=== PATIENT | female | born 1950 | race Caucasian/White ===

== ENCOUNTER 2018-01-29 09:26 | Emergency (ER) | payer MEDICARE, MEDICAID, SELFPAY ==
[2018-01-29 09:30] VITALS: BP 158/87; PULSE 80; RESP 18; TEMP 36.8; O2SAT 98
--- NOTE | 2018-01-29 09:57 | ED.GENADUL_ITS ---
Discharge Plan Disposition Patient Disposition: HOME Condition: Stable Discharge Details Chief Complaint: Orthopedic Clinical Impression: Hip pain Primary Care Provider: Olivia Escobar ED Provider: Nancy Adams Home Meds and New Rx's Prescriptions: New cyclobenzaprine 5 mg tablet 5 mg PO TID PRN (Reason: pain) Qty: 9 RF: 0 Continue multivitamin [Daily Multiple] 1 EACH tablet 1 ea PO DAILY RF: 0 cholecalciferol (vitamin D3) [Vitamin D3] 2,000 UNIT capsule 2,000 unit PO DAILY RF: 0 calcium carb,[id number] D3 [Calcium Magnesium + D] 1 EACH tablet 1 ea PO DAILY RF: 0 clobetasol-emollient 45 GM cream 45 gm Topical BID Qty: 1 RF: 2 ferrous sulfate [Iron (ferrous sulfate)] 325 MG tablet 325 mg PO PRN RF: 0 aspirin, buffered 325 mg Tablet 325 mg PO DAILY RF: 0 naproxen sodium [Aleve] 220 mg Tablet 220 mg PO BID PRNRF: 0 ibuprofen 200 mg Tablet 400 mg PO DAILY RF: 0 Discharge Instructions Instructions: Cyclobenzaprine (By mouth), Sciatica (ED), Hip Pain (ED), Lower Back Exercises (ED) Additional Instructions: Please return immediately to the emergency department if you develop any new or worsening symptoms or if you become otherwise concerned. It is extremely important that you make an appointment to be seen by your primary care doctor and by physical therapy within the next 1-2 weeks and follow-up for this visit. Referrals: Olivia Escobar [Primary Care Provider] - Clement Vega, PT [PHYSICAL THERAPIST] - Discharge Data Discharge Date/Time-TO BE ENTERED AT DEPARTURE: 01/29/18 11:49 Medical Decision Making Yamel Hess is a 29-year-old woman with history of lichen sclerosis and no other major medical problems presenting to the emergency department with gradually worsening left buttock/hip pain, with acute worsening yesterday when she slipped but did not fall on ice. Benign physical exam without motor/ sensory deficit, vascular deficit, skin changes. Concern for likely sciatica. Doubt fracture, however will obtain x-rays for rule out pathologic bony process. Exam/history not consistent with myositis, abscess, DVT, cauda equina syndrome, other cord compression, or other acute emergent life or limb threatening process. Patient declines pain medication at this time. X-rays okay. Patient again declines pain medication. Lengthy discussion with patient regarding return to emergency department precautions and importance of outpatient follow-up with PCP and physical therapy. Patient is amenable to the plan. Patient walked out of the emergency department without issue. Medical Records Medical records reviewed: Yes I reviewed the patient's medical records. Imaging Data Radiologic Study: Attestation: I personally reviewed and interpreted this imaging study as follows: Radiologist's impression: LEFT HIP AND PELVIS: Two views. No bone or joint abnormality is identified. The soft tissues are unremarkable. IMPRESSION: No acute abnormality. HPI General Mode of arrival: ambulatory . Date/Time Provider Initiated Documentation: 01/29/18 09:40 . Limitations to Documentation: no limitations . Information obtained by: patient, RN notes reviewed and old records reviewed . HPI Narrative: Yamel Hess is a 67-year-old woman with history of lichen sclerosis presenting to the emergency department with hip pain. Patient reports that over the past few weeks she has noticed increasing pain in her left buttock and left hip. Patient reports that she was walking down a ramp yesterday afternoon carrying a heavy box and slipped on ice. She did not fall. Patient reports that since that slip she has had increased pain in the left hip and buttock, to the point where it is very difficult for her to sit down. She is more comfortable standing and walking. She denies any back pain or any other pain, although she reports the pain in buttock radiates somewhat into the back of her left thigh. No fevers, no cough, no shortness of breath, no numbness, no tingling, no weakness, no rash. Otherwise has been in her usual state of health. No recent travel. No swelling of the lower legs. No changes in urination or bowel movements. Has been eating and drinking normally. Patient reports that her pain is manageable, but she came to the emergency department out of concern for what the cause of her pain is. Related Data Home Medications Medication Instructions Recorded Confirmed calcium carb,[id number] D3 1 ea PO DAILY 11/13/14 01/29/18 [Calcium Magnesium + D] cholecalciferol (vitamin D3) 2,000 unit PO DAILY 11/13/14 01/29/18 [Vitamin D3] clobetasol-emollient 45 gm TOPICAL BID #1 tube 11/13/14 multivitamin [Daily Multiple] 1 ea PO DAILY 11/13/14 01/29/18 ferrous sulfate [Iron (ferrous 325 mg PO PRN 08/23/17 01/29/18 sulfate)] aspirin, buffered 325 mg PO DAILY 01/29/18 01/29/18 cyclobenzaprine 5 mg PO TID PRN #9 tab 01/29/18 ibuprofen 400 mg PO DAILY 01/29/18 01/29/18 naproxen sodium [Aleve] 220 mg PO BID PRN 01/29/18 01/29/18 Previous Rx's Medication Instructions Recorded cyclobenzaprine 5 mg PO TID PRN #9 tab 01/29/18 Allergies Allergy/AdvReac Type Severity Reaction Status Date / Time latex Allergy Unverified 01/29/18 09:34 venom-honey bee Allergy Unverified 01/29/18 09:34 iodine AdvReac Intermediate Vomiting Unverified 01/29/18 09:34 General Stated Complaint: Orthopedic RADHA: 4 Review of Systems Review of Systems Constitutional: denies fevers Eyes: denies eye pain ENT: denies facial pain, dental pain, sore throat Cardiovascular: denies chest pain, edema Respiratory: denies SOB, cough GI: denies abdominal pain, vomiting, diarrhea, constipation : denies flank pain, denies urinary hesitancy/retention, incontinence MSK: denies back pain, neck pain, reports left hip and buttock pain Skin: denies rash Neuro: denies headaches, weakness, n/t PFSH Lichen sclerosus et atrophicus Family History Mother Heart disease Father Personal history of malignant neoplasm section Rotator Cuff Repair Family History Mother Heart disease Father Personal history of malignant neoplasm Medical History Lichen sclerosus et atrophicus Social History Smoking/Tobacco Use Status: Never Surgical History section Rotator Cuff Repair Social History Smoking/Tobacco Use Status: Never Exam Narrative Exam Narrative: Constitutional: well and [id number]-[id number]-gkcbrphsk, pleasant, conversing normally. And throughout exam, normal gait HENT: head atraumatic, normocephalic normal inspection, mucous membranes moist Eyes: conjunctiva normal, sclera normal, pupils 3mm b/l Neck: no stridor, normal ROM, trachea midline Resp: normal work of breathing Cardio: normal rate, normal rhythm, DP pulses intact and symmetric Back: normal inspection, no rash, no lumbar vertebral or paraspinal tenderness to palpation. Left buttock tender to palpation over ischial spine, mild tenderness palpation over left lateral hip. No skin changes, no edema. Skin: warm, dry, normal color, no rash Neuro: alert, not altered, grossly non-focal, normal tone. Motor 5 out of 5 bilateral legs, no sensory deficit. Ext: no edema, no posterior calf tenderness, feet warm and well-perfused bilaterally Psych: normal mood, normal affect, normal behavior Course Vital Signs Temperature 36.8 C 01/29/18 09:30 Pulse 80 01/29/18 09:30 Respiratory Rate 18 01/29/18 09:30 Blood Pressure 158/87 H 01/29/18 09:30 Pulse Oximetry 98 01/29/18 09:30 Temperature 36.8 C 01/29/18 09:30 Temperature Source Temporal Artery Scan 01/29/18 09:30 Pulse 80 01/29/18 09:30 Respiratory Rate 18 01/29/18 09:30 Respiratory Effort Non-Labored 01/29/18 09:33 Blood Pressure 158/87 H 01/29/18 09:30 Pulse Oximetry 98 01/29/18 09:30 Oxygen Delivery Method Room Air 01/29/18 09:30 Oxygen Flow Rate 0 01/29/18 09:30 Pain Level 10 01/29/18 09:30
--- NOTE | 2018-01-29 10:11 | NUR.NOTE ---
MD Adams is at the bedside.
--- NOTE | 2018-01-29 10:13 | DI.RAD_ITS ---
SYMPTOM/DIAGNOSIS: LT HIP AND BUTTOCK PAIN, MINOR TRAUMA LEFT HIP AND PELVIS: Two views. No bone or joint abnormality is identified. The soft tissues are unremarkable. IMPRESSION: No acute abnormality.
[2018-01-29 11:49] VITALS: BP 154/78; PULSE 79; RESP 16; O2SAT 100
== END 2018-01-29 11:49 | disposition home or self-care (01) ==
LOC: ER 11:49
PROVIDERS: Emergency Provider Student in an Organized Health Care Education/Training Program; PCP Nurse Practitioner
DX: M25.552 Pain in left hip (principal); W00.0XXA Fall on same level due to ice and snow, initial encounter
CPT/HCPCS: 99283; 73502

== ENCOUNTER → 2018-02-06 08:55 | Outpatient (BNVA) | payer MEDICARE, MEDICAID, SELFPAY | PROVIDERS: PCP Nurse Practitioner; Referring Provider Nurse Practitioner; Visit Provider Orthopaedic Surgery | DX: M70.61 Trochanteric bursitis, right hip (principal); M70.62 Trochanteric bursitis, left hip; M25.552 Pain in left hip | CPT/HCPCS: 99211; 99214 ==

== ENCOUNTER 2018-03-05 11:11 | Outpatient (REF) | payer MEDICARE, SELFPAY ==
[2018-03-05 13:41] LABS: HCT 35.9 % (36.0-46.0); HGB 11.2 g/dL (12.0-15.5); Mean Corp. HGB Concentration 31.2 g/dL (32.0-36.0); Mean Corpuscular Hemoglobin 25.1 pg (27.0-33.0); Mean Corpuscular Volume 80.5 fL (80-95); Mean Platelet Volume 11.4 fL (8.0-11.0); Platelet Count 255 x1000/uL (130-400); RBC 4.46 m/cumm (4.00-5.20); RBC Distribution Width 16.8 % (11.7-14.6); White Blood Cell Count 5.31 k/cumm (4.4-10.8)
[2018-03-05 13:52] LABS: Iron 55 ug/dL (50-175); Total Iron Binding Capacity 420 ug/dL (250-450); Transferrin Sat 13 % (15-50)
[2018-03-05 14:09] LABS: Ferritin 9 ng/mL (8-388)
== END 2018-03-05 11:31 ==
LOC: NCHCN 11:11
PROVIDERS: PCP Nurse Practitioner; Visit Provider Nurse Practitioner
DX: D64.9 Anemia, unspecified (principal)
CPT/HCPCS: 85027; 82728; 83540; 83550

== ENCOUNTER → 2018-03-21 09:00 | Outpatient (BNVA) | payer MEDICARE, MEDICAID, SELFPAY | PROVIDERS: PCP Nurse Practitioner; Referring Provider Nurse Practitioner; Visit Provider Orthopaedic Surgery | DX: M70.62 Trochanteric bursitis, left hip (principal) | CPT/HCPCS: 99213 ==

== ENCOUNTER 2018-06-19 09:03 | Outpatient (REF) | payer MEDICARE, SELFPAY ==
[2018-06-19 13:46] LABS: Abs Immature Grans 0.01 k/cumm (0.0-0.09); Absolute Basophil Count 0.01 k/cumm (0.0-0.2); Absolute Eosinophil Count 0.31 k/cumm (0.0-0.7); Absolute Lymphocyte Count 1.21 k/cumm (1.2-3.4); Absolute Monocyte Count 0.62 k/cumm (0.11-0.7); Absolute Neutrophil Count 3.28 k/cumm (1.2-6.7); Basophils % 0.2; Eosinophils % 5.7; HCT 36.1 % (36.0-46.0); HGB 11.4 g/dL (12.0-15.5); Immature Grans % 0.2; Lymphocytes % 22.2; Mean Corp. HGB Concentration 31.6 g/dL (32.0-36.0); Mean Corpuscular Hemoglobin 25.9 pg (27.0-33.0); Mean Platelet Volume 11.3 fL (8.0-11.0); Monocytes % 11.4; Neutrophils % 60.3; Platelet Count 237 x1000/uL (130-400); RBC Distribution Width 17.1 % (11.7-14.6); White Blood Cell Count 5.44 k/cumm (4.4-10.8)
[2018-06-19 14:50] LABS: ALT 30 U/L (12-78); AST 22 U/L (15-37); Albumin 3.6 g/dL (3.4-5.0); Alkaline Phosphatase 99 U/L (46-116); Anion Gap 7.7 mmol/L (3-11); BUN 19 mg/dL (7-18); Bilirubin, Total 0.4 mg/dL (0.2-1.0); CO2 29.3 mmol/L (21.0-32.0); CREATININE 1.01 mg/dL (0.55-1.02); Calcium 8.7 mg/dL (8.5-10.1); Chloride 103 mmol/L (98-107); Estimated GFR 54.51 (mL/min/1.73m2); Glucose 101 mg/dL (70-100); Potassium 4.1 mmol/L (3.5-5.1); Sodium 140 mmol/L (136-145); TSH (W/Ref FT4) 1.93 uIU/mL (0.358-3.74); Total Protein 6.9 g/dL (6.4-8.2)
[2018-06-19 15:11] LABS: Iron 71 ug/dL (50-175); Total Iron Binding Capacity 395 ug/dL (250-450); Transferrin Sat 18 % (15-50)
[2018-06-19 15:44] LABS: Folate 18.9 ng/mL (8.6-20.0); Vitamin B12 453 pg/mL (193-986)
[2018-06-19 19:45] LABS: Vitamin D 25 Total 23.2 ng/ml (30-100)
[2018-06-20 11:59] LABS: IgA 320 mg/dL (85-499); Interpretation SEE COMMENTS; Tissue Transglutaminase IgA <1.2 U/mL (<4.0)
== END 2018-06-19 09:23 ==
LOC: NCHCN 09:03
PROVIDERS: PCP Nurse Practitioner; Visit Provider Nurse Practitioner
DX: D64.9 Anemia, unspecified (principal); E55.9 Vitamin D deficiency, unspecified; R53.83 Other fatigue
CPT/HCPCS: 80053; 82306; 82784; 83516; 82607; 82746; 83540; 83550; 84443; 85025

== ENCOUNTER 2019-03-06 12:36 | Outpatient (REF) | payer MEDICARE, SELFPAY ==
[2019-03-06 13:11] LABS: Absolute Basophil Count 0.02 k/cumm (0.0-0.2); Absolute Eosinophil Count 0.31 k/cumm (0.0-0.7); Absolute Lymphocyte Count 1.47 k/cumm (1.2-3.4); Basophils % 0.4; Eosinophils % 5.8; HCT 38.9 % (36.0-46.0); HGB 12.4 g/dL (12.0-15.5); Lymphocytes % 27.7; Mean Corp. HGB Concentration 31.9 g/dL (32.0-36.0); Mean Corpuscular Hemoglobin 27.2 pg (27.0-33.0); Mean Corpuscular Volume 85.3 fL (80-95); Mean Platelet Volume 11.4 fL (8.0-11.0); Monocytes % 13.2; Neutrophils % 52.9; Platelet Count 239 x1000/uL (130-400); RBC 4.56 m/cumm (4.00-5.20); RBC Distribution Width 15.5 % (11.7-14.6)
[2019-03-06 13:27] LABS: Iron 84 ug/dL (50-170); Total Iron Binding Capacity 392 ug/dL (250-450); Transferrin Sat 21 % (15-50)
[2019-03-06 14:03] LABS: ALT 23 U/L (14-59); AST 17 U/L (15-37); Albumin 3.7 g/dL (3.4-5.0); Alkaline Phosphatase 95 U/L (46-116); Anion Gap 9.4 mmol/L (3-11); BUN 18 mg/dL (7-18); Bilirubin, Total 0.4 mg/dL (0.2-1.0); CO2 28.6 mmol/L (21.0-32.0); CREATININE 0.94 mg/dL (0.55-1.02); Calcium 8.8 mg/dL (8.5-10.1); Calculated LDL 125 mg/dL; Chloride 104 mmol/L (98-107); Cholesterol 221 mg/dL (<200); Estimated GFR 59.04 (mL/min/1.73m2); Ferritin 11 ng/mL (8-252); Glucose 95 mg/dL (74-106); HDL Cholesterol 70 mg/dL (40-60); Potassium 3.9 mmol/L (3.5-5.1); Sodium 142 mmol/L (136-145); Total Protein 7.1 g/dL (6.4-8.2); Triglyceride 133 mg/dL (<150)
[2019-03-07 05:44] LABS: Vitamin D 25 Total 41.6 ng/ml (30-100)
== END 2019-03-06 12:56 ==
LOC: NCHCN 12:36
PROVIDERS: PCP Nurse Practitioner; Visit Provider Nurse Practitioner
DX: D50.9 Iron deficiency anemia, unspecified (principal); E55.9 Vitamin D deficiency, unspecified; M85.80 Other specified disorders of bone density and structure, unspecified site; M25.50 Pain in unspecified joint; E78.89 Other lipoprotein metabolism disorders
CPT/HCPCS: 80053; 80061; 82306; 82728; 83540; 83550; 85025

== ENCOUNTER 2019-05-09 00:49 | Outpatient (CLI) | payer MEDICARE, SELFPAY ==
--- NOTE | 2019-05-09 15:00 | DI.DEXA_ITS ---
EXAM: XR DEXA BONE DENSITY W/WO [facility] CLINICAL HISTORY: OSTEOPENIA, M85.88 TECHNIQUE: Hologic densitometer COMPARISON: 2006 FINDINGS: The MIGUEL image shows no evidence of compression fractures. The bone mineral density measurements of t he lumbar spine correspond to a total T-score of -0.8, in the normal range. This is not significantl y changed from 2007. The bone mineral density measurements of the left hip correspond to a total T-score of -1.0 and a fem oral neck T-score of -1.7, in the osteopenic range. This is a 9.7 percent decrease when compared wit h 2006. Bone mineral density measurements of the left forearm correspond to a T-score of the distal 3rd of -1.4, in the osteopenic range. The forearm was not analyzed in 2006. IMPRESSION: Osteopenia of the left forearm and left hip. Normal bone mineral density of the lumbar spine.
--- NOTE | 2019-05-09 15:20 | DI.MAMMO_ITS ---
EXAM: MAMMO SCREENING CLINICAL HISTORY: SCREENING, Z12.39 TECHNIQUE: Mammograms were interpreted according to the usual protocol including computer analysis w [employer] CAD system, tomosynthesis and C-view imaging. COMPARISON: 2009 and 2014 FINDINGS: The breasts are composed of scattered fibroglandular densities, Breast Density category B. No suspicious masses or suspicious microcalcifications are seen. No skin thickening or abnormal axillary lymph nodes are seen. There has been no significant change from prior exams. IMPRESSION: BI-RADS category 1, yearly screening mammography is recommended. Breast density category B, scattered fibroglandular densities.
== END 2019-05-09 01:09 ==
PROVIDERS: PCP Nurse Practitioner; Visit Provider Family Medicine
DX: M85.88 Other specified disorders of bone density and structure, other site (principal); Z12.31 Encounter for screening mammogram for malignant neoplasm of breast
CPT/HCPCS: 77063; 77067; 77080

== ENCOUNTER 2020-01-21 16:07 | Outpatient (REF) | payer MEDICARE, SELFPAY ==
[2020-01-25 07:14] LABS: Patient Race White; SARS-CoV-2 RNA Undetected (Undetected); SARS-CoV-2 Specimen Source Nasal
== END 2020-01-21 16:27 ==
LOC: NCHCN 16:07
PROVIDERS: PCP Nurse Practitioner; Visit Provider Nurse Practitioner Family
DX: Z20.828 Contact with and (suspected) exposure to other viral communicable diseases (principal)
CPT/HCPCS: U0003

== ENCOUNTER 2020-04-09 15:15 | Outpatient (REF) | payer MEDICARE, SELFPAY ==
[2020-04-09 17:51] LABS: HCT 33.5 % (36.0-46.0); HGB 10.6 g/dL (11.2-15.7); MCH 25.7 pg (27.0-33.0); MCHC 31.6 % (32.0-36.0); MCV 81.3 fL (80-95); MPV 10.8 fL (8.0-11.0); Platelet Count 291 10^3/uL (130-400); RBC 4.12 10^6/uL (3.93-5.22); RDW 14.7 % (11.7-14.6); RDW-SD 43.2 fL; WBC 5.51 10^3/uL (4.4-10.8)
[2020-04-09 18:05] LABS: ALT 29 U/L (14-59); AST 25 U/L (15-37); Albumin 3.8 g/dL (3.4-5.0); Alkaline Phosphatase 100 U/L (46-116); Anion Gap 8.7 mmol/L (3-11); BUN 19 mg/dL (7-18); Bilirubin, Total 0.3 mg/dL (0.2-1.0); CO2 28.3 mmol/L (21.0-32.0); Calcium 8.8 mg/dL (8.5-10.1); Calculated LDL 121 mg/dL (<100); Chloride 103 mmol/L (98-107); Cholesterol 220 mg/dL (<200); Estimated GFR 54.81 (mL/min/1.73m2); Glucose 98 mg/dL (74-106); HDL Cholesterol 69 mg/dL (40-60); Potassium 3.9 mmol/L (3.5-5.1); Sodium 140 mmol/L (136-145); Total Protein 7.2 g/dL (6.4-8.2); Triglyceride 150 mg/dL (<150)
== END 2020-04-09 15:16 | disposition home or self-care (01) ==
LOC: NCHCN 15:15
PROVIDERS: PCP Nurse Practitioner; Visit Provider Nurse Practitioner
DX: M85.88 Other specified disorders of bone density and structure, other site (principal); D50.9 Iron deficiency anemia, unspecified; Z13.89 Encounter for screening for other disorder
CPT/HCPCS: 80053; 80061; 85027

== ENCOUNTER 2020-04-14 13:15 | Outpatient (REF) | payer MEDICARE, SELFPAY ==
[2020-04-14 13:16] LABS: Iron 47 ug/dL (50-170); Total Iron Binding Capacity 439 ug/dL (250-450); Transferrin Sat 11 % (15-50)
[2020-04-14 13:40] LABS: Ferritin 7 ng/mL (8-252); Folate 18.5 ng/mL (8.6-20.0); Vitamin B12 595 pg/mL (193-986)
== END 2020-04-14 13:16 | disposition home or self-care (01) ==
LOC: NCHCN 13:15
PROVIDERS: PCP Nurse Practitioner; Visit Provider Nurse Practitioner
DX: D64.9 Anemia, unspecified (principal)
CPT/HCPCS: 82607; 82728; 82746; 83540; 83550

== ENCOUNTER 2020-04-23 02:48 | Outpatient (CLI) | payer MEDICARE, MEDICAID, SELFPAY ==
[2020-04-23 11:27] LABS: Source Nasal/Nares
[2020-04-23 18:17] LABS: COVID-19 PCR Negative (Negative)
== END 2020-04-23 02:49 | disposition home or self-care (01) ==
LOC: LBO 02:49
PROVIDERS: PCP Nurse Practitioner; Visit Provider Surgery
DX: D64.9 Anemia, unspecified (principal)
CPT/HCPCS: 99214; U0003

== ENCOUNTER 2020-04-27 12:55 | Day surgery (SDC) | payer MEDICARE, MEDICAID, SELFPAY ==
--- NOTE | 2020-04-27 06:52 | ENDO_ITS ---
Date of service: 04/27/20 Time of Service: 15:36 Endoscopy Report DATE OF PROCEDURE: 04/27/20 PRE-OP DIAGNOSIS: Anemia POST-OP DIAGNOSIS: same (gastritis, esophagitis, mild diverticulosis) PROCEDURE: 1. EGD with biopsies 2. Colonoscopy SURGEON: Malgorzata Reyna ANESTHESIA: other (General/ASA 2/Isaiah Ribeiro CRNA) ESTIMATED BLOOD LOSS: 3 PATHOLOGY: other (multiple gastric biopsies) COMPLICATIONS: None DISPOSITION: same day INDICATIONS: The patient is here for Colonoscopy pre-op. Her last screening was in 2008 and was remarkable for diverticula. She has no family history of colon cancer. She has not had any bowel habit changes. -Discussed colonoscopy bowel prep as well as the procedure. Discussed possible complications of the procedure to include bleeding, pain, perforation, missed small lesion/polyp, sore throat, aspiration and adverse reaction to the medications. Questions were answered to patient?s satisfaction. No guarantees were implied or given. PREP: Miralax/Dulcolax PROCEDURE START TIME: 14:32 PROCEDURE END TIME: 15:02 COLONOSCOPY RETRACTION TIME: 9 minutes FINDINGS: Upper- moderate inflammation of the sstomach. No ulcers and no active bleeding Signs of reflux esophagitis Colonoscopy- mild diverticulosis PROCEDURE DESCRIPTION: After informed consent was obtained the patient was take to the procedure room and placed in a supine position. Monitors were applied and a time out was done. The patients name, date of , procedure type, allergies to medications and metal in their body was reviewed. A bite block was placed and the patient was sedated. Once sedated and comfortable the gastroscope was advanced through the oropharynx which was grossly normal into the esophagus. The proximal and mid- esophagus were normal. In the distal esophagus there was mild inflammation noted. The scope was advanced into the stomach and through the pylorus into the 3rd portion of the duodenum. The duodenum was noted to be normal. No Biopsies were done. The scope was retracted back into the stomach. There was moderate inflammation noted in the entire stomach. Biopsies were done to rule out H. pylori. There were no ulcers. There was no active bleeding. The scope was retro-flexed. The cardia and fundus showed inflammation as well. There was a small hiatal hernia noted. The scope was retracted back into the esophagus and biopsies were done of the GE junction to rule out Monroy's. The Z line was regular. The GE junction was at 40 cm. Biopsies were also done of the distal esophagus at 38 cm. While the patient was still sedated they were placed in a left decubitous position. A rectal exam was done. External exam was normal. Internal exam revealed a normal sphincter tone and no palpable masses. The scope was then introduced and retro-flexed. No internal hemorrhoids, masses or polyps were identified on retroflexion. The scope was then advanced to the cecum without difficulty. The ileocecal valve and appendiceal orifice were identified. The prep was aequate. The scope was then slowly retracted over 9 minutes back into the rectum. There were no polyps. There was mild diverticulosis noted in the sigmoid colon. The scope was removed and the patient was woken up and taken back to Same day surgery in stable condition. The patient tolerated the procedure well and there were no immediate complications. Follow up: 10 years for her next colonoscopy if her health allows. I will start patient on omeprazole 40 mg daily. Follow up with her PCP. May reduce to 20 mg in 1 months. Recommend avoiding NSAIDS as much as possible.
--- NOTE | 2020-04-27 06:53 | W.PM.DSUDISC ---
Discharge Plan Disposition Patient Disposition: HOME Condition: Good Discharge Details Reason For Visit: SCREENING Attending Provider: Malgorzata Reyna Primary Care Provider: Olivia Escobar Home Meds and New Rx's Prescriptions: New omeprazole 40 mg capsule,delayed release(DR/EC) 40 mg PO DAILY Qty: 30 RF: 3 Continued multivitamin [Daily Multiple] 1 EACH tablet 1 ea PO DAILY RF: 0 cholecalciferol (vitamin D3) [Vitamin D3] 2,000 UNIT capsule 2,000 unit PO DAILY RF: 0 clobetasol-emollient 45 GM cream 45 gm Topical BID Qty: 1 RF: 2 ibuprofen 200 mg Tablet 400 mg PO DAILY RF: 0 Discontinued bisacodyl [Dulcolax (bisacodyl)] 5 mg tablet,delayed release (DR/EC) 5 mg PO ONCE Qty: 4 RF: 0 polyethylene glycol 3350 17 gram/dose powder 17 g PO ONCE Qty: 238 RF: 0 Discharge Instructions Instructions: Diet for Stomach Ulcers and Gastritis (ED), Gastritis (DC), Esophagitis (DC), Diverticulosis (DC) Additional Instructions: Findings: inflammation of the stomach (no active bleeding) diverticulosis Follow up: 10 years for the next colonoscopy follow up with your primary care physician Please call if you develop: fevers >101.5 Nausea or Vomiting Abdominal pain that is not transient DAY SURGERY UNIT POST ENDOSCOPY INSTRUCTIONS 1. Because there will be medication in your system for the next 24 hours, you may feel a little sleepy. Your coordination will be affected. Therefore: a. Do not drive or operate dangerous equipment for 24 hours. b. Do not drink alcohol beverages for 24 hours (not even beer). c. Plan to go home and rest for the day. 2. Generally there are no restrictions on your activity after a day or so has gone by, but you may feel a bit fatigued for a few days. 3 After you arrive home you may have a light meal and return to a normal diet as you can tolerate it without feeling sick to your stomach. 4. After surgery, you may feel pain or discomfort. This should be only transient, but if it persists please contact your doctor. 5. If there are any questions regarding the findings of your procedure, please feel free to contact your doctor. 6. If you are unable to contact your doctor with a problem, contact the hospital at [phone]. 7. Continue all your regular medications unless directed otherwise. I understand the above instructions and have no questions. Signature of Patient or Responsible Adult Escort Date/Time Name of Responsible Adult Escort Signature of Nurse Date/Time Activity:: Activity as Tolerated Diet:: low acid diet Discharge Orders Discharge Orders: Discharge Order (Routine); Ordered 04/27/20 Ordered By: Malgorzata Reyna
[2020-04-27 13:09] VITALS: BP 154/87; PULSE 74; RESP 18; TEMP 37; O2SAT 100
[2020-04-27] MEDS: Lactated Ringers 1,000 ML 80 ML IV (13:48)
--- NOTE | 2020-04-27 14:37 | STOM_PTH ---
PATIENT: Yamel Turner LOC: [facility] U#:[id number] AGE/SX: 69/F ROOM: RE04/27/[address]: Malgorzata Reyna MD : 1950 BED: DIS: 04/27/2020 SPEC #: [id number] RECD: 04/28/20 11:09 STATUS: ROLDNA SQUIRES #: [id number] CIRA: 04/27/20 14:[address]: Malgorzata Reyna DEPT: Surgical Specimen RECD BY: Giuliana Brenner ENTERED: 04/28/20 11:11 SP TYPE: STOMACH OTHR DR: Olivia Escobar Tissues: 1 - STOMACH BIOPSY 2 - STOMACH BIOPSY 3 - STOMACH BIOPSY 4 - ESOPHAGUS BIOPSY 5 - ESOPHAGUS BIOPSY Procedures: GROSS AND MICRO LEVEL 4 IMMUNOPEROXIDASE STAIN Comments: [id number]
[2020-04-27] MEDS: Hyoscyamine 0.125 MG SL/ORAL/CHEW SL (15:29)
[2020-04-27 15:39] VITALS: BP 167/104; PULSE 73; RESP 16; TEMP 36.5; O2SAT 99
== END 2020-04-27 16:26 | disposition home or self-care (01) ==
LOC: SUR 12:56
PROVIDERS: PCP Nurse Practitioner; Visit Provider Surgery
PROC: (CPT 43239; principal; 2020-04-27 14:30)
DX: Z12.11 Encounter for screening for malignant neoplasm of colon (principal); K21.00 Gastro-esophageal reflux disease with esophagitis, without bleeding; K29.60 Other gastritis without bleeding; B96.81 Helicobacter pylori [H. pylori] as the cause of diseases classified elsewhere; D50.9 Iron deficiency anemia, unspecified; E55.9 Vitamin D deficiency, unspecified; K57.30 Diverticulosis of large intestine without perforation or abscess without bleeding
CPT/HCPCS: 43239; G0121; 88305; 88361; J2001; J3490

== ENCOUNTER → 2020-05-29 09:45 | Outpatient (BNVA) | payer MEDICARE, SELFPAY | PROVIDERS: PCP Nurse Practitioner; Referring Provider Nurse Practitioner; Visit Provider Surgery | DX: K21.00 Gastro-esophageal reflux disease with esophagitis, without bleeding (principal); Z86.19 Personal history of other infectious and parasitic diseases | CPT/HCPCS: 99212; 99442 ==

== ENCOUNTER 2020-05-31 01:08 | Emergency (ER) | payer MEDICARE, MEDICAID, SELFPAY ==
[2020-05-31 01:18] VITALS: BP 199/105; PULSE 70; RESP 16; TEMP 36.5; O2SAT 99
[2020-05-31 01:27] VITALS: RESP 16
--- NOTE | 2020-05-31 01:30 | DI.CT_ITS ---
EXAM: CT HEAD WO CLINICAL HISTORY: vertigo. TECHNIQUE: Imaging Protocol: Axial computed tomography images with coronal and sagittal reformatted images were created and reviewed COMPARISON: No exams were available for comparison FINDINGS: The ventricular system is normal in appearance. No evidence of acute intracranial hemorrhage, mass effect, or midline shift. The orbital structures are unremarkable. The temporal bone structures appear intact. Calvarium: Normal. Visualized Paranasal sinuses/Mastoids: Mastoid air cells are clear. There is evidence of chronic tali ateral maxillary sinusitis and prior antrectomies. There is mild mucoperiosteal thickening of the et hmoid air cells. IMPRESSION: No evidence of acute intracranial process. RADIATION DOSE DELIVERED: 688.77mGy.cm Total DLP 688.77mGy.cm Total DLP DATA REPOSITORY: All CT scans at this facility are submitted to the National Radiology Data Registry (NRDR) Dose Index Registry (DIR) with the [employer] ([employer]). RADIATION OPTIMIZATION: All CT scans at this facility use at least one of these dose optimization te chniques: automated exposure control; mA and/or kV adjustment per patient size (includes targeted exa ms where dose is matched to clinical indication); or iterative reconstruction.
--- NOTE | 2020-05-31 01:30 | RT.EKG_ITS ---
APPROVED REPORT Exam: Resting ECG Patient Location: E HR:71 bpm ECG Measurements Heart Rate 71 AXIS NV 184 P 8 QRSd 98 QRS 31 QT 443 T 18 QTc 481 Conclusion Sinus rhythm...normal P axis, V-rate 60- 99
--- NOTE | 2020-05-31 01:34 | DI.CT_ITS ---
EXAM: CT ABDOMEN PELVIS WO INDICATION: abdominal pain and nausea. COMPARISON: No exams were available for comparison TECHNIQUE: FINDINGS: CT examination of the abdomen and pelvis was performed without IV contrast administration period imag es obtained through the lung bases are unremarkable. The liver is unremarkable in appearance. Gallbladder and bile ducts are CT normal. Pancreas appears normal. Spleen is unremarkable in appearance. Adrenals appear normal. The kidneys are unremarkable with no evidence of hydronephrosis, nephrolithiasis, or renal mass.. Ur inary bladder unremarkable. Abdominal aorta is of normal diameter and no major vascular abnormality is seen. No abdominal wall hernia. No abdominal or pelvic adenopathy. PAYMENT PROCESSOR structures appear intact. Appendix is normal. No evidence of diverticulitis or bowel obstruction. IMPRESSION: Negative CT examination of the abdomen and pelvis. RADIATION DOSE DELIVERED: 754.13mGy.cm Total DLP 754.13mGy.cm Total DLP RADIATION OPTIMIZATION: All CT scans at this facility use at least one of these dose optimization te chniques: automated exposure control; mA and/or kV adjustment per patient size (includes targeted exa ms where dose is matched to clinical indication); or iterative reconstruction.
--- NOTE | 2020-05-31 01:36 | ED.GENADUL_ITS ---
Discharge Plan Disposition Patient Disposition: HOME Condition: Stable Discharge Details Clinical Impression: Dizziness, Nausea & vomiting Primary Care Provider: Olivia Escobar ED Provider: Rosales Awan Home Meds and New Rx's Prescriptions: New ondansetron 4 mg tablet,disintegrating 4 mg PO Q8H PRN (Reason: nausea and vomiting) Qty: 30 RF: 0 meclizine 25 mg tablet 25 mg PO TID PRN (Reason: dizziness) Qty: 30 RF: 0 Continued clobetasol [Temovate] 0.05 % ointment 1 applic topical BID Qty: 60 RF: 2 multivitamin [Daily Multiple] 1 EACH tablet 1 ea PO DAILY RF: 0 cholecalciferol (vitamin D3) [Vitamin D3] 2,000 UNIT capsule 2,000 unit PO DAILY RF: 0 omeprazole 40 mg capsule,delayed release(DR/EC) 40 mg PO DAILY Qty: 30 RF: 3 ibuprofen 200 mg Tablet 400 mg PO DAILY RF: 0 Discharge Instructions Instructions: Acute Nausea and Vomiting (ED), Dizziness (ED) Additional Instructions: Your blood work showed no concerning findings and your cat scans did not show any concerning findings this could be a stomach bug or peripheral vertigo follow up with your primary care provider within 1 week if you feel more ill, have persistent vomit or weakness return to the emergency department Medical Decision Making 69 yo female with hx of gerd on omeprazole who comes in with chief complaint of 3 hours of feeling dizziness when she turns her head along with n/v and diarrhea. She states her abdomen will intermittently feel crampy as well but denies any sharp abdominal pain and no chest pain or dyspnea. Denies headaches, vision changes. She arrives ambulating on her own. She has horizontal nystagmus in both eyes when looking to the left and reassuring HINTS exam. NO motor or sensation deficits, normal speech. NIH of 0 so doubt central causes of vertigo and no neck pain or headache so doubt dissection of vessels in the neck. No chest pain or pressure and no dyspnea so doubt acs or pe and no hypoxia or evidence of dvt on exam. She has had some tenderness in the right flank as well and given this and the nausea and vomit will obtain ct to evaluate for kidney stone. She has no abdominal tenderness or distention so doubt surgical pathology such as appendicitis, sbo or mesenteric ischemia. labs and imaging show no acute findings. She feels better and only has nausea now and is tolerating PO. I suspect peripheral vertigo and possible gastroenteritis given the diarrhea. She is stable for discharge and is comfortable with this plan, understands to follow up with pcp and return precautions given Differential Diagnosis Differential Diagnosis: bppv, kidney stone, sbo, arrythmia, gastroenteritis Imaging Data Radiologic Study: Attestation: I personally reviewed and interpreted this imaging study as follows: Imaging: CT Scan Radiologist's impression: no acute findings on head ct Radiologic Study #2: Attestation: I personally reviewed and interpreted this imaging study as follows: Imaging: CT Scan Radiologist's impression: no acute findings on abdomen ultrasound Lab Data Lab results reviewed: Yes I reviewed the patient's lab results. ECG Data Attestation: I personally reviewed and interpreted this ECG (s) as follows: Prior ECG tracings: not available for review Interpretation: sinus rhythm, rate of 71, pr 184, qtc 481, no acute st t wave ischemic findings HPI General Mode of arrival: ambulatory . Date/Time Provider Initiated Documentation: 05/31/20 01:09 . Limitations to Documentation: no limitations . Information obtained by: patient . History of Present Illness 69 year old F presents to the emergency department with the chief complaint of nausea and dizzines, described as moderate, Patient reports no radiation. Patient started experiencing this hour(s) (3) and it has been constant. No relieving factors improve symptom(s), No exacerbating factors reported . Patient did receive the following treatments prior to arrival, none Related Data Home Medications Medication Instructions Recorded Confirmed cholecalciferol (vitamin D3) 2,000 unit PO DAILY 11/13/14 04/27/20 [Vitamin D3] multivitamin [Daily Multiple] 1 ea PO DAILY 11/13/14 04/27/20 ibuprofen 400 mg PO DAILY 01/29/18 04/27/20 omeprazole 40 mg PO DAILY #30 cap 04/27/20 clobetasol 0.05 % topical ointment 1 applic TOPICAL BID #60 g 05/25/20 05/25/20 meclizine 25 mg PO TID PRN #30 tab 05/31/20 ondansetron 4 mg PO Q8H PRN #30 tab 05/31/20 Previous Rx's Medication Instructions Recorded omeprazole 40 mg PO DAILY #30 cap 04/27/20 clobetasol 0.05 % topical ointment 1 applic TOPICAL BID #60 g 05/25/20 meclizine 25 mg PO TID PRN #30 tab 05/31/20 ondansetron 4 mg PO Q8H PRN #30 tab 05/31/20 Allergies Allergy/AdvReac Type Severity Reaction Status Date / Time wool Allergy Intermediate itchy Verified 04/27/20 13:15 latex Allergy Verified 04/27/20 13:15 venom-honey bee Allergy Verified 04/27/20 13:15 iodine AdvReac Intermediate Vomiting Verified 04/27/20 13:15 General Stated Complaint: Dizzy/Sync RADHA: 3 Review of Systems All systems reviewed & are unremarkable except as noted in HPI and below Constitutional Constitutional: Denies chills, Denies fever(s) and Denies weakness Cardiovascular Cardiovascular: Denies chest pain and Denies dyspnea Respiratory Respiratory: Denies cough and Denies dyspnea Gastrointestinal Gastrointestinal: Denies abdominal pain Musculoskeletal Musculoskeletal: Denies joint swelling Neurologic Neurologic: Denies weakness Psychiatric Psychiatric: Denies depression [facility] Medical History (Updated 05/31/20 @ 02:45 by Rosales Awan MD) Hernia of abdominal wall Herpes History of Helicobacter pylori infection Iron deficiency anemia Joint pain Lichen sclerosus et atrophicus Lichen sclerosus et atrophicus of the vulva Osteopenia Peptic reflux esophagitis Vitamin D deficiency Surgical History (Updated 05/29/20 @ 09:00 by Malgorzata Reyna MD) section H/O esophagogastroduodenoscopy (~04/27/20) Rotator Cuff Repair Family History Mother Heart disease Father Personal history of malignant neoplasm prostate Social History Smoking/Tobacco Use Status: Never Smoking risk assessment performed?: Yes Alcohol Intake: current Alcohol Intake frequency: a few times a month Alcohol type: wine Drug use: Never Substance use type: does not use Do you feel safe at home: Yes Do you feel safe in your relationship?: Yes Exam Const General: no acute distress Orientation: alert HENMT Head: normal to inspection Ears: external ears normal General nose exam: external nose normal Mouth: moist mucous membranes Eyes General: appearance normal, both eyes and all related structures Neck Neck: normal visual inspection Resp Effort & Inspection: normal respiratory effort and able to speak in complete sentences Cardio Rate: regular rate GI Palpation: soft, not rigid and nontender Skin General skin exam: no rashes or lesions noted Neuro General: patient alert and patient oriented x3 Extrem General: normal to inspection Psych Mental Status: mental status grossly normal Course Vital Signs Vital signs: Vital Signs Temperature 36.5 C 05/31/20 01:18 Pulse 70 05/31/20 01:18 Respiratory Rate 16 05/31/20 01:18 Blood Pressure 199/105 H 05/31/20 01:18 Pulse Oximetry 99 05/31/20 01:18 Temperature 36.5 C 05/31/20 01:18 Temperature Source Temporal Artery Scan 05/31/20 01:18 Pulse 70 05/31/20 01:18 Respiratory Rate 16 05/31/20 01:27 Respiratory Effort Non-Labored 05/31/20 01:27 Respiratory Depth Normal 05/31/20 01:27 Respiratory Pattern Normal 05/31/20 01:27 Blood Pressure 199/105 H 05/31/20 01:18 Blood Pressure Position Sitting 05/31/20 01:18 Pulse Oximetry 99 05/31/20 01:18 Oxygen Delivery Method Room Air 05/31/20 01:18 Oxygen Flow Rate 0 05/31/20 01:18 Pain Level 5 05/31/20 01:18
[2020-05-31 01:52] LABS: Abs Immature Grans 0.08 10^3/uL (0.0-0.06); Absolute Basophil Count 0.04 10^3/uL (0.0-0.2); Absolute Lymphocyte Count 1.28 10^3/uL (1.2-3.4); Absolute Monocyte Count 0.62 10^3/uL (0.1-0.8); Absolute Neutrophil Count 6.09 10^3/uL (1.2-6.7); Basophils % 0.5; Eosinophils % 2.4; HCT 33.1 % (36.0-46.0); HGB 10.1 g/dL (11.2-15.7); Lymphocytes % 15.4; MCH 24.5 pg (27.0-33.0); MCHC 30.5 % (32.0-36.0); MCV 80.1 fL (80-95); Monocytes % 7.5; Neutrophils % 73.2; Nucleated RBC 0 %; Platelet Count 256 10^3/uL (130-400); RBC 4.13 10^6/uL (3.93-5.22); RDW 16.2 % (11.7-14.6); RDW-SD 47.5 fL; WBC 8.31 10^3/uL (4.4-10.8)
[2020-05-31 02:05] LABS: ALT 28 U/L (14-59); AST 20 U/L (15-37); Albumin 3.6 g/dL (3.4-5.0); Alkaline Phosphatase 103 U/L (46-116); Anion Gap 5.2 mmol/L (3-11); BUN 22 mg/dL (7-18); Bilirubin, Direct 0.1 mg/dL (0.0-0.2); Bilirubin, Total 0.2 mg/dL (0.2-1.0); CO2 29.8 mmol/L (21.0-32.0); CREATININE 1.1 mg/dL (0.55-1.02); Calcium 8.9 mg/dL (8.5-10.1); Chloride 104 mmol/L (98-107); Glucose 124 mg/dL (74-106); Lipase 171 U/L (73-393); Magnesium 2.1 mg/dL (1.8-2.4); Potassium 3.8 mmol/L (3.5-5.1); Sodium 139 mmol/L (136-145); Total Protein 7.6 g/dL (6.4-8.2)
[2020-05-31 02:12] LABS: Troponin I < 0.05 ng/mL (<0.06)
--- NOTE | 2020-05-31 02:15 | DI.VRAD_ITS ---
PROCEDURE INFORMATION: Exam: CT Head Without Contrast Exam date and time: 05/31/2020 2:03 AM Age: 69 years old Clinical indication: Patient HX: Dizziness; PT stated never been dizzy like this before TECHNIQUE: Imaging protocol: Computed tomography of the head without contrast. COMPARISON: No relevant prior studies available. FINDINGS: Brain: Mild volume loss No hemorrhage. Mild white matter disease. No mass effect. Cerebral ventricles: No ventriculomegaly. Bones/joints: Unremarkable. No acute fracture. Paranasal sinuses: Visualized sinuses are unremarkable. No fluid levels. Mastoid air cells: Visualized mastoid air cells are well aerated. Soft tissues: Unremarkable. IMPRESSION: No acute intracranial hemorrhage noted Dictated and Authenticated by: Odell Estrella MD. Ordering:GAL Caba MD
--- NOTE | 2020-05-31 02:19 | DI.VRAD_ITS ---
PROCEDURE INFORMATION: Exam: CT Abdomen And Pelvis Without Contrast Exam date and time: 05/31/2020 2:06 AM Age: 69 years old Clinical indication: Generalized; Patient HX: Abdominal pain and nausea TECHNIQUE: Imaging protocol: Computed tomography of the abdomen and pelvis without contrast. COMPARISON: No relevant prior studies available. FINDINGS: Liver: Normal. No mass. Gallbladder and bile ducts: Normal. No calcified stones. No ductal dilation. Pancreas: Normal. No ductal dilation. Spleen: Normal. No splenomegaly. Adrenal glands: Normal. No mass. Kidneys and ureters: Normal. No hydronephrosis. Stomach and bowel: Colonic diverticula. Appendix: No evidence of appendicitis. Intraperitoneal space: Unremarkable. No free air. No significant fluid collection. Vasculature: Unremarkable. No abdominal aortic aneurysm. Lymph nodes: Unremarkable. No enlarged lymph nodes. Urinary bladder: Unremarkable as visualized. Reproductive: Unremarkable as visualized. Bones/joints: Unremarkable. No acute fracture. Soft tissues: Unremarkable. IMPRESSION: No acute findings. Dictated and Authenticated by: Rosales Hopkins MD. Ordering:GAL Caba MD
[2020-05-31 03:04] VITALS: BP 170/80; PULSE 70; RESP 16; TEMP 36.5
== END 2020-05-31 03:05 | disposition home or self-care (01) ==
PROVIDERS: Emergency Provider Emergency Medicine; PCP Nurse Practitioner
DX: R42 Dizziness and giddiness (principal); R11.2 Nausea with vomiting, unspecified
CPT/HCPCS: 80053; 83690; 93005; 99284; 70450; 74176; 82248; 83735; 84484; 85025; 93010; 99283

== ENCOUNTER 2020-06-25 08:00 | Outpatient (REF) | payer MEDICARE, SELFPAY ==
[2020-06-30 15:11] LABS: Helicobacter pylori Ag, Feces Negative (Negative)
== END 2020-06-25 08:01 | disposition home or self-care (01) ==
LOC: LBN 08:00
PROVIDERS: PCP Nurse Practitioner; Visit Provider Surgery
DX: A04.8 Other specified bacterial intestinal infections (principal)
CPT/HCPCS: 87338

== ENCOUNTER 2020-07-09 22:25 | Outpatient (REF) | payer MEDICARE, SELFPAY ==
[2020-07-09 15:50] LABS: HCT 33.5 % (36.0-46.0); HGB 10.6 g/dL (11.2-15.7); MCH 24.9 pg (27.0-33.0); MCHC 31.6 % (32.0-36.0); MCV 78.6 fL (80-95); MPV 10.8 fL (8.0-11.0); Platelet Count 261 10^3/uL (130-400); RBC 4.26 10^6/uL (3.93-5.22); RDW 17.9 % (11.7-14.6); RDW-SD 51.6 fL; WBC 4.21 10^3/uL (4.4-10.8)
[2020-07-09 15:59] LABS: Iron 27 ug/dL (50-170)
[2020-07-09 16:11] LABS: Ferritin 24 ng/mL (8-252)
== END 2020-07-09 22:26 | disposition home or self-care (01) ==
LOC: NCHCN 22:25
PROVIDERS: PCP Nurse Practitioner; Visit Provider Family Medicine
DX: D64.9 Anemia, unspecified (principal)
CPT/HCPCS: 85027; 82728; 83540

== ENCOUNTER 2020-10-19 18:47 | Outpatient (REF) | payer MEDICARE, SELFPAY ==
[2020-10-19 15:05] LABS: Abs Immature Grans 0.01 10^3/uL (0.0-0.06); Absolute Basophil Count 0.02 10^3/uL (0.0-0.2); Absolute Eosinophil Count 0.24 10^3/uL (0.0-0.7); Absolute Lymphocyte Count 1.41 10^3/uL (1.2-3.4); Absolute Monocyte Count 0.54 10^3/uL (0.1-0.8); Absolute Neutrophil Count 2.25 10^3/uL (1.2-6.7); Basophils % 0.4; Eosinophils % 5.4; HCT 35.9 % (36.0-46.0); HGB 11.2 g/dL (11.2-15.7); Immature Grans % 0.2; Lymphocytes % 31.5; MCH 25.4 pg (27.0-33.0); MCHC 31.2 % (32.0-36.0); MCV 81.4 fL (80-95); MPV 10.9 fL (8.0-11.0); Monocytes % 12.1; Neutrophils % 50.4; Nucleated RBC 0 %; Platelet Count 218 10^3/uL (130-400); RBC 4.41 10^6/uL (3.93-5.22); RDW 18.6 % (11.7-14.6); RDW-SD 54.9 fL; WBC 4.47 10^3/uL (4.4-10.8)
[2020-10-19 15:46] LABS: Ferritin 12 ng/mL (8-252); Vitamin B12 525 pg/mL (193-986)
[2020-10-19 17:24] LABS: Iron 44 ug/dL (50-170); Total Iron Binding Capacity 385 ug/dL (250-450); Transferrin Sat 11 % (15-50)
== END 2020-10-19 18:48 | disposition home or self-care (01) ==
LOC: NCHCN 18:47
PROVIDERS: PCP Nurse Practitioner; Visit Provider Nurse Practitioner
DX: D64.9 Anemia, unspecified (principal)
CPT/HCPCS: 82607; 82728; 83540; 83550; 85025

== ENCOUNTER 2021-06-02 01:38 | Outpatient (CLI) | payer MEDICARE, SELFPAY ==
--- NOTE | 2021-06-02 08:48 | DI.MAMMO_ITS ---
Exam(s) MAMMO SCREENING EXAM: MAMMO SCREENING CLINICAL HISTORY: SCREENING, Z12.39. TECHNIQUE: Bilateral full field digital CC and MLO mammographic images were obtained with 3D tomosyn thesis and utilizing computer aided detection (CAD). COMPARISON: Prior mammograms were reviewed, the most recent being . FINDINGS: There are no new spiculated masses nor malignant appearing microcalcification groups. There is no significant architectural distortion nor skin thickening-retraction. IMPRESSION: No radiographic evidence of malignancy. BI-RADS Category 1 - Negative Breast Density - Category B - Scattered areas of fibroglandular density Breast density Category C or D implies that the patient has dense breast tissue. Dense breast tissue can make it harder to find cancer on a mammogram. Dense breast tissue is also associated with an incr eased risk of breast cancer. This information about the result of the mammogram report was provided to the patient to raise their awareness. Use this report when you speak with the patient about their risks for breast cancer, which includes their family history. At that time, you may recommend additional screening tests (Ultrasoun d or MRI) as these tests may add significant information. A negative radiographic report should not delay biopsy if a dominant or clinically suspicious mass is present. Up to ten percent of cancers are not identified on mammography. A negative report may reinforce clinical impression. Adenosis and dense breasts may obscure an underlying neoplasm. False positive reports average 6 to 10%. Patient will receive a letter notifying them of these results.
== END 2021-06-02 01:58 ==
PROVIDERS: PCP Nurse Practitioner; Visit Provider Nurse Practitioner Family
DX: Z12.31 Encounter for screening mammogram for malignant neoplasm of breast (principal)
CPT/HCPCS: 77063; 77067

== ENCOUNTER 2021-07-16 11:45 | Outpatient (CLI) | payer MEDICARE, SELFPAY ==
--- NOTE | 2021-07-16 11:02 | DI.RAD_ITS ---
Exam(s) XR SHOULDER RT COMPLETE 2+V EXAM: XR SHOULDER RT COMPLETE 2+V CLINICAL HISTORY: pain. TECHNIQUE: 2D digital imaging was performed of the right shoulder. Three images were obtained. AP, Y-view and axillary views were obtained. COMPARISON: CR CHEST 2 VIEWS PA,LAT from 02/02/2013 FINDINGS: BONES: No acute fracture is present. No bony destructive lesion is seen. JOINTS: No dislocation present. Orthopedic anchors are again seen in the greater tuberosity. Degener ative changes are seen at the acromioclavicular joint and the glenohumeral joint. SOFT TISSUE: Normal. IMPRESSION: Stable postsurgical and degenerative changes of the shoulder. DATA REPOSITORY: RADIATION DOSE DELIVERED:
--- NOTE | 2021-07-16 11:02 | DI.RAD_ITS ---
Exam(s) XR KNEE RT 3V AP,LAT,MOSES EXAM: XR KNEE RT 3V AP,LAT,MOSES CLINICAL HISTORY: pain in knee. TECHNIQUE: 2D digital imaging was performed of the right knee. Three views obtained. AP, lateral an d PA tunnel views were obtained. COMPARISON: CR KNEES BILAT AP STANDING LATS from 08/23/2017 FINDINGS: BONES: No acute fracture is present. No bony destructive lesion is seen. JOINTS: The knee is normally aligned. No joint effusion is seen. Moderate degenerative changes are se en in the knee with joint space narrowing and periarticular spurring. SOFT TISSUE: Normal. IMPRESSION: Moderate degenerative changes of the right knee. DATA REPOSITORY: RADIATION DOSE DELIVERED:
== END 2021-07-16 11:46 | disposition home or self-care (01) ==
LOC: DIORS 11:46
PROVIDERS: PCP Nurse Practitioner; Referring Provider Nurse Practitioner; Visit Provider Physician Assistant Surgical
DX: Z98.890 Other specified postprocedural states (principal); M17.10 Unilateral primary osteoarthritis, unspecified knee; M17.11 Unilateral primary osteoarthritis, right knee; M18.9 Osteoarthritis of first carpometacarpal joint, unspecified; M76.32 Iliotibial band syndrome, left leg
CPT/HCPCS: 20610; 73562; 99215; 73030; J1040

== ENCOUNTER 2021-08-05 11:52 | Outpatient (REF) | payer MEDICARE, SELFPAY ==
[2021-08-05 14:27] LABS: HCT 40.7 % (36.0-46.0); HGB 13.1 g/dL (11.2-15.7); MCH 28.9 pg (27.0-33.0); MCHC 32.2 % (32.0-36.0); MCV 90 fL (80-95); MPV 10.8 fL (8.0-11.0); Platelet Count 215 10^3/uL (130-400); RBC 4.54 10^6/uL (3.93-5.22); RDW 14.3 % (11.7-14.6); RDW-SD 46.5 fL; WBC 4.47 10^3/uL (4.4-10.8)
[2021-08-05 14:51] LABS: AST 11 U/L (15-37); Albumin 3.9 g/dL (3.4-5.0); Alkaline Phosphatase 88 U/L (46-116); Anion Gap 9.1 mmol/L (3-11); BUN 20 mg/dL (7-18); Bilirubin, Total 0.4 mg/dL (0.2-1.0); CO2 27.9 mmol/L (21.0-32.0); CREATININE 0.9 mg/dL (0.55-1.02); Chloride 102 mmol/L (98-107); Glucose 90 mg/dL (74-106); Potassium 3.8 mmol/L (3.5-5.1); Sodium 139 mmol/L (136-145); Total Protein 7.8 g/dL (6.4-8.2)
[2021-08-05 15:08] LABS: ALT 24 U/L (14-59)
[2021-08-05 15:52] LABS: COMMENT (LAB VIEW ONLY) 107.76 mg/dL; Microalb ug/mg Crea 7.3 ug/mg Cr
[2021-08-06 09:56] LABS: Hepatitis C Ab w Rflx HCV PCR Negative (Negative)
== END 2021-08-05 11:53 | disposition home or self-care (01) ==
LOC: NCHCN 11:52
PROVIDERS: PCP Nurse Practitioner; Visit Provider Nurse Practitioner Family
DX: D64.9 Anemia, unspecified (principal); Z01.84 Encounter for antibody response examination; Z11.59 Encounter for screening for other viral diseases; R79.89 Other specified abnormal findings of blood chemistry
CPT/HCPCS: 80053; 85027; 86803; 82043; 82570

== ENCOUNTER 2021-09-03 00:11 | Outpatient (CLI) | payer MEDICARE, SELFPAY ==
--- NOTE | 2021-09-03 08:30 | DI.MRI_ITS ---
Exam(s) MR BRAIN WO EXAM: MR BRAIN WO CLINICAL HISTORY: NEW DAILY PERSISTENT GARNER, G44.52 TECHNIQUE: Multiplanar multisequence MRI of the brain was performed. COMPARISON: CT CT HEAD WO from 05/31/2020 FINDINGS: VENTRICLES AND EXTRA AXIAL SPACES: Normal in size and morphology for the patient's age. MIDLINE SHIFT: None. CEREBRAL PARENCHYMA: No focus of restricted diffusion to suggest acute infarct. No space-occupying le blessing identified. Patchy areas of high signal in the white matter consistent with microvascular change s. Mild atrophy. HEMORRHAGE: None. BRAINSTEM/CEREBELLUM: Normal. CALVARIUM: Normal. VISUALIZED PARANASAL SINUSES/MASTOIDS:Maxillary sinuses congenitally poorly pneumatized. Mild mucosa l thickening. Mucosal thickening ethmoids. [place]: Normal flow void. PITUITARY GLAND: Unremarkable. IMPRESSION: Mild atrophy and white matter changes of small vessel disease. No acute abnormality.. DATA REPOSITORY:
== END 2021-09-03 00:31 ==
LOC: DI 00:11
PROVIDERS: PCP Nurse Practitioner; Visit Provider Nurse Practitioner Family
DX: G44.52 New daily persistent headache (NDPH) (principal); G31.9 Degenerative disease of nervous system, unspecified
CPT/HCPCS: 70551

== ENCOUNTER 2021-11-10 09:45 | Outpatient (CLI) | payer MEDICARE, SELFPAY ==
--- NOTE | 2021-11-10 09:00 | DI.RAD_ITS ---
Exam(s) XR WRIST LT COMPLETE EXAM: XR WRIST LT COMPLETE CLINICAL HISTORY: LEFT THUMB PAIN. TECHNIQUE: 2D digital imaging was performed. COMPARISON: No exams were available for comparison FINDINGS: 3 views No evidence of acute fracture or dislocation. No significant ulnar variance. Advanced degenerative changes are noted in the 1st carpometacarpal joint. No osseous lesions. No erosions. Bone density age-appropriate. IMPRESSION: DATA REPOSITORY: RADIATION DOSE DELIVERED:
== END 2021-11-10 09:46 | disposition home or self-care (01) ==
LOC: DIORS 09:46
PROVIDERS: Visit Provider Physician Assistant
DX: M18.9 Osteoarthritis of first carpometacarpal joint, unspecified (principal); M17.11 Unilateral primary osteoarthritis, right knee
CPT/HCPCS: 20610; 73110; J1040

== ENCOUNTER 2021-12-19 09:29 | Emergency (ER) | payer MEDICARE, SELFPAY ==
[2021-12-19] VITALS (8 sets, daily range): BP systolic 117–171; BP diastolic 74–98; PULSE 56–76; RESP 10–26; TEMP 36.6; O2SAT 100
--- NOTE | 2021-12-19 10:00 | RT.EKG_ITS ---
APPROVED REPORT Exam: Resting ECG Reason for Exam: L arm pain Patient Location: E HR:64 bpm ECG Measurements Heart Rate 64 AXIS MO 172 P 58 QRSd 90 QRS 24 QT 420 T 56 QTc 433 Conclusion Sinus rhythm...normal P axis, V-rate 60- [address] changes
--- NOTE | 2021-12-19 10:00 | DI.RAD_ITS ---
Exam(s) XR CHEST 2V PA LATERAL EXAM: XR CHEST 2V PA LATERAL CLINICAL HISTORY: L arm pain. TECHNIQUE: 2D digital imaging was performed. COMPARISON: CR CHEST 2 VIEWS PA,LAT from 02/02/2013 FINDINGS: 2 views: Heart size is normal. The mediastinum is not widened. Lungs are clear. No infiltrates nor pleural effusions. IMPRESSION: No acute pulmonary findings. DATA REPOSITORY: RADIATION DOSE DELIVERED:
--- NOTE | 2021-12-19 10:07 | ED.GENADUL_ITS ---
Discharge Plan Disposition Patient Disposition: HOME Condition: Stable Discharge Details Clinical Impression: Arm pain, left Primary Care Provider: Unknown,Unknown ED Provider: Uday Browning Home Meds and New Rx's Prescriptions: Continued calcium carbonate [Calcium 600] 600 mg calcium (1,500 mg) tablet 600 mg PO DAILY ascorbic acid (vitamin C) 500 mg capsule PO clobetasol [Temovate] 0.05 % ointment 1 applic topical BID Qty: 60 2RF multivitamin [Daily Multiple] 1 EACH tablet 1 ea PO DAILY ferrous gluconate 324 mg (38 mg iron) tablet 324 mg PO DAILY ibuprofen 200 mg tablet 400 mg PO DAILY PRN Discharge Instructions Additional Instructions: Work-up in the ER does not reveal any obvious emergent process. I am setting you up for an ultrasound of your left upper extremity tomorrow to rule out any potential DVT although clinically low suspicion that the radiology team should be reaching out to tomorrow but if you do not hear from them in the morning I recommend contacting them to set this appointment up. After the ultrasound she will return to the ER. You have the results provided. Please watch for new or worsening symptoms and return to the ER for any concerns. Lastly, please contact your primary care provider to make them aware of your ER visit need for outpatient reevaluation. Medical Decision Making 71-year-old female presents with left arm pain status post the COVID-vaccine on Monday, pain began on Monday. Reports it is constant and worse with movement. Clinically she appears well, nontoxic. The discomfort is likely secondary to the injection; however, nontraumatic left arm pain in a 71-year-old female I believe should be worked up for a potential cardiac etiology. Given the duration a single troponin and EKG is appropriate. Patient is specifically concerned of a DVT. Clinically I see no concern for DVT but we will set her up for a an ultrasound tomorrow Work-up in the ER is unremarkable for any obvious emergent process. Paperwork for ultrasound completed Patient is comfortable with discharge, will follow up in the ER tomorrow after her ultrasound for the results Standard discharge and return precautions were provided. Patient understands, is agreeable to this plan, and has no additional questions or concerns upon discharge. This documentation was generated using [email or web address] system, please disregard any oddities of phrase or misspellings. Medical Records Medical records reviewed: Yes I reviewed the patient's medical records. Imaging Data Radiologic Study: Attestation: I personally reviewed and interpreted this imaging study as follows: Imaging: X-Ray Radiologist's impression: PROCEDURE INFORMATION: Exam: XR Chest Exam date and time: 12/19/2021 10:31 AM Age: 71 years old Clinical indication: Other: Left arm pain TECHNIQUE: Imaging protocol: Radiologic exam of the chest. Views: 2 views. COMPARISON: CR XR S HOULDER RT COMPLETE 2+V 07/16/2021 10:52 AM FINDINGS: Lungs: No focal consolidation. Pleural spaces: No pneumothorax or pleural effusion. Heart/Mediastinum: Normal cardiomediastinal silhouette. Bones/joints: Degenerative changes in visualized spine and shoulders. Orthopedic anchor again seen in proximal right humerus. IMPRESSION: No acute findings. Lab Data Lab results reviewed: Yes I reviewed the patient's lab results. Labs: Laboratory Tests Range/Units 12/19/21 12/19/21 12/19/21 10:20 10:20 10:20 WBC (4.4-10.8) 10^3/uL 4.13 L RBC (3.93-5.22) 10^6/uL 4.55 Hgb (11.2-15.7) g/dL 13.1 Hct (36.0-46.0) % 40.2 MCV (80-95) fL 88 MCH (27.0-33.0) pg 28.8 MCHC (32.0-36.0) % 32.6 RDW (11.7-14.6) % 13.9 Plt Count (130-400) 10^3/uL 217 MPV (8.0-11.0) fL 9.8 Immature Gran % 0.2 Neutrophils % 51.1 Lymphocytes % 31.5 Monocytes % 9.9 Eosinophils % 6.8 Basophils % 0.5 Nucleated RBC % (0.0-0.3) % 0.0 Absolute Neutrophils (1.2-6.7) 10^3/uL 2.11 Absolute Lymphocytes (1.2-3.4) 10^3/uL 1.30 Absolute Monocytes (0.1-0.8) 10^3/uL 0.41 Absolute Eosinophils (0.0-0.7) 10^3/uL 0.28 Absolute Basophils (0.0-0.2) 10^3/uL 0.02 PT (9.3-11.0) sec 9.0 L INR (0.9-1.1) 0.9 Sodium (136-145) mmol/L 141 Potassium (3.5-5.1) mmol/L 3.8 Chloride (98-107) mmol/L 105 Carbon Dioxide (21.0-32.0) mmol/L 30.5 Anion Gap (3-11) mmol/L 5.5 BUN (7-18) mg/dL 22 H Creatinine (0.55-1.02) mg/dL 0.9 Est GFR (CKD-EPI 2020) (mL/min/1.73m2) 67.92 Glucose (74-106) mg/dL 95 Calcium (8.5-10.1) mg/dL 8.7 Magnesium (1.8-2.4) mg/dL 2.2 Total Bilirubin (0.2-1.0) mg/dL 0.2 AST (15-37) U/L 24 ALT (14-59) U/L 39 Alkaline Phosphatase (46-116) U/L 97 Troponin I (<or=60) ng/L < 50 Total Protein (6.4-8.2) g/dL 7.2 Albumin (3.4-5.0) g/dL 3.4 ECG Data Attestation: I personally reviewed and interpreted this ECG (s) as follows: Interpretation: Sinus rhythm, ventricular rate of 64, no STEMI. HPI General Mode of arrival: ambulatory . Date/Time Provider Initiated Documentation: 12/19/21 09:37 . Limitations to Documentation: no limitations . Information obtained by: patient . HPI Narrative: This is a 71-year-old female who denies significant past medical history reports that she received her COVID-vaccine in her left arm on Monday and subsequently has developed left arm aching ever since. She states that her family member is going through chemotherapy and he developed a blood clot in his leg and she cannot get the start of the blood clot out of her mind. She denies history of DVT or PE. Denies chest pain or shortness of breath. Patient states that since her previous COVID injection over a year ago she has had a ringing in her ears and a bump forming to her skull, she states that this was worked up as an outpatient and she had an MRI which is unremarkable but given her atypical symptoms after the COVID-vaccine she is certainly concerned of a blood clot. Patient reports a mild dull left arm aching does not radiate anywhere. Denies any numbness, tingling, weakness. Related Data Home Medications Medication Instructions Recorded Confirmed multivitamin (Daily Multiple 1 ea PO DAILY 11/13/14 11/10/21 tablet) clobetasol 0.05 % topical ointment 1 applic topical BID #60 grams 05/25/20 11/10/21 (Temovate) ferrous gluconate 324 mg (38 mg 324 mg PO DAILY 06/15/21 11/10/21 iron) tablet ascorbic acid (vitamin C) 500 mg mg PO 07/16/21 11/10/21 capsule calcium carbonate 600 mg calcium 600 mg PO DAILY 07/16/21 11/10/21 (1,500 mg) tablet (Calcium) ibuprofen 200 mg tablet 400 mg PO DAILY PRN 07/16/21 11/10/21 Previous Rx's Medication Instructions Recorded clobetasol 0.05 % topical ointment 1 applic topical BID #60 grams 05/25/20 (Temovate) Allergies Allergy/AdvReac Type Severity Reaction Status Date / Time wool Allergy Intermediate itchy Verified 11/10/21 08:58 latex Allergy Verified 11/10/21 08:58 venom-honey bee Allergy Verified 11/10/21 08:58 iodine AdvReac Intermediate Vomiting Verified 11/10/21 08:58 General Stated Complaint: GenMedical RADHA: 3 Review of Systems Constitutional Constitutional: Denies fever(s), Denies headache(s) and Denies weakness Eyes Eyes: Denies change in vision ENT Ears, Nose, Mouth, and Throat: Denies headache(s) and Denies neck pain Cardiovascular Cardiovascular: Denies chest pain and Denies dyspnea Respiratory Respiratory: Denies cough and Denies dyspnea Gastrointestinal Gastrointestinal: Denies abdominal pain, Denies nausea and Denies vomiting Musculoskeletal Musculoskeletal: Denies neck pain, Denies numbness and Denies tingling Integumentary/Breasts Skin/Breast: Denies rash Neurologic Neurologic: Denies headache(s), Denies numbness, Denies tingling and Denies weakness Hematologic/Lymphatic Hematologic/Lymphatic: Denies easy bleeding and Denies easy bruising PFSH All Active Problems Arm pain, left (Acute) Iliotibial band syndrome affecting left lower leg (Acute) History of repair of right rotator cuff (Acute) Degenerative arthritis of carpometacarpal joint of thumb (Acute) left Osteoarthritis of right knee (Acute) injection 11/10/21; 07/16/2021 Gallbladder disease (Acute) Hypertension, essential, benign (Acute) Dizziness (Acute) Nausea & vomiting (Acute) Lichen sclerosus et atrophicus of the vulva (Acute) Anemia (Chronic) CAO (dyspnea on exertion) (Acute) Medical History Hernia of abdominal wall Herpes History of Helicobacter pylori infection Iron deficiency anemia Joint pain Lichen sclerosus et atrophicus Osteopenia Peptic reflux esophagitis Vitamin D deficiency Surgical History section H/O esophagogastroduodenoscopy (~04/27/20) Rotator Cuff Repair Family History Mother Heart disease Father Personal history of malignant neoplasm prostate Social History Smoking/Tobacco Use Status: Never Smoking risk assessment performed?: Yes Alcohol Intake: current Alcohol Intake frequency: a few times a month Alcohol type: wine Drug use: Never Substance use type: does not use Do you feel safe at home: Yes Do you feel safe in your relationship?: Yes Exam Const General: cooperative, healthy appearing, comfortable and no acute distress Orientation: alert, awake and oriented x3 HENMT Head: normal to inspection, normocephalic and atraumatic Ears: external ears normal, TM's normal bilaterally and EAC's normal Face and sinus: normal facial exam Mouth: moist mucous membranes Throat: posterior oropharynx normal Eyes General: appearance normal, both eyes and all related structures Conjunctivae: conjunctivae normal Neck Neck: normal visual inspection, full ROM, no meningeal signs, trachea midline, supple and nontender Resp Effort & Inspection: normal respiratory effort and able to speak in complete sentences Auscultation: clear to auscultation bilaterally Cardio Rate: regular rate Rhythm: regular rhythm Back/Spine/Pelvis Back: No back tenderness Skin General skin exam: no rashes or lesions noted Neuro General: patient alert, patient awake, moves all extremities and no focal motor deficits Cognition: normal cognition Speech: speech normal Gait: normal gait Motor: muscle tone normal throughout Sensory Exam: no sensory deficits noted Extrem General: normal to inspection, full ROM and capillary refill normal Shoulder/upper arm images: 1. Diffuse mild soft tissue tenderness Psych Appearance: grossly normal Mental Status: mental status grossly normal Course Vital Signs Vital signs: Vital Signs Temperature 36.6 C 12/19/21 09:35 Pulse 76 12/19/21 09:35 Respiratory Rate 18 12/19/21 09:35 Blood Pressure 140/87 12/19/21 09:35 Pulse Oximetry 100 12/19/21 09:35 Temperature 36.6 C 12/19/21 09:35 Temperature Source Oral 12/19/21 09:35 Pulse 76 12/19/21 09:35 Respiratory Rate 20 12/19/21 09:42 Respiratory Effort Non-Labored 12/19/21 09:42 Respiratory Depth Normal 12/19/21 09:42 Respiratory Pattern Normal 12/19/21 09:42 Blood Pressure 140/87 12/19/21 09:35 Blood Pressure Position Sitting 12/19/21 09:35 Pulse Oximetry 100 12/19/21 09:35 Oxygen Delivery Method Room Air 12/19/21 09:35 Oxygen Flow Rate 0 12/19/21 09:35 Pain Level 9 12/19/21 09:45 Comment 12/19/21 09:35
[2021-12-19 10:33] LABS: Abs Immature Grans 0.01 10^3/uL (0.0-0.06); Absolute Basophil Count 0.02 10^3/uL (0.0-0.2); Absolute Eosinophil Count 0.28 10^3/uL (0.0-0.7); Absolute Monocyte Count 0.41 10^3/uL (0.1-0.8); Absolute Neutrophil Count 2.11 10^3/uL (1.2-6.7); Basophils % 0.5; Eosinophils % 6.8; HCT 40.2 % (36.0-46.0); HGB 13.1 g/dL (11.2-15.7); Immature Grans % 0.2; Lymphocytes % 31.5; MCH 28.8 pg (27.0-33.0); MCHC 32.6 % (32.0-36.0); MCV 88 fL (80-95); MPV 9.8 fL (8.0-11.0); Monocytes % 9.9; Neutrophils % 51.1; Platelet Count 217 10^3/uL (130-400); RBC 4.55 10^6/uL (3.93-5.22); RDW 13.9 % (11.7-14.6); RDW-SD 44.8 fL; WBC 4.13 10^3/uL (4.4-10.8)
[2021-12-19 10:41] LABS: INR 0.9 (0.9-1.1)
--- NOTE | 2021-12-19 10:43 | DI.VRAD_ITS ---
PROCEDURE INFORMATION: Exam: XR Chest Exam date and time: 12/19/2021 10:31 AM Age: 71 years old Clinical indication: Other: Left arm pain TECHNIQUE: Imaging protocol: Radiologic exam of the chest. Views: 2 views. COMPARISON: CR XR SHOULDER RT COMPLETE 2+V 07/16/2021 10:52 AM FINDINGS: Lungs: No focal consolidation. Pleural spaces: No pneumothorax or pleural effusion. Heart/Mediastinum: Normal cardiomediastinal silhouette. Bones/joints: Degenerative changes in visualized spine and shoulders. Orthopedic anchor again seen in proximal right humerus. IMPRESSION: No acute findings. Dictated and Authenticated by: Justino Tony MD. Ordering:FREDDY Frye MD
[2021-12-19 10:49] LABS: ALT 39 U/L (14-59); AST 24 U/L (15-37); Albumin 3.4 g/dL (3.4-5.0); Alkaline Phosphatase 97 U/L (46-116); Anion Gap 5.5 mmol/L (3-11); BUN 22 mg/dL (7-18); Bilirubin, Total 0.2 mg/dL (0.2-1.0); CO2 30.5 mmol/L (21.0-32.0); CREATININE 0.9 mg/dL (0.55-1.02); Calcium 8.7 mg/dL (8.5-10.1); Chloride 105 mmol/L (98-107); Estimated GFR 67.92 (mL/min/1.73m2); Glucose 95 mg/dL (74-106); Magnesium 2.2 mg/dL (1.8-2.4); Potassium 3.8 mmol/L (3.5-5.1); Sodium 141 mmol/L (136-145); Total Protein 7.2 g/dL (6.4-8.2); Troponin I < 50 ng/L (<or=60)
== END 2021-12-19 11:22 | disposition home or self-care (01) ==
PROVIDERS: Emergency Provider Physician Assistant
DX: M79.602 Pain in left arm (principal)
CPT/HCPCS: 80053; 93005; 99283; 71046; 83735; 84484; 85025; 85610; 93010; 99284

== ENCOUNTER 2021-12-20 12:35 | Emergency (ER) | payer MEDICARE, SELFPAY ==
[2021-12-20 12:44] VITALS: BP 119/97; PULSE 80; RESP 18; TEMP 35.9; O2SAT 100
--- NOTE | 2021-12-20 15:17 | ED.GENADUL_ITS ---
Discharge Plan Disposition Patient Disposition: HOME Condition: Stable Discharge Details Clinical Impression: Left arm pain, Muscle spasm Primary Care Provider: Unknown,Unknown ED Provider: Ines Ernst Home Meds and New Rx's Prescriptions: New prednisone 20 mg tablet See Rx Instructions .ROUTE .COMPLEX Qty: 12 0RF Rx Instructions: Take 3 tabs daily for 2 days, then 2 tabs daily for 2 days, then 1 tab daily for 2 days diazepam 5 mg tablet 5 mg PO TID PRN (Reason: muscle spasm) Qty: 7 0RF Continued calcium carbonate [Calcium 600] 600 mg calcium (1,500 mg) tablet 600 mg PO DAILY ascorbic acid (vitamin C) 500 mg capsule PO clobetasol [Temovate] 0.05 % ointment 1 applic topical BID Qty: 60 2RF multivitamin [Daily Multiple] 1 EACH tablet 1 ea PO DAILY ferrous gluconate 324 mg (38 mg iron) tablet 324 mg PO DAILY ibuprofen 200 mg tablet 400 mg PO DAILY PRN Discharge Instructions Instructions: Muscle Spasm (ED), Thoracic Back Strain (ED) Additional Instructions: It is suspected that you have a muscle spasm or strain of your neck and upper back which is likely referred from your local muscle spasm and inflammation in your left arm after your COVID-vaccine. Alternate ice and heat to the affected area(s) several times daily for 20 minutes at a time. Alternate tylenol and motrin as needed and directed for pain. Take the oxycodone for pain not relieved with Tylenol or Motrin. Prescriptions for steroids and muscle relaxers have been sent electronically to your pharmacy to take as directed. Take caution and do not take Valium and oxycodone together as they can cause a decrease in your breathing which can lead to respiratory depression or . Follow-up with your primary care doctor in 1 week. Return to the emergency department with any worsening or new concerning symptoms. Discharge Data Discharge Physician: Ines Ernst Medical Decision Making 71-year-old female with history of Sjogren's syndrome presents for left arm, left-sided neck and left upper back pain after receiving a COVID-vaccine in her arm 1 week ago. Patient was seen here yesterday for the same complaint and had negative cardiac work-up and referred for outpatient left upper extremity ultrasound today which was negative. Patient appears uncomfortable and has a few episodes of pain during my evaluation. Her left upper extremity, neck and back are normal to inspection. She is neurovascularly intact. There is no evidence of cellulitis, trauma or rash. Her pain is reproducible with movement of her head with left head sidebending and movement of her left upper extremity. Suspect muscle spasm/strain or radicular pain status post COVID-vaccine. Will treat with steroids and muscle relaxers. She drove herself here. Will give a dose of IM Toradol, oral steroids and sent prescriptions for prednisone and Valium electronically to her pharmacy. We will give oxycodone bottle to go. Advised to follow up with the primary care doctor for re-evaluation. Usual and customary return precautions given prior to discharge. Medical Records Medical records reviewed: Yes I reviewed the patient's medical records. HPI General Mode of arrival: ambulatory . Date/Time Provider Initiated Documentation: 12/20/21 12:53 . Limitations to Documentation: no limitations . Information obtained by: patient . HPI Narrative: Patient is a 71-year-old female with a history of Sjogren's disease presents to the ED with complaint of left arm pain that developed 1 day after her COVID- vaccine. Patient states she got her flu vaccine in her right arm but denies any significant symptoms in her right arm. She states for the past 6 days she has had progressively worsening left arm pain that is now extending to her left neck and left upper back. She states the pain has become more constant and has intermittent episodes of sharp pain. She denies any tingling or numbness in her arm. Patient was seen here yesterday for the same complaint and considering her age and history, had a cardiac work-up which was unremarkable and was referred for outpatient left upper extremity ultrasound today which was negative. She denies any significant relief with Tylenol or ibuprofen. She denies any chest pain, fever, shortness of breath or coughing. Related Data Home Medications Medication Instructions Recorded Confirmed multivitamin (Daily Multiple 1 ea PO DAILY 11/13/14 12/20/21 tablet) clobetasol 0.05 % topical ointment 1 applic topical BID #60 grams 05/25/20 12/20/21 (Temovate) ferrous gluconate 324 mg (38 mg 324 mg PO DAILY 06/15/21 12/20/21 iron) tablet ascorbic acid (vitamin C) 500 mg mg PO 07/16/21 11/10/21 capsule calcium carbonate 600 mg calcium 600 mg PO DAILY 07/16/21 12/20/21 (1,500 mg) tablet (Calcium) ibuprofen 200 mg tablet 400 mg PO DAILY PRN 07/16/21 11/10/21 diazepam 5 mg tablet 5 mg PO TID PRN muscle spasm #7 12/20/21 tabs prednisone 20 mg tablet See Rx Instructions .Route 12/20/21 .COMPLEX #12 tabs Previous Rx's Medication Instructions Recorded clobetasol 0.05 % topical ointment 1 applic topical BID #60 grams 05/25/20 (Temovate) diazepam 5 mg tablet 5 mg PO TID PRN muscle spasm #7 12/20/21 tabs prednisone 20 mg tablet See Rx Instructions .Route 12/20/21 .COMPLEX #12 tabs Allergies Allergy/AdvReac Type Severity Reaction Status Date / Time wool Allergy Intermediate itchy Verified 12/20/21 12:48 latex Allergy Verified 12/20/21 12:48 venom-honey bee Allergy Verified 12/20/21 12:48 iodine AdvReac Intermediate Vomiting Verified 12/20/21 12:48 General Stated Complaint: Orthopedic RADHA: 3 Review of Systems All systems reviewed & are unremarkable except as noted in HPI and below Constitutional Constitutional: Reports as per HPI, Denies chills and Denies fever(s) Eyes Eyes: Denies blurry vision ENT Ears, Nose, Mouth, and Throat: Denies dizziness, Reports neck pain, Denies sore throat and Denies throat swelling Cardiovascular Cardiovascular: Denies chest pain and Denies dyspnea Respiratory Respiratory: Denies cough and Denies dyspnea Gastrointestinal Gastrointestinal: Denies abdominal pain, Denies diarrhea and Denies vomiting Genitourinary Genitourinary: Denies hematuria and Denies dysuria Musculoskeletal Musculoskeletal: Reports back pain, Reports neck pain and Denies numbness Comments: L arm pain Integumentary/Breasts Skin/Breast: Denies lesions and Denies rash Neurologic Neurologic: Denies dizziness, Denies localized weakness and Denies numbness Allergic/Immunologic Allergic/Immunologic: Denies throat swelling PFSH All Active Problems (Updated 12/20/21 @ 16:04 by Ines Ernst DO) Arm pain, left (Acute) Left arm pain (Acute) Muscle spasm (Acute) Iliotibial band syndrome affecting left lower leg (Acute) History of repair of right rotator cuff (Acute) Degenerative arthritis of carpometacarpal joint of thumb (Acute) left Osteoarthritis of right knee (Acute) injection 11/10/21; 07/16/2021 Gallbladder disease (Acute) Hypertension, essential, benign (Acute) Dizziness (Acute) Nausea & vomiting (Acute) Lichen sclerosus et atrophicus of the vulva (Acute) Anemia (Chronic) CAO (dyspnea on exertion) (Acute) Medical History Hernia of abdominal wall Herpes History of Helicobacter pylori infection Iron deficiency anemia Joint pain Lichen sclerosus et atrophicus Osteopenia Peptic reflux esophagitis Vitamin D deficiency Surgical History section H/O esophagogastroduodenoscopy (~04/27/20) Rotator Cuff Repair Family History Mother Heart disease Father Personal history of malignant neoplasm prostate Social History Smoking/Tobacco Use Status: Never Smoking risk assessment performed?: Yes Alcohol Intake: current Alcohol Intake frequency: a few times a month Alcohol type: wine Drug use: Never Substance use type: does not use Do you feel safe at home: Yes Do you feel safe in your relationship?: Yes Exam Const General: cooperative, healthy appearing and no acute distress Orientation: alert, awake and oriented x3 HENMT Head: normal to inspection Mouth: oral mucosae normal Eyes General: appearance normal, both eyes and all related structures Neck Neck: normal visual inspection Resp Effort & Inspection: normal respiratory effort and able to speak in complete sentences Cardio Rate: regular rate Back/Spine/Pelvis Cervical Spine: cervical muscular tenderness (L sided paraspinal), pain with cervical ROM and No cervical spinal tenderness Thoracic/Lumbar Spine: paraspinal tenderness (L upper thoracic) Skin General skin exam: no rashes or lesions noted Neuro General: patient alert, patient awake and patient oriented x3 Motor: muscle tone normal throughout Other: Muscle strength 5/5 bilateral upper extremities Extrem General: normal to inspection Other: Pain in left sided neck, left upper back and left upper arm with range of motion of left upper extremity. Bilateral radial pulses intact. Psych Appearance: grossly normal Affect: normal affect Course Vital Signs Vital signs: Vital Signs Temperature 96.7 F L 12/20/21 12:44 Pulse 80 12/20/21 12:44 Respiratory Rate 18 12/20/21 12:44 Blood Pressure 119/97 H 12/20/21 12:44 Pulse Oximetry 100 12/20/21 12:44 Temperature 96.7 F L 12/20/21 12:44 Temperature Source Tympanic 12/20/21 12:44 Pulse 80 12/20/21 12:44 Respiratory Rate 18 12/20/21 12:44 Respiratory Effort Non-Labored 12/20/21 12:48 Blood Pressure 119/97 H 12/20/21 12:44 Blood Pressure Position Sitting 12/20/21 12:44 Pulse Oximetry 100 12/20/21 12:44 Oxygen Delivery Method Room Air 12/20/21 12:44 Oxygen Flow Rate 0 12/20/21 12:44 Pain Level 10 12/20/21 12:48
[2021-12-20] MEDS: predniSONE 20 MG TAB 60 MG PO (15:51)
[2021-12-20] MEDS: Ketorolac 60 MG/2 ML VIAL IM (15:52)
== END 2021-12-20 16:35 | disposition home or self-care (01) ==
PROVIDERS: Emergency Provider Physician Assistant
DX: M79.622 Pain in left upper arm (principal); M62.838 Other muscle spasm; M54.2 Cervicalgia; M54.89 Other dorsalgia
CPT/HCPCS: 96372; 99284; 93971; 99283; J1885; J7512

== ENCOUNTER → 2021-12-20 12:58 | Outpatient (CLI) | payer MEDICARE, SELFPAY ==
--- NOTE | 2021-12-20 | DI.US_ITS ---
Exam(s) US UPPER EXTREMITY VENOUS LT EXAM: US UPPER EXTREMITY VENOUS LT CLINICAL HISTORY: LEFT ARM PAIN M79.602 ? DVT. TECHNIQUE: Ultrasound examination of the left upper extremity venous system(s) is performed using gr ayscale, color-flow, and spectral Doppler analysis. COMPARISON: No exams were available for comparison FINDINGS: The left internal jugular, axillary, subclavian, cephalic, basilic, brachial, radial and ulnar veins are patent without evidence of thrombosis. No focal fluid collection. IMPRESSION: No DVT. DATA REPOSITORY:
== END ==
PROVIDERS: Visit Provider Physician Assistant
DX: M79.602 Pain in left arm (principal)
CPT/HCPCS: 93971

== ENCOUNTER 2021-12-27 08:43 | Inpatient (IN) | payer MEDICARE, SELFPAY ==
[2021-12-27] VITALS (35 sets, daily range): BP systolic 161–224; BP diastolic 87–107; PULSE 63–84; RESP 11–26; TEMP 35.6–37.3; O2SAT 91–98
--- NOTE | 2021-12-27 09:18 | W.ED.GENAD ---
Discharge Plan Disposition Patient Disposition: Admit to [facility] Condition: Improving Discharge Details Chief Complaint: Recheck Clinical Impression: Arm pain, left, Transaminitis, Hypertension Admit Date/Time: 12/31/21 17:59 Admit Provider: Uday Flores Attending Provider: Uday Flores Primary Care Provider: Unknown,Unknown ED Provider: Nancy Adams Discharge Instructions Activity:: Activity as Tolerated Equipment/Supplies:: No Equipment Needed Diet:: Low Sodium Discharge Data Discharge Date/Time-TO BE ENTERED AT DEPARTURE: 12/27/21 14:34 Medical Decision Making Concern for cervical radiculopathy, postvaccination inflammation, myositis, possible Lyme, other. Low suspicion for DVT as normal ultrasound 12/20/2021 and erythema, edema, focal tenderness on exam. Exam/history at this time is not consistent with septic arthritis, pulmonary embolism, pulmonary infection, pneumothorax, cervical/thoracic epidural abscess/hematoma, other cord compression, acute CVA, acute bony pathology. Plan for screening labs, p.o. Valium. Labs reviewed, WBC 14 from 4 on 12/20, AST 224, ALT 385, alk phos normal, no transaminitis 12/20. Unclear significance of abnormal lab values at this time, leukocytosis may possibly reflect prednisone use, elevated LFTs possibly secondary to acetaminophen use. Patient reports that she has been taking 500mg to 1000mg of acetaminophen four or so times per day over the past week. Plan for CK, CT left upper extremity for rule out myositis. Will repeat UE DVT study, d-dimer 688. Plan to start n-acetyl cysteine for possible chronic tylenol OD after discussion with poison control. Patient reports that she has had vomiting after receiving CT contrast dye in the past, denies having rash or breathing difficulties. Unclear if this is related to a true allergy. Lactate is normal. CT should be obtained on urgent basis, however does not need to be obtained emergently without premedication for possible anaphylaxis. Plan for Solu-Medrol with CT 4 hours subsequent to administration, will give Benadryl 1 hour prior to obtaining CT. Pt with some reduction in pain after morphine, although patient reports that it did not do much and pain is returning. Patient's blood pressure is 209/92. Patient reports that she has had high blood pressure in the past and her physician offered her high blood pressure medication, but she states she has been able to control it with diet and does not currently take hypertension medicines. Patient reports that she does check her blood pressure at home and it has been rising over the past week with her pain, but she states it has not been this high. Patient is unable to remember how high it has been at home. She denies any change in her symptoms other than some reduction in her arm pain since receiving morphine. Plan for IV Toradol. I doubt cardiac hypertensive emergency, suspect hypertension is related to acute on chronic elevation secondary to pain, will obtain EKG and troponin for rule out. Pt admitted for further evaluation and treatment. Medical Records Medical records reviewed: Yes I reviewed the patient's medical records. Lab Data Lab results reviewed: Yes I reviewed the patient's lab results. ECG Data Attestation: I personally reviewed and interpreted this ECG (s) as follows: Interpretation: EKG shows sinus rhythm at 65, normal axis, no STEMI, nondiagnostic EKG HPI General Mode of arrival: ambulatory. Date/Time Provider Initiated Documentation: 12/27/21 08:45. Limitations to Documentation: no limitations. Information obtained by: patient, RN notes reviewed and old records reviewed. HPI Narrative: Yamel Hess is a 71-year-old woman with a history of hypertension, arthritis, sjogrens syndrome not on chronic immunosuppressives presenting to the emergency department with left arm pain. Patient reports that on 12/14/2021 she received a COVID booster shot in her left arm. She states that 4 to 5 days after the injection she developed gradual onset left arm pain that became severe, involved her left arm from shoulder to the wrist, and felt like sharp throbbing/electrical pain. Per patient record review, she presented to this emergency department 12/19/2021 for this complaint. She is quite concerned that she can have a blood clot at that time. She underwent x-rays and subsequent ultrasound, which were both negative for acute process. Patient represented to the emergency department 12/20/2021 for continued unchanged pain. At that visit she received IM Toradol, rx steroids, rx Valium, and intake, oxycodone. Patient reports that she took steroids and Valium as prescribed which did help somewhat with pain. Patient reports that she did not take any of the oxycodone as she is afraid of taking opiate medications. Patient reports that she has been taking Tylenol at home with no relief of symptoms. She states that her pain is unchanged from 12/19/2021. She states that it waxes and wanes and at times pain does go away. She denies any other pain, numbness, weakness, cough, shortness of breath, vomiting, diarrhea, rash, swelling. 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 Patient denies any focality of pain or an area of worst pain, and states that pain starts in her left posterior shoulder above her scapula and ends at her left wrist and no one area is more painful than another. Pain is unchanged by movement of the shoulder/elbow, palpation, position, exertion, waves of pain seem to occur spontaneously. Related Data Home Medications Medication Instructions Recorded Confirmed multivitamin (Daily Multiple 1 ea PO DAILY 11/13/14 12/27/21 tablet) clobetasol 0.05 % topical ointment 1 applic topical BID #60 grams 05/25/20 12/27/21 (Temovate) ferrous gluconate 324 mg (38 mg 324 mg PO DAILY 06/15/21 12/27/21 iron) tablet ascorbic acid (vitamin C) 500 mg mg PO 07/16/21 11/10/21 capsule calcium carbonate 600 mg calcium 600 mg PO DAILY 07/16/21 12/27/21 (1,500 mg) tablet (Calcium) diazepam 5 mg tablet 5 mg PO TID PRN muscle spasm #7 12/20/21 12/27/21 tabs amlodipine 5 mg tablet 5 mg PO DAILY #30 tabs 01/01/22 aspirin 81 mg tablet,delayed 81 mg PO DAILY #100 tabs 01/01/22 release atorvastatin 80 mg tablet 80 mg PO QPM #30 tabs 01/01/22 clopidogrel 75 mg tablet 75 mg PO DAILY #30 tabs 01/01/22 gabapentin 100 mg capsule 300 mg PO HS #30 caps 01/01/22 metoprolol succinate 100 mg 100 mg PO DAILY #30 tabs 01/01/22 tablet,extended release 24 hr (Toprol XL) tramadol 50 mg tablet 50 mg PO QID PRN PRN #28 tabs 01/01/22 venlafaxine 75 mg capsule,extended 75 mg PO DAILY #30 caps 01/01/22 release 24 hr Previous Rx's Medication Instructions Recorded clobetasol 0.05 % topical ointment 1 applic topical BID #60 grams 05/25/20 (Temovate) diazepam 5 mg tablet 5 mg PO TID PRN muscle spasm #7 12/20/21 tabs amlodipine 5 mg tablet 5 mg PO DAILY #30 tabs 01/01/22 aspirin 81 mg tablet,delayed 81 mg PO DAILY #100 tabs 01/01/22 release atorvastatin 80 mg tablet 80 mg PO QPM #30 tabs 01/01/22 clopidogrel 75 mg tablet 75 mg PO DAILY #30 tabs 01/01/22 gabapentin 100 mg capsule 300 mg PO HS #30 caps 01/01/22 metoprolol succinate 100 mg 100 mg PO DAILY #30 tabs 01/01/22 tablet,extended release 24 hr (Toprol XL) tramadol 50 mg tablet 50 mg PO QID PRN PRN #28 tabs 01/01/22 venlafaxine 75 mg capsule,extended 75 mg PO DAILY #30 caps 01/01/22 release 24 hr Allergies Allergy/AdvReac Type Severity Reaction Status Date / Time wool Allergy Intermediate itchy Verified 12/27/21 08:53 latex Allergy Verified 12/27/21 08:53 venom-honey bee Allergy Verified 12/27/21 08:53 iodine AdvReac Intermediate Vomiting Verified 12/27/21 08:53 General Stated Complaint: Recheck RADHA: 4 Review of Systems Narrative: Constitutional: denies fevers Eyes: denies eye pain ENT: denies ear pain, dental pain, sore throat Cardiovascular: denies chest pain, edema Respiratory: denies SOB, cough GI: denies abdominal pain, vomiting, diarrhea : denies flank pain MSK: Reports left arm pain from left shoulder to left wrist, denies back pain, neck pain, other arthralgias/myalgias Skin: denies rash Neuro: denies headaches, numbness, focal weakness PFSH All Active Problems (Updated 01/16/22 @ 09:59 by Nancy Adams MD) Arm pain, left (Acute) Transaminitis (Acute) Hypertension (Chronic) Transaminitis (Acute) Acute ischemic right ICA stroke (Acute) Arm pain, left (Acute) Left arm pain (Acute) Muscle spasm (Acute) Iliotibial band syndrome affecting left lower leg (Acute) History of repair of right rotator cuff (Acute) Degenerative arthritis of carpometacarpal joint of thumb (Acute) left Osteoarthritis of right knee (Acute) injection 11/10/21; 07/16/2021 Gallbladder disease (Acute) Hypertension, essential, benign (Acute) Dizziness (Acute) Nausea & vomiting (Acute) Lichen sclerosus et atrophicus of the vulva (Acute) CAO (dyspnea on exertion) (Acute) Medical History Hernia of abdominal wall Herpes History of Helicobacter pylori infection Iron deficiency anemia Joint pain Lichen sclerosus et atrophicus Osteopenia Peptic reflux esophagitis Vitamin D deficiency Surgical History section H/O esophagogastroduodenoscopy (~04/27/20) Rotator Cuff Repair Family History Mother Heart disease Father Personal history of malignant neoplasm prostate Social History Smoking/Tobacco Use Status: Never Smoking risk assessment performed?: Yes Alcohol Intake: current Alcohol Intake frequency: a few times a month Alcohol type: wine Drug use: Never Substance use type: does not use Do you feel safe at home: Yes Do you feel safe in your relationship?: Yes Exam Narrative Exam Narrative: Constitutional: well and abp-canni-owbmntald, pleasant, conversing normally, lying on the bed on her left arm in the lateral decubitus position HENT: head atraumatic/normocephalic/normal inspection, mucous membranes moist Eyes: conjunctiva normal, sclera normal, pupils 3mm b/l Neck: no stridor, full painless ROM, trachea midline, no cervical spine or cervical paraspinal tenderness to palpation Chest: normal inspection Resp: normal work of breathing, speaking in full sentences Cardio: normal rate, normal rhythm Back: normal inspection, no rash Skin: warm, dry, normal color, no rash Neuro: alert, not altered, motor 5-5 bilateral upper extremities, normal tone Ext: no edema of either upper extremity, full symmetric painless range of motion bilateral shoulders, full painless range of motion left elbow, left trapezius tender to palpation that reproduces pain, diffuse tenderness palpation of the left upper arm and forearm that reproduces pain, left shoulder nontender to palpation, left elbow nontender to palpation, radial pulses intact and symmetric, sensation intact and symmetric. Psych: normal mood, normal affect, normal behavior Course Vital Signs Vital signs: Vital Signs Temperature 36.8 C 12/27/21 08:48 Pulse 84 12/27/21 08:48 Respiratory Rate 18 12/27/21 08:48 Blood Pressure 164/94 H 12/27/21 08:48 Pulse Oximetry 96 12/27/21 08:48 Temperature 36.8 C 12/27/21 08:48 Temperature Source Temporal Artery Scan 12/27/21 08:48 Pulse 84 12/27/21 08:48 Respiratory Rate 18 12/27/21 08:48 Respiratory Effort Non-Labored 12/27/21 08:57 Blood Pressure 164/94 H 12/27/21 08:48 Blood Pressure Position Sitting 12/27/21 08:48 Pulse Oximetry 96 12/27/21 08:48 Oxygen Delivery Method Room Air 12/27/21 08:48 Oxygen Flow Rate 0 12/27/21 08:48 Pain Level 10 12/27/21 08:48
[2021-12-27] MEDS: diazePAM 5 MG TAB PO (09:23)
[2021-12-27 09:40] LABS: Abs Immature Grans 0.15 10^3/uL (0.0-0.06); Absolute Basophil Count 0.01 10^3/uL (0.0-0.2); Absolute Eosinophil Count 0.08 10^3/uL (0.0-0.7); Absolute Monocyte Count 1.31 10^3/uL (0.1-0.8); Absolute Neutrophil Count 10.14 10^3/uL (1.2-6.7); Basophils % 0.1; Eosinophils % 0.6; HCT 41.3 % (36.0-46.0); HGB 13.4 g/dL (11.2-15.7); Immature Grans % 1.1; MCH 29.1 pg (27.0-33.0); MCHC 32.4 % (32.0-36.0); MCV 90 fL (80-95); MPV 9.9 fL (8.0-11.0); Monocytes % 9.3; Neutrophils % 71.9; Platelet Count 246 10^3/uL (130-400); RDW 14.4 % (11.7-14.6); RDW-SD 47.1 fL
[2021-12-27 09:42] LABS: ESR 8 mm/hr (0-30)
[2021-12-27 10:03] LABS: ALT 385 U/L (14-59); AST 224 U/L (15-37); Albumin 3.5 g/dL (3.4-5.0); Alkaline Phosphatase 110 U/L (46-116); Anion Gap 3.4 mmol/L (3-11); BUN 38 mg/dL (7-18); Bilirubin, Total 0.3 mg/dL (0.2-1.0); C-Reactive Protein 0.17 mg/dL (0.0-0.3); CO2 34.6 mmol/L (21.0-32.0); Calcium 9.3 mg/dL (8.5-10.1); Chloride 101 mmol/L (98-107); Estimated GFR 59.86 (mL/min/1.73m2); Glucose 98 mg/dL (74-106); Potassium 3.4 mmol/L (3.5-5.1); Sodium 139 mmol/L (136-145); Total Protein 7.2 g/dL (6.4-8.2)
--- NOTE | 2021-12-27 10:15 | DI.CT_ITS ---
Exam(s) CT UPPER EXTREMITY LT W EXAM: CT UPPER EXTREMITY LT W CLINICAL HISTORY: arm pain, recent covid vaccination TECHNIQUE: Imaging Protocol: Axial computed tomography images with coronal and sagittal reformatted images were created and reviewed. CONTRAST MATERIAL: Intravenous: Omnipaque 350 Contrast volume:100 cc COMPARISON: No exams were available for comparison FINDINGS: Exam was performed from above the level of the clavicle through the fingers. Bones: The osseous structures and articular surfaces are intact. There is no evidence of fracture or dislocation. Bony alignment is satisfactory. The mid-foot is well maintained. No cellulitic or osteom yelitic changes are identified. There is no evidence of joint space narrowing or cystic degeneration seen. No lytic or sclerotic lesions are identified. Soft Tissues: Normal. No evidence of abscess. No subcutaneous edema. No evidence of axillary robbie opathy. Visualized portions of the left lung are clear. Exam is performed during the arterial phase and the arteries are patent. Veins are not yet opacified. IMPRESSION: Normal CT scan of the left upper extremity RADIATION DOSE DELIVERED: Total DLP DATA REPOSITORY: All CT scans at this facility are submitted to the National Radiology Data Registry (NRDR) Dose Index Registry (DIR) with the [employer] (ACR). RADIATION OPTIMIZATION: All CT scans at this facility use at least one of these dose optimization te chniques: automated exposure control; mA and/or kV adjustment per patient size (includes targeted exa ms where dose is matched to clinical indication); or iterative reconstruction.
[2021-12-27 10:56] LABS: D-Dimer 688 ng/mlFEU (<500)
--- NOTE | 2021-12-27 11:15 | DI.US_ITS ---
Exam(s) US UPPER EXTREMITY VENOUS LT EXAM: US UPPER EXTREMITY VENOUS LT CLINICAL HISTORY: arm pain, elevated d-dimer. TECHNIQUE: Ultrasound examination of the left upper extremity venous system(s) is performed using gr ayscale, color-flow, and spectral Doppler analysis. COMPARISON: No exams were available for comparison FINDINGS: The left internal jugular, axillary, subclavian, cephalic, basilic, brachial, radial, and ulnar veins are patent without evidence of thrombosis. There is no localized fluid collection or abscess. Ther e is no skin or muscle edema visible. IMPRESSION: Negative left upper extremity ultrasound.. DATA REPOSITORY:
[2021-12-27 11:18] LABS: Lactate 1.2 mmol/L (0.6-1.4)
[2021-12-27] MEDS: Normal Saline 1,000 ML 1000 ML IV (11:30)
[2021-12-27 11:32] LABS: Creatine Kinase 29 U/L (26-192)
[2021-12-27] MEDS: MORPHine 4 MG/ML SYR IVP (11:32)
[2021-12-27] MEDS: methylPREDNISolone SUCC 125 MG VIAL IVP (11:34)
[2021-12-27 11:40] LABS: Acetaminophen 20 ug/mL (10-30)
--- NOTE | 2021-12-27 12:00 | RT.EKG_ITS ---
APPROVED REPORT Exam: Resting ECG Reason for Exam: HIGH BP Patient Location: E HR:65 bpm ECG Measurements Heart Rate 65 AXIS CA 168 P 59 QRSd 88 QRS 26 QT 409 T 56 QTc 426 Conclusion Sinus rhythm...normal P axis, V-rate 60- 99 Probable left atrial enlargement...P >50mS, <-0.10mV V1 sinus rhythm at 65, normal axis, no STEMI, nondiagnostic EKG
[2021-12-27] MEDS: Ketorolac 15 MG/ML VIAL IVP (12:05)
[2021-12-27] MEDS: Labetalol 100 MG/20 ML VIAL 10 MG IVP (13:20)
[2021-12-27 13:24] LABS: Troponin I < 50 ng/L (<or=60)
[2021-12-27 13:43] LABS: Source Nasal/Nares
[2021-12-27 14:21] LABS: COVID-19 PCR Negative (Negative)
[2021-12-27] MEDS: diphenhydrAMINE 50 MG/ML VIAL IVP (14:24)
[2021-12-27] MEDS: methylPREDNISolone SUCC 40 MG VIAL IVP (14:25)
[2021-12-27] MEDS: Normal Saline Flush 10 ML SYR IVP ×2 (15:01→18:05)
[2021-12-27] MEDS: Metoprolol 5 MG/5 ML VIAL IVP ×2 (15:01→18:04)
--- NOTE | 2021-12-27 15:45 | HPE_ITS ---
Date of service: 12/27/21 Time of Service: 15:45 Assessment and Plan Assessment and plan (1) Arm pain, left: Status: Acute Assessment and plan: Pain left upper arm s/p covid vax 2 weeks ago - elevated liver enzymes with acetaminophen level 20 - NAC protocol x 20h. CT; US, both negative; Pain meds, PT, anesthesia consult for nerve block, heat, lidocaine patch (2) Acetaminophen toxicity: Status: Acute Assessment and plan: Taking tylenol excessively for left arm pain, tylenol level 20; increased liver enzymes - with that level and increased LFTs - 20h NAC protocol initiated. Will trend tylenol level and LFTs. (3) Abnormal WBC count: Status: Acute Assessment and plan: Increased WBC 14.10 - taking steroids - afebrile. monitor (4) Hypertension, essential, benign: Status: Acute Assessment and plan: BP > 200/100 - metoprolol IV and oral - continue to monitor and treat Metoprolol 5 mg IV every 6h prn BP > 160S Goal not to decrease MAP more than 25% She has been told by her PCP she has HTN and medication was recommended, she refused to start antihypertensives. Avoiding diuretics and miguelina-i/arb as she has just received IV contrast. (5) Anemia: Status: Chronic Assessment and plan: H/H - continue daily iron supplement (6) DVT prophylaxis: Status: Acute Assessment and plan: Enoxaparin (7) Discharge planning issues: Status: Acute Assessment and plan: Home when stable; w betablocker with close FU PCP re BP History of Present Illness History of Present Illness Chief Complaint: Left upper arm pain Narrative: Patient is a 71-year-old female with a history of Sjogren's disease presents to the ED with complaint of left arm pain that developed 1 day after her COVID- vaccine.? Patient states she got her flu vaccine in her right arm and denies any significant symptoms in her right arm.? She stated for the past 6 days she has had progressively worsening left arm pain that is now extending to her left neck and left upper back.? She stated the pain has become more constant and she has intermittent episodes of sharp pain.? She denied any tingling or numbness in her arm.? Patient was seen at [facility] ED 12/26/2021 for the same complaint and considering her age and history, had a cardiac work-up which was unremarkable and was referred for outpatient left upper extremity ultrasound today which was negative.? She denied any significant relief with Tylenol or ibuprofen.? She denied any chest pain, fever, shortness of breath or coughing. She states she has been taking 1 gm of tylenol several times a day for the pain, without any relief ,she has also taken Ibuprofen with no relief. She did not get better in the ED after given pain medications, steroids and muscle relaxers. She is put on observation status on the medical floor. Reviewed with Dr Worthy Review of Systems All systems reviewed & are unremarkable except as noted in HPI and below PFSH All Active Problems (Updated 12/27/21 @ 19:34 by Guillermina Woodard NP) Acetaminophen toxicity (Acute) Abnormal WBC count (Acute) Discharge planning issues (Acute) DVT prophylaxis (Acute) Arm pain, left (Acute) Left arm pain (Acute) Muscle spasm (Acute) Iliotibial band syndrome affecting left lower leg (Acute) History of repair of right rotator cuff (Acute) Degenerative arthritis of carpometacarpal joint of thumb (Acute) left Osteoarthritis of right knee (Acute) injection 11/10/21; 07/16/2021 Gallbladder disease (Acute) Hypertension, essential, benign (Acute) Dizziness (Acute) Nausea & vomiting (Acute) Lichen sclerosus et atrophicus of the vulva (Acute) Anemia (Chronic) CAO (dyspnea on exertion) (Acute) Medical History Hernia of abdominal wall Herpes History of Helicobacter pylori infection Iron deficiency anemia Joint pain Lichen sclerosus et atrophicus Osteopenia Peptic reflux esophagitis Vitamin D deficiency Surgical History section H/O esophagogastroduodenoscopy (~04/27/20) Rotator Cuff Repair Family History Mother Heart disease Father Personal history of malignant neoplasm prostate Social History Smoking/Tobacco Use Status: Never Smoking risk assessment performed?: Yes Alcohol Intake: current Alcohol Intake frequency: a few times a month Alcohol type: wine Drug use: Never Substance use type: does not use Do you feel safe at home: Yes Do you feel safe in your relationship?: Yes Meds Allergies and Home Medications Allergies Allergy/AdvReac Type Severity Reaction Status Date / Time wool Allergy Intermediate itchy Verified 12/27/21 08:53 latex Allergy Verified 12/27/21 08:53 venom-honey bee Allergy Verified 12/27/21 08:53 iodine AdvReac Intermediate Vomiting Verified 12/27/21 08:53 Home Medications Medication Instructions Recorded Confirmed Type multivitamin (Daily Multiple 1 ea PO DAILY 11/13/14 12/27/21 History tablet) clobetasol 0.05 % topical ointment 1 applic topical BID #60 grams 05/25/20 12/27/21 Rx (Temovate) ferrous gluconate 324 mg (38 mg 324 mg PO DAILY 06/15/21 12/27/21 History iron) tablet ascorbic acid (vitamin C) 500 mg mg PO 07/16/21 11/10/21 History capsule calcium carbonate 600 mg calcium 600 mg PO DAILY 07/16/21 12/27/21 History (1,500 mg) tablet (Calcium) ibuprofen 200 mg tablet 400 mg PO DAILY PRN 07/16/21 12/27/21 History diazepam 5 mg tablet 5 mg PO TID PRN muscle spasm #7 12/20/21 12/27/21 Rx tabs Exam Narrative Exam Narrative: Constitutional: well and cre-ukmgq-rnbpnatyq, pleasant, c/o pain to left upper arm, sl slurred post benadryl/pain med for CT HENT: head atraumatic/normocephalic/normal inspection, mucous membranes moist Eyes: conjunctiva normal, sclera normal, pupils 3mm b/l Neck: no stridor, full painless ROM, trachea midline, no cervical spine or cervical paraspinal tenderness to palpation Chest: normal inspection Resp: normal work of breathing, speaking in full sentences Cardio: normal rate, normal rhythm Back: normal inspection, no rash Skin: warm, dry, normal color, no rash Neuro: alert, not altered, motor 5-5 bilateral upper extremities, normal tone Ext: no edema of either upper extremity, full symmetric painless range of motion bilateral shoulders, full painless range of motion left elbow, left trapezius tender to palpation that reproduces pain, diffuse tenderness palpation of the left upper arm and forearm that reproduces pain, left shoulder nontender to palpation, left elbow nontender to palpation, radial pulses intact and symmetric, sensation intact and symmetric. [employer]ILD[employer] TE[employer] <2 sec bilat Psych: normal mood, normal affect, normal behavior Her left upper extremity, neck and back are normal to inspection.? She is neurovascularly intact.? There is no evidence of cellulitis, trauma or rash.? Her pain is reproducible with movement of her head with left head sidebending and movement of her left upper extremity.? Results Labs Result diagrams: 12/27/21 09:30 12/27/21 09:30 Labs: Laboratory Results - last 24 hr 12/27/21 12/27/21 12/27/21 09:30 09:30 09:30 WBC 14.10 H RBC 4.60 Hgb 13.4 Hct 41.3 MCV 90 MCH 29.1 MCHC 32.4 RDW 14.4 Plt Count 246 MPV 9.9 Immature Gran % 1.1 Neutrophils % 71.9 Lymphocytes % 17.0 Monocytes % 9.3 Eosinophils % 0.6 Basophils % 0.1 Nucleated RBC % 0.0 Absolute Neutrophils 10.14 H Absolute Lymphocytes 2.40 Absolute Monocytes 1.31 H Absolute Eosinophils 0.08 Absolute Basophils 0.01 ESR 8 D-Dimer VBG Lactate Sodium 139 Potassium 3.4 L Chloride 101 Carbon Dioxide 34.6 H Anion Gap 3.4 BUN 38 H Creatinine 1.0 Est GFR (CKD-EPI 2020) 59.86 Glucose 98 Calcium 9.3 Total Bilirubin 0.3 AST 224 H ALT 385 H Alkaline Phosphatase 110 Creatine Kinase Troponin I C-Reactive Protein 0.17 Total Protein 7.2 Albumin 3.5 Acetaminophen COVID-19 Source SARS-CoV-2 (PCR) 12/27/21 12/27/21 12/27/21 10:06 10:52 11:12 WBC RBC Hgb Hct MCV MCH MCHC RDW Plt Count MPV Immature Gran % Neutrophils % Lymphocytes % Monocytes % Eosinophils % Basophils % Nucleated RBC % Absolute Neutrophils Absolute Lymphocytes Absolute Monocytes Absolute Eosinophils Absolute Basophils ESR D-Dimer 688 H VBG Lactate Sodium Potassium Chloride Carbon Dioxide Anion Gap BUN Creatinine Est GFR (CKD-EPI 2020) Glucose Calcium Total Bilirubin AST ALT Alkaline Phosphatase Creatine Kinase 29 Troponin I C-Reactive Protein Total Protein Albumin Acetaminophen 20 COVID-19 Source SARS-CoV-2 (PCR) 12/27/21 12/27/21 12/27/21 11:12 11:12 13:30 WBC RBC Hgb Hct MCV MCH MCHC RDW Plt Count MPV Immature Gran % Neutrophils % Lymphocytes % Monocytes % Eosinophils % Basophils % Nucleated RBC % Absolute Neutrophils Absolute Lymphocytes Absolute Monocytes Absolute Eosinophils Absolute Basophils ESR D-Dimer VBG Lactate 1.2 Sodium Potassium Chloride Carbon Dioxide Anion Gap BUN Creatinine Est GFR (CKD-EPI 2020) Glucose Calcium Total Bilirubin AST ALT Alkaline Phosphatase Creatine Kinase Troponin I < 50 C-Reactive Protein Total Protein Albumin Acetaminophen COVID-19 Source Nasal/Nares SARS-CoV-2 (PCR) Negative Last Vital Signs Temp 37.3 C 12/27/21 15:21 Pulse 70 12/27/21 15:21 Resp 12 12/27/21 15:21 BP 205/100 H 12/27/21 15:21 Pulse Ox 96 12/27/21 15:21
[2021-12-27] MEDS: Omnipaque 350 MG/ML 100 ML BTL IJ (16:18)
[2021-12-27] MEDS: Gabapentin 100 MG CAP PO ×2 (17:27→20:30)
[2021-12-27] MEDS: Metoprolol 12.5 MG TAB PO (20:30)
[2021-12-27 21:12] LABS: Troponin I < 50 ng/L (<or=60)
[2021-12-28] VITALS (10 sets, daily range): BP systolic 164–200; BP diastolic 80–106; PULSE 57–82; RESP 16–19; TEMP 36.5–36.9; O2SAT 94–97
--- NOTE | 2021-12-28 | DI.US_ITS ---
Exam(s) US ABDOMEN LIMITED EXAM: US ABDOMEN LIMITED CLINICAL HISTORY: Increased liver enzymes TECHNIQUE: Ultrasound abdomen performed using standard protocol. COMPARISON: US US UPPER EXTREMITY VENOUS LT from 12/27/2021 FINDINGS: There is no ascites evident. LIVER: There are no hepatic lesions evident nor dilatation of intrahepatic ducts. GALLBLADDER/BILIARY: There are no gallstones. No gallbladder wall edema nor pericholecystic fluid. The common hepatic duct isnot dilated, measuring 2mm at the level of soraya hepatis. PANCREAS: There is no evidence of pancreatic mass nor dilatation of the pancreatic duct. RIGHT KIDNEY:No evidence of solid mass, calculus, nor hydronephrosis. No cortical cysts evident. ABDOMINAL AORTA AND IVC: Visualized portions exhibit normal caliber. IMPRESSION: 1. No evidence of cholelithiasis nor dilatation of the biliary tree. 2. No other significant ultrasound findings in the right upper quadrant. 3. There is no ascites. DATA REPOSITORY:
[2021-12-28 01:02] LABS: ALT 295 U/L (14-59); AST 101 U/L (15-37); Acetaminophen < 2 ug/mL (10-30); Albumin 2.9 g/dL (3.4-5.0); Alkaline Phosphatase 100 U/L (46-116); Bilirubin, Direct 0.1 mg/dL (0.0-0.2); Bilirubin, Total 0.2 mg/dL (0.2-1.0); Total Protein 6.4 g/dL (6.4-8.2)
[2021-12-28] MEDS: Normal Saline Flush 10 ML SYR IVP ×3 (06:51→11:23)
[2021-12-28] MEDS: HYDROmorphone 2 MG/ML SYR IVP (06:51)
[2021-12-28 07:22] LABS: Abs Immature Grans 0.11 10^3/uL (0.0-0.06); Absolute Basophil Count 0.01 10^3/uL (0.0-0.2); Absolute Lymphocyte Count 1.31 10^3/uL (1.2-3.4); Absolute Monocyte Count 0.86 10^3/uL (0.1-0.8); Absolute Neutrophil Count 9.45 10^3/uL (1.2-6.7); Basophils % 0.1; HCT 37.9 % (36.0-46.0); HGB 12.3 g/dL (11.2-15.7); Immature Grans % 0.9; Lymphocytes % 11.2; MCH 28.8 pg (27.0-33.0); MCHC 32.5 % (32.0-36.0); MCV 89 fL (80-95); MPV 10.4 fL (8.0-11.0); Monocytes % 7.3; Neutrophils % 80.5; Platelet Count 228 10^3/uL (130-400); RBC 4.27 10^6/uL (3.93-5.22); RDW 14.6 % (11.7-14.6); RDW-SD 47.2 fL; WBC 11.74 10^3/uL (4.4-10.8)
[2021-12-28 07:50] LABS: ALT 265 U/L (14-59); AST 76 U/L (15-37); Albumin 2.9 g/dL (3.4-5.0); Alkaline Phosphatase 96 U/L (46-116); Anion Gap 8.4 mmol/L (3-11); BUN 25 mg/dL (7-18); Bilirubin, Direct 0.1 mg/dL (0.0-0.2); Bilirubin, Total 0.3 mg/dL (0.2-1.0); CO2 28.6 mmol/L (21.0-32.0); Chloride 102 mmol/L (98-107); Estimated GFR 59.86 (mL/min/1.73m2); Glucose 111 mg/dL (74-106); Magnesium 2.5 mg/dL (1.8-2.4); Potassium 3.8 mmol/L (3.5-5.1); Sodium 139 mmol/L (136-145); Total Protein 6.4 g/dL (6.4-8.2)
[2021-12-28 08:11] LABS: Acetaminophen < 2 ug/mL (10-30)
[2021-12-28 09:46] LABS: Lyme Ab w Rflx to Lyme Confirm Negative (Negative)
[2021-12-28] MEDS: Metoprolol 12.5 MG TAB PO (10:18)
[2021-12-28] MEDS: Ferrous Gluconate 324 MG TAB PO (10:18)
[2021-12-28] MEDS: Gabapentin 100 MG CAP PO ×2 (10:18→14:33)
[2021-12-28] MEDS: Lidocaine 5% Patch 1 PATCH TD ×2 (10:20→12:29)
[2021-12-28] MEDS: Metoprolol 5 MG/5 ML VIAL IVP (11:23)
[2021-12-28] MEDS: Enoxaparin 40 MG/0.4 ML SYR SC (14:33)
[2021-12-28] MEDS: Milk of Magnesia 30 ML CUP PO (14:33)
--- NOTE | 2021-12-28 14:40 | IN_ITS ---
Date of service: 12/28/21 Time of Service: 14:40 PT Notes Visit Reasons: LUE pain post COVID vaccine,tylenon hepatotox,htn Physical Therapy Inpatient Initial Evaluation Date: 12/28/2021 Referring Doctor: Lyn Worthy MD PT Orders: PT CONSULT: Limited ability Precautions: Fall. Standard. Activity as tolerated. Patient Profile/Admitting Diagnosis: Yamel is a 71-year-old female who presented to the ED on 12/27/2021 due to persistent left arm pain after COVID vaccination. Patient also with diagnoses of acetaminophen toxicity, abnormal white blood cell count, hypertension, and anemia. PMHX: All Active Problems?(Updated 12/27/21 @ 19:34 by Guillermina Woodard NP) Acetaminophen toxicity (Acute) Abnormal WBC count (Acute) Discharge planning issues (Acute) DVT prophylaxis (Acute) Arm pain, left (Acute) Left arm pain (Acute) Muscle spasm (Acute) Iliotibial band syndrome affecting left lower leg (Acute) History of repair of right rotator cuff (Acute) Degenerative arthritis of carpometacarpal joint of thumb (Acute) leftOsteoarthritis of right knee (Acute) injection 11/10/21; 07/16/2021Gallbladder disease (Acute) Hypertension, essential, benign (Acute) Dizziness (Acute) Nausea & vomiting (Acute) Lichen sclerosus et atrophicus of the vulva (Acute) Anemia (Chronic) CAO (dyspnea on exertion) (Acute) Medical History? Hernia of abdominal wall Herpes History of Helicobacter pylori infection Iron deficiency anemia Joint pain Lichen sclerosus et atrophicus Osteopenia Peptic reflux esophagitis Vitamin D deficiency Surgical History? section H/O esophagogastroduodenoscopy (~04/27/20) Rotator Cuff Repair Social History/Home Situation: Lives with son in a private home. Independent with all aspects of ADLs prior to admission. 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 Equipment Owned/DME: None Subjective: Patient states that she got vaccinated two weeks ago and has had symptoms of pain since day 1. Reports intermittent pain in the R arm and forearm. Likens pain to that of labor pain that starts off small and then peaks and then disappears before it comes on again. Feels a lot better compared to this morning as she became loopy from the pain pill she got. She states that there is nothing wrong with her extremity except that it is hurting. She did not complain of pain with range of motion and strength testing. Objective: General Observation: Seated on chair by the window. Appears to be using left extremity without any difficulty when the pain is off. No swelling, no redness nor any discoloration seen in L upper extremity except for a small circumscribed hematoma on the L posterolateral arm. IV on the R UE. Fentanyl patches on L arm and L forearm. Mental Status: Alert and oriented as to person, place, time, and purpose. Able to pay attention, focus, and respond appropriately. Easily distracted but is able to return to topic on hand when redirected. Pain: When pain comes on she describes it as moderate pain 5-6/10 in the left upper extremity Vital Signs: WNL as closely monitored by nursing staff ROM: Right Upper Extremity: Shoulder Flexion WFL. Shoulder abduction WFL. Elbow flexion WFL. Wrist flexion WFL. Functional opening and closing of hand WFL. Left Upper Extremity: Shoulder Flexion WFL. Shoulder abduction WFL. Elbow flexion WFL. Wrist flexion WFL. Functional opening and closing of hand WFL. Right Lower Extremity: Hip flexion WFL. Hip abduction WFL. Knee flexion WFL. Ankle dorsiflexion WFL. Ankle plantarflexion WFL. Left Lower Extremity: Hip flexion WFL. Hip abduction WFL. Knee flexion WFL. Ankle dorsiflexion WFL. Ankle plantarflexion WFL. Strength: Right Upper Extremity: Shoulder flexors 5/5. Shoulder abductors 5/5. Elbow flexors 5/5. Elbow extensors 5/5. Registered Representative strong. Left Upper Extremity: Shoulder flexors 5/5. Shoulder abductors 5/5. Elbow flexors 5/5. Elbow extensors 5/5. Registered Representative weaker compared to the R. Pincer grasp weaker than on the L for all fingers. Right Lower Extremity: Hip flexors 5/5. Hip abductors 5/5. Knee flexors 5/5. Knee extensors 5/5. Ankle dorsiflexors 5/5. Ankle plantarflexors 5/5. Left Lower Extremity: Hip flexors 5/5. Hip abductors 55/5. Knee flexors 55/5. Knee extensors 55/5. Ankle dorsiflexors 5/5. Ankle plantarflexors 5/5. Bed Mobility/Transfers: Sit to stand independent Stand to sit independent Bed to bedside supervision Bed to reclining chair supervision Reclining chair to bed supervision Gait: Supervision inside room without AD. Balance: Static Sitting: Normal Dynamic Sitting: Normal Static Standing: Good Dynamic Standing: Good Special Tests: Mobility Limitations Standardized Measure [facility] AM-PAC 6 clicks Basic Mobility Inpatient Short Form: Raw Score: 24 CMS Score: 0% deficit Informed Consent/Education: Patient was instructed in purpose of PT consult and plan of care. Agreeable to proceed with established PT POC to achieve personal goals. Assessment: No increased warmth, no swelling, no strength changes in the L arm and forearm. L shoulder, elbow, and wrist AROM WFL. L shoulder, elbow, and wrist muscle strength 5/5. 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 Pincer grasp on all fingers weaker on L than R. 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 Patient is assessed as a 80428 low complexity based on the following: History: 71-year-old female with past medical history as indicated above Examination: Demonstrable impairment in strength, balance, and mobility level with underlying impairments and functional limitations as exhibited above as well as deficit score of 0% utilizing the [facility] Mobility Inpatient Short Form Presentation: Stable Decision Makin low complexity Goals: N/A. PT evalaution only. Plan of Care/Treatment Plan: N/A. PT evalaution only. Will beenfit from OT evaluation for hand and finger strengthening and dexterity skilling. DISCHARGE RECOMMENDATIONS: [] Home with no services [] [] Home with services [specify] [X] Home with outpatient OT. 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 [] SNF for continued rehabilitation [] [] [facility] [] [] SNF versus LTC based on ability to participate and progress [] TREATMENT CODE/TIME: 03813 x 26 minutes beginning at 14:40 PM. Thank you for the opportunity to participate in the care of this patient. Sandra Conklin PT, DPT, CLT [facility] [place], [place]
--- NOTE | 2021-12-28 14:42 | W.PM.PROGNOT ---
Date of Service Date of service: 12/28/21 Time of Service: 14:42 Assessment and Plan Assessment and plan (1) Arm pain, left: Status: Acute Assessment and plan: Pain left upper arm s/p covid vax 2 weeks ago - elevated liver enzymes with acetaminophen level 20 - NAC protocol x 20h. CT; US, both negative; Pain meds, PT, anesthesia consult for nerve block, heat, lidocaine patch I have increased her gabapentin to 200 mg TID; she requests compression stocking over left arm as she states that squeezing the arm makes it feel better. She has normal ROM and strength for the physical therapist. Unclear was this is a neuropathy or radiculopathy induced by the vaccination or more pscyhogenic. Nevertheless we will try to alleviated her discomfort. (2) Acetaminophen toxicity: Status: Acute Assessment and plan: Taking tylenol excessively for left arm pain, tylenol level 20; increased liver enzymes - with that level and increased LFTs - 20h NAC protocol initiated. Will trend tylenol level and LFTs. LFT are improving but still elevated transaminases: AST 224>101>76; ALT 385>295>265; alk phos normal, bilirubin normal, protime normal; I will continue NAC protocol for another 20 hours and repeat her LFT tomorrow before stopping therapy (3) Abnormal WBC count: Status: Acute Assessment and plan: wbc declining 14,100 > 11,740; will monitor now she is off steroids; remains afebrile (4) Hypertension, essential, benign: Status: Acute Assessment and plan: BP > 200/100 - metoprolol IV and oral - continue to monitor and treat Metoprolol 5 mg IV every 6h prn BP > 160S Goal not to decrease MAP more than 25% She has been told by her PCP she has HTN and medication was recommended, she refused to start antihypertensives. Avoiding diuretics and miguelina-i/arb as she has just received IV contrast. will titrate her lopressor (5) Anemia: Status: Chronic Assessment and plan: H/H - continue daily iron supplement (6) DVT prophylaxis: Status: Acute Assessment and plan: Enoxaparin (7) Discharge planning issues: Status: Acute Assessment and plan: Home when stable; w betablocker with close FU PCP re BP Subjective Subjective Interval history since last seen: Patient complains of burning sensation inside her left arm from shoulder to wrist. Exam Narrative Exam Narrative: Left arm and hand w/ normal ROM and strength, normal sensation to light touch; normal pulses at wrist Objective Last Vital Signs Temp 36.9 C 12/28/21 11:16 Pulse 71 12/28/21 11:53 Resp 19 12/28/21 11:16 BP 165/90 H 12/28/21 11:53 Pulse Ox 95 12/28/21 11:16 Laboratory Results - last 24 hr 12/27/21 12/27/21 12/27/21 09:30 20:24 22:42 WBC RBC Hgb Hct MCV MCH MCHC RDW Plt Count MPV Immature Gran % Neutrophils % Lymphocytes % Monocytes % Eosinophils % Basophils % Nucleated RBC % Absolute Neutrophils Absolute Lymphocytes Absolute Monocytes Absolute Eosinophils Absolute Basophils Sodium Potassium Chloride Carbon Dioxide Anion Gap BUN Creatinine Est GFR (CKD-EPI 2020) Glucose Calcium Magnesium Total Bilirubin Cancelled Conjugated Bilirubin Cancelled AST Cancelled ALT Cancelled Alkaline Phosphatase Cancelled Troponin I < 50 Total Protein Cancelled Albumin Cancelled Acetaminophen Cancelled Lyme Disease Antibody Negative 12/28/21 12/28/21 12/28/21 00:40 06:25 06:25 WBC 11.74 H RBC 4.27 Hgb 12.3 Hct 37.9 MCV 89 MCH 28.8 MCHC 32.5 RDW 14.6 Plt Count 228 MPV 10.4 Immature Gran % 0.9 Neutrophils % 80.5 Lymphocytes % 11.2 Monocytes % 7.3 Eosinophils % 0.0 Basophils % 0.1 Nucleated RBC % 0.0 Absolute Neutrophils 9.45 H Absolute Lymphocytes 1.31 Absolute Monocytes 0.86 H Absolute Eosinophils 0.00 Absolute Basophils 0.01 Sodium 139 Potassium 3.8 Chloride 102 Carbon Dioxide 28.6 Anion Gap 8.4 BUN 25 H Creatinine 1.0 Est GFR (CKD-EPI 2020) 59.86 Glucose 111 H Calcium 9.0 Magnesium 2.5 H Total Bilirubin 0.2 0.3 Conjugated Bilirubin 0.1 0.1 AST 101 H 76 H ALT 295 H 265 H Alkaline Phosphatase 100 96 Troponin I Total Protein 6.4 6.4 Albumin 2.9 L 2.9 L Acetaminophen < 2 < 2 Lyme Disease Antibody
--- NOTE | 2021-12-28 16:17 | PDOC.CMIN ---
- If Service Date Differs Date of service: 12/28/21 Time of Service: 16:17 Care Management Initial Assess REASON FOR HOSPITALIZATION:: Left Arm Pain PAST MEDICAL HISTORY/PAST SURGICAL HISTORY:: Medical History . Hernia of abdominal wall. Herpes. History of Helicobacter pylori infection. Iron deficiency anemia. Joint pain. Lichen sclerosus et atrophicus. Osteopenia. Peptic reflux esophagitis. Vitamin D deficiency. Surgical History . section. H/O esophagogastroduodenoscopy (~04/27/20). Rotator Cuff Repair PREVIOUS FUNCTIONAL STATUS/SOCIAL/FAMILY SUPPORTS:: Resides in [place], son Adelfo resides with her. She is independent at baseline. CURRENT FUNCTIONAL STATUS:: Yamel is lying in bed, reports her provider is Giov[facility] Liang at [facility]; ADVANCE DIRECTIVES:: None on file. Has patient been provided with info about the portal/API?: Yes Did the patient sign up for the portal?: Yes CODE STATUS:: Full Code INSURANCE COVERAGE / FINANCIAL ISSUES:: Medicare. Financial Asst 85 expires 01/26/22 PRIMARY CARE PHYSICIAN:: Giovany Liang POTENTIAL DISCHARGE NEEDS:: Follow up appointments. PATIENT/FAMILY EDUCATION NEEDS:: Review discharge instructions, discuss Ask Me Three. ANTICIPATED BARRIERS TO DISCHARGE:: None identified. TRANSPORTATION:: Via private vehicle with her son, Adelfo. PLAN:: Anticipate Yamel will return home when ready per MD, with her son Adelfo. CM continues to follow.
[2021-12-28] MEDS: Gabapentin 100 MG CAP 200 MG PO (20:35)
[2021-12-28] MEDS: Metoprolol 25 MG TAB PO (20:35)
[2021-12-28] MEDS: Lidocaine Patch Removal 2 EACH TP (20:38)
[2021-12-28 20:53] LABS: Hepatitis A Antibody IgM Negative (Negative); Hepatitis B Core Antibody Negative (Negative); Hepatitis B surface Ag Negative (Negative); Hepatitis C Ab w Rflx HCV PCR Negative (Negative)
[2021-12-28] MEDS: Lidocaine 5% Patch 2 PATCH TP (21:17)
[2021-12-29] VITALS (10 sets, daily range): BP systolic 134–176; BP diastolic 68–79; PULSE 69–93; RESP 16–20; TEMP 36.3–36.9; O2SAT 95–98
--- NOTE | 2021-12-29 | DI.MRI_ITS ---
Exam(s) MR UPPER EXTREMITY LT WO EXAM: MR UPPER EXTREMITY LT WO/W CLINICAL HISTORY: left arm pain. TECHNIQUE: Multiplanar multisequence MRI was performed. COMPARISON: CT upper extremity 27 December 2021 FINDINGS: Exam mildly limited by motion. BONES: There is no fracture or contusion pattern. Degenerative cyst at greater tuberosity. JOINTS:The acromioclavicular joint is normal. The glenohumeral joint is normal. TENDONS: Supraspinatus: Unremarkable. Infraspinatus: Unremarkable. Subscapularis: Unremarkable. Teres Minor: Unremarkable. Biceps and Leola: Unremarkable. MUSCLES: Unremarkable. No muscle atrophy. No abnormal muscle signal. GLENOID LABRUM: Unremarkable on this noncontrast examination. SOFT TISSUES: Unremarkable. No fluid collection. No axillary adenopathy visible. OTHER: Minimal amount of fluid in the subcoracoid bursa.. Small amount of fluid beneath the acromion . IMPRESSION: Unremarkable MRI of the shoulder. DATA REPOSITORY:
[2021-12-29 06:56] LABS: INR 0.9 (0.9-1.1); Prothrombin Time 9.5 sec (9.3-11.0)
[2021-12-29 07:05] LABS: ALT 371 U/L (14-59); AST 208 U/L (15-37); Albumin 2.6 g/dL (3.4-5.0); Alkaline Phosphatase 114 U/L (46-116); Bilirubin, Direct 0.1 mg/dL (0.0-0.2); Bilirubin, Total 0.4 mg/dL (0.2-1.0); Total Protein 5.9 g/dL (6.4-8.2)
[2021-12-29] MEDS: Gabapentin 100 MG CAP 200 MG PO ×3 (07:38→22:06)
[2021-12-29] MEDS: Metoprolol 25 MG TAB PO ×2 (07:38→20:45)
[2021-12-29] MEDS: Ferrous Gluconate 324 MG TAB PO (07:38)
[2021-12-29] MEDS: Normal Saline Flush 10 ML SYR IVP ×4 (07:39→20:57)
[2021-12-29] MEDS: HYDROmorphone 2 MG/ML SYR IVP (09:15)
[2021-12-29] MEDS: Lidocaine Patch Removal 2 EACH TP (09:16)
--- NOTE | 2021-12-29 09:22 | CMPROGNOTE_ITS ---
- If Service Date Differs Date of service: 12/29/21 Time of Service: 09:22 Care Management Progress Note S/O: Yamel continues to be closely monitored on telemetry. She had a MRI and anesthesia consult to discuss the possibility of a nerve block. CM will continue to follow. A: 71 year old female admitted to [facility] on 12/27/21 for Left Arm Pain P: Anticipate Yamel will return home when ready per MD, with her son Adelfo. CM continues to follow.
--- NOTE | 2021-12-29 12:17 | ANES_ITS ---
Date of service: 12/29/21 Time of Service: 12:17 Anesthesia Note Report Anesthesia Note: I received an anesthesia consult request to evaluate Yamel for possible nerve block or other methods of pain management. When I entered her room, she was on the phone, appearing drowsy, but in no obvious distress discussing a phone bill. She finished the call and then we spoke about the complaint as stated below from the hospitalist note. (1) Arm pain, left: ?Status:?Acute ? ? ? Assessment and plan: Pain left upper arm s/p covid vax 2 weeks ago - elevated liver enzymes with acetaminophen level 20 - NAC protocol x 20h.? CT; US, both negative; Pain meds, PT, anesthesia consult for nerve block, heat, lidocaine patch I have increased her gabapentin to 200 mg TID; she requests compression stocking over left arm as she states that squeezing the arm makes it feel better. She has normal ROM and strength for the physical therapist. Unclear was this is a neuropathy or radiculopathy induced by the vaccination or more pscyhogenic. Nevertheless we will try to alleviated her discomfort. She has 1/5 muscle strength in hand, unable to extend fingers to fully open hand position exposing palm. no current complaint of paresthesia in arm/hand/fingers. Her pain is currently tolerable. She states when this unbearable pain begins in her arm near where she received a vaccine shot and spreads down her arm into her hand. Dilaudid and lidocaine patch seem to help but makes her sleepy. These episodes come on every few hours and last between 3 and 15 minutes. They do not seem to be provoked by anything specific. I discussed a nerve block for her and said this would likely make her more comfortable, but only for 16-30 hours. The other potential risk would be in there is nerve involvement/irritation, the medications may further irritate the nerve. After discussion, I do not believe there is any intervention that anesthesia can offer where the benefit would outweigh the risk. She would also like to report this adverse reaction to the [facility] or the [place] [facility], I deferred this for the hospitalist team to look into.
[2021-12-29] MEDS: Enoxaparin 40 MG/0.4 ML SYR SC (13:48)
--- NOTE | 2021-12-29 14:18 | PHA.REVIEW2 ---
Pharmacy Admission Review - Admission Clinical Review (Last Reviewed 12/27/21 @ 09:41 by Nancy Adams MD) Acetaminophen toxicity (Acute) Abnormal WBC count (Acute) Discharge planning issues (Acute) DVT prophylaxis (Acute) Arm pain, left (Acute) Hypertension, essential, benign (Acute) wool Allergy (Intermediate, Verified 12/27/21 08:53) itchy latex Allergy (Verified 12/27/21 08:53) venom-honey bee Allergy (Verified 12/27/21 08:53) iodine Adverse Reaction (Intermediate, Verified 12/27/21 08:53) Vomiting Resuscitation Status Full Code Height 5 ft 2 in Weight 69.5 kg - Renal Dosing Renal Dosing: BUN 25 mg/dL (7-18) H 12/28/21 06:25 Creatinine 1.0 mg/dL (0.55-1.02) 12/28/21 06:25 Medications needing adjustments: Reviewed (eCrCl 46 ml/min - current orders ok) - Anticoagulation Anticoagulation: Hgb 12.3 g/dL (11.2-15.7) 12/28/21 06:25 Hct 37.9 % (36.0-46.0) 12/28/21 06:25 Plt Count 228 10^3/uL (130-400) 12/28/21 06:25 INR 0.9 (0.9-1.1) 12/29/21 06:00 Creatinine 1.0 mg/dL (0.55-1.02) 12/28/21 06:25 DVT Prophylaxis: Reviewed Medications: Enoxaparin - Opiate Usage Evaluate Pain Scale/Pains Meds: N/A - Relevant Labs ESR 8 mm/hr (0-30) 12/27/21 09:30 Sodium 139 mmol/L (136-145) 12/28/21 06:25 Potassium 3.8 mmol/L (3.5-5.1) 12/28/21 06:25 Chloride 102 mmol/L (98-107) 12/28/21 06:25 Magnesium 2.5 mg/dL (1.8-2.4) H 12/28/21 06:25 C-Reactive Protein 0.17 mg/dL (0.0-0.3) 12/27/21 09:30 Electrolytes, C-Reactive P, ESR: Reviewed - DM Control DM Control: Glucose 111 mg/dL (74-106) H 12/28/21 06:25 DM Control: Reviewed - Cardiac Review Cardiac Review: Troponin I < 50 ng/L (<or=60) 12/27/21 20:24 BP, HR, EF%: Reviewed - IV to PO Switch IV Medications: Reviewed - Home Meds Home Med List reviewed: Reviewed Relevent Home Meds Not ordered & why?: all ordered - Current meds Current Medication Order Review: Intervened (Discussed with MD about whether or not to continue NAC infusion -- due to patients elevated LFTs today it will be continued until they begin to downtrend and stabilize) Comments: Continue acetylcysteine infusion if there is evidence of liver injury (e.g., ALT > 80 U/L and rising) or persistent elevation of acetaminophen (>10 mg/L).([id number]). Treatment failures have been reported if acetylcysteine was stopped prematurely. Continue at the same rate, equal to the rate of the third IV dose in the protocol (100 mg/kg infused over 16 hours ? repeatedly). Acetylcysteine can generally be stopped once the following criteria are met: (1) Acetaminophen level is <10 mg/L. (2) Transaminases are either down-trending or stable. For patients with hepatic failure, acetylcysteine should be continued until the liver is making a robust recovery (e.g., transaminases are definitively falling and the INR is <2). Note that small fluctuations in ALT (e.g., +/- 20 U/L or +/- 10%) are common and don't necessarily indicate the need for ongoing acetylcysteine, especially if the ALT level is low.([id number]). (3) INR <2.0
--- NOTE | 2021-12-29 16:30 | W.PM.PROGNOT ---
Date of Service Date of service: 12/29/21 Time of Service: 16:30 Assessment and Plan Assessment and plan (1) Arm pain, left: Status: Acute Assessment and plan: MRI of her shoulder has been ordered and done to rule out any vaccination related injury, i.e. bursitis, rotator cuff tear, etc. Gabapentin has been titrated from 100 mg tid to 200 mg tid but with ill effects fo excessive drowsiness. I will discuss w/ pharmacy and neurology and ortho alternative treatments and more importantly the cause of her pain. Her son asked about doing EMG/NCT however we do not have those tests available as an inpatient. I will decrease her daytime dose of gabapentin and but continue the higher dose at night time. (2) Transaminitis: Status: Acute Assessment and plan: cont. NAC protocol per pharmacist recommendation. daily monitoring of LFT's. (3) Acetaminophen toxicity: Status: Resolved Subjective Subjective Interval history since last seen: Patient was seen in the room w/ her son present. Patient still with intermittent sharp pains in her left arm. They seem to come in waves. Patient became rather boisterous and verbal combative. I asked her son to step outside to discuss her workup and treatment so far as well as my plans to pursue further workup and treatment of her left arm pain. Her son expressed concerns that his mother may have had a stroke which he based on her slurred speech, lethargy. I explained to him that her mental alertness seems to wax and wan w/ the medications she has received including use of narcotics and recent addition of gabapentin. She has not shown any limitations in her speech, swallowing or her use of her arms and legs other than she has been guarding of her left arm d/t pain and wearing a wrap on her arm. I did not detect any focal motor weakness nor gross sensory loss when I examined her yesterday. I told him that we would be getting neurology consult and orthopedic consultations to try to get to the root cause of her pain. Exam Narrative Exam Narrative: Patient limited my examination of her LUE as she became combative. She was noted to be able to move her arm and hand at will w/ normal ROM and when I left her room to have a discussion w/ her son, she ambulated on her own to the bathroom and followed us to her doorway. Objective Last Vital Signs Temp 36.9 C 01/01/22 14:37 Pulse 86 11/05/22 17:28 Resp 18 01/01/22 14:37 BP 167/84 H 01/01/22 14:37 Pulse Ox 97 01/01/22 14:37 Laboratory Results - last 24 hr 01/01/22 18:00 Total Bilirubin Cancelled Conjugated Bilirubin Cancelled AST Cancelled ALT Cancelled Alkaline Phosphatase Cancelled Total Protein Cancelled Albumin Cancelled
[2021-12-29] MEDS: Lidocaine 5% Patch 2 PATCH TP (20:45)
[2021-12-30] VITALS (59 sets, daily range): BP systolic 158–207; BP diastolic 74–108; PULSE 73–121; RESP 11–17; TEMP 36.4–37.3; O2SAT 92–98
--- NOTE | 2021-12-30 | DI.MRI_ITS ---
Exam(s) MR BRAIN WO EXAM: MR BRAIN WO CLINICAL HISTORY: confusion; r/o CVA TECHNIQUE: Multiplanar multisequence MRI of the brain was performed. COMPARISON: MR MR BRAIN WO from 09/03/2021 FINDINGS: The ventricular system is normal in appearance. There are areas of abnormal signal in periventricular white matter which were present on prior examin ation of September 03, 2021 in which have appearance and distribution consistent with microvascular ischemi c changes. There are new areas of abnormal signal in the basal ganglia on the right which correspond to areas of diffusion restriction and matching ADC map signal loss. These findings are highly sugge stive of acute or subacute right basal ganglia infarctions. The orbital and temporal bone structures appear intact as does the pituitary. Susceptibility weighted imaging shows no evidence of intracranial hemorrhage. There is normal flow void in the [place] vasculature. 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 No evidence of acut e hemorrhage or mass effect. DATA REPOSITORY:
--- NOTE | 2021-12-30 | DI.MRI_ITS ---
Exam(s) MR CERVICAL SPINE WO EXAM: MR CERVICAL SPINE WO CLINICAL HISTORY: left arm radicular pain TECHNIQUE: Multiplanar multisequence MRI was performed. COMPARISON: No exams were available for comparison FINDINGS: MR examination cervical spine was performed according to the usual protocol. Posterior fossa structur es appear intact. No bony signal abnormality seen. There is a mild mid cervical kyphosis. There is mild prominence of disc osteophyte complex at C5-6 and C6-7 without evidence of disc herniat ion. No disc herniation identified in the cervical region. There appears to be bilateral neural foraminal narrowing at C5-6 and C6-7. Mild neural foraminal gabriela rowing may also be present bilaterally at C 3 4 and on the left at C4-5. Spinal cord is of normal diameter and shows normal signal throughout. IMPRESSION: No disc herniation in the cervical region. Multilevel neural foraminal narrowing noted as described above.. DATA REPOSITORY:
[2021-12-30 06:52] LABS: HCT 37.1 % (36.0-46.0); MCH 28.6 pg (27.0-33.0); MCHC 32.3 % (32.0-36.0); MCV 89 fL (80-95); Platelet Count 208 10^3/uL (130-400); RBC 4.19 10^6/uL (3.93-5.22); RDW-SD 48.9 fL; WBC 7.29 10^3/uL (4.4-10.8)
--- NOTE | 2021-12-30 07:22 | PDOC.CMPRO ---
- If Service Date Differs Date of service: 12/30/21 Time of Service: 07:22 Care Management Progress Note S/O: Yamel was sitting in her chair when CM met with her. 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 Pt continues to be closely monitored on telemetry. She had a MRI yesterday and her Gabapentin was increased. Ortho is consulted. Per patient her PCP is Giovany Liang NP. CM will continue to follow. A: 71 year old female admitted to [facility] on 12/27/21 for Left Arm Pain P: Anticipate Yamel will return home when ready per MD, with her son Adelfo. CM continues to follow.
--- NOTE | 2021-12-30 08:37 | OCONE_ITS ---
Date of service: 12/29/21 Time of Service: 12:30 History of Present Illness History of Present Illness Chief Complaint: Left Upper Extremity Pain/Numbness Narrative: Yamel is a 71-year-old who had a COVID-vaccine performed just over 2 weeks ago. Since that time she has had increasing left arm pain as well as a burning sensation. She describes that this pain seems to start around the shoulder and then travels down the radial aspect, slightly volar, towards the wrist and hand. She describes as a burning sensation and an intense pain. She feels that it comes in waves. She will have periods of time where its not that bad and then periods where the pain is intense, excruciating, and really limits any activity she feels that the waves were much more frequent last week. She still feels that she is able to use the left arm in between these waves. She does have some pain with the use. She does not report any one location that seems to hurt more than others although the anterior arm seems to be the most recent and most symp tomatic. She denies any fevers or chills. She has been seen in the emergency department multiple times. She is had upper extremity ultrasounds. She is had CT scan. She has had trials of different medications. For the most part, no significant improvements with any of these treatments. Consults Consult date: 12/29/21 Requesting physician: Uday Flores Consult Reason Left upper extremity pain Assessment and Plan Assessment and plan (1) Partial tear of left rotator cuff: Status: Acute (2) Subacromial bursitis of left shoulder joint: Status: Acute Assessment and plan: Yamel is a 1-year-old who had the acute onset of left arm pain following COVID vaccination. Her examination is relatively benign. These waves of pain and burning are difficult to explain. The most likely complication from an inadvertent injection into the deep space of the shoulder would be an acute subacromial bursitis which has been document in the literature for any vaccination or immunization (SIRVA). However, she does not have the findings of this on her clinical exam nor on the MRI. This usually would represent exquisite pain over the lateral and anterolateral aspect of the shoulder with restricted range of motion and notable pain with any attempted range of motion. She does have some changes within the rotator cuff and the greater tuberosity which are likely chronic in nature, especially with a history of rotator cuff repair on the right side. I think this is causing her pain with shoulder motions. However, this does not explain the pain going down the arm past the elbow and into the hand. My suspicion is that she is having an inflammatory response and that this will just take some time. A subacromial injection could be considered but with only minimal pain of this area on examination and with testing, I would hate to cause further trauma by injecting I relatively stable chronic condition. At this point, there is no sign of severe musculoskeletal issue. Review of Systems All systems reviewed & are unremarkable except as noted in HPI and below PFSH All Active Problems (Updated 12/30/21 @ 12:53 by Israel Arguello MD) Subacromial bursitis of left shoulder joint (Acute) Partial tear of left rotator cuff (Acute) Acetaminophen toxicity (Acute) Abnormal WBC count (Acute) Discharge planning issues (Acute) DVT prophylaxis (Acute) Arm pain, left (Acute) Left arm pain (Acute) Muscle spasm (Acute) Iliotibial band syndrome affecting left lower leg (Acute) History of repair of right rotator cuff (Acute) Degenerative arthritis of carpometacarpal joint of thumb (Acute) left Osteoarthritis of right knee (Acute) injection 11/10/21; 07/16/2021 Gallbladder disease (Acute) Hypertension, essential, benign (Acute) Dizziness (Acute) Nausea & vomiting (Acute) Lichen sclerosus et atrophicus of the vulva (Acute) Anemia (Chronic) CAO (dyspnea on exertion) (Acute) Medical History Hernia of abdominal wall Herpes History of Helicobacter pylori infection Iron deficiency anemia Joint pain Lichen sclerosus et atrophicus Osteopenia Peptic reflux esophagitis Vitamin D deficiency Surgical History section H/O esophagogastroduodenoscopy (~04/27/20) Rotator Cuff Repair Family History Mother Heart disease Father Personal history of malignant neoplasm prostate Social History Smoking/Tobacco Use Status: Never Smoking risk assessment performed?: Yes Alcohol Intake: current Alcohol Intake frequency: a few times a month Alcohol type: wine Drug use: Never Substance use type: does not use Do you feel safe at home: Yes Do you feel safe in your relationship?: Yes Exam Narrative Exam Narrative: Yamel is sitting up in hospital bed. She is starting to eat her lunch. She is alert oriented x3. She has no acute distress. She asked me to please bring her tray back up worker soon as possible. She is able to use her left arm and moving the tray and herself within the bed. Evaluation of the left upper extremity does not show any significant swelling or bruising around the left shoulder. There is no erythema. On palpation she does not have any significant pain to palpation of the subacromial bursa. No area of fluctuance. No obvious ecchymosis or swelling about the left shoulder. Passively she tolerates abduction to 90 degrees as well as forward flexion to 90 degrees. The exam is slightly limited in the bed. Actively she can demonstrate the same amount of motion with some mild discomfort anterior laterally. Gagnon and Neer test reports some mild discomfort. She does have some pain on the biceps tendon. I am unable to recreate any of the burning or numbness or tingling within the left upper extremity. She endorses full sensation of the median, radial, ulnar nerve. She has full motor from C5-T1 with some pain on testing of the left shoulder. Results Last Vital Signs Temp 36.8 C 12/30/21 07:40 Pulse 78 12/30/21 07:40 Resp 16 12/30/21 07:40 BP 164/74 H 12/30/21 07:40 Pulse Ox 96 12/30/21 07:40 Labs Result diagrams: 12/30/21 06:40 12/28/21 06:25 Labs: Laboratory Results - last 24 hr 12/30/21 06:40 WBC 7.29 RBC 4.19 Hgb 12.0 Hct 37.1 MCV 89 MCH 28.6 MCHC 32.3 RDW 15.0 H Plt Count 208 MPV 10.0 Imaging Imaging Studies: CT scan of the left upper extremity was reviewed. This does not demonstrate any areas of fluctuance. There is no significant edema in the soft tissues. There is no sign of fracture or dislocation. No suspicious bony lesions. MRI of the left shoulder was also reviewed. This does not show any large fluid or surrounding edema within the subacromial bursa. There is some slight bursitis. There also appears to be some partial tearing of the supraspinatus with a large cyst seen under the greater tuberosity posteriorly. Tendinosis is seen also in the supraspinatus tendon there is fluid around the biceps tendon and some likely superior labral tearing. Mild arthritic changes are also seen within the glenohumeral joint.
[2021-12-30] MEDS: Ferrous Gluconate 324 MG TAB PO (08:57)
[2021-12-30] MEDS: Lidocaine Patch Removal 2 EACH TP (08:57)
[2021-12-30] MEDS: Normal Saline Flush 10 ML SYR IVP ×4 (08:57→19:57)
[2021-12-30] MEDS: Gabapentin 100 MG CAP PO (08:57)
[2021-12-30] MEDS: Metoprolol 25 MG TAB PO ×2 (08:57→19:56)
[2021-12-30 11:34] LABS: ALT 401 U/L (14-59); AST 158 U/L (15-37); Albumin 2.8 g/dL (3.4-5.0); Alkaline Phosphatase 137 U/L (46-116); Bilirubin, Direct 0.2 mg/dL (0.0-0.2); Bilirubin, Total 0.3 mg/dL (0.2-1.0); Total Protein 5.8 g/dL (6.4-8.2)
--- NOTE | 2021-12-30 11:51 | NCONE_ITS ---
Date of service: 12/30/21 Time of Service: 11:51 Assessment and Plan Assessment and plan (1) Arm pain, left: Status: Acute Assessment and plan: Ms. Hess presents with diffuse left arm and shoulder pain following COVID vaccination with limited exam but no gross findings at this time. She is concerned that she has a brachial plexitis. Discussed that her symptoms are slightly atypical (pain encompassing entire arm, lack of sensory loss, timing with vaccination as potential causative factor, etc) and that it certainly would not explain all of her symptoms - slurred speech (functional components) and abnormal gait (though PT evaluation and my brief evaluation of gait today showed no concerns). As regards to radiology, unclear how much of the brachial plexus was seen on imaging already done. Could consider MR chest w/ to image the brachial plexus as further work-up. NCS/EMG not available here inpatient - and I am unsure she could tolerate the testing at this time - but will be planned to be done as an outpatient. Pain control is the hernandez. Given inflammatory process at onset of symptoms, could consider redosing of prednisone at higher and more prolonged dosing (80mg with taper over 2 weeks) - she is unsure at this time if it was helpful for pain or not. Gabapentin seems to have helped, but as is its nature can be sedating when first started. Agree with moving to 300mg HS and then increasing HS dose followed by re-initation of am dose as needed. I did discuss with her that neuropathic pain medications really take ~6 weeks to reach maximal efficacy. Given am sedation with gabapentin, discussed starting venlafaxine 75mg in the am for further neuropathic pain. I think this will also be helpful for secondary mood ADRs she may be experiencing. She was anxious on my exam and a muscle relaxant with diazepam or lorazepam may also be helpful. Treatment is limited by her ongoing LFT elevation. Finally, she and family quite convinced that she has had a stroke. Her n eurological exam and clinical symptoms are not consistent with a stroke. However, I think unless we get a brain MRI w/o their concerns will not be relieved. She will f/up in neurology clinic for NCS/EMG. Please call with any questions or concerns. History of Present Illness History of Present Illness Chief Complaint: pain Narrative: Handedness: right. HPI: Ms. Hess is a 71 year-old woman with Sjogren's, untreated chronic HTN (by her choice), OA, and anemia. Ms. Hess was initially quite hostile and unwilling to be evaluated by me but eventually agreed. Her son Adelfo was briefly available by phone and able to provide some history as well. Ms. Hess notes progressive LUE pain following COVID vaccination on 12/14/21. This has resulted in ER visits on 12/19/21 and 12/20/21 and then admission on 12/27/21 for elevated LFTs thought to be due to APAP/NSAID overuse/toxicity, treated with NAC. Currently, she describes a hideous, screeching pain encompassing her shoulder and arm all the way to her hands. She denied burning to me today, but did describe an electrical sensation. Denied a pathway or radiation of the pain . Does note concentrated pain today in the lateral proximal forearm > axilla, but that the area of most intense pain does change. In general she has 3-4/10 pain severeity with periods of increased pain several times per day. There are no triggers for her pain, though movement does make her pain worse. 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 She has been trialled on numerous medications below. She was given Rx for oxycodone at one ER visit, but notes she did not want to take it. Of all treatments, feels Dilaudid is the most helpful. Reluctantly admits gabapentin has reduced her peak pain. She finds a compression stocking helpful on her arm. She also notes that my PP testing on exam improved her pain. Otherwise, son is worried she had a stroke. He notes that she has developed slurred speech and altered gait since onset of her symptoms. He notes her lips are pursed more. She is less articulate and is physically incapable of doing her previous normal activities. Work-up: -Labs: W 14.10 -> 11.74 (attributed to prednisone), Na 139, BUN 38, Cr 1.0, AST 224, ALT 385, CK 29, AlkP ok, trop x2 neg -LUE U/S (12/20/21): no DVT -MRI L shoulder (12/29/21): unremarkable per report. -CT L arm (12/27/21): unremarkable per report. -MRI brain (09/03/21): moderate chronic vascular changes. I reviewed these images personally and this is my personal interpretation. Treatments: Excedrin, ibuprofen, APAP, heat, ice, prednisone 60mg [id number], diazepam, compression (helps), lidocaine patch Current Regimen: gabapentin [phone] (was 200mg TID but seemed to make her drowsy; that does did seem to control pain however) lidocaine patch x2 Review of Systems All systems reviewed & are unremarkable except as noted in HPI and below PFSH All Active Problems (Updated 12/30/21 @ 12:53 by Israel Arguello MD) Subacromial bursitis of left shoulder joint (Acute) Partial tear of left rotator cuff (Acute) Acetaminophen toxicity (Acute) Abnormal WBC count (Acute) Discharge planning issues (Acute) DVT prophylaxis (Acute) Arm pain, left (Acute) Left arm pain (Acute) Muscle spasm (Acute) Iliotibial band syndrome affecting left lower leg (Acute) History of repair of right rotator cuff (Acute) Degenerative arthritis of carpometacarpal joint of thumb (Acute) left Osteoarthritis of right knee (Acute) injection 11/10/21; 07/16/2021 Gallbladder disease (Acute) Hypertension, essential, benign (Acute) Dizziness (Acute) Nausea & vomiting (Acute) Lichen sclerosus et atrophicus of the vulva (Acute) Anemia (Chronic) CAO (dyspnea on exertion) (Acute) Medical History Hernia of abdominal wall Herpes History of Helicobacter pylori infection Iron deficiency anemia Joint pain Lichen sclerosus et atrophicus Osteopenia Peptic reflux esophagitis Vitamin D deficiency Surgical History section H/O esophagogastroduodenoscopy (~04/27/20) Rotator Cuff Repair Family History Mother Heart disease Father Personal history of malignant neoplasm prostate Social History Smoking/Tobacco Use Status: Never Smoking risk assessment performed?: Yes Alcohol Intake: current Alcohol Intake frequency: a few times a month Alcohol type: wine Drug use: Never Substance use type: does not use Do you feel safe at home: Yes Do you feel safe in your relationship?: Yes Visit Medication and Allergies Active Medications Generic Name Dose Route Start Last Admin Trade Name Freq PRN Reason Stop Dose Admin Al Hydrox/Mg Hydrox/Simethicone 30 ml 12/27/21 13:17 Mylanta Suspension 30 Ml Cup PO Q2H PRN PRN Dimethicone/Zinc Oxide 0 gm 12/27/21 13:12 Farhan Protect Cream 142 Gm Tube TP PRN PRN Docusate Sodium 100 mg 12/27/21 13:17 Docusate Sodium 100 Mg Cap PO TID PRN PRN Enoxaparin Sodium 40 mg 12/27/21 14:00 12/29/21 13:48 Enoxaparin 40 Mg/0.4 Ml Syr SC 40 mg Q24H MALCOLM Administration Ferrous Gluconate 324 mg 12/28/21 08:30 12/30/21 08:57 Ferrous Gluconate 324 Mg Tab PO 324 mg DAILY MALCOLM Administration Gabapentin 200 mg 12/29/21 22:00 12/29/21 22:06 Gabapentin 100 Mg Cap PO 200 mg HS MALCOLM Administration Gabapentin 100 mg 12/30/21 08:30 12/30/21 08:57 Gabapentin 100 Mg Cap PO 100 mg QAM MALCOLM Administration Gabapentin 100 mg 12/30/21 14:00 Gabapentin 100 Mg Cap PO DAILY@1400 MALCOLM Acetylcysteine 6,720 mg/ 1,033.6 mls @ 62.5 mls/hr 12/27/21 17:45 12/30/21 08:58 Dextrose/Water IV 62.5 mls/hr INFUSION MALCOLM Administration Sodium Chloride 500 mls @ 0 mls/hr 12/27/21 13:17 Saline 500ml Bag IV PRN PRN As Directed IV Miscellaneous Supplies 1 each 12/27/21 13:30 Iv Access IV DIRECTED MALCOLM Lidocaine 2 patch 12/28/21 21:00 12/29/21 20:45 Lidocaine 5% Patch TP 2 patch Q24H MALCOLM Administration Magnesium Hydroxide 30 ml 12/27/21 13:17 12/28/21 14:33 Milk Of Magnesia 30 Ml Cup PO 30 ml DAILY PRN PRN Administration Metoprolol Tartrate 5 mg 12/27/21 13:45 12/28/21 11:23 Metoprolol 5 Mg/5 Ml Vial IVP 5 mg Q6H PRN PRN Administration Metoprolol Tartrate 25 mg 12/28/21 20:00 12/30/21 08:57 Metoprolol 25 Mg Tab PO 25 mg BID MALCOLM Administration Miscellaneous 2 each 12/29/21 09:00 12/30/21 08:57 Lidocaine Patch Removal TP 2 each Q24H MALCOLM Administration Sodium Chloride 0 ml 12/27/21 13:17 12/30/21 08:57 Normal Saline Flush 10 Ml Syr IVP 10 ml PRN PRN Administration Allergies wool Allergy (Intermediate, Verified 12/27/21 08:53) itchy latex Allergy (Verified 12/27/21 08:53) venom-honey bee Allergy (Verified 12/27/21 08:53) iodine Adverse Reaction (Intermediate, Verified 12/27/21 08:53) Vomiting Exam Narrative Exam Narrative: Physical Exam: Constitutional: Patient of apparent stated age, well nourished, well developed, distress at times Neck: Supple, no meningismus CV: RRR, S1, S2, no murmur Resp: CTAB Abd: Soft, nontender, nondistended Neuro: MS/Language/Speech: Alert, oriented, clear language (fluency and comprehension), mild dysarthria - fluctuating CN: PERRL, EOMI, visual gill full, trigeminal sensation intact, no facial asymmetry, hearing intact to whisper, palate elevates symmetrically, tongue protrudes midline, SCM and trap strength intact Motor: Normal bulk and tone. FMM intact on R with no R pronator drift. 5/5 strength in R upper and bilateral lower extremities. Testing limited in LUE due to pain. She notes significant increase in pain with proximal movements but this pain was lessened when I performed the movement passively. Full strength distally. Proximally weakened secondary to pain. Sensation: Intact to PP, vibration, and joint position in all extremities; she noted altered sensation to LT throughout the left arm Reflexes: 2+ DTRs, downgoing toes Coordination: no ataxia Gait: Stable, normal base and arm-swing -she walked to bathroom on her own Results Last Vital Signs Temp 98.1 F 12/30/21 11:44 Pulse 78 12/30/21 11:44 Resp 16 12/30/21 11:44 BP 169/85 H 12/30/21 11:44 Pulse Ox 95 12/30/21 11:44 Labs Result diagrams: 12/30/21 06:40 12/28/21 06:25 Labs: Laboratory Results - last 24 hr 12/30/21 12/30/21 06:40 06:40 WBC 7.29 RBC 4.19 Hgb 12.0 Hct 37.1 MCV 89 MCH 28.6 MCHC 32.3 RDW 15.0 H Plt Count 208 MPV 10.0 Total Bilirubin 0.3 Conjugated Bilirubin 0.2 AST 158 H ALT 401 H Alkaline Phosphatase 137 H Total Protein 5.8 L Albumin 2.8 L
--- NOTE | 2021-12-30 13:51 | W.PM.PROGNOT ---
Date of Service Date of service: 12/30/21 Time of Service: 13:51 Assessment and Plan Assessment and plan (1) Acute ischemic right ICA stroke: Status: Acute Assessment and plan: Likely hypertensive related as the patient has had years of essential hypertension for which she has not been taking treatment. However we will get a CTA of her head and neck tonight to rule out carotid vascular disease. We will get an echocardiogram in the morning with bubble study to rule out embolic source. Patient had been on telemetry monitoring from admission until this morning with no atrial arrhythmias. Rhythm has been sinus rhythm. Telemetry monitoring will be resumed throughout the rest of her hospital stay and 30-day cardiac event recorder will be obtained upon discharge. Patient has been started on dual antiplatelet therapy with loading dose of Plavix 300 mg along with aspirin 324 mg. We will continue Plavix at 75 mg daily and aspirin 81 mg daily. Atorvastatin 80 mg nightly has been ordered. We will resume physical therapy, Occupational Therapy and consult with speech therapy in the morning. Her work-up and care was extensively discussed with both the patient and her son. Professional time spent interviewing and examining patient, discussion of goals of care with hospital team (care management, nursing and consulting professionals) was 60 minutes. (2) Arm pain, left: Status: Acute Assessment and plan: Patient has been started on Effexor and tramadol for her pain. I think some of her waxing and waning mental status today is also been due to the initiation of the tramadol in addition to the Benadryl Valium she was given. I reduce the tramadol dose down to 50 mg 4 times daily as needed pain. I had her on Toradol for her left arm pain but in light of needing to start her on dual antiplatelet therapy I have discontinued the Toradol. (3) Transaminitis: Status: Acute Assessment and plan: Transaminitis was initially assumed due to overuse of ibuprofen and acetaminophen. Patient is currently on N-acetylcysteine protocol. Our pharmacist Martha, had a conversation with the pharmacist at poison control. Often times in chronic Tylenol toxicity patients will get a transient improvement in her transaminases with the use of NAC and then once the NAC is discontinued the transaminases will climb dramatically. It is difficult to determine how much of her rebound in her transaminases are secondary to new medications that were started for her pain control i.e. Toradol, tramadol, Dilaudid and how much is due to the acetaminophen. Poison control recommends continuation of the N-acetylcysteine until transaminases normalized. Imaging of her liver showed no acute abnormalities. (4) Acetaminophen toxicity: Status: Acute Assessment and plan: As above Subjective Subjective Interval history since last seen: Patient here for N-acetylcysteine treatment for chronic Tylenol overdose for treatment of her left arm radicular pain following a COVID-19 vaccination. Patient's son reports that his mother speech continues to be slurred and her behavior has been off. Patient complains of intermittent severe excruciating left arm pain from her shoulder to her wrist. Patient had an MRI scan of her shoulder yesterday that showed no evidence of bursitis and no evidence of musculoskeletal injury to the shoulder. Neurology and orthopedic surgery both have been consulted along with anesthesia.Anesthesia did not feel the nerve block would benefit her and that the risk of further nerve injury outweighed any benefit. Furthermore the patient reported to the nurse associate creative director that her episodes of pain will happen every few hours and last between 3 to 15 minutes. Patient's review of the literature of postvaccination brachial plexitis was reviewed by the neurologist with her. Dr. Beaver feels that her symptoms are atypical for brachial plexitis. Patient's other symptoms of slurred speech and reported abnormal gait were concerning for possible stroke. As such MRI of the brain was ordered and indeed demonstrated acute/subacute right basal ganglia ischemic stroke as well as chronic microvascular changes consistent with hypertensive disease. She also had MRI of the C-spine that showed no significant central canal stenosis but bilateral neuroforaminal narrowing at C5-6 and on the left at C-6-7. Patient has been started on a statin, Lipitor 80 mg every afternoon and has been given a loading dose of Plavix 300 mg and aspirin 324 mg. Further stroke work-up will consist of a CTA of her head and neck tonight and patient will be moved to the intensive care unit for closer monitoring. I will reconsult PT and will consult speech therapy to evaluate her speech and swallowing tomorrow. I will order transthoracic echocardiogram with bubble study and upon discharge arrange 30-day cardiac event recorder. Telemetry will be resumed and we will get glycohemoglobin A1c and lipid panel in the morning. Exam Narrative Exam Narrative: Patient's mental status is waxed and waned throughout the day. At times should be lethargic but then other times she will be awake conversant and actually become argumentative. During one of the spells in which she was argumentative she was up out of bed ambulating on her own with no assistance. Her periods of being lethargic seem to be associated with medications including use of Benadryl and Valium. Valium was given prior to her MRI to allow her to lie still for the entire MRI. She was prophylaxed with Benadryl prior to her CT angiogram because of her prior history of iodine reaction. HEENT she had no noticeable facial droop or extraocular motions intact. Oropharynx reveals normal elevation of her palate and normal movement of her tongue. Visual gill appear to be grossly intact to confrontation. Pupils are equally round and reactive to direct and consensual light. Examination of right arm reveals normal strength motion and sensation over the right arm and hand. Left arm and hand she seems to have intact sensation to light touch and gross motor strength appears to be intact with handgrip strength although is difficult to assess full motor exam because of her pain and herself guarding to prevent exacerbation of arm pain. Nevertheless she was able to push me and pull me with her left arm. I had to raise both arms overhead and there was no noticeable pronator drift. Examination of her legs reveals normal strength with hip flexion extension as well as dorsi flexion and plantar flexion at the ankles. DTRs are brisk throughout including brachial radialis biceps triceps patellar and ankle jerk. There is too much withdrawal when I perform Babinski exam to ascertain whether or not she had a Babinski reflex. Carotid pulses are full no bruits no JVD Lungs are clear to auscultation Heart regular rate and rhythm no murmur rub Objective Last Vital Signs Temp 36.7 C 12/30/21 11:44 Pulse 78 12/30/21 11:44 Resp 16 12/30/21 11:44 BP 169/85 H 12/30/21 11:44 Pulse Ox 95 12/30/21 11:44 Laboratory Results - last 24 hr 12/30/21 12/30/21 06:40 06:40 WBC 7.29 RBC 4.19 Hgb 12.0 Hct 37.1 MCV 89 MCH 28.6 MCHC 32.3 RDW 15.0 H Plt Count 208 MPV 10.0 Total Bilirubin 0.3 Conjugated Bilirubin 0.2 AST 158 H ALT 401 H Alkaline Phosphatase 137 H Total Protein 5.8 L Albumin 2.8 L
[2021-12-30] MEDS: traMADol 50 MG TAB 100 MG PO (14:16)
[2021-12-30] MEDS: Ketorolac 30 MG/ML VIAL IVP (14:16)
[2021-12-30] MEDS: Enoxaparin 40 MG/0.4 ML SYR SC (14:17)
[2021-12-30] MEDS: Venlafaxine 75 MG CAPCR PO (14:50)
[2021-12-30] MEDS: diazePAM 2 MG TAB PO (15:35)
[2021-12-30 16:15] LABS: Anaplasma phagocytophilum Negative (Negative); B. miyamotoi PCR Negative (Negative); Babesia divergens/MO-1 Negative (Negative); Babesia duncani Negative (Negative); Babesia microti Negative (Negative); Ehrlichia chaffeensis Negative (Negative); Ehrlichia ewingii/canis Negative (Negative); Ehrlichia muris eauclairensis Negative (Negative)
[2021-12-30] MEDS: Clopidogrel 300 MG TAB PO (18:01)
[2021-12-30] MEDS: Pantoprazole 40 MG TABCR PO (18:01)
[2021-12-30] MEDS: Aspirin 81 MG CHEW 324 MG CH (18:01)
[2021-12-30] MEDS: diphenhydrAMINE 50 MG/ML VIAL 25 MG IVP (18:46)
[2021-12-30] MEDS: Omnipaque 350 MG/ML 100 ML BTL IJ (19:02)
--- NOTE | 2021-12-30 19:10 | DI.CT_ITS ---
Exam(s) CT BRAIN NECK CTA EXAM: CT BRAIN NECK CTA CLINICAL HISTORY: CVA. TECHNIQUE: Imaging Protocol: Axial CT angiography was performed with multi-slice acquisition and mu lti-planar and/or 3D reconstructions. CONTRAST MATERIAL: Intravenous: Omnipaque 350 Contrast volume:80 mL COMPARISON: None FINDINGS: CTA Neck W: Aortic arch anatomy: The aortic arch anatomy is conventional and there is no significant stenosis at the origin of the great vessels off of the aortic arch. No intimal flap evident. Anterior circulation: Both common carotid arteries ascend with normal luminal diameters. At the level the carotid bulbs and proximal internal carotid arteries there is minimal plaque without hemodynamically significant stenosis evident. Above this level the internal carotid arteries in the upper neck are patent. Also demonstrated to be patent in the skull base-carotid canals. Posterior circulation: Vertebral arteries originated conventional fashion off of the subclavian arteries and there is no obv ious stenosis at the origin of the vertebral arteries. Proximal left vertebral artery is somewhat to rtuous but nonstenotic. Both vertebral arteries exhibit normal approximately equal luminal diameters within the foramen trans versarium. Both vertebral arteries contribute to the formation of the basilar artery at the skull base. CTA Brain W: Anterior circulation: Both internal carotid arteries are patent in the skull base-carotid canals as well as within the cave rnous sinuses. The supraclinoid aspects of the ICAs are patent. Both A1 segments are patent as are the anterior cer ebral arteries and there is no evidence of aneurysm at the level of the anterior communicating artery . Both middle cerebral arteries are patent with no evidence of significant stenosis nor intraluminal th rombus. There also no aneurysms of these vessels. Posterior circulation: The basilar artery ascends in the midline. Distally it gives off patent bilateral superior cerebella r arteries. Above this level the basilar artery terminates as patent bilateral posterior cerebral arteries. Ther e is also a posterior communicating artery on the right side of the [id number]. There is no evidence of aneurysm at the tip of the basilar artery nor elsewhere in the [id number] is. CT BRAIN: There is no evidence of intracranial hemorrhage, mass effect, or shift of midline structures. There are no extra-axial fluid collections. Ventricles are not enlarged or shifted. There are no ring enh ancing lesions in the brain and no abnormal meningeal enhancement. There is bilateral periventricular hypodensity consistent with chronic small vessel disease. This is most evident around the atria of both lateral ventricles. IMPRESSION: 1. Patent carotid arteries in the neck. No hemodynamically significant stenosis. 2. Patent vertebral arteries. No dissection. No intraluminal thrombosis. 3. Patent intracranial arteries. Also no aneurysms evident. RADIATION DOSE DELIVERED: 2,073.68mGy.cm Total DLP DATA REPOSITORY: All CT scans at this facility are submitted to the National Radiology Data Registry (NRDR) Dose Index Registry (DIR) with the [employer] (ACR). RADIATION OPTIMIZATION: All CT scans at this facility use at least one of these dose optimization te chniques: automated exposure control; mA and/or kV adjustment per patient size (includes targeted exa ms where dose is matched to clinical indication); or iterative reconstruction.
--- NOTE | 2021-12-30 19:49 | DI.VRAD_ITS ---
Addendum created by Ed Bain MD on 12/30/2021 7:48:29 PM EDT: Addendum: THIS REPORT CONTAINS FINDINGS THAT MAY BE CRITICAL TO PATIENT CARE. The findings were verbally communicated via telephone conference with Dr. Beal at 7:48 PM EDT on 12/30/2021. The findings were acknowledged and understood. Initial report created on 12/30/2021 7:35:18 PM EDT: PROCEDURE INFORMATION: Exam: CTA Head With Contrast, Arteriography Exam date and time: 12/30/2021 6:58 PM Age: 71 years old Clinical indication: Stroke-like symptoms; Other: ? CVA TECHNIQUE: Imaging protocol: Computed tomographic angiography of the head with contrast. Exam focused on the arteries. 3D rendering (Not supervised by radiologist): MIP and/or 3D reconstructed images were created by the technologist. Radiation optimization: All CT scans at this facility use at least one of these dose optimization techniques: automated exposure control; mA and/or kV adjustment per patient size (includes targeted exams where dose is matched to clinical indication); or iterative reconstruction. Contrast material: OMNIPAQUE 350; Contrast volume: 80 ml; Contrast route: INTRAVENOUS (IV); COMPARISON: MR BRAIN WO 12/30/2021 4:06 PM FINDINGS: ANTERIOR CIRCULATION: Right internal carotid artery: The right ICA petrous segment is unremarkable. Mild calcific plaque in the cavernous segment without associated stenosis. The right ICA supraclinoid segment is unremarkable. Right middle cerebral artery: Unremarkable. No occlusion or significant stenosis. No aneurysm. Right anterior cerebral artery: Unremarkable. No occlusion or significant stenosis. No aneurysm. The anterior communicating artery is unremarkable. Left internal carotid artery: The left ICA petrous segment is unremarkable. Left ICA cavernous segment is unremarkable. The left ICA supraclinoid segment is unremarkable. Left middle cerebral artery: Unremarkable. No occlusion or significant stenosis. No aneurysm. Left anterior cerebral artery: Unremarkable. No occlusion or significant stenosis. No aneurysm. POSTERIOR CIRCULATION: Right vertebral artery: Unremarkable. No occlusion or significant stenosis. No aneurysm. Left vertebral artery: Unremarkable. No occlusion or significant stenosis. No aneurysm. Basilar artery: Unremarkable. No occlusion or significant stenosis. No aneurysm. Right posterior cerebral artery: Moderate-sized right posterior communicating artery present. No occlusion or significant stenosis. No aneurysm. Left posterior cerebral artery: Unremarkable. No occlusion or significant stenosis. No aneurysm. Other arteries: Mild-moderate calcific atherosclerosis. Cavernous Sinus: The dural venous sinuses and major cortical veins enhance appropriately without evidence of thrombosis. Brain: Moderate bilateral white matter hypodensities which are nonspecific but most commonly associated with chronic microvascular ischemia in this age group. The IACs are grossly normal. No extra-axial fluid collections. No evidence of acute intracranial hemorrhage. No CT evidence of large territory acute or subacute intracranial ischemia/infarct. Small areas of hypodensity in the right lateral thalamus, caudate head, and anterior putamen consistent with the foci of acute or subacute ischemia seen on recent MRI are again noted. No evidence of associated mass effect or hemorrhage. No intracranial mass lesions. No midline shift or herniation. No enhancing brain lesions or vascular malformations are identified. Cerebral ventricles: Minimal compensatory ventriculomegaly secondary to central atrophy. Pituitary gland and sella: The sella is grossly normal. Orbital cavities: No acute intraorbital findings. Mastoid air cells: Visualized mastoid air cells are clear. Paranasal sinuses: Chronic volume loss in the maxillary sinuses with wall thickening and sclerosis, consistent with chronic changes of prior sinus inflammatory disease. No fluid levels. The other paranasal sinuses are clear. Bones/joints: The calvarium and visualized facial bones are intact. Soft tissues: The scalp and visualized soft tissues demonstrate no acute abnormality. Other findings: Mild-moderate generalized atrophy. Messina-white differentiation is well maintained. IMPRESSION: 1. No evidence of large vessel occlusion. No evidence of arterial dissection or aneurysm/pseudoaneurysm. 2. Small hypodense foci in the right basal ganglia consistent with the small foci of acute/subacute ischemia seen on recent MRI at 4:10 p.m. are unchanged, with no evidence of mass effect or hemorrhage. 3. Atrophy and microvascular changes consistent with advanced age. 4. Chronic changes of prior maxillary sinusitis. 5. These findings initiated a critical results reporting process per stroke protocol. An addendum will be issued at the time of clinician notification. PROCEDURE INFORMATION: Exam: CTA Neck With Contrast Exam date and time: 12/30/2021 6:58 PM Age: 71 years old Clinical indication: Stroke-like symptoms; Other: ? CVA TECHNIQUE: Imaging protocol: Computed tomographic angiography of the neck with contrast. 3D rendering (Not supervised by radiologist): MIP and/or 3D reconstructed images were created by the technologist. Radiation optimization: All CT scans at this facility use at least one of these dose optimization techniques: automated exposure control; mA and/or kV adjustment per patient size (includes targeted exams where dose is matched to clinical indication); or iterative reconstruction. Contrast material: OMNIPAQUE 350; Contrast route: INTRAVENOUS (IV); COMPARISON: MR BRAIN WO 12/30/2021 4:06 PM FINDINGS: Right common carotid artery: Mild proximal tortuosity. No stenosis. No dissection or occlusion. Right internal carotid artery: Mild calcific atherosclerosis in the right carotid bulb. Moderate tortuosity of the right ICA cervical segment. No stenosis. No dissection or occlusion. Right external carotid artery: Normal. No stenosis. No dissection or occlusion. Left common carotid artery: Moderate proximal tortuosity. No stenosis. No dissection or occlusion. Left internal carotid artery: Minimal mixed calcific plaque in the left carotid bulb. Mild left ICA tortuosity. No stenosis. No dissection or occlusion. Left external carotid artery: Normal. No stenosis. No dissection or occlusion. Right vertebral artery: Normal. No stenosis. No dissection or occlusion. Left vertebral artery: Moderate proximal tortuosity. No stenosis. No dissection or occlusion. Brachiocephalic artery: The brachiocephalic artery is unremarkable. Right subclavian artery: The right subclavian artery is unremarkable. Left subclavian artery: The left subclavian artery is unremarkable. Aorta: Mild aortic ectasia/tortuosity. No aortic dissection or shun aneurysm. Thyroid: The thyroid gland is unremarkable. Soft tissues: No significant soft tissue swelling or hematoma. Bones/joints: No acute osseous abnormalities are identified. Moderate disc degenerative changes C4-C5 through C6-C7. Moderate-severe bilateral foraminal stenosis C5-C6 and moderate bilateral foraminal stenosis C6-C7. Lungs: The visualized pulmonary apices are clear. IMPRESSION: No evidence of arterial stenosis, dissection, or aneurysm/pseudoaneurysm. REFERENCES: NASCET CRITERIA. The degree of stenosis in the cervical segment of the internal carotid artery is based on NASCET criteria. Normal is no stenosis. Mild is less than 50% stenosis. Moderate is 50-69% stenosis. Severe is 70% to 99% stenosis. Total occlusion is no detectable patent lumen. Dictated and Authenticated by: Ed Bain MD. Ordering:JIAN rFye MD
[2021-12-30] MEDS: Atorvastatin 40 MG TAB 80 MG PO (19:56)
[2021-12-30] MEDS: Gabapentin 100 MG CAP 300 MG PO (21:17)
[2021-12-30] MEDS: Lidocaine 5% Patch 2 PATCH TP (21:18)
[2021-12-31] VITALS (36 sets, daily range): BP systolic 144–214; BP diastolic 73–173; PULSE 66–89; RESP 10–23; TEMP 36.6–37.3; O2SAT 88–97
[2021-12-31] MEDS: Normal Saline Flush 10 ML SYR IVP (04:06)
[2021-12-31] MEDS: Labetalol 100 MG/20 ML VIAL 20 MG IVP (04:07)
[2021-12-31] MEDS: LORazepam 0.5 MG TAB PO ×4 (05:28→20:35)
[2021-12-31] MEDS: traMADol 50 MG TAB PO ×4 (05:29→20:35)
[2021-12-31 07:30] LABS: INR 0.9 (0.9-1.1); Prothrombin Time 9.3 sec (9.3-11.0)
[2021-12-31 07:38] LABS: ALT 426 U/L (14-59); AST 155 U/L (15-37); Albumin 2.7 g/dL (3.4-5.0); Alkaline Phosphatase 157 U/L (46-116); BUN 26 mg/dL (7-18); Bilirubin, Direct 0.1 mg/dL (0.0-0.2); Bilirubin, Total 0.4 mg/dL (0.2-1.0); CREATININE 0.8 mg/dL (0.55-1.02); Calcium 8.4 mg/dL (8.5-10.1); Calculated LDL 97 mg/dL (<100); Chloride 96 mmol/L (98-107); Cholesterol 189 mg/dL (<200); Estimated GFR 78.24 (mL/min/1.73m2); Glucose 108 mg/dL (74-106); HDL Cholesterol 73 mg/dL (40-60); Potassium 3.7 mmol/L (3.5-5.1); Sodium 136 mmol/L (136-145); Total Protein 6.1 g/dL (6.4-8.2); Triglyceride 98 mg/dL (<150)
[2021-12-31 07:47] LABS: Hemoglobin A1C 5.8 % (<5.7)
--- NOTE | 2021-12-31 08:00 | DI.US_ITS ---
APPROVED REPORT EXAM: Comprehensive 2D, Doppler, and color-flow Echocardiogram Patient Location: In-Patient Room/Bed: [facility] Res[facility] Property Tax Appraiser: Michelle Gan RDCS (AE) Indications: CVS Echo Enhancing Agent Indication: Rule out Shunt Agent(s) / Amount(s) Used: Agitated Saline 30.0 cc Comments: Contrast study was performed with 3 IV injections of 10ccs of agitated normal saline, at [facility], with cough and post valsalva maneuver. Negative contrast study for shunt flow. Other Information Study Quality: Adequate Conclusion Normal left ventricular wall thickness and chamber size. Estimated ejection fraction is 59%. Wall m otion is normal Right ventricle is not well visualized Both atria are normal in size No intracardiac shunting is identified with injection of agitated saline There are no structural valvular abnormalities Mild mitral regurgitation Estimated right ventricular systolic pressure is 32 mmHg Borderline dilated ascending aorta measuring 3.35 cm Wall motion Left Ventricle The left ventricle is normal size. The left ventricular systolic function is normal. The left ventric ular ejection fraction is within the normal range. There is normal left ventricular wall thickness. T here is normal LV segmental wall motion. There is no ventricular septal defect visualized. LVEF is 59 %. Right Ventricle Right ventricle is not well visualized. Right ventricular systolic function could not be assessed. Th e RVSP is 32.0_ mmHg. Atria The left atrium size is normal. The right atrium size is normal. The interatrial septum is intact wit h no evidence for an atrial septal defect. Aortic Valve The aortic valve is normal in structure. Aortic valve is trileaflet. There is no aortic valvular sten osis. No aortic regurgitation is present. Mitral Valve The mitral valve is normal in structure. No evidence of mitral valve stenosis. Mild mitral regurgitat ion. Tricuspid Valve The tricuspid valve is normal in structure. There is no tricuspid valve stenosis. Trace tricuspid reg urgitation. Pulmonic Valve The pulmonary valve is normal in structure. There is no pulmonic valvular stenosis. Trace pulmonic re gurgitation. Great Vessels The aortic root is normal in size. The ascending aorta is borderline Aortic arch is not well visualiz ed. IVC is normal in size and collapses >50% with inspiration. Pericardium There is no pericardial effusion. 2D Dimensions IVSD d PLAX 0.92 cm F: 0.6-1.0 LV Vol A2C d MOD 90.3 mL LVPW d PLAX 0.93 cm F: 0.6 - 1.0 LV Vol A4C d MOD 75.5 mL LVID d PLAX 4.02 cm F: 3.8 - 5.2 LA vol/ BSA A2C s A-L 26.7 mL/m2 LVDs 2.60 cm F: 2.2 - 3.5 LA vol/ BSA A4C s A-L 24.1 mL/m2 Ao Root d 2.79 cm F: 2.7 - 3.3 LA Vol/ BSA Biplane s A-L 26.2 mL/m2 Ao Asc Diam d 3.35 cm F: 2.3 - 3.1 LA Area A4C s MOD 15.48 cm2 LV EF Teichholz 64.0 % LA Area A2C s MOD 15.75 cm2 LVEF (Manzanares's) 58.62 % F: 54 - 74 LV EF A4C MOD 57.5 % LV Volume 65.82 mL F: 46 - 106 LV EF A2C MOD 60.9 % LV Volume Index 38.94 mL/m2 F: 29 - 61 LV EF Biplane MOD 58.6 % LV Vol Biplane MOD 82.7 mL SV 48.50 mL FS 34.35 % SV Index 28.67 mL/m2 M-Mode TAPSE 2.24 cm (M/F) >1.7 LV Diastology MV E' medial 0.096 (>0.07 m/s) E/A Ratio 0.8 LV E/e MED 8.20 (<14) MV E Vmax 0.79 (0.4-1.3 m/s) MV E' lateral 0.093 (>0.1 m/s) MV A Vmax 1.00 (0.4-1.3 m/s) LV E/e LAT 8.50 (<14) MV E/A Ratio 0.79 MV E/E' medial 8.25 MV E/E' lateral 8.51 Aortic Valve LVOT Area 2.82 cm2 AoV Area Vmax 2.58 cm2 LVOT Vmax 0.98 m/s AoV Area/ BSA (Vmax) 1.52 cm2/m2 LVOT Mean Claude. 0.63 m/s IJEOMA Mean Claude. 2.55 cm2 LVOT Peak Grad 3.8 mmHg IJEOMA Mean Claude. Index 1.51 cm2/m2 LVOT Mean Grad 1.9 mmHg LVOT VTI 0.202 m LVOT Diam s 1.85 cm AoV Vmax 1.07 m/s Velocity Ratio 0.91 AoV Mean Claude. 0.70 m/s AoV Peak Grad 4.6 mmHg LVOT SV 57.01 mL AoV Mean Grad 2.2 mmHg AoV VTI 0.211 m AoV Area VTI 2.70 cm2 AoV Area/ BSA (VTI) 1.59 cm/m2 Mitral Valve MV DT 207 (160-240 msec) MV PHT 60 msec MV Area PHT 3.66 cm2 MV VTI 0.260 m MV Area VTI 2.19 (4.0-6.0 cm2) Pulmonary Valve PV Vmax 0.92 (0.5-1.5 m/s) RVOT Peak Gr. 2.36 mmHg PV Peak Grad 3.4 mmHg RVOT Mean Gr. 1.20 mmHg PV Mean Grad 1.8 mmHg RVOT VTI 0.160 m PV VTI 0.193 m RVOT Vmax 0.77 m/s Tricuspid Valve TR Peak Grad 29.0 mmHg TR Vmax 2.69 m/s RA Pressure 3.00 mmHg RVSP (TR) 32.0 mmHg
--- NOTE | 2021-12-31 09:12 | IN_ITS ---
Date of service: 12/31/21 Time of Service: 09:12 PT Notes Visit Reasons: LUE pain post COVID vaccine,tylenon hepatotox,htn Physical Therapy Inpatient Initial Evaluation Date: 12/31/2021 Referring Doctor:? Lyn Worthy MD PT Orders: PT CONSULT: Limited ability Precautions: Fall. Standard. Activity as tolerated. Patient Profile/Admitting Diagnosis:? Yamel is a 71-year-old female who presented to the ED on 12/27/2021 due to persistent left arm pain after COVID vaccination.? Patient also with diagnoses of acetaminophen toxicity, abnormal white blood cell count, hypertension, and anemia. Patient was seen on 12/28/2021 for PT evaluation and was deemed in non- need of services at that time being independent with all mobility ADLs with no devive; OT services were recommended due to weaker hot box spotter on the L hand and weak pincer grasp on the fingers compared to the R. Per neurology notes on 12/30/2021 patient has been found to have acute/subacute R basal ganglia ischemic stroke and chronic vascular changes seen through brain MRI; patient also with bilateral neural foraminal narrowing at C5-6 and on the left at C6-7. PMHX: All Active Problems?(Updated 12/27/21 @ 19:34 by Guillermina Woodard NP) Acetaminophen toxicity (Acute) Abnormal WBC count (Acute) Discharge planning issues (Acute) DVT prophylaxis (Acute) Arm pain, left (Acute) Left arm pain (Acute) Muscle spasm (Acute) Iliotibial band syndrome affecting left lower leg (Acute) History of repair of right rotator cuff (Acute) Degenerative arthritis of carpometacarpal joint of thumb (Acute) leftOsteoarthritis of right knee (Acute) injection 11/10/21; 07/16/2021Gallbladder disease (Acute) Hypertension, essential, benign (Acute) Dizziness (Acute) Nausea & vomiting (Acute) Lichen sclerosus et atrophicus of the vulva (Acute) Anemia (Chronic) ACO (dyspnea on exertion) (Acute) Medical History? Hernia of abdominal wall Herpes History of Helicobacter pylori infection Iron deficiency anemia Joint pain Lichen sclerosus et atrophicus Osteopenia Peptic reflux esophagitis Vitamin D deficiency Surgical History? section H/O esophagogastroduodenoscopy (~04/27/20) Rotator Cuff Repair Social History/Home Situation: Lives with son in a private home.? Independent with all aspects of ADLs prior to admission.? 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 Equipment Owned/DME: None Subjective: Patient continues to report electric-shock like pain through the left arm that comes on intermittently. She thinks that moving or using it tends to increase the rate of pain recurrence. She continues to verbalize that there is nothing wrong with how she walks but does feel that something is not working right with her. She understands that she has had a stroke and is on treatment for it. Objective: General Observation: Supine in bed.? L upper extremity now looks swollen compared to initial PT eval done on 12/28/2021. Telemetry monitoring in place. Mental Status: Alert and oriented as to person, place, time, and purpose. Able to pay attention, focus, and respond appropriately.? Easily distracted but is able to return to topic on hand when redirected. Pain: Pain peaked up to 8-9/10 in the L arm towards the end of the eval after walking a short distance inside her room Vital Signs: WNL as closely monitored by nursing staff ROM: Right Upper Extremity: ? Shoulder Flexion WFL. Shoulder abduction WFL. Elbow flexion WFL. Wrist flexion WFL. Functional opening and closing of hand WFL. Left Upper Extremity:? Shoulder Flexion WFL. Shoulder abduction WFL. Elbow flexion WFL. Wrist flexion WFL. Functional opening and closing of hand WFL. Right Lower Extremity: Hip flexion WFL. Hip abduction WFL. Knee flexion WFL. A nkle dorsiflexion WFL. Ankle plantarflexion WFL. Left Lower Extremity: Hip flexion WFL. Hip abduction WFL. Knee flexion WFL. Ankle dorsiflexion WFL. Ankle plantarflexion WFL. Strength: Right Upper Extremity: Shoulder flexors 5/5.? Shoulder abductors 5/5. Elbow flexors 5/5. Elbow extensors 5/5. Acid Conditioning Worker strong. Left Upper Extremity: Shoulder flexors 4-/5.? Shoulder abductors 4-/5. Elbow flexors 5/5. Elbow extensors 5/5. Acid Conditioning Worker weaker compared to the R. Pincer grasp weaker than on the L for all fingers.? Right Lower Extremity: Hip flexors 5/5. Hip abductors 5/5. Knee flexors 5/5. Knee extensors 5/5. Ankle dorsiflexors 5/5. Ankle plantarflexors 5/5. Left Lower Extremity: Hip flexors 5/5. Hip abductors 5/5. Knee flexors 55/5. Knee extensors 55/5. Ankle dorsiflexors 5/5. Ankle plantarflexors 5/5. Bed Mobility/Transfers: Sit to stand independent Stand to sit independent Bed to bedside supervision Bed to reclining chair supervision Reclining chair to bed supervision Gait: Supervision inside room without AD. Gait pattern unremarkable. L UE in sling. Balance: Static Sitting: Normal Dynamic Sitting: Normal Static Standing: Good Dynamic Standing: Good Special Tests: Mobility Limitations Standardized Measure [facility] 6 clicks Basic Mobility Inpatient Short Form: Raw Score: 23? CMS Score: 11% deficit? ? NEURO: Neck pain: None Balance problem: None Trouble using hand: Decreased L hand grasp and decreased pincer grasp of fingers Numbness or tingling in the L UE: None Strength of L UE: Impaired as above in the hand and fingers L C5-C6 myotome: 4-/5 L C6/C7 myotome: 4+/5 L Pincer grasp: Impaired L finger opposition: Impaired Informed Consent/Education:? Patient was instructed in purpose of PT consult and plan of care. Agreeable to proceed with established PT POC to achieve personal goals. Assessment: Patient presents with clinical signs and symptoms consistent with current/admitting diagnoses that have resulted to mobility limitations, gait instability, generalized weakness, and overall ADL decline as demonstrated by the following impairment level findings: 1. Decreased strength to L UE major muscle groups 2. Impaired activity tolerance 3. Pain in L UE Impairments are contributing to the following functional limitations: 1. Increased completion time for mobility ADL performance 2. Difficulty with managing steps alone safely Patient is assessed as a 18551 moderate complexity based on the following: History: 71-year-old female with past medical history as indicated above Examination: Demonstrable impairment in strength, balance, and mobility level with underlying impairments and functional limitations as exhibited above as well as deficit score of 11% utilizing the [facility] Mobility Inpatient Short Form Presentation: Evolving Decision Makin moderate complexity Goals: Goals X1 week 1. Decrease pain to 1-2/10 using modalities and manual therapy: TENS, gentle retrograde massage 2. Bed-Chair independent with no AD 3. Chair-Bed independent with no AD 4. Independent gait on level surface with use of no AD for at least 1000 feet without report of pain nor dyspnea 5. Independent stair negotiation while holding onto no rails for at least 12 steps without report of pain nor dyspnea 6. Independent with home exercise program Plan of Care/Treatment Plan: 1x/day, 7 days/week x 1 week. Plan of care has been reviewed with the CORNETIST providing the service under Physical Therapy direction. Initiate Physical Therapy intervention for pain management as needed, strengthening, bed mobility, transfers, gait, stairs, balance training, and use of assistive device. DISCHARGE RECOMMENDATIONS: [] Home with no services [] [] Home with services [specify] [X] Home with outpatient PT. patient will benefit from outpatient PT and occupational therapy services once discharged from hospital for continued rehabilitation to facilitate return to premorbid independent level. [] SNF for continued rehabilitation [] [] [facility] [] [] SNF versus LTC based on ability to participate and progress [] TREATMENT CODE/TIME: 94476 x 18 minutes beginning at 9:12 AM. Thank you for the opportunity to participate in the care of this patient. Sandra Conklin PT, DPT, CLT [facility] [place], [place]
[2021-12-31] MEDS: Clopidogrel 75 MG TAB PO (09:36)
[2021-12-31] MEDS: Ferrous Gluconate 324 MG TAB PO (09:36)
[2021-12-31] MEDS: Pantoprazole 40 MG TABCR PO (09:36)
[2021-12-31] MEDS: Venlafaxine 75 MG CAPCR PO (09:36)
[2021-12-31] MEDS: Aspirin E.C. 81 MG TABEC PO (09:37)
[2021-12-31] MEDS: Metoprolol 25 MG TAB PO ×4 (09:37→20:34)
--- NOTE | 2021-12-31 09:45 | CMPROGNOTE_ITS ---
- If Service Date Differs Date of service: 12/31/21 Time of Service: 09:45 Care Management Progress Note S/O: Yamel was transferred to the ICU. She is being closely monitored and treated s/p Acute ischemic right ICA stroke. Neurology and ST consults were done today. PT/OT may recommend that Yamel discharge to a SNF, depending on how she does. Yamel is still on NAC per protocol since her initial Tylenol Toxicity. A: 71 year old female admitted to [facility] on 12/27/21 for Left Arm Pain P: Anticipate, Yamel will return home with [facility] PT/OT (if indicated) vs. discharge to SNF for acute rehab when medically ready per MD. Transportation will be dependent on her disposition and her mobility level at time of discharge. Yamel lives with her son Adelfo and he will provide her transportation if discharging home. CM continues to follow.
[2021-12-31] MEDS: Lidocaine Patch Removal 2 EACH TP (09:49)
--- NOTE | 2021-12-31 10:54 | PGE_ITS ---
Date of Service Date of service: 12/31/21 Time of Service: 10:54 Assessment and Plan Assessment and plan (1) Acute ischemic right ICA stroke: Status: Acute Assessment and plan: cont. DAPT, statin, telemetry, OT, ST, PT; arrange 30 day cardiac event recorder upon dc home. Will work on BP control. lopressor increased to 25 mg qid. Will gradually increase meds to goal of SBP <140 but still in the acute phase of her CVA, i.e. first 72 hours although we really do not know when her symptoms began. BP has been 160 to 170's BUT COMED DOWN TO 140'S after her metoprolol. She was as high as 213/98 last night and she needed iv labetalol to bring her back down to 160's. If BP remain higher tomorrow then I will consider adding norvasc. Critical care time spent interviewing and examining the patient, reviewing studies, discussing case with patient's nurse and consulting physicians was 30 minutes (2) Arm pain, left: Status: Acute Assessment and plan: cont. tramadol; effexor has been added, and I discussed w/ pharmacy regarding adding low dose TCA such as elavil however there is a class D interaction between elavil and tramadol. However SSNRI will take a couple to a few weeks to work. Anesthesia felt she was not a candidate for a nerve block and she has already been tried on prednisone taper. (3) Transaminitis: Status: Acute Assessment and plan: I have asked pharmacy to see about getting her on an oral NAC protocol. For now she remains on iv NAC d/t her initial Tylenol toxicity. Transaminases have pleateued w/ AST 155 and ALT 426. continue to monitor. (4) Acetaminophen toxicity: Status: Acute Assessment and plan: As above (5) Discharge planning issues: Status: Acute Assessment and plan: Depending on how she performs for P.T. and O.T. will determine whether or not she needs inpatient skilled rehab from her CVA or whether she can return home. Subjective Subjective Interval history since last seen: Patient has no new complaints. Still w/ left arm pain that comes and goes. Tramadol seems to help for awhile. No new neuro deficits overnight. Exam Narrative Exam Narrative: Yamel is sitting up in her chair. Speech is slightly dysarthric, no noticeable facial droop. EOMI, PERRLA, no VF deficit. 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 strength and good flexion and extension of left forearm and normal ROM and strength at the shoulder Lower extremities w/ normal ROM and strength, no dyscoordination w/ heel to marie, normal sensation to light touch Objective Last Vital Signs Temp 37.0 C 12/31/21 04:00 Pulse 74 12/31/21 10:02 Resp 12 12/31/21 10:02 BP 144/116 H 12/31/21 10:02 Pulse Ox 97 12/31/21 10:02 Laboratory Results - last 24 hr 12/27/21 12/30/21 12/31/21 09:30 06:40 05:32 PT 9.3 INR 0.9 Sodium Potassium Chloride Carbon Dioxide Anion Gap BUN Creatinine Est GFR (CKD-EPI 2020) Glucose Hemoglobin A1c Calcium Total Bilirubin 0.3 Conjugated Bilirubin 0.2 AST 158 H ALT 401 H Alkaline Phosphatase 137 H Total Protein 5.8 L Albumin 2.8 L Triglycerides Total Cholesterol LDL Cholesterol, Calc HDL Cholesterol A.phagocytophil DNA PCR Negative B. divergens/MO-1 PCR Negative Babesia duncani (PCR) Negative Babesia microti DNA PCR Negative Borrelia (PCR) Negative E.chaffeensis DNA (PCR) Negative E.ewingii/canis DNA PCR Negative E. muris-like DNA (PCR) Negative 12/31/21 12/31/21 12/31/21 05:32 05:32 05:32 PT INR Sodium Potassium Chloride Carbon Dioxide Anion Gap BUN Creatinine Est GFR (CKD-EPI 2020) Glucose Hemoglobin A1c 5.8 H Calcium Total Bilirubin Cancelled Conjugated Bilirubin Cancelled AST Cancelled ALT Cancelled Alkaline Phosphatase Cancelled Total Protein Cancelled Albumin Cancelled Triglycerides Cancelled Total Cholesterol Cancelled LDL Cholesterol, Calc Cancelled HDL Cholesterol Cancelled A.phagocytophil DNA PCR B. divergens/MO-1 PCR Babesia duncani (PCR) Babesia microti DNA PCR Borrelia (PCR) E.chaffeensis DNA (PCR) E.ewingii/canis DNA PCR E. muris-like DNA (PCR) 12/31/21 05:32 PT INR Sodium 136 Potassium 3.7 Chloride 96 L Carbon Dioxide 30.0 Anion Gap 10.0 BUN 26 H Creatinine 0.8 Est GFR (CKD-EPI 2020) 78.24 Glucose 108 H Hemoglobin A1c Calcium 8.4 L Total Bilirubin 0.4 Conjugated Bilirubin 0.1 AST 155 H ALT 426 H Alkaline Phosphatase 157 H Total Protein 6.1 L Albumin 2.7 L Triglycerides 98 Total Cholesterol 189 LDL Cholesterol, Calc 97 HDL Cholesterol 73 A.phagocytophil DNA PCR B. divergens/MO-1 PCR Babesia duncani (PCR) Babesia microti DNA PCR Borrelia (PCR) E.chaffeensis DNA (PCR) E.ewingii/canis DNA PCR E. muris-like DNA (PCR)
--- NOTE | 2021-12-31 11:45 | W.SPSTE ---
Date of service: 12/31/21 Time of Service: 11:45 Subjective Clinical (Bedside) Swallow & Speech Evaluation Speech Language Pathology Patient referred for Clinical Swallow and Motor Speech from Dr Flores given R sided CVA with new onset slurred speech. Precautions: Full Code, Fall Risk, Aspiration SUBJECTIVE: Patient received appearing somnolent, but responsive (eyes remain closed). At times throughout this examination she appears to be dozing off, but responds with repetition. At times saying I already did that, when no prior response was made to a verbal instruction. She is agreeable to evaluation, able to communicate wants/needs effectively; at times able to demonstrate comprehension of recommendations for safe p.o. intake but suspect carryover will be low given her level of fatigue. Patient reports that her speech is a big problem since being in the hospital. I have always been very articulate person. Ask my kids, this doesn't sound like me! She reports that if she slows down and really focuses on her speech she can enunciate better, but if she is just talking without thinking, her speech is very slurred. Regarding swallowing, she does not feel she has struggled with possible s/sx aspiration, denies pharyngeal stasis. However, she does report leakage out of the left side of her mouth when eating/drinking. At end of session, after only a few PO trials with lunch tray, patient reports becoming nauseous and refuses additional intake. ? HPI: Ms. Hess presents with diffuse left arm and shoulder pain following COVID vaccination. Since admit, she reports new onset slurred speech and abnormal gait, though per her son, some of changes noted since 12/14/21.. MRI showed Right basal ganglia ischemic stroke; further workup being done to determine cause. She has also had waxing and waning mental status in setting of pain medication trials for her shoulder pain, including confusion and . Predisposing dysphagia risk factors: Peptic reflux esophagitis Precipitating dysphagia risk factors / triggering event: CVA IMPRESSIONS & PLAN: Patient demonstrates likely dysarthria characterized by short breath groups and weak articulatory contacts, fast speed. While nasal elevation appeared normal to phonation on CN exam, she does also sound mildly hypernasal and appears to have nasal emissions during non-nasal utterances which is likely to contribute to slurred speech in addition to possible impacts of pain medication. INTERMODAL OWNER OPERATOR TRUCK DRIVER to continue to monitor for improvement. Patient also demonstrates at least mild oral dysphagia c/b mild L sided weakness (c/w R CVA) & xerostomia resulting in some reduced oral clearance and anterior bolus loss during meals. She does also show overall oral/facial weakness and difficulty coordinating oral-motor tasks, again, likely exacerbated by level of fatigue in setting of pain management. Chewing is very labored and she appears out of breath during exam. While oral trials were limited due to nausea, she did not demonstrate any s/sx aspiration. Diet texture modification is necessary as well as additional aspiration precautions to reduce risk of choking/aspiration. Further INTERMODAL OWNER OPERATOR TRUCK DRIVER services: warranted; patient to be followed while on unit DISCHARGE: Pending PT/OT recommendations; if patient qualifies for SNF she should receive INTERMODAL OWNER OPERATOR TRUCK DRIVER services for speech and swallow. If disposition is to the home, please place outpatient referral. ? Instrumentation: ? VFSE/MBSS - likely as outpatient unless patient remains on unit through the weekend and into next week ? Diet Texture Modification(s): IDDSI Level(s) SOLIDS 6-Soft & Bite-Sized Solids LIQUIDS 0-Thin Liquids - one sip at a time Medication Intake: Whole with 0-Thin Liquids or 4-Extremely Thick Liquids, as tolerated RISK MANAGEMENT: HOB upright as tolerated; upright for all PO intake. Encourage physical mobility as tolerated. Oral hygiene BID plus before/after PO intake, using friction with toothbrush on all oral structures as tolerated ? Level of Assistance/Supervision: 1:1 distant supervision for all PO intake, assist as needed per OT recommendations PO intake only when awake/alert? Strategies/Adaptations/Assistive Equipment: Reduce auditory and/or visual distractions when eating Provide verbal and/or visual cues to use recommended strategies Small sips and bites when eating Slow rate of intake Multiple swallows Alternate intake of liquids and solids Ensure no pocketing on L side of mouth Ensure mouth is clear and perform thorough oral care at end of meal Posture/Positioning Needs: Avoid meals/snacks 2-3 hours prior to reclining/sleeping Sleep with head of bed elevated to reduce likelihood of nocturnal reflux PFSH All Active Problems?(Updated 12/30/21 @ 12:53 by Israel Arguello MD) Subacromial bursitis of left shoulder joint (Acute) Partial tear of left rotator cuff (Acute) Acetaminophen toxicity (Acute) Abnormal WBC count (Acute) Discharge planning issues (Acute) DVT prophylaxis (Acute) Arm pain, left (Acute) Left arm pain (Acute) Muscle spasm (Acute) Iliotibial band syndrome affecting left lower leg (Acute) History of repair of right rotator cuff (Acute) Degenerative arthritis of carpometacarpal joint of thumb (Acute) leftOsteoarthritis of right knee (Acute) injection 11/10/21; 07/16/2021Gallbladder disease (Acute) Hypertension, essential, benign (Acute) Dizziness (Acute) Nausea & vomiting (Acute) Lichen sclerosus et atrophicus of the vulva (Acute) Anemia (Chronic) CAO (dyspnea on exertion) (Acute) Medical History? Hernia of abdominal wall Herpes History of Helicobacter pylori infection Iron deficiency anemia Joint pain Lichen sclerosus et atrophicus Osteopenia Peptic reflux esophagitis Vitamin D deficiency Surgical History? section H/O esophagogastroduodenoscopy (~04/27/20) Rotator Cuff Repair ? OBJECTIVE: Sp02: not monitored, patient appears to tolerate room air Language: Grossly WFL verbal expression/fluency, naming, repetition, auditory comprehension Mental Status: Oriented to place, situation, self Recall of current events appears intact Speech: Conversational: Noting short rushes of fast speech, weak articulatory contacts but remains 100% intelligible throughout. Resonance: Patient sounds mildly hypernasal, demonstrates mild nasal emissions during non-nasal speech tasks Diadochokinetics: Weak articulatory contacts. Rate/Rhythm & coordination are . normal Oral Motor Exam: ? Dentition - with partial dentures ? Oral Mucosa : Dry, Poor oral care ? CN V - Trigeminal ? Sensation ? mild reduced in left V3 ? Jaw Movement ?Impaired Vertical ROM? Impaired strength? CN VII ? Labial/Facial ? Impaired strength ? Impaired coordination ? CN IX ? Palate ? Nasal emissions ? Elevates symmetrically to phonation ? CN X ? Laryngeal ?Mild strained vocal quality ? Volitional cough ? Sharp & strong ? CN XII ? Lingual ? Impaired strength ? Volitional Swallow ? Suspect reduced laryngeal elevation ? Suspect delayed onset of swallow but may be impacted by xerostomia ? PO TRIALS? Providing assistance to complete oral care prior to PO trials this date. Patient reporting no other oral care occurred this date Food items tested: ?? X IDDSI 0: X IDDSI 3: mixed with IDDSI 5 (chunky tomato soup) X IDDSI 7 (SOFT REGULAR): plain tuna sandwich Oral phase: x Leakage from mouth Difficulty with bolus manipulation x Difficulty with a-p transport x Difficulty chewing (fatigue Pocketing x Residue Pharyngeal phase: x WFL Delayed swallow initiation Reduced hyolaryngeal elevation/excursion Cough after swallow Voice change after swallow? Throat clearing? Endorsed stasis? Provided education to: Patient, Nursing Topics Addressed: anatomy/physiology of swallowing mechanism, overt s/sx to monitor for re: potential aspiration of food / liquids, recommendations for improved oral care, relationship between respiratory function changes and deglutition, Rationale for recommendations as outlined below Outcome: Needs review/reinforcement Goals: Patient will tolerate safest/least restrictive diet of soft/bite size and thin liquids without s/sx aspiration. Patient/caregiver will be independent with aspiration precautions, diet modifications, and safe swallowing strategies. INTERMODAL OWNER OPERATOR TRUCK DRIVER CPT Code: 81699 Clinical Swallowing Evaluation; time spent: 45 minutes. Coding
[2021-12-31] MEDS: Ondansetron 4 MG/2 ML VIAL IVP (14:40)
[2021-12-31] MEDS: Enoxaparin 40 MG/0.4 ML SYR SC (14:51)
--- NOTE | 2021-12-31 16:44 | CHAPLAIN ---
Yamel was restlessly laying in bed when I visited. She said she's been trying to sleep. Family visited earlier in the day. She asked me to look for her glasses, which she said haven't been found since she moved from Med/Surg 208 to ICU 222. With her permission and while she watch watching I went through her bags and pocketbook but didn't find her glasses. Yamel asked me to check in Room 208. I asked the community dietitian who said that Room 208 had already been searched for the glasses and they weren't found. Yamel was more restless and less talkative than yesterday. Yesterday she told me about her arm being painful, off and on, since she got her COVID booster shot. She said she believes in the vaccines and boosters and knows people who have of COVID before the vaccine was available. 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
[2021-12-31 18:57] LABS: ALT 377 U/L (14-59); AST 96 U/L (15-37); Albumin 2.9 g/dL (3.4-5.0); Alkaline Phosphatase 154 U/L (46-116); Bilirubin, Direct 0.2 mg/dL (0.0-0.2); Bilirubin, Total 0.7 mg/dL (0.2-1.0); Total Protein 6.4 g/dL (6.4-8.2)
[2021-12-31] MEDS: Lidocaine 5% Patch 2 PATCH TP (20:34)
[2021-12-31] MEDS: Atorvastatin 40 MG TAB 80 MG PO (20:34)
[2021-12-31] MEDS: amLODIPine 2.5 MG TAB PO (20:34)
[2021-12-31] MEDS: Gabapentin 100 MG CAP 300 MG PO (20:35)
[2022-01-01] VITALS (7 sets, daily range): BP systolic 146–167; BP diastolic 75–85; PULSE 57–86; RESP 18–169; TEMP 36.1–36.9; O2SAT 95–97
[2022-01-01 07:12] LABS: INR 0.9 (0.9-1.1); Prothrombin Time 9.1 sec (9.3-11.0)
[2022-01-01 07:28] LABS: BUN 17 mg/dL (7-18); CREATININE 0.8 mg/dL (0.55-1.02); Calcium 8.9 mg/dL (8.5-10.1); Chloride 92 mmol/L (98-107); Estimated GFR 78.24 (mL/min/1.73m2); Glucose 100 mg/dL (74-106); Sodium 130 mmol/L (136-145)
[2022-01-01 07:34] LABS: ALT 317 U/L (14-59); AST 77 U/L (15-37); Albumin 2.9 g/dL (3.4-5.0); Alkaline Phosphatase 146 U/L (46-116); Bilirubin, Direct 0.2 mg/dL (0.0-0.2); Bilirubin, Total 0.7 mg/dL (0.2-1.0); Total Protein 6.3 g/dL (6.4-8.2)
[2022-01-01] MEDS: Pantoprazole 40 MG TABCR PO (08:00)
[2022-01-01] MEDS: amLODIPine 5 MG TAB 2.5 MG PO (08:00)
[2022-01-01] MEDS: Metoprolol 25 MG TAB PO ×3 (08:01→16:06)
[2022-01-01] MEDS: Clopidogrel 75 MG TAB PO (08:01)
[2022-01-01] MEDS: Ferrous Gluconate 324 MG TAB PO (08:01)
[2022-01-01] MEDS: Aspirin E.C. 81 MG TABEC PO (08:01)
[2022-01-01] MEDS: Lidocaine Patch Removal 2 EACH TP (08:03)
--- NOTE | 2022-01-01 09:57 | PT.INTREAT ---
PT Notes Visit Reasons: LUE pain post COVID vaccine,tylenon hepatotox,htn Inpatient Physical Therapy Treatment Note [facility] Date: 01/01/22 SUBJECTIVE: Pt reports that she is feeling better and that her speech is also improving. OBJECTIVE: Supine-sit: I Sit-supine: I Sit-stand: SBA Stand-sit: SBA GAIT Assistive Device: FWW Weight bearing: Full Assist: SBA Distance: 300ft THEREX: STS x 10 no hands, HR x 20, heel slides x 20 , SLR x 15, hip abd x 20, shoulder flexion x 20, circles x [address], horz abd x 10. ASSESSMENT: Pt is very motivated to exercise. Pt has some difficulty staying on task and some of her movements are somewhat unsafe at times. PLAN: Cont as per PT POC. TREATMENT CODE/TIME: 9:25-9:55 (30) PORTER WILLIS
[2022-01-01] MEDS: traMADol 50 MG TAB PO (11:59)
[2022-01-01] MEDS: Enoxaparin 40 MG/0.4 ML SYR SC (14:22)
[2022-01-01] MEDS: LORazepam 0.5 MG TAB PO (16:07)
--- NOTE | 2022-01-01 17:41 | W.PM.DS.N ---
Date of service: 01/01/22 Time of Service: 17:42 DS: Diagnosis Discharge Diagnosis (1) Acute ischemic right ICA stroke: Status: Acute Asessment and Plan: Patient sustained an acute/subacute right sided basal ganglia infarctions of right lateral thalamus, caudate head and putamen. The primary deficit in this right handed person was she had clumsiness and dyscorrdination in her left hand. She was also noted to have some dysarthric speech. This was documented on MRI of brain performed on 12/30 and also seen on CTA of brain on 12/30. CTA of brain and cervical vessels did not show any dissections or acute occlusions nor any hemodynamically significant stenoses. Echocardiogram was performed 12/31 and showed no acute abnormalities. Bubble study was negative for interatrial septal defect. Neurology consult was obtained w/ Dr. Carlie Beaver, see her notes for details. Patient was begun on dual antiplatelet therapy (DAPT) w/ Plavix and aspirin and she was begun on high dose atorvastatin. Physical therapy was consulted initially on 12/28 due to complaints of left arm pain that patient relates to COVID vaccination which led her to take large doses of Tylenol to control the pain. P.T. consult on 12/28 demonstrated decreased strength in pincer grasp of fingers of left hand that initially was attributed to her guarding of her left hand and arm due to her pain. However, in light of her MRI findings her finger pincer grasps weakness was probably from her stroke. She contiued to work w/ P.T. and demonstrated improved strength and mobility of her left forearm and upper arm although she still has some residual fine motor deficits in her left hand. At the time of discharge, she was walking around her room and dressing herself and was even observed by nursing to be able to perform yoga exercises. As the patient seems to be independent in her ADL's and mobility as of the day of her discharge, she was deemed ready for discharge home and in fact the patient insisted that she was going home that night and dressed herself. Her risks for CVA include hypertension for which she was not treating prior to admission. During the first couple days, her bp was allowed to remain on the higher side i.e. 160 to 200 but then she was begun on lopressor and later norvasc was added to her regimen. Follow up JUAQUIN and 30 day cardiac event recorder should be pursued and she should have follow up w/ Dr. Beaver or the neurologist of the patient's choosing. (2) Arm pain, left: Status: Acute Asessment and Plan: Initially her left arm pain was attributed to her COVID-19 vaccination however workup of her left shoulder and arm as well as workup of her cervical discs which included MRI of c-spine, upper extremity CT scan and US of her upper extremity all were negative. However her MRI of her brain and CTA of her brain demonstrated infarcts of the right basal ganglia, lateral thalamus, anterior putamen and caudate head. Thus her severe right arm pains were probably sensory symptoms of her basal ganglia infarcts. Her pain was treated w/ gabapentin and addition of venlafaxine for neuropathic pain control and for immediate relief she was put on Tramadol. (3) Transaminitis: Status: Acute Asessment and Plan: transaminitis was presumed due to acetaminophen toxicity and after consultation w/ poison control she was put on n-acetyl cysteine iv infusion protocol 20 hr but this was extended through the evening of 12/31. Serial liver profile was followed, AST peaked at 224 and declined to 77 at discharge. ALT peaked at 371 but remained elevated at 317 at discharge. Alkaline phosphatase was still elevated at 141 at discharge. Her bilirubin never sancho and her prothrombin time remained normal. Patient was advised to avoid any further use of Tylenonl (acetaminophen) or ibuprofen. Repeat liver profile has been ordered for next week. Hepatitis profile was negative and imaging of her liver showed no structural abnormalities. (4) Acetaminophen toxicity: Status: Resolved Asessment and Plan: as above Discharge Plan Disposition Patient Disposition: HOME Condition: Improving Discharge Details Reason For Visit: LUE pain post COVID vaccine,tylenon hepatotox,htn Admit Date/Time: 12/31/21 17:59 Admit Provider: Uday Flores Attending Provider: Uday Flores Primary Care Provider: Unknown,Unknown Home Meds and New Rx's Prescriptions: New venlafaxine 75 mg Capsule,Extended Release 24hr 75 mg PO DAILY Qty: 30 0RF clopidogrel 75 mg Tablet 75 mg PO DAILY Qty: 30 0RF aspirin 81 mg Tablet,Delayed Release (Dr/Ec) 81 mg PO DAILY Qty: 100 0RF tramadol 50 mg Tablet 50 mg PO QID PRN PRNQty: 28 0RF gabapentin 100 mg Capsule 300 mg PO HS Qty: 30 0RF metoprolol succinate [Toprol XL] 100 mg tablet extended release 24 hr 100 mg PO DAILY Qty: 30 0RF amlodipine 5 mg tablet 5 mg PO DAILY Qty: 30 0RF atorvastatin 80 mg tablet 80 mg PO QPM Qty: 30 0RF Continued calcium carbonate [Calcium 600] 600 mg calcium (1,500 mg) tablet 600 mg PO DAILY ascorbic acid (vitamin C) 500 mg capsule PO clobetasol [Temovate] 0.05 % ointment 1 applic topical BID Qty: 60 2RF multivitamin [Daily Multiple] 1 EACH tablet 1 ea PO DAILY ferrous gluconate 324 mg (38 mg iron) tablet 324 mg PO DAILY diazepam 5 mg tablet 5 mg PO TID PRN (Reason: muscle spasm) Qty: 7 0RF Discontinued ibuprofen 200 mg tablet 400 mg PO DAILY PRN Discharge Instructions Instructions: Heart Healthy Diet (DC), Ischemic Stroke (DC), DASH Eating Plan (DC), Hypertension (DC) Additional Instructions: Get blood pressure monitor and check your blood pressure twice a day. Keep a log. goal is for BP under 130/90. At first your BP may run higher due recent stroke but over next week the goal is to get the BP under 150. You have been prescribed two medications to control your blood pressure, metoprol XL (Toprol XL) and amlodipine (Norvasc). To prevent future strokes, you should try to maintain your blood pressure as well as possible. You should take a cholesterol lowering medication which helps to stabilize vascular plaques and prevent future blockages. YOu have been put on atorvastatin (Lipitor) 80 mg daily. Your PCP and nerologist will decide when this dose can be reduced. Initially you should remain on the higher dose of statin for the first month. goal cholesterol level is LDL under 70 and total cholesterol under 180. YOu have been prescribed two antiplatelet medications used to reduce the likelihood that your blood will form clots in the vessels. These medications are aspirin and Plavix (clopidogrel). You should take both for the first month and then you should remain on aspirin for lifetime. After 30 days you may stop the Plavix but stay on the aspirin. For your pain you have been prescribed the following: Tramadol for the acute pain, venlafaxine and gabapentin for neuropathy pain. Venlafaxine is an SNRI which acts on serotonin and norepinephrine receptors that can help w/ chronic pain syndromes d/t neuropathy and also helps w/ mood and depression. The gabapentin (Neurontin) is structurally similar to gamma amino butyric acid and binds to receptors similar to JOMAR influencing pain signals from neurons. Whiel the Tramadol will act more quickly to control pain, over time it will lose its effects and intermediate school teacher use can be habit forming. The neurontin and venlafaxine take time (couple weeks to a few weeks to reach their full effects) but can help mcc for pain control. You should follow up w/ Dr. Beaver, neurologist, or a neurologist of your choosing for follow up in the next month. See your local PCP in the next week for follow up. Avoid use of Tylenol (acetaminophen) or ibuprofen (Motrin, Advil and others). You had liver toxicity from your use of Tylenol and ibuprofen. Get follow up liver profile next week to montor your liver function tests. We checked a hepatitis panel which was negative. We checked an abdominal ultrasound and there was no structural abnormalities of your liver. Stand Alone Forms: Nursing Discharge Form Referrals: Giovany Luis NP [NURSE PRACTITIONER] - (Call Monday to make an appointment in the next 2 weeks) Activity:: Activity as Tolerated Equipment/Supplies:: No Equipment Needed Diet:: Low Sodium Discharge Orders Discharge Orders: Discharge Order (Routine); Ordered 01/01/22 Ordered By: Uday Flores Other Ambulatory Orders: Cardiac Event Recorder (Routine) Timeframe: 5 Days Facility: [facility] - Location: Cardiology Outpatient Ordered By: Uday Flores Liver Panel (Routine) Timeframe: 5 Days Facility: [facility] - Location: Laboratory Ordered By: Uday Flores Discharge Data Discharge Date/Time-TO BE ENTERED AT DEPARTURE: 01/01/22 18:51 DS: Summary Time Spent with Patient providing and/or coordinating discharge services: Greater than 30 minutes Specific discharge activities: Interview/exam of patient; review of discharge instructions, completion of prescriptions/discharge instructions; discussion w/ nursing and CM; documentation of hospital visit Status at Discharge Functional status at discharge: independent ambulation Overall status at discharge: patient is progressing back to baseline Mental Status: mental status grossly normal Speech and Movement: speech and movement normal Mood: irritable mood Affect: normal affect and irritable affect Exam Narrative Exam Narrative: Yamel is sitting up in her bed, watching TV, her dinner was brought into her. She was able to feed herself w/out difficulty, She got up out of bed and dressed herself and was walking about the room w/out difficulty or w/out assistance Muscle strength and ROM on the RUE, RLE, LLE was normal. 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 She does have some decreased fine motor control in the fingers of her left hand; sensation is intact to light touch Psych Mental Status: mental status grossly normal Speech and Movement: speech and movement normal Mood: irritable mood Affect: normal affect and irritable affect DS: Data Vitals/I&O Vitals and I&O: Vital Signs Temperature 36.9 C 01/01/22 14:37 Temperature Source Tympanic 01/01/22 14:37 Pulse 70 01/01/22 14:37 Pulse Rhythm Regular 01/01/22 16:30 Pulse 89 12/31/21 15:01 Respiratory Rate 18 01/01/22 14:37 Respiratory Effort Non-Labored 01/01/22 16:30 Respiratory Depth Normal 01/01/22 16:30 Respiratory Pattern Normal 01/01/22 16:30 Blood Pressure 167/84 H 01/01/22 14:37 Blood Pressure Mean 178 12/31/21 15:00 Blood Pressure Position Supine 12/31/21 15:05 Pulse Oximetry 97 01/01/22 14:37 Oxygen Delivery Method Room Air 01/01/22 14:37 Oxygen Flow Rate 0 01/01/22 14:37 Pain Level 7 01/01/22 14:37 Comment 12/31/21 19:31 Intake & Output 12/31/21 01/01/22 01/01/22 23:59 11:59 23:59 Intake Total 1753.6 / 2348.658 Output Total 2225 / 3575 Balance -471.4 / -1226.342 Intake: IV 1033.6 / 1628.658 Oral 720 / 720 Output: Urine 1025 / 2375 Emesis 1200 / 1200 Other: Urine Color Yellow Yellow Urine Appearance Clear Clear Clear Urine Odor Normal Comment Patient voiding independently Emesis Description Undigested Food Voiding Methods Bedside Commode Toilet Data Completed and Pending Labs on day of discharge: Labs from last 24 hours 01/01/22 01/01/22 01/01/22 18:00 06:23 06:23 PT INR Sodium 130 L Potassium 4.0 Chloride 92 L Carbon Dioxide 32.0 Anion Gap 6.0 BUN 17 Creatinine 0.8 Est GFR (CKD-EPI 2020) 78.24 Glucose 100 Calcium 8.9 Total Bilirubin Pending 0.7 Conjugated Bilirubin Pending 0.2 AST Pending 77 H ALT Pending 317 H Alkaline Phosphatase Pending 146 H Total Protein Pending 6.3 L Albumin Pending 2.9 L 01/01/22 12/31/21 06:23 18:34 PT 9.1 L INR 0.9 Sodium Potassium Chloride Carbon Dioxide Anion Gap BUN Creatinine Est GFR (CKD-EPI 2020) Glucose Calcium Total Bilirubin 0.7 Conjugated Bilirubin 0.2 AST 96 H ALT 377 H Alkaline Phosphatase 154 H Total Protein 6.4 Albumin 2.9 L PFSH All Active Problems (Updated 01/02/22 @ 00:05 by AMY BEGUM) Transaminitis (Acute) Acute ischemic right ICA stroke (Acute) Arm pain, left (Acute) Left arm pain (Acute) Muscle spasm (Acute) Iliotibial band syndrome affecting left lower leg (Acute) History of repair of right rotator cuff (Acute) Degenerative arthritis of carpometacarpal joint of thumb (Acute) left Osteoarthritis of right knee (Acute) injection 11/10/21; 07/16/2021 Gallbladder disease (Acute) Hypertension, essential, benign (Acute) Dizziness (Acute) Nausea & vomiting (Acute) Lichen sclerosus et atrophicus of the vulva (Acute) CAO (dyspnea on exertion) (Acute) Medical History Hernia of abdominal wall Herpes History of Helicobacter pylori infection Iron deficiency anemia Joint pain Lichen sclerosus et atrophicus Osteopenia Peptic reflux esophagitis Vitamin D deficiency Surgical History section H/O esophagogastroduodenoscopy (~04/27/20) Rotator Cuff Repair Family History Mother Heart disease Father Personal history of malignant neoplasm prostate Social History Smoking/Tobacco Use Status: Never Smoking risk assessment performed?: Yes Alcohol Intake: current Alcohol Intake frequency: a few times a month Alcohol type: wine Drug use: Never Substance use type: does not use Do you feel safe at home: Yes Do you feel safe in your relationship?: Yes
--- NOTE | 2022-01-03 18:30 | INDS_ITS ---
Date of service: 01/03/22 PT Notes Visit Reasons: LUE pain post COVID vaccine,tylenon hepatotox,htn Physical Therapy Inpatient Discharge Summary Date: 01/03/2022 Dates of Service: 12/31/2021 through 01/01/2022 This is a clinical summary of care provided for the duration of dates listed above. No charge was made in the completion of this documentation. Referring Doctor:? Lyn Worthy MD PT Orders: PT CONSULT: Limited ability Precautions: Fall. Standard. Activity as tolerated.? Patient Profile/Admitting Diagnosis:? Yamel is a 71-year-old female who presented to the ED on 12/27/2021 due to persistent left arm pain after COVID vaccination.? Patient also with diagnoses of acetaminophen toxicity, abnormal white blood cell count, hypertension, and anemia.? Patient was seen on 12/28/2021 for PT evaluation and was deemed in non- need of services at that time being independent with all mobility ADLs with no devive;? 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 Per neurology notes on 12/30/2021 patient has been found to have acute/subacute R basal ganglia ischemic stroke and chronic vascular changes seen through brain MRI;? patient also with bilateral neural foraminal narrowing at C5-6 and on the left at C6-7. PMHX: All Active Problems?(Updated 12/27/21 @ 19:34 by Guillermina Woodard NP) Acetaminophen toxicity (Acute) Abnormal WBC count (Acute) Discharge planning issues (Acute) DVT prophylaxis (Acute) Arm pain, left (Acute) Left arm pain (Acute) Muscle spasm (Acute) Iliotibial band syndrome affecting left lower leg (Acute) History of repair of right rotator cuff (Acute) Degenerative arthritis of carpometacarpal joint of thumb (Acute) leftOsteoarthritis of right knee (Acute) injection 11/10/21; 07/16/2021Gallbladder disease (Acute) Hypertension, essential, benign (Acute) Dizziness (Acute) Nausea & vomiting (Acute) Lichen sclerosus et atrophicus of the vulva (Acute) Anemia (Chronic) CAO (dyspnea on exertion) (Acute) Medical History? Hernia of abdominal wall Herpes History of Helicobacter pylori infection Iron deficiency anemia Joint pain Lichen sclerosus et atrophicus Osteopenia Peptic reflux esophagitis Vitamin D deficiency Surgical History? section H/O esophagogastroduodenoscopy (~04/27/20) Rotator Cuff Repair Social History/Home Situation: Lives with son in a private home.? Independent with all aspects of ADLs prior to admission.? 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 Equipment Owned/DME: None Subjective: NT. See most recent MUNITIONS WORKER notes. Objective: General Observation: NT. See most recent MUNITIONS WORKER notes. Mental Status: NT. See most recent MUNITIONS WORKER notes. Pain: NT. See most recent MUNITIONS WORKER notes. Vital Signs: NT. See most recent MUNITIONS WORKER notes. ROM: Right Upper Extremity: ? Shoulder Flexion WFL. Shoulder abduction WFL. Elbow flexion WFL. Wrist flexion WFL. Functional opening and closing of hand WFL. Left Upper Extremity:? Shoulder Flexion WFL. Shoulder abduction WFL. Elbow flexion WFL. Wrist flexion WFL. Functional opening and closing of hand WFL. Right Lower Extremity: Hip flexion WFL. Hip abduction WFL. Knee flexion WFL. Ankle dorsiflexion WFL. Ankle plantarflexion WFL. Left Lower Extremity: Hip flexion WFL. Hip abduction WFL. Knee flexion WFL. Ankle dorsiflexion WFL. Ankle plantarflexion WFL. Strength: Right Upper Extremity: Shoulder flexors 5/5.? Shoulder abductors 5/5. Elbow flexors 5/5. Elbow extensors 5/5. Certified Pedorthotist strong. Left Upper Extremity: Shoulder flexors 4-/5.? Shoulder abductors 4-/5. Elbow flexors 5/5. Elbow extensors 5/5. Certified Pedorthotist weaker compared to the R. Pincer grasp weaker than on the L for all fingers.? Right Lower Extremity: Hip flexors 5/5. Hip abductors 5/5. Knee flexors 5/5. Knee extensors 5/5. Ankle dorsiflexors 5/5. Ankle plantarflexors 5/5. Left Lower Extremity: Hip flexors 5/5. Hip abductors 5/5. Knee flexors 55/5. Knee extensors 55/5. Ankle dorsiflexors 5/5. Ankle plantarflexors 5/5. Bed Mobility/Transfers: Sit to stand independent Stand to sit independent Bed to bedside independent Bed to reclining chair independent Reclining chair to bed independent Gait: Supervision inside room without AD.? Gait pattern unremarkable.? L UE in sling. Balance: Static Sitting: Normal Dynamic Sitting: Normal Static Standing: Good Dynamic Standing: Good NEURO: Neck pain: None Balance problem: None Trouble using hand: Decreased L hand grasp and decreased pincer grasp of fingers Numbness or tingling in the L UE: None Strength of L UE: Impaired as above in the hand and fingers L C5-C6 myotome: 4-/5 L C6/C7 myotome: 4+/5 L Pincer grasp: Impaired L finger opposition: Impaired Informed Consent/Education:? Patient was instructed in purpose of PT consult and plan of care. Agreeable to proceed with established PT POC to achieve personal goals. Assessment: Patient presents with clinical signs and symptoms consistent with current/admitting diagnoses that have resulted to mobility limitations, gait instability, generalized weakness, and overall ADL decline as demonstrated by the following impairment level findings: 1.? Decreased L hand dexterity 2.? Pain in L UE Impairments are contributing to the following functional limitations: 1.? Decrreased ability to use L UE for ADL tasks Goals: Goals X1 week 1. Decrease pain to 1-2/10 using modalities and manual therapy: TENS, gentle retrograde massage NOT MET 2. Bed-Chair independent with no AD NOT MET 3. Chair-Bed independent with no AD NOT MET 4. Independent gait on level surface with use of no AD for at least 1000 feet without report of pain nor dyspnea NOT MET 5. Independent stair negotiation while holding onto no rails for at least 12 steps without report of pain nor dyspnea NOT MET 6. Independent with home exercise program NOT MET DISCHARGE RECOMMENDATIONS: [] ? Home with no services [] [] ? Home with services [specify] [X] ? Home with outpatient PT. patient will benefit from outpatient PT and occupational therapy services once discharged from hospital for continued rehabilitation to facilitate return to premorbid independent level. [] ? SNF for continued rehabilitation [] [] ? Production Finisher [facility] [] [] ? SNF versus LTC based on ability to participate and progress [] TREATMENT CODE/TIME: MI Thank you for the opportunity to participate in the care of this patient. Sandra Conklin PT, DPT, CLT [facility] [place], [place]
== END 2022-01-01 18:51 | disposition home or self-care (01) | DRG 917 ==
LOC: ER 14:19 → MS 15:02 → ICU 12-31 09:43 → MS 12-31 17:25
PROVIDERS: Internal Medicine; Nurse Practitioner Family; Admitting Provider Internal Medicine; Emergency Provider Student in an Organized Health Care Education/Training Program; Visit Provider Internal Medicine
DX: T39.1X1A Poisoning by 4-Aminophenol derivatives, accidental (unintentional), initial encounter (principal); I63.89 Other cerebral infarction; M79.602 Pain in left arm; I10 Essential (primary) hypertension; D64.9 Anemia, unspecified; D72.829 Elevated white blood cell count, unspecified; M35.00 Sjogren syndrome, unspecified; M62.838 Other muscle spasm; L90.0 Lichen sclerosus et atrophicus; M76.32 Iliotibial band syndrome, left leg; M17.11 Unilateral primary osteoarthritis, right knee; E55.9 Vitamin D deficiency, unspecified; D50.9 Iron deficiency anemia, unspecified; K21.9 Gastro-esophageal reflux disease without esophagitis; R47.81 Slurred speech; R74.01 Elevation of levels of liver transaminase levels; R26.9 Unspecified abnormalities of gait and mobility; M75.52 Bursitis of left shoulder
CPT/HCPCS: 36415; 70496; 70498; 80048; 80053; 80061; 80076; 82550; 85027; 85652; 86704; 86709; 86803; 87340; 87635; 87798; 92610; 93005; 93306; 96361; 96365; 96375; 97110; 97162; 97530; 99223; 99285; J1650; 70551; 72141; 73201; 73218; 76705; 80329; 83036; 83605; 83735; 84484; 85025; 85379; 85610; 86140; 86618; 93010; 93971; 99219; 99225; 99226; 99239; 99291; G0378; J0132; J1170; J1200; J1885; J2270; J2405; J2930; J3490; J7060

== ENCOUNTER 2022-01-14 14:58 | Outpatient (REF) | payer MEDICARE, SELFPAY ==
[2022-01-14 15:40] LABS: ALT 44 U/L (14-59); AST 26 U/L (15-37); Albumin 3.6 g/dL (3.4-5.0); Alkaline Phosphatase 113 U/L (46-116); Anion Gap 7.4 mmol/L (3-11); BUN 17 mg/dL (7-18); Bilirubin, Total 0.4 mg/dL (0.2-1.0); CO2 28.6 mmol/L (21.0-32.0); Calcium 8.7 mg/dL (8.5-10.1); Chloride 102 mmol/L (98-107); Estimated GFR 59.86 (mL/min/1.73m2); Glucose 101 mg/dL (74-106); Potassium 3.9 mmol/L (3.5-5.1); Sodium 138 mmol/L (136-145); Total Protein 7.3 g/dL (6.4-8.2)
== END 2022-01-14 14:59 | disposition home or self-care (01) ==
LOC: NCHCN 14:58
PROVIDERS: Visit Provider Nurse Practitioner Family
DX: I10 Essential (primary) hypertension (principal)
CPT/HCPCS: 80053

== ENCOUNTER → 2022-02-09 02:10 | Outpatient (CLI) | payer MEDICARE, SELFPAY ==
--- NOTE | 2022-02-09 | DI.RAD_ITS ---
Exam(s) RF MODIFIED SPEECH BA SWALLOW TECHNIQUE: Modified barium swallow was performed in conjunction with speech pathology. CONTRAST MATERIAL: Oral barium contrast was administered. COMPARISON: No exams were available for comparison FINDINGS: Note that this is not a dedicated esophagram, distal esophagus not evaluated. There is no evidence of aspiration or penetration of thin liquids, barium coated cracker, and pudding . Speech pathology report to follow. A barium tablet passed into the stomach without problem. IMPRESSION: No evidence of aspiration or penetration. RADIATION DOSE DELIVERED: hussein Antony=8.45 mGy
--- NOTE | 2022-02-09 14:30 | ST.MBS_ITS ---
Date of Service Date of service: 02/09/22 Time of Service: 14:30 Modified Barium Swallow Study Findings: Video fluoroscopic Swallowing Evaluation (VFSE) / Modified Barium Swallow Study (MBSS) Speech Language Pathology Report Patient [facility]MB[facility] given continued report difficulty swallowing after CVA. HPI & Patient report of function: Pt is a 71 year old female who presented to the ER on 12/19 and 12/27 for severe arm pain, where the clinical impression was Arm pain, left, Transaminitis, Hype rtension. 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 This caused clumsiness and dyscoordination in her left hand as well as dysarthric speech. Speech Therapy was consulted while she was inpatient and at that time was found with nasal emissions, short breath groups for speech, and mildly slurred speech. Clinical swallow evaluation demonstrated at least mild oral dyspahgia with mild L sided weakness, xerostomia, and resulting in reduced oral clearance and anterior bolus loss. At that time there was a suspicion that pain medications were exacerbating her speech/swallow presentation. She was put on a soft/bite size diet. Yamel states that she is (I) with ADLs/IADLs at this time. Regarding swallow function, she feels things have improved significantly since acute onset, but she still struggles with liquids at times. She also feels that her reflux has gotten much worse since her stroke. She comments that she has a documented dx of reflux (peptic reflux esophagitis as shown in medical history) but that she was unaware of this and has no recollection of ever experiencing heartburn symptoms. All Active Problems?(Updated 12/30/21 @ 12:53 by Israel Arguello MD) Subacromial bursitis of left shoulder joint (Acute) Partial tear of left rotator cuff (Acute) Acetaminophen toxicity (Acute) Abnormal WBC count (Acute) Discharge planning issues (Acute) DVT prophylaxis (Acute) Arm pain, left (Acute) Left arm pain (Acute) Muscle spasm (Acute) Iliotibial band syndrome affecting left lower leg (Acute) History of repair of right rotator cuff (Acute) Degenerative arthritis of carpometacarpal joint of thumb (Acute) leftOsteoarthritis of right knee (Acute) injection 11/10/21; 07/16/2021Gallbladder disease (Acute) Hypertension, essential, benign (Acute) Dizziness (Acute) Nausea & vomiting (Acute) Lichen sclerosus et atrophicus of the vulva (Acute) Anemia (Chronic) CAO (dyspnea on exertion) (Acute) Medical History? Hernia of abdominal wall Herpes History of Helicobacter pylori infection Iron deficiency anemia Joint pain Lichen sclerosus et atrophicus Osteopenia Peptic reflux esophagitis Vitamin D deficiency Surgical History? section H/O esophagogastroduodenoscopy (~04/27/20) Rotator Cuff Repair IMPRESSIONS: Swallow safety is preserved; swallow efficiency is mildly impaired. Overall oral-pharyngeal swallow function appears safe/WFL. Patient presents with mild chronic pharyngo-esophageal>oral dysphagia. Noted only occasional flash/scant penetration of thin liquids (premature spillage due to difficulty managing very large volumes and when mixed with solid tablet. More notably, patient with hypertone/prominence of the CP, appearance consistent with CP bar and resulting in mild retrograde flow of thin liquids through the UES during the swallow, leaving mild pyriform residue. Radiologist also performing brief esophageal survey in the lateral view only, patient may benefit from GI consult to consider possible esophageal phase and treatments given history and current presentation of moderate restriction at UES. See further swallow characteristics in the objective section below. Patient appears to be at low risk for potential aspiration PNA and/or pulmonary compromise and low risk for malnutrition, low risk for dehydration. Diet modification is indicated; non-oral nutrition is not indicated. Swallow prognosis is good-fair pending GI consult. Counseling/education was provided on oral-pharyngeal vs esophageal dysphagia, reflux counseling provided (e.g., strategies to reduce risk nighttime reflux and reflux aspiration) and rationale provided for increased frequency/diligence of oral care. Specialist referrals:? GI RECOMMENDATIONS: Diet Texture Recommendation:? IDDSI LEVEL SOLIDS 6-Soft & Bite-Sized Solids (to prevent stasis at level of upper esophageal sphincter) LIQUIDS 0-Thin Liquids Please see further details at?[email or web address].org MEDICATIONS Whole with 4-Puree and followed by sip of thin liquids if desired. Diet texture modification is per patient's preference; please adjust diet textures at patient's discretion & collaboration with care team. Do not alter medications (e.g., cut)? without advice from your MD or pharmacist. Risk Management Strategies:? Behavioral reflux precautions, including upright position during + 90 mins after meals. Small bites, approx [id number] Small sips, approx 10 mL Alternate solids/liquids as able Multiple swallows per bolus to encourage clearance of pharyngeal stasis/residue Control risk factors for aspiration pneumonia via (a) thorough oral hygiene & (b) maintaining physical mobility as tolerated PLAN: No Further [employer] services required at this time. Recommend GI consult - refer back to [employer] if additional need arises. ----- OBJECTIVE Videofluoroscopic Swallow Evaluation (VFSE/MBSS) was conducted in the lateral projection by Speech-Language Pathologist, in collaboration with Radiologist, to evaluate oropharyngeal swallow function. Anatomic view under fluoroscopy: Prominence of posterior wall of UES - CP. PO Barium Contrast Trials Oral barium water-soluble contrast was administered as follows: IDDSI Level 0 Varibar thin liquid (40% w/v) IDDSI Level 4 Varibar pudding/pureed/extremely thick (40% w/v) IDDSI Level 7 Regular Solid: 1/2 dania cracker coated in 3 mL Varibar pudding 13 mm barium tablet taken with Thin Liquids. MBSImP Component Scores: COMPONENT Scale SCORE 1 Lip closure (0-4) 0 Resulted in no labial escape 2 Hold Position (0-3) 0 Maintained a cohesive bolus between tongue to palatal seal 3 Bolus Preparation (0-4) 0 Resulted in timely and efficient chewing and mashi ng 4 Bolus Transport (0-4) 1 Demonstrated delayed initiation of tongue motion 5 Oral Residue (0-4) 2 Was a collection on oral structures 6 Swallow Initiation (0-4) 2 Occurred as bolus head at posterior laryngeal surface of epiglottis 7 Soft Palate Elevation (0-4) 0 Resulted in no bolus between soft palate and t he pharyngeal wall 8 Laryngeal Elevation (0-3) 1 Was decreased with partial superior movement of thyroid cartilage/partial approximation of arytenoids to epiglottic petiole 9 Anterior Hyoid Motion (0-2) 0 Demonstrated complete anterior movement 10 Epiglottic Movement (0-2) 1 Resulted in partial inversion 11 Laryngeal Closure (0-2) 0 Was complete with no air or contrast in laryngeal vestibule 12 Pharyngeal Stripping Wave (0-2) 0 Was present and complete 13 Pharyngeal Contraction (0-3) NA no A/P view administered 14 PES Opening (0-3) 1 Demonstrated partial distension/partial duration, with partial obstruction of flow 15 Tongue Base Retraction (0-4) 1 Allowed a trace column of contrast or air between tongue base and pharyngeal wall 16 Pharyngeal Residue (0-4) 1 Showed a trace within or on pharyngeal structure s 17 Esophageal Clearance (0-4) NA no A/P view administered Dysphagia Outcome and Severity Scale: COMPONENT Scale SCORE 1 LEVEL (1-7) 6 Full PO: Normal Diet - Within functional limits/modified independence Penetration-Aspiration Scale: COMPONENT Scale SCORE 1 Thin liquidA (1-8) 2 Contrast entered the airway, remained above the vocal folds, and was ejected from the airway. 2 [place] thick (1-8) NA 3 Honey thick (1-8) NA 4 Pudding thick (1-8) 8 Contrast did not enter the airway 5 Cookie (1-8) 8 Contrast did not enter the airway Trialed Compensatory Strategies & Outcome: Maneuvers Successful (+) Unsuccessful (-) Postures Successful (+) Unsuccessful (-) 3 second Preparatory Set? ? +/- Chin Tuck Posture? ? Cough? ? Posterior Head tilt? Reflexive? Cued? Throat Clear? ? Head Tilt to? Reflexive? Left? Cued? Right? ? Saliva swallow? ? + to clear oral residue Head Turn/Rotate to? ? Supraglottic Swallow? Left? ? Super-supraglottic Swallow? Right? ? Bolus Modifications Successful (+) Unsuccessful (-) Delivery/Alternating Consistencies ? Follow with Liquid Wash ? Follow with Solid Bolus? Delivery/Via Straw? ? Reduced Volume? ? + (thin liquids) Reduced Rate of Intake? ? + (thin liquids) Increased Viscosity? ? Other:?avoidance of mixed textures (e.g., thin & solids) ? + Thank you for allowing us to take part in this patient's care. Please feel free to contact the [facility] Speech Language Pathology Department with any questions/concerns. Coding CPT Codes MOTION FLUOROSCOPY/SWALLOW - [id number] ([id number])
[2022-02-09] MEDS: Barium Sulfate 700 MG TAB PO (15:08)
[2022-02-09] MEDS: Barium Sulfate 40% W/V 240 ML BTL 60 ML PO (15:08)
[2022-02-09] MEDS: Barium Sulfate Oral Paste 40% W/V 230 ML TUBE 60 ML PO (15:09)
[2022-02-09] MEDS: Barium Sulfate 81% w/w for Oral Suspension 148 GM BTL 120 GM PO (15:11)
== END ==
PROVIDERS: Visit Provider Nurse Practitioner Family
DX: R13.11 Dysphagia, oral phase (principal)
CPT/HCPCS: 92611; 74221

== ENCOUNTER 2022-02-14 14:46 | Outpatient (REF) | payer MEDICARE, SELFPAY ==
[2022-02-14 16:03] LABS: Iron 91 ug/dL (50-170); Total Iron Binding Capacity 281 ug/dL (250-450); Transferrin Sat 32 % (15-50)
[2022-02-14 16:22] LABS: Vitamin D 25 Total 37.8 ng/mL (30-100)
[2022-02-14 16:25] LABS: Vitamin B12 609 pg/mL (193-986)
== END 2022-02-14 14:47 | disposition home or self-care (01) ==
LOC: NCHCN 14:46
PROVIDERS: Visit Provider Nurse Practitioner Family
DX: R53.83 Other fatigue (principal)
CPT/HCPCS: 82306; 82607; 83540; 83550

== ENCOUNTER 2022-07-28 13:54 | Outpatient (REF) | payer MEDICARE, SELFPAY ==
[2022-07-28 15:54] LABS: Hemoglobin A1C 5.2 % (<5.7)
[2022-07-28 15:56] LABS: FREE T4 1.05 ng/dL (0.76-1.46); TSH 1.66 uIU/mL (0.36-3.74)
== END 2022-07-28 13:55 | disposition home or self-care (01) ==
LOC: NCHCN 13:54
PROVIDERS: Visit Provider Nurse Practitioner Family
DX: R63.5 Abnormal weight gain (principal); R53.83 Other fatigue; R79.89 Other specified abnormal findings of blood chemistry
CPT/HCPCS: 83036; 84439; 84443

== ENCOUNTER 2022-10-02 09:48 | Emergency (ER) | payer MEDICARE, SELFPAY ==
[2022-10-02 10:03] VITALS: BP 149/68; PULSE 71; RESP 18; TEMP 36.6; O2SAT 98
--- NOTE | 2022-10-02 11:00 | DI.CT_ITS ---
Exam(s) CT LUMBAR SPINE WO EXAM: CT LUMBAR SPINE WO CLINICAL HISTORY: low back pain, midline tenderness to palaption. TECHNIQUE: Imaging Protocol: Axial computed tomography images with coronal and sagittal reformatted images were created and reviewed COMPARISON: CT CT ABDOMEN PELVIS WO from 05/31/2020 FINDINGS: Bones: The last intervertebral disc space is designated the L5/S1 level for the numbering purpose of this examination. The vertebral body heights are well maintained. Alignment is satisfactory. No fracture is seen. Small endplate osteophytes and mild loss of disc height and bulging of the L2-3 through L5-S1 discs. Mild facet degenerative changes. Mild central canal stenosis at L4-5. [id number] neural fora harleen narrowing also present levels. The visualized SI joints and sacrum are will maintained. Soft Tissues: The paraspinal soft tissues are unremarkable. Sigmoid diverticulosis noted. IMPRESSION: Degenerative disc changes and facet degenerative changes. No evidence of acute fracture. No large d isc herniation. RADIATION DOSE DELIVERED: 481.31mGy.cm Total DLP DATA REPOSITORY: All CT scans at this facility are submitted to the National Radiology Data Registry (NRDR) Dose Index Registry (DIR) with the [employer] (ACR). RADIATION OPTIMIZATION: All CT scans at this facility use at least one of these dose optimization te chniques: automated exposure control; mA and/or kV adjustment per patient size (includes targeted exa ms where dose is matched to clinical indication); or iterative reconstruction.
--- NOTE | 2022-10-02 11:07 | ED.GENADUL_ITS ---
Discharge Plan Disposition Patient Disposition: Home Condition: Good Discharge Details Clinical Impression: Back pain Primary Care Provider: Kathleen Taylor ED Provider: Debra Shahid Home Meds and New Rx's Prescriptions: New lidocaine 5 % adhesive patch,medicated 1 patch topical DAILY Qty: 30 0RF Rx Instructions: leave on most painful area for up to 12 hrs prednisone 20 mg tablet 20 mg PO DAILY Qty: 4 0RF Continued calcium carbonate [Calcium 600] 600 mg calcium (1,500 mg) tablet 600 mg PO DAILY ascorbic acid (vitamin C) 500 mg capsule PO clobetasol [Temovate] 0.05 % ointment 1 applic topical BID Qty: 60 2RF multivitamin [Daily Multiple] 1 EACH tablet 1 ea PO DAILY ferrous gluconate 324 mg (38 mg iron) tablet 324 mg PO DAILY diazepam 5 mg tablet 5 mg PO TID PRN (Reason: muscle spasm) Qty: 7 0RF Patient Comments: not taking venlafaxine 75 mg Capsule,Extended Release 24hr 75 mg PO DAILY Qty: 30 0RF clopidogrel 75 mg Tablet 75 mg PO DAILY Qty: 30 0RF aspirin 81 mg Tablet,Delayed Release (Dr/Ec) 81 mg PO DAILY Qty: 100 0RF tramadol 50 mg Tablet 50 mg PO QID PRN PRNQty: 28 0RF Patient Comments: not taking gabapentin 100 mg Capsule 300 mg PO HS Qty: 30 0RF metoprolol succinate [Toprol XL] 100 mg tablet extended release 24 hr 100 mg PO DAILY Qty: 30 0RF amlodipine 5 mg tablet 5 mg PO DAILY Qty: 30 0RF atorvastatin 80 mg tablet 80 mg PO QPM Qty: 30 0RF Discharge Instructions Instructions: Back Pain (ED) Additional Instructions: Take Tylenol and ibuprofen over the counter for pain; follow the directions on the bottle. Take the prednisone I have prescribed once a day starting tomorrow. Use the lidocaine patches if they are helpful. Follow up with orthopedics- they will call to schedule an appointment. Return to the emergency department for new or worsening symptoms including worsening or uncontrolled pain, inability to walk, numbness, focal weakness, bowel/bladder incontinence, or if you have any other concerns. Referrals: Kathleen Taylor [Primary Care Provider] - Medical Decision Making 71yo F with hx of prior CVA, HTN, lichen sclerosis, Sjorgens, IT band syndrome on the left, presenting with low back pain since [place] after she twisted while lifting a box. Low lumbar pain radiating into her right hip and leg. No numbness/tingling/weakness, no bowel/bladder symptoms, no fever, no saddle anesthesia, normal reflexes. Not concerned for cauda equina. No risk factors for spinal epidural abscess or hematoma. Vital signs reassuring, palpable paraspinal spasm in lumbar region on the right on exam as well as midline tenderness to L-spine. +SLR on the right. Normal LE neurologic exam. Given IM toradol, tylenol, flexeril, lidocaine patch, prednisone. CT L-spine reviewed, L1-S1 disc bulges,agree with radiology read below. On reassessment she reports pain is somewhat improved and is tolerable. Prescribed lidcoaine patch and short course of prednisone, plan for outpatient followup with orthopedics. Discharged home; discharge instructions including return precautions were reviewed with patient who verbalized understanding. All questions were answered and they are in full agreement with the plan. Imaging Data Radiologic Study: Imaging: CT Scan Radiologist's impression: FINDINGS: Bones/joints: No acute fracture. Normal alignment. Disc degenerative changes mild loss of disc height at L2-L3 and L3-L4. T12-L1: No posterior contour abnormality. No spinal canal or neural foraminal stenosis. L1-L2: Mild posterior disc bulge, ligamentum flavum hypertrophy and mild bilateral facet arthropathy. Disc encroaches bilateral neural and causes mild bilateral neural foraminal stenosis. L2-L3: Mild posterior disc bulge, ligamentum flavum hypertrophy and mild bilateral facet arthropathy. There is small disc protrusion in the right a central canal. There is minimal encroachment of the disc to bilateral neural foramina. L3-L4: Mild posterior disc bulge, mild facet arthropathy. There is mild spinal canal. Spurring in the right neural foramen with mild right neural stenosis. Mild encroachment of disc to the left. L4-L5: There is mild spinal canal stenosis due to circumferential disc bulge asymmetric to right, ligamentum flavum hypertrophy and bilateral facet arthropathy. Disc encroaches bilateral neural foramina and causes mild right and no left neural foraminal stenosis. L5-S1: Mild circumferential disc bulge. Mild to moderate bilateral facet arthropathy. Spur in the bilateral neural foramina with mild to moderate bilateral neural foraminal stenosis. Stomach and bowel: There is diverticulosis of the sigmoid without focal acute inflammation. Soft tissues: Unremarkable. Other findings: Small hiatal hernia. IMPRESSION: 1. ? No acute fracture or subluxation. 2. ? Mild multilevel degenerative changes as described above. HPI General Mode of arrival: ambulatory . Date/Time Provider Initiated Documentation: 10/02/22 10:18 . Limitations to Documentation: no limitations . Information obtained by: patient . HPI Narrative: 71yo F with hx of prior CVA, HTN, lichen sclerosis, Sjorgens, IT band syndrome on the left, presenting with low back pain since Monday. Symptoms started after twisting while lifting a box. No falls. Moderate to severe low back pain radiating down her right leg into her right calf, states similar to prior IT band syndrome and NOT similar to prior sciatica. No numbness, tingling, or weakness. No bowel or bladder issues. No fevers. No history of spinal instrumentation, no hx of IVDU at any point currently or in the past. Has tried OTC meds at home without significant improvement. She is otherwise in her usual state of health. Related Data Home Medications Medication Instructions Recorded Confirmed multivitamin (Daily Multiple 1 ea PO DAILY 11/13/14 10/02/22 tablet) clobetasol 0.05 % topical ointment 1 applic topical BID #60 grams 05/25/20 10/02/22 (Temovate) ferrous gluconate 324 mg (38 mg 324 mg PO DAILY 06/15/21 10/02/22 iron) tablet ascorbic acid (vitamin C) 500 mg mg PO 07/16/21 11/10/21 capsule calcium carbonate 600 mg calcium 600 mg PO DAILY 07/16/21 10/02/22 (1,500 mg) tablet (Calcium) diazepam 5 mg tablet 5 mg PO TID PRN muscle spasm #7 12/20/21 12/27/21 tabs amlodipine 5 mg tablet 5 mg PO DAILY #30 tabs 01/01/22 10/02/22 aspirin 81 mg tablet,delayed 81 mg PO DAILY #100 tabs 01/01/22 10/02/22 release atorvastatin 80 mg tablet 80 mg PO QPM #30 tabs 01/01/22 10/02/22 clopidogrel 75 mg tablet 75 mg PO DAILY #30 tabs 01/01/22 10/02/22 gabapentin 100 mg capsule 300 mg PO HS #30 caps 01/01/22 10/02/22 metoprolol succinate 100 mg 100 mg PO DAILY #30 tabs 01/01/22 10/02/22 tablet,extended release 24 hr (Toprol XL) tramadol 50 mg tablet 50 mg PO QID PRN PRN #28 tabs 01/01/22 venlafaxine 75 mg capsule,extended 75 mg PO DAILY #30 caps 01/01/22 10/02/22 release 24 hr lidocaine 5 % topical patch 1 patch topical DAILY #30 ea 10/02/22 prednisone 20 mg tablet 20 mg PO DAILY #4 tabs 10/02/22 Previous Rx's Medication Instructions Recorded clobetasol 0.05 % topical ointment 1 applic topical BID #60 grams 05/25/20 (Temovate) diazepam 5 mg tablet 5 mg PO TID PRN muscle spasm #7 12/20/21 tabs amlodipine 5 mg tablet 5 mg PO DAILY #30 tabs 01/01/22 aspirin 81 mg tablet,delayed 81 mg PO DAILY #100 tabs 01/01/22 release atorvastatin 80 mg tablet 80 mg PO QPM #30 tabs 01/01/22 clopidogrel 75 mg tablet 75 mg PO DAILY #30 tabs 01/01/22 gabapentin 100 mg capsule 300 mg PO HS #30 caps 01/01/22 metoprolol succinate 100 mg 100 mg PO DAILY #30 tabs 01/01/22 tablet,extended release 24 hr (Toprol XL) tramadol 50 mg tablet 50 mg PO QID PRN PRN #28 tabs 01/01/22 venlafaxine 75 mg capsule,extended 75 mg PO DAILY #30 caps 01/01/22 release 24 hr lidocaine 5 % topical patch 1 patch topical DAILY #30 ea 10/02/22 prednisone 20 mg tablet 20 mg PO DAILY #4 tabs 10/02/22 Allergies Allergy/AdvReac Type Severity Reaction Status Date / Time wool Allergy Intermediate itchy Verified 10/02/22 10:17 latex Allergy Verified 10/02/22 10:17 venom-honey bee Allergy Verified 10/02/22 10:17 iodine AdvReac Intermediate Vomiting Verified 10/02/22 10:17 General Stated Complaint: Nk/Back Pain RADHA: 4 Review of Systems Narrative: see HPI PFSH All Active Problems (Updated 10/02/22 @ 13:49 by Debra Shahid MD) Arm pain, left (Acute) Transaminitis (Acute) Hypertension (Chronic) Back pain (Acute) Transaminitis (Acute) Acute ischemic right ICA stroke (Acute) Iliotibial band syndrome affecting left lower leg (Acute) History of repair of right rotator cuff (Acute) Degenerative arthritis of carpometacarpal joint of thumb (Acute) left Osteoarthritis of right knee (Acute) injection 11/10/21; 07/16/2021 Gallbladder disease (Acute) Hypertension, essential, benign (Acute) Dizziness (Acute) Nausea & vomiting (Acute) Lichen sclerosus et atrophicus of the vulva (Acute) CAO (dyspnea on exertion) (Acute) Medical History Hernia of abdominal wall Herpes History of Helicobacter pylori infection Iron deficiency anemia Joint pain Lichen sclerosus et atrophicus Osteopenia Peptic reflux esophagitis Vitamin D deficiency Surgical History section H/O esophagogastroduodenoscopy (~04/27/20) Rotator Cuff Repair Family History Mother Heart disease Father Personal history of malignant neoplasm prostate Social History Smoking/Tobacco Use Status: Never Smoking risk assessment performed?: Yes Alcohol Intake: current Alcohol Intake frequency: a few times a month Alcohol type: wine Drug use: Never Substance use type: does not use Do you feel safe at home: Yes Do you feel safe in your relationship?: Yes Exam Narrative Exam Narrative: General: Alert, well appearing, well nourished, in no acute distress. Head: Normocephalic, atraumatic Neck: Trachea midline, Neck supple. Back: Midline lumbar tenderness. Palpable paraspinal muscle spasm in right lumbar region. Cardiac: RRR, no murmurs appreciated Resp: No respiratory distress. CTAB. Abd: Soft, non-distended, nontender : No suprapubic tenderness. Extremities: No deformities. No peripheral edema. Neuro: GCS 15. Fluent speech, no dysarthria. Motor- 5/5 strength symmetric bilateral upper and lower extremities Sensation- Intact to light touch and symmetric multiple dermatomes including upper and lower extremities. No saddle anesthesia Reflexes- 2/4 patellar, no clonus +SLR on right Course Vital Signs Vital signs: Vital Signs Temperature 36.6 C 10/02/22 10:03 Pulse 71 10/02/22 10:03 Respiratory Rate 18 10/02/22 10:03 Blood Pressure 149/68 H 10/02/22 10:03 Pulse Oximetry 98 10/02/22 10:03 Temperature 36.6 C 10/02/22 10:03 Pulse 71 10/02/22 10:03 Respiratory Rate 18 10/02/22 10:03 Respiratory Effort Normal, Non-Labored 10/02/22 10:16 Blood Pressure 149/68 H 10/02/22 10:03 Pulse Oximetry 98 10/02/22 10:03 Oxygen Delivery Method Room Air 10/02/22 10:03 Oxygen Flow Rate 0 10/02/22 10:03
[2022-10-02] MEDS: Ketorolac 15 MG/ML VIAL IM (11:18)
[2022-10-02] MEDS: Acetaminophen 500 MG TAB 1000 MG PO (11:18)
[2022-10-02] MEDS: Cyclobenzaprine 10 MG TAB PO (11:18)
[2022-10-02] MEDS: Lidocaine 5% Patch 2 PATCH TP (11:19)
--- NOTE | 2022-10-02 13:13 | DI.VRAD_ITS ---
PROCEDURE INFORMATION: Exam: CT Lumbar Spine Without Contrast Exam date and time: 10/02/2022 12:48 PM Age: 71 years old Clinical indication: Other: Low back pain, midline tenderness to palaption TECHNIQUE: Imaging protocol: Computed tomography of the lumbar spine without contrast. Radiation optimization: All CT scans at this facility use at least one of these dose optimization techniques: automated exposure control; mA and/or kV adjustment per patient size (includes targeted exams where dose is matched to clinical indication); or iterative reconstruction. COMPARISON: CT ABDOMEN PELVIS WO 05/31/2020 2:09 AM FINDINGS: Bones/joints: No acute fracture. Normal alignment. Disc degenerative changes mild loss of disc height at L2-L3 and L3-L4. T12-L1: No posterior contour abnormality. No spinal canal or neural foraminal stenosis. L1-L2: Mild posterior disc bulge, ligamentum flavum hypertrophy and mild bilateral facet arthropathy. Disc encroaches bilateral neural and causes mild bilateral neural foraminal stenosis. L2-L3: Mild posterior disc bulge, ligamentum flavum hypertrophy and mild bilateral facet arthropathy. There is small disc protrusion in the right a central canal. There is minimal encroachment of the disc to bilateral neural foramina. L3-L4: Mild posterior disc bulge, mild facet arthropathy. There is mild spinal canal. Spurring in the right neural foramen with mild right neural stenosis. Mild encroachment of disc to the left. L4-L5: There is mild spinal canal stenosis due to circumferential disc bulge asymmetric to right, ligamentum flavum hypertrophy and bilateral facet arthropathy. Disc encroaches bilateral neural foramina and causes mild right and no left neural foraminal stenosis. L5-S1: Mild circumferential disc bulge. Mild to moderate bilateral facet arthropathy. Spur in the bilateral neural foramina with mild to moderate bilateral neural foraminal stenosis. Stomach and bowel: There is diverticulosis of the sigmoid without focal acute inflammation. Soft tissues: Unremarkable. Other findings: Small hiatal hernia. IMPRESSION: 1. No acute fracture or subluxation. 2. Mild multilevel degenerative changes as described above. Dictated and Authenticated by: Rashel Davis MD. Ordering:KARINA Richardson MD
[2022-10-02 13:56] VITALS: BP 128/80; PULSE 82; RESP 20; TEMP 37; O2SAT 98
[2022-10-02] MEDS: predniSONE 20 MG TAB 40 MG PO (13:56)
== END 2022-10-02 13:57 | disposition home or self-care (01) ==
PROVIDERS: Emergency Provider Student in an Organized Health Care Education/Training Program; PCP Nurse Practitioner Family
DX: M54.50 Low back pain, unspecified (principal)
CPT/HCPCS: 96372; 99284; 72131; J1885; J7512

== ENCOUNTER 2022-10-04 03:19 | Outpatient (CLI) | payer MEDICARE, SELFPAY ==
--- NOTE | 2022-10-04 | DI.DEXA_ITS ---
Exam(s) XR DEXA BONE DENSITY W/WO MIGUEL EXAM: XR DEXA BONE DENSITY W/WO MIGUEL CLINICAL HISTORY: OTHER SPECIFIED DISORDERS OF BONE DENSITY AND STRUCTURE, M85.88 TECHNIQUE: COMPARISON: CR XR DEXA BONE DENSITY W/WO MIGUEL from 05/09/2019 FINDINGS: Lateral Spine Image: Unremarkable. No compression deformities identified. Left hip: Total T-Score: -1.1. This compares to -1.0 on the prior examination. Total Z-Score: 0.6 T- and Z-scores: Findings are consistent with osteopenia. Lumbar Spine: Total T-Score: -0.7. This compares to -0.8 on the prior examination. Total Z-Score: 1.5 T- and Z-scores: Within normal limits. IMPRESSION: No evidence of osteoporosis.
== END 2022-10-04 03:39 ==
LOC: DI 03:23
PROVIDERS: PCP Nurse Practitioner Family; Visit Provider Nurse Practitioner Family
DX: Z13.820 Encounter for screening for osteoporosis; M85.88 Other specified disorders of bone density and structure, other site
CPT/HCPCS: 77080

== ENCOUNTER 2023-02-02 13:08 | Outpatient (REF) | payer MEDICARE, SELFPAY ==
[2023-02-03 09:21] LABS: Calculated LDL 74 mg/dL (<100); Cholesterol 164 mg/dL (<200); HDL Cholesterol 80 mg/dL (40-60); Triglyceride 52 mg/dL (<150)
== END 2023-02-02 13:09 | disposition home or self-care (01) ==
LOC: NCHCN 13:08
PROVIDERS: PCP Nurse Practitioner Family; Visit Provider Nurse Practitioner Family
DX: I63.9 Cerebral infarction, unspecified (principal)
CPT/HCPCS: 80061

== ENCOUNTER 2023-06-13 14:18 | Outpatient (CLI) | payer MEDICARE, SELFPAY ==
--- NOTE | 2023-06-13 09:00 | DI.RAD_ITS ---
Exam(s) XR SHOULDER LT COMPLETE 2+V EXAM: XR SHOULDER LT COMPLETE 2+V CLINICAL HISTORY: LEFT SHOULDER PAIN. TECHNIQUE: 2D digital imaging was performed. Three views. COMPARISON: MR MR UPPER EXTREMITY LT WO from 12/29/2021 FINDINGS: BONES: No acute fracture is present. No bony destructive lesion is seen. JOINTS: No dislocation present. No significant degenerative changes at the AC joint or glenohumeral joint. SOFT TISSUE: Normal. IMPRESSION: Unremarkable radiographs of the left shoulder. DATA REPOSITORY: RADIATION DOSE DELIVERED:
== END 2023-06-13 14:19 | disposition home or self-care (01) ==
LOC: DIORS 14:18
PROVIDERS: PCP Nurse Practitioner Family; Referring Provider Nurse Practitioner Family; Visit Provider Student in an Organized Health Care Education/Training Program
DX: M75.102 Unspecified rotator cuff tear or rupture of left shoulder, not specified as traumatic
CPT/HCPCS: 99213; 73030

== ENCOUNTER 2023-06-14 16:11 | Outpatient (REF) | payer MEDICARE, SELFPAY ==
[2023-06-14 16:51] LABS: ALT 25 U/L (14-59); AST 29 U/L (15-37); Albumin 3.5 g/dL (3.4-5.0); Alkaline Phosphatase 88 U/L (46-116); Anion Gap 8.6 mmol/L (3-11); BUN 18 mg/dL (7-18); Bilirubin, Total 0.4 mg/dL (0.2-1.0); CO2 27.4 mmol/L (21.0-32.0); CREATININE 0.9 mg/dL (0.55-1.02); Calcium 8.7 mg/dL (8.5-10.1); Chloride 106 mmol/L (98-107); Glucose 88 mg/dL (74-106); Potassium 4.2 mmol/L (3.5-5.1); Sodium 142 mmol/L (136-145); Total Protein 6.7 g/dL (6.4-8.2)
== END 2023-06-14 16:12 | disposition home or self-care (01) ==
LOC: NCHCN 16:11
PROVIDERS: PCP Nurse Practitioner Family; Visit Provider Nurse Practitioner Family
DX: I10 Essential (primary) hypertension (principal)
CPT/HCPCS: 80053

== ENCOUNTER → 2023-06-28 04:43 | Outpatient (CLI) | payer MEDICARE, SELFPAY ==
--- NOTE | 2023-06-28 09:15 | DI.MRI_ITS ---
Exam(s) MR UPPER JOINT LT WO EXAM: MR UPPER JOINT LT WO CLINICAL HISTORY: L SHOULDER PAIN.lt rotator cuff tear,m75.102 TECHNIQUE: Multiplanar multisequence MRI of the shoulder was performed. COMPARISON: MR MR UPPER EXTREMITY LT WO from 12/29/2021 CR XR SHOULDER LT COMPLETE 2+V from 06/13/2023 FINDINGS: MARROW:There is no evidence of fracture, Hill-Sachs deformity, nor ominous osseous lesions. There are degenerative subarticular cyst again noted in the greater tuberosity lateral aspect of humeral head. GLENOHUMERAL JOINT: There is a small amount of increased joint fluid most evident in the inferior rec ess. No loose intra-articular bodies evident. There are no degenerative subarticular cysts in the o sseous glenoid. There is mild articular cartilage thinning. No large osteophytes. No evidence of c apsular tear. The inferior glenohumeral ligament is intact. ROTATOR CUFF MECHANISM: AC JOINT/ACROMIUM: There are mild-moderate degenerative changes in the acromioclavicular joint. No p rominent downgoing osteophytes.. There is no evidence of os acromiale. Supraspinatus: There is tendinitis/tendinosis signal evident in the supraspinatus tendon. There is a rticular side partial thickness tearing at the insertional aspect just above the greater tuberosity. There is a sliver of fluid in the subacromial bursa. No significant atrophy of the muscle belly. Infraspinatus: Also tendinitis-tendinosis evident in the infraspinatus without evidence of full-thick ness tear. Teres Minor: Intact. No evidence of tear nor muscle atrophy. Subscapularis/anterior cuff: Some tendinitis signal. No full-thickness tear. BICEPS TENDON: Not displaced from the intertubercular groove. No evidence of tear. LABRUM: Superior labrum appears intact. Posterior labrum appear is blunted but unchanged from 2021. Mild irregularity of the anterior labrum is unchanged from 202. Inferior labrum intact. Inf erior glenohumeral ligament appears intact. IMPRESSION: 1. There is tendinitis-tendinosis involving the supraspinatus and infraspinatus tendons. There appea rs to be a partial thickness articular side tear in the distal supraspinatus tendon just above the gr eater tuberosity. There also appears to be an element of tendinitis of the anterior cuff-subscapular is. 2. Moderate degenerative changes in the AC joint. 3. Some regularity of the labrum is again noted but appears unchanged from 2022 images. There is no evidence of paralabral cyst. No obvious biceps tendon tear nor displacement of the tendon from the i ntertubercular groove. 4. Minimal degenerative changes in the glenohumeral joint. Minimal increased fluid. No loose intra -articular bodies. DATA REPOSITORY:
== END ==
PROVIDERS: PCP Nurse Practitioner Family; Visit Provider Student in an Organized Health Care Education/Training Program
DX: M75.102 Unspecified rotator cuff tear or rupture of left shoulder, not specified as traumatic (principal)
CPT/HCPCS: 73221

== ENCOUNTER → 2023-07-05 09:07 | Outpatient (BNVA) | payer MEDICARE, SELFPAY | PROVIDERS: PCP Nurse Practitioner Family; Referring Provider Nurse Practitioner Family; Visit Provider Student in an Organized Health Care Education/Training Program | DX: M75.102 Unspecified rotator cuff tear or rupture of left shoulder, not specified as traumatic (principal); M75.22 Bicipital tendinitis, left shoulder; M19.012 Primary osteoarthritis, left shoulder | CPT/HCPCS: 99214 ==

== ENCOUNTER → 2023-07-10 08:13 | Outpatient (BNVA) | payer MEDICARE, SELFPAY | PROVIDERS: PCP Nurse Practitioner Family; Referring Provider Nurse Practitioner Family; Visit Provider Student in an Organized Health Care Education/Training Program | DX: M17.11 Unilateral primary osteoarthritis, right knee (principal) | CPT/HCPCS: 20610; J1010 ==

== ENCOUNTER → 2024-02-07 10:36 | Outpatient (BNVA) | payer MEDICARE, SELFPAY | PROVIDERS: Visit Provider Student in an Organized Health Care Education/Training Program | DX: M19.012 Primary osteoarthritis, left shoulder (principal); M75.22 Bicipital tendinitis, left shoulder; M75.102 Unspecified rotator cuff tear or rupture of left shoulder, not specified as traumatic; M17.11 Unilateral primary osteoarthritis, right knee | CPT/HCPCS: 20610; 99215; J1010 ==

== ENCOUNTER 2024-02-15 01:31 | Outpatient (CLI) | payer MEDICARE, SELFPAY ==
--- NOTE | 2024-02-15 08:49 | DI.CT_ITS ---
Exam(s) CT UPPER EXTREMITY LT WO EXAM: CT UPPER EXTREMITY LT WO CLINICAL HISTORY: SURGICAL PLANNING,arthritis lt glenohumeral joint,lt rotator cuff tear,. TECHNIQUE: Imaging Protocol: Axial computed tomography images with coronal and sagittal reformatted images were created and reviewed. COMPARISON: CR XR SHOULDER LT COMPLETE 2+V from 06/13/2023 MR MR UPPER JOINT LT WO from 06/28/2023 FINDINGS: Bones: The osseous structures and articular surfaces are intact. Bony alignment is satisfactory. N o cellulitic or osteomyelitic changes are identified. There are age-appropriate degenerative changes seen in the visualized portions of the thoracic spine. Minimal degenerative changes are seen at the acromioclavicular joint. Subchondral cysts are seen in the greater tuberosity. The glenohumeral peña int appears fairly well maintained. No lytic or sclerotic lesions are identified. Soft Tissues: The visualized lungs are unremarkable. IMPRESSION: Degenerative changes of the shoulder as described above. RADIATION DOSE DELIVERED: 188.43mGy.cm Total DLP 188.43mGy.cm Total DLP DATA REPOSITORY: All CT scans at this facility are submitted to the National Radiology Data Registry (NRDR) Dose Index Registry (DIR) with the [employer] ([employer]). RADIATION OPTIMIZATION: All CT scans at this facility use at least one of these dose optimization te chniques: automated exposure control; mA and/or kV adjustment per patient size (includes targeted exa ms where dose is matched to clinical indication); or iterative reconstruction.
== END 2024-02-15 01:51 ==
PROVIDERS: PCP Nurse Practitioner Family; Visit Provider Student in an Organized Health Care Education/Training Program
DX: M75.22 Bicipital tendinitis, left shoulder
CPT/HCPCS: 73200

== ENCOUNTER → 2024-03-13 11:03 | Outpatient (BNVA) | payer MEDICARE, SELFPAY | PROVIDERS: PCP Nurse Practitioner Family; Referring Provider Nurse Practitioner Family; Visit Provider Student in an Organized Health Care Education/Training Program | DX: M19.012 Primary osteoarthritis, left shoulder (principal); M75.102 Unspecified rotator cuff tear or rupture of left shoulder, not specified as traumatic; M75.22 Bicipital tendinitis, left shoulder | CPT/HCPCS: 99214 ==

== ENCOUNTER 2024-03-22 06:07 | Day surgery (SDC) | payer MEDICARE, SELFPAY ==
[2024-03-22] VITALS (29 sets, daily range): BP systolic 160–203; BP diastolic 71–104; PULSE 60–82; RESP 12–21; TEMP 36–37; O2SAT 88–100; BMI 27.6
--- OUTSIDE RECORDS SUMMARY | 2024-03-22 06:08 | XMS_ITS | Encounter Summary ---
Author Organization [facility] Address [facility] [place] [address] Care Team Providers Care Credit Balance Specialist Name Role Phone Giovany Liang JOSE Primary Care Provider Reason for Visit * Reason Comments Facial Droop left Extremity Weakness left Encounter Details Date Type Department Care Team (Late st Contact Info) Description 01/01/2022 8:34 PM EDT - 01/02/2022 1:56 AM [place]T [place] [address] Jaci Sorto MD [facility] [place] [address] Ed Luis MD [facility] [place] [address] Weakness due to old stroke Discharge Disposition: Home Social History Tobacco Use Types Packs/Day Years Used Date Smoking Tobacco: Never Assessed Sex and Gender Information Value Date Recorded Sex Assigned at Not on file Gender Identity Not on file Sexual Orientation Not on file documented as of this encounter Last Filed Vital Signs Vital Sign Reading Time Taken Comments Blood Pressure 106/78 01/02/2022 1:30 AM EDT Pulse 67 01/02/2022 1:15 AM EDT Temperature 36.1 ??C (97 ??F) 01/01/2022 8:16 PM EDT Respiratory Rate 16 01/02/2022 1:15 AM EDT Oxygen Saturation 97% 01/02/2022 1:30 AM EDT Inhaled Oxygen Concentration - - Weight 65.8 kg (145 lb) 01/01/2022 8:16 PM EDT Height 157.5 cm (5' 2) 01/01/2022 8:16 PM EDT Body Mass Index 26.52 01/01/2022 8:16 PM EDT documented in this encounter Discharge Instructions * Discharge Instructions* Justin Knowles MD - 01/02/2022 1:11 AM EDT You were seen in the emergency department today for weakness.A CT scan of your head showed no acuteintracranial hemorrhage or ischemia, but did show signs of your previous stroke, for which you wereworked up at an outside hospital. You were seen and evaluated by neurology during this hospital stay. At this time, it is most likely that your symptoms are likely due to sequelae of your previous stroke and there was low concern for acute changes requiring intervention at this time. You were also found to have a slightly low sodium level and elevated liver function testing during this emergency department stay. Your liver enzymes are downtrending when compared to elevations from Tylenol ingestion prior to previous hospitalization. Please continue to eat and drink appropriately for low sodiumlevel. Please follow-up with your primary care physician and neurology as recommended from your previous hospital stay as well as continue with home health care, physical therapy, Occupational Therapy, and speech therapy as has been organized. Please return to the emergency department if you experience worsening of your current symptoms or develop any new symptoms of concern. documented in this encounter ED Notes * Jaci Sorto MD - 01/02/2022 1:56 AM EDT ED Attending Brief Note HPI: Yamel Hess is a 71 y.o. female who presents to the Emergency Department after recent discharge from [facility] 2 hours prior to arrival where she was ultimately diagnosed with a basal ganglia ischemicstroke. She had initially presented there because she was having a left-sided pain after receiving her flu vaccine. She had been taking Tylenol and presented there was an accidental Tylenol overdose where she received N-acetylcysteine. While there she did not appear to be acting appropriately according to her son and eventually underwent an MRI where she was found to have a left-sided basal ganglia stroke. She was discharged today and her son took her directly to our hospital as he felt that she was not yet ready for discharge and that her neurologic exam was worsening. He is concerned that she is having word finding difficulty. The patient's son is also concerned that they did not have allof their questions answered and was worried because her symptoms seem to be waxing and waning. The day before she was discharged she seemed to be doing somewhat worse. There do not appear to be any new significant symptoms but perhaps a slight worsening of her current neurologic symptoms. They do also note that she fell this morning and struck her head prior to leaving the hospital. Review of Systems Pertinent positives and negatives are included in the HPI, otherwise at least ten systems were reviewed and negative. Past Medical and Surgical Histories, Social History, Medications, Allergies were reviewed in the chart. Vitals: ED Triage Vitals BP: 130/89 [01/01/222015] Heart Rate: 64 [01/01/222015] Resp: 17 [01/01/222035] Temp: 36.1 ??C (97 ??F) [01/01/222015] Temp src: Temporal [01/01/222015] SpO2: 96 % [01/01/222035] O2 Device: RA [01/01/222199] O2 Flow Rate (L/min): n/a Physical Exam General: Alert, oriented, answers questions Heent: NCAT, mmm Neck: no meningismus CV: RRR, no m/r/g, Pulm: CTAB, no w/r/r Abd: Soft, non tender, non distended Skin: warm and dry Neuro: GCS 15, occasionally sleared words, subtle left facial droop. LUE 4/5 strength, remainder strength in tact. Sensation in tact. Psych: normal affect, normal eye contact MSK: BLUM x 4, atraumatic Back: no CVA TTP, no contusions Please see resident physician exam for further details ED Course: I have reviewed labs and imaging, images and available reports, and they are significant for: ED Course as of 01/07/22 1200 Sat Jan 01, 20222101 Discussed with neurology, will evaluate patient Assessment and Plan: 71 y.o. female with recent dx of basal ganglia stroke who is presenting to the emergency departmentwith her son for waxing and waning and slightly worsening of her neurologic status. Given her recent fall and head strike we did obtain a CT head and C-spine which did not show any new or acute traumatic injuries but did show an evolving right basal ganglia stroke. Neurology was asked to evaluate the patient and on their evaluation they do not think that there is an acute process going on but rather an evolution of the basal ganglia stroke that we already knew about. The neurologic team is assisting and requesting records from the outside hospital to confirm the full evaluation. The patient may need a PT OT evaluation for safety at home. She has been signed out to Dr. Luis pending the remainder of the neurology recommendations. Did this case involve critical care? No The visit findings, diagnosis, and care plan were discussed with the patient. The diagnosis and care plans discussions were outlined in the discharge instructions. The patient expressed understanding of the details of the visit, the return precautions and that she should return to the ER at any time for worsening symptoms, new symptoms, or other concerns. she agrees with thefollow- up plan. Jaci Sorto MD 01/07/22 1207 * Joao Feng RN - 01/02/2022 1:44 AM EDT Neurologist at bedside * Joao Feng RN - 01/02/2022 1:30 AM EDT Pt updated on poc, skin pink, warm, dry * Joao Feng RN - 01/01/2022 10:19 PM EDT * Justin Knowles MD - 01/01/2022 8:49 PM EDT Yamel Hess is an 71 y.o. female who presents to the ED with: Chief Complaint Patient presents with ??? Facial Droop left ??? Extremity Weakness left HPI Yamel Hess is a 71 y.o. female with a PMH significant for Sjogren's and recent ischemic basal ganglia stroke diagnosed at [facility] who presents to the Emergency Department after discharge from [facility] brought in by son for multiple chief complaints including altered mental status, slurred speech, and left sided weakness. She had been discharged from [facility] just two hours prior to presentation and her son brought her here due to concerns for continued symptoms. After further discussion, her presenting symptoms are actually improved compared to earlier in the course of her stroke. She endorses severe right upper extremity pain with associated weakness, which has been present since her presentationto [facility] on 12/27. Her son reports extensive workup at outside hospital including neuroimaging with MRI, which found R basal ganglia stroke, but has continued concerns regarding prognosis and symptom management. Medications, allergies, past medical history, surgical history, family history, and social history were reviewed Patient was evaluated and discussed with Dr. Sorto. Review of Systems Pertinent positives and negatives are included in the HPI, otherwise at least ten systems were reviewed and negative. Vitals ED Triage Vitals BP: 130/89 [01/01/222015] Heart Rate: 64 [01/01/222015] Resp: 17 [01/01/222035] Temp: 36.1 ??C (97 ??F) [01/01/222015] Temp src: Temporal [01/01/222015] SpO2: 96 % [01/01/222035] O2 Device: n/a O2 Flow Rate (L/min): n/a Physical Exam General: AOx3, no acute distress HENT: head normocephalic, atraumatic Mouth: moist oral mucosa Neck: trachea midline, no lymphadenopathy CV: regular rate and rhythm, no peripheral edema Pulm: CTA bilaterally, symmetric chest rise, nonlabored breathing Abd: soft, nondistended, nontender to palpation MSK: moves all extremities equally, no gross deformities Skin: warm, dry Neuro: 4/5 LUE strength with 5/5 in other extremities, (+) L sided pronator drift, L sided facial droop Psych: appropriate mood and affect Labs Latest Reference Range & Units 01/01/22 21:32 WBC 4.0 - 9.5 x10(3)/mcL 10.5 (H) RBC 4.00 - 5.21 x10(6)/mcL 4.43 Hemoglobin 11.7 - 15.5 g/dL 12.9 Hematocrit 35.7 - 45.8 % 38.2 Platelets 145 - 357 x10(3)/mcL 234 Sodium 135 - 145 mmol/L 128 (L) Potassium 3.5 - 5.0 mmol/L 4.0 Chloride 98 - 107 mmol/L 89 (L) CO2 22 - 31 mmol/L 30 Anion Gap 5 - 15 mmol/L 9 BUN 8 - 18 mg/dL 18 Creatinine 0.70 - 1.20 mg/dL 0.94 Estimated GFR >=60 mL/min/1.73 m?? 64 Calcium 8.5 - 10.5 mg/dL 9.3 Total Protein 6.1 - 8.0 g/dL 7.1 Albumin 3.2 - 5.2 g/dL 4.1 Total Bilirubin 0.2 - 1.3 mg/dL 0.6 Alk Phos 35 - 105 unit/L 175 (H) AST 0 - 30 unit/L 85 (H) ALT 0 - 30 unit/L 280 (H) (H): Data is abnormally high (L): Data is abnormally low Medications and Fluids Medications - No data to display Imaging CT Head & Cervical Spine wo Contrast (Generic) Final Result 1. No acute intracranial hemorrhage or calvarial fracture. 2. Evolving right basal ganglia and left medial medulla infarcts. No evidence of hemorrhagic conversion or associated mass effect. 3. Mid to lower cervical spondylosis, no acute fracture or traumatic malalignment. Thank you for letting us participate in the care of this patient. If you are a health care provider and have any questions regarding this report, please contact the number below. For patients who have questions please contact the health career coach that requested your imaging first. Electronically signed by: Reina Louise MD, [facility] ([phone]), at 01/01/2022 11:53 PM Assessment and Plan MDM: 71 y.o. female who presents for left facial droop, left sided weakness, and left arm pain. Given the reported improvement of her symptoms compared to her symptoms on presentation to OSH, there was low suspicion for acute ischemic stroke. Her son did report that she fell and hit her head on thetoilet earlier in the day prior to discharge from [facility], a CT head and c spine were obtained, which showed no acute hemorrhage or cervical fracture. This scan also showed evolving right basal ganglia and left medial medulla infarcts with no evidence of hemorrhagic conversion or associated mass-effect. Due to persistent stroke symptoms and son's concern for her condition and caring for her at home, neurology consult was obtained while in the emergency department. Neurology recommended no acute neurologic intervention and agreed with follow-up to have been established with neurology team at [facility]. They recommended continuing all medications as prescribed by [facility] and maintaining a blood pressurelog. Incidental laboratory findings included elevated LFTs, which are actually downtrending from previous values obtained at [facility]. It appears that she had sustained acetaminophen toxicity prior to presenting to the outside hospital. She did not have right upper quadrant abdominal pain and there isno concern for acute hepatic pathology at this emergency department visit. She was also found to behyponatremic with a sodium of 128. We encouraged p.o. intake and close follow-up with her primary care physician to repeat her lab work. Return precautions were verbally discussed with the patient and written in discharge instructions. The patient and/or family expressed understanding of and agreement with the plan and that they can return to the emergency department at any time. Impression: 1. Weakness due to old stroke Dispo discharged home Justin Knowles MD Resident 01/11/22 1452 Associated attestation - Jaci Sorto MD - 01/11/2022 3:01 PM EST ED ATTENDING ATTESTATION NOTE The patient was seen in conjunction with the resident physician. I have independently performed thekey portions of the history and physical exam. I have reviewed the nursing notes, vital signs, and all diagnostic studies personally including labs, imaging studies and EKGs. I have discussed the details of the case with the resident and agree with the assessment and plan as described in the resident note unless noted otherwise in my separate provider note. * Joao Feng RN - 01/01/2022 8:42 PM EDT Pt is AOx 4 GCS 15, skin pink, warm, dry, pt presents with slurred speech and reported left sided weakness, with extensive conversation with pt and pts family it is decided that pt LWNT is 1300 today. Pt airway clear, respirations non labored, pt has mild weakness on left upper extremity, and mild weakness on left lower extremity, no drift noted on left side, equal facial symmetry, pt managing secretions, pt reports double vision, and decreased sensation of left side of face. pt states she hit her head on the toilet this am at 0730 from being dizzy, no LOC, pt is on blood thinners from recentstroke diagnosis with slowness of responsiveness and slurred speech form previous DX. No potential stroke S/S are as stated above. NIH of 2 with sensory and slurred speech. Per pts son at bedside whoprovides extensive HPI, pt had a recent tylenol overdose and has been treated for that. * Guillermina Jurado RN - 01/01/2022 8:26 PM EDT hospital nursing assistant aware. Patient pulled to TR1 for IV placement, while room is cleaned documented in this encounter Miscellaneous Notes * Consult Note - Sarbjit Lock MD - 01/02/2022 1:56 AM EDT Neurology Inpatient Consult Note - 01/02/2022 Admit date: 01/01/2022 Attending: No att. providers found ID: Yamel Hess is a 71 y.o. female with PMHx of HTN, Reported Sjogren's, and recent history of severe left arm pain and recent admission to [facility] where she was found to have RIGHT subcortical ischemic stroke involving the caudate, putamen and perithalamic region. HPI: Yamel Hess is a 71-year-old female with past medical history of hypertension that is untreated aswell as reported Sjogren's disease, and a recent episode of severe left arm pain that started in mid November. Per Yamel's report, she got her COVID-vaccine on 12/14/2021 and then the following day developed severe left upper extremity pain. She gets this pain and electrical quality and describes it as leaning against a cattle fence. She reports that its was extremely severe at onset 30 out of 10 and that it came in waves. She reported that did not involve the entire arm and did not radiate but was just present and had about a wavelike quality of coming and going. There were no obvious triggers to her pain, but she did find that compression or even poking with a needle seem to help the pain actually. In the setting of this, she was seen at [facility] for at least 2 ED visits and she reports that during 1 of these visit she was given anti-inflammatories including prednisone but this did not help. At the second visit she was eventually referred for an outpatient upper extremity duplex study which ruled out a venous occlusion, and ultimately her pain was persistent and was not improving. Given that she was taking large amounts of Tylenol, up to is much as 4 g/day or more, and at the end of November, 12/27/2021 she presented to the ED and was reportedly admitted with elevated liver function tests concerning for aspirin overuse or toxicity. She was treated with N-acetylcysteine for sever al days and once her LFTs stabilized she was discharged. Per son's report, she went home and was doing well over the weekend he left to go on a trip. She does not live with anyone, and sometime over this past weekend (1 week prior to today) she began to develop stroke-like symptoms that included left facial droop ataxia and left hand clumsiness. The son reports that her neighbor noticed this on Monday of this past week (about 6 days ago). The patient was now brought back to the hospital at [facility] and because of her persistent arm pain and as well as these new symptoms, she underwent an extensive work-up that included visitation with anesthesia, orthopedics, neurology, and an accompanying imaging work-up that included CT scan of the neck, as well as MRI of the shoulder, MRI of the brain, and per report a echocardiogram. The MRI of the brain revealed diffusion restriction and the right basal ganglia, specifically the caudate head, putamen, and perithalamic on the right. Given these findings the patient was started on aspirin and Plavix, she was recommended to begin blood pressure medication was discharged with amlodipine as well as metoprolol, and was given gabapentin and venlafaxinefor the neuropathic pain she was experiencing. They were discharged from [facility] today, 01/01/2022. The patient's son accompanies her today and reports that they came here immediately after being discharged from [facility] because he felt like he was not getting appropriate answers from the team there, including what to expect related to his mother stroke, the prognosis related to the, and what the caus ative etiology of the stroke was. In addition, he was worried because she seemed to been waxing andwaning, seem to been doing worse the day before she was discharged. He reported he was also concerned about her arm pain, but the patient herself noted that her arm pain currently is at a 5 out of 10when it was before to 30 out of 10, that she is noted a significant improvement since it began almost a month ago. There have been no new symptoms as far as any significant worsening of the arm pain or weakness. She has not had stable worsening of her neurologic symptoms of weakness in the left armface and leg, but in discussion with the son it sounds like she has had transient worsening is followed by transient improvements, so she is feeling more into a waxing and waning category. He has no other additional concerns at this time and nor does the patient. She denies any new symptoms that wehave not already discussed. She denies any nausea vomiting. Denies any change in mental status. Theson does note she still thought dysarthric and notes that she has been dysarthric since she was first admitted to the hospital. Review of Systems: Negative except as documented in the HPI. Hospital Medications: No current facility-administered medications for this encounter. No current outpatient medications on file. Home Medications: No current facility-administered medications on file prior to encounter. No current outpatient medications on file prior to encounter. Past Medical History: No past medical history on file. No past surgical history on file. Allergies: Allergies Allergen Reactions ??? Latex, Natural Rubber Hives ??? Bee Venom Protein (Honey Bee) Anaphylaxis ??? Iodine Nausea And Vomiting Family history: No family history on file. Social history: Physical Exam: Vitals: Last value Range last 24 hrs Temperature Temp: 36.1 ??C (97 ??F) Temp: [36.1 ??C (97 ??F)] Heart Rate Heart Rate: 67 Heart Rate: [61-70] Blood Pressure BP: 106/78 BP: (106-144)/(58-89) Respiratory Rate Resp: 16 Resp: [14-18] SpO2 SpO2: 97 % SpO2: [92 %-97 %] I/O: No intake/output data recorded. General: Appears stated age, WDWN, NAD HEENT: NC/AT, MMM Pulm: Normal respiratory effort Abdomen: Soft, NT/ND. No rebound or guarding. Extremities: No major deformity BUE/BLE. Prior Rotator Cuff repair scar R Shoulder. LEFT shoulder with full range of motion. Empty Can Test Negative. No pain with external or internal rotation against resistance. No pain to palpation over AC joint or Biceps tendon. Neuro: MS: Alert, oriented to situation, follows commands appropriately and crosses midline Language: Dysarthria without aphasia. Comprehension Intact. No Paraphasic Errors. Repetition intact CN: CN II, III, IV, - PERRLA, EOMI without nystagmus, no ptosis CN V - Facial sensation intact/symmetric CN VII - Very subtle Left Lower Facial Droop, corrects with action CN VIII - Hearing intact to voice/finger rub CN IX, X - Symmetric palate elevation CN XI - SCM, trap strength symmetric CN XII - Tongue midline Motor: No focal atrophy, normal tone throughout Fine motor movements preserved, no bradykinesia Strength: RHB 5/5 LLE 5/5 LUE 4/5 except L Hand 4-/5 LUE pronator drift Right Arm Orbits Left Arm Reduced Tapping L Hand and Foot Sensory: Intact to light touch throughout, some patchy loss of pinpick RIGHT anterior marie in a non-dermatomal distribution. Reflexes: 2+/4 Throughout Rider's Negative No Ankle Clonus b/l Coordination: FNF intact, no dysmetria or tremor noted ANGELA, finger tapping smooth and symmetric Gait: Deferred Labs: OSH labs reviewed in comparison to today's labs Hyponatremia is slightly worsened from 130 to 128, appears to have been high 130s in Mid November LFTs overall stable to down trending compared to most recent LFTs at [facility] Diagnostic Tests and Imaging: Results for orders placed or performed during the hospital encounter of 11/05/22 CT Head & Cervical Spine wo Contrast (Generic) (Exam End: 01/01/2022 10:34 PM) Impression 1. No acute intracranial hemorrhage or calvarial fracture. 2. Evolving right basal ganglia and left medial medulla infarcts. No evidence of hemorrhagic conversion or associated mass effect. 3. Mid to lower cervical spondylosis, no acute fracture or traumatic malalignment. Thank you for letting us participate in the care of this patient. If you are a health care provider and have any questions regarding this report, please contact the number below. For patients who have questions please contact the health career coach that requested your imaging first. Electronically signed by: Renia Louise MD, [facility] ([phone]), at 01/01/2022 11:53 PM Assessment: Yamel Hess is a 71 y.o. female with PMHx of Sjogren's as well as poorly controlled hypertensionwho [facility] being discharged from [facility] earlier today where she was admitted for what ultimately turned out to be a right basal ganglia ischemic stroke as well as a left arm pain. On neurologic exam for me, the patient appears to have a very subtleleft facial droop, left pronator drift, and findings overall consistent with a mild degree of left hemibody paresis. Her sensory exam is not diagnostic of a specific distribution that would be referable to a central or peripheral sensory loss from a neurologic origin. She does appear to have dysarthria. On review of the outside hospital records, the patient was evaluated by PT and OT is set up for home health PT and OT. Speech therapy also saw her and was convinced that she was not aspirating, although they did recommend outpatient speech therapy given her dysarthria. Further review of outside hospital records demonstrates that the patient underwent extensive work-up for her ischemic strokeincluding CTA of the head and neck, reported TTE although was unable to review the report myself, plan for outpatient rhythm monitoring, laboratory work-up, MRI of the brain. In addition the team at [facility] started medications for potential neuropathic pain of the left upper extremity, and they started blood pressure management. Overall in reviewing her history, specifically with reported blood pressures in the 200s when she presented to [facility] several times, and a history of diagnosed with poorlycontrolled hypertension, the most likely etiology for the patient's strokes given the distribution as well as her history of small vessel disease. This is in keeping with poorly controlled hypertension, as well as the confluent T2 changes that she has more extensively and symmetrically bilaterally.Given the distribution of the ischemic insult, although there is 1. Thalamic lesion that appears demetrio just outside the thalamus is conceivable that this could explain her symptoms. Specifically she had a severe dysesthetic left arm pain that started just about a week prior to her weakness and other strokelike symptoms. It would be odd for 2 separate processes to occur simultaneously in this order, although is not impossible. 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 I discussed this with the son as well as the concept that I cannot be 100% sure what caused it. I also related that I thought the work-up she had all received is appropriate and that the really wanted the any additional work-up we would plan to do based on what I was seeing in her clinically as well as when I saw in the prior work-up she had already had completed. The son agreed with this, and reported that more or lesshe was looking for explanation because he felt the communication was poor during the last dischargeand he was not sure what to expect when he came to strokes. I given some general stroke education regarding ischemic stroke, and told him that our door was always open if he wanted to follow-up with us, but at this time he said he would prefer to follow-up with the [facility] team. In addition the patient was hyponatremic I discussed this with the emergency department a plan for outpatient follow-up with this, of which I am in agreement. I relayed this to the son to when I updated him. - No acute neurologic intervention - Agree with follow-up with established neurology team at [facility], but relayed we would be happy to see Yamel if she so chooses in the future - Recommended continuing all medications as prescribed by [facility]. - Also discussed keeping blood pressure log to aid her PCP in titrating her new blood pressure medications - All questions were answered and I told Yamel and her Son to return to the ED if they think she is worsening or having new or worsening stroke-like symptoms. Sarbjit Lock MD Patient discussed with Dr. Garcia. Sarbjit Lock MD Consult Neurology Service #[id number] 01/02/2022 Associated attestation - Raheel Garcia MD - 01/02/2022 3:14 PM EST ............................................... Neurology Attending Attestation I did not personally see this patient but discussed her with Dr. Lock. The assessment and plan wereformulated in discussion with me at the time of the visit and I agree with them as documented. Raheel Garcia MD 01/02/2022 Clinical Senior Business Analyst General Neurology and Movement Disorders [facility] Department of Neurology * ED Triage - Guillermina Jurado RN - 01/01/2022 8:10 PM EDT Had a stroke 3-5 days ago. Seen at [facility]. Basal ganglia stroke. In the morning more lucid, then in the afternoon went down hill with weakness. Has some delay in following commands. Speech problems are new. Slight left facial droop since last week. Slight drift to left. Having adverse reaction to covid vaccine 2 weeks ago. Left arm is sore documented in this encounter Plan of Treatment Not on file documented as of this encounter Procedures Procedure Name Priority Date/Time Associated Diagnosis Comments CT HEAD AND CERVICAL SPINE WO CONTRAST STAT 01/01/2022 10:34 PM EDT HEMOGRAM STAT 01/01/2022 9:32 PM EDT DIFFERENTIAL, AUTOMATED STAT 01/01/2022 9:32 PM EDT GOLD TUBE HOLD STAT 01/01/2022 9:32 PM EDT BLUE TUBE HOLD STAT 01/01/2022 9:32 PM EDT HC CBC,PLT & AUTO DIFF STAT 9:32 PM EDT COMPREHENSIVE METABOLIC PANEL STAT 01/01/2022 9:32 PM EDT POCT GLUCOSE Routine 01/01/2022 8:29 PM EDT documented in this encounter Results * CT Head & Cervical Spine wo Contrast (Generic) (01/01/2022 10:34 PM EDT) Anatomical Region Laterality Modality Head Computed Tomogra phy Impressions 01/01/2022 11:53 PM EDT 1. ??No acute intracranial hemorrhage or calvarial fracture. 2. ??Evolving right basal ganglia and left medial medulla infarcts. No evidence of hemorrhagic conversion or associated mass effect. 3. ??Mid to lower cervical spondylosis, no acute fracture or traumatic malalignment. Thank you for letting us participate in the care of this patient. ??If you are a health care provider and have any questions regarding this report, please contact the number below. ??For patients who have questions please contact the health career coach that requested your imaging first. ? Electronically signed by: Reina Louise MD, [facility] ([phone]), at 01/01/2022 11:53 PM Narrative 01/01/2022 11:53 PM EDT EXAMINATION: CT HEAD AND CERVICAL SPINE WO CONTRAST (GENERIC) CLINICAL HISTORY: fall, head trauma TECHNIQUE: CT head and cervical spine performed without intravenous contrast administration. COMPARISON: Head CT & CTA of the Head and Neck, December 30, 2021 MRI brain, December 30, 2021 FINDINGS: Head: No acute intracranial hemorrhage. Focal hypodensity involving the head of the right caudate, the adjacent anterior lentiform nucleus and right lateral thalamus corresponding to known involving the right basal ganglia infarcts, diagnosed on recent MRI. No evidence of associated hemorrhagic conversion. No appreciable mass effect. Hypodensity at the focal hypodensity at the left anterior medulla is also noted, that also corresponds to an area of restricted diffusion on recent MRI. No associated hemorrhage. There are patchy periventricular white matter hypodensities, predominantly within the biparietal periventricular white matter, better seen on MRI and while nonspecific, likely represents chronic small vessel microangiopathy changes. No mass, mass effect or midline shift. Cerebral sulci and ventricles are stable. Basal cisterns are patent. No calvarial fracture or significant extracalvarial contusion or hematoma. Mastoid air cells are clear. 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 Minimal wall thickening of the ethmoid air cells without evidence of acute sinusitis. The other paranasal sinuses are clear. C-spine: The craniocervical junction is intact. There is reversal of normal cervical lordosis centered at C5. No acute fracture, subluxation or dislocation. Degenerative disc changes, with endplate sclerosis and disc space narrowing most severe at C5-C6 and C6-C7 and to a lesser extent at C4-C5 and C7-T1 levels. Paravertebral soft tissues are normal. No apical pneumothorax. Procedure Note Reina Louise MD - 01/01/2022 EXAMINATION: CT HEAD AND CERVICAL SPINE WO CONTRAST (GENERIC) CLINICAL HISTORY: fall, head trauma TECHNIQUE: CT head and cervical spine performed without intravenous contrast administration. COMPARISON: Head CT & CTA of the Head and Neck, December 30, 2021 MRI brain, December 30, 2021 FINDINGS: Head: No acute intracranial hemorrhage. Focal hypodensity involving thehead of the right caudate, the adjacent anterior lentiform nucleus and rightlateral thalamus corresponding to known involving the right basal gangliainfarcts, diagnosed on recent MRI. No evidence of associated hemorrhagic conversion.No appreciable mass effect. Hypodensity at the focal hypodensity at theleft anterior medulla is also noted, that also corresponds to an area ofrestricted diffusion on recent MRI. No associated hemorrhage. There are patchy periventricular white matter hypodensities, predominantly within thebiparietal periventricular white matter, better seen on MRI and while nonspecific,likely represents chronic small vessel microangiopathy changes. No mass, masseffect or midline shift. Cerebral sulci and ventricles are stable. Basal cisternsare patent. No calvarial fracture or significant extracalvarial contusion orhematoma. Mastoid air cells are clear. 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 Minimal wall thickening of the ethmoid air cells without evidence ofacute sinusitis. The other paranasal sinuses are clear. C-spine: The craniocervical junction is intact. There is reversal ofnormal cervical lordosis centered at C5. No acute fracture, subluxation ordislocation. Degenerative disc changes, with endplate sclerosis and disc spacenarrowing most severe at C5-C6 and C6-C7 and to a lesser extent at C4-C5 and C7-E0urjlte. Paravertebral soft tissues are normal. No apical pneumothorax. IMPRESSION 1. No acute intracranial hemorrhage or calvarial fracture. 2. Evolving right basal ganglia and left medial medulla infarcts. Noevidence of hemorrhagic conversion or associated mass effect. 3. Mid to lower cervical spondylosis, no acute fracture or traumatic malalignment. Thank you for letting us participate in the care of this patient. If youare a health care provider and have any questions regarding this report,please contact the number below. For patients who have questions please contactthe health career coach that requested your imaging first. Electronically signed by: Reina Louise MD, [facility]([phone]), at 01/01/2022 11:53 PM Jaci Sorto MD IMG CT ORDERABLES * Gold Tube HOLD (01/01/2022 9:32 PM EDT) Gold Hold Sample in lab. [facility] Blood Venous Draw / Unknown 01/01/2022 9:32 PM EDT 01/01/2022 9:39 PM EDT Justin Knowles MD CHEMISTRY ORDERABLE S [facility] [place] [address] * Blue Tube HOLD (01/01/2022 9:32 PM EDT) [facility] Blue Hold Sample in lab. [facility] Blood Venous Draw / Unknown 01/01/2022 9:32 PM EDT 01/01/2022 9:39 PM EDT Justin Knowles MD HEMATOLOGY ORDERABL ES Performing Organization Address [facility] Co de Phone Number [facility] [place] [address] * (ABNORMAL) Differential, Automated (01/01/2022 9:32 PM EDT) [facility] Neutrophil % 74.7 % [facility] Neutrophil Absolute 7.82(H) 1.70 - 6.10 x10(3)/mc L [facility] Lymph % 13.1 % [facility] Lymphocytes Abs 1.4 0.9 - 3.2 x10(3)/mc L [facility] Monocyte % 8.1 % [facility] Monocyte Abs 0.8 0.3 - 0.9 x10(3)/mc L [facility] Eos % 3.3 % [facility] Eosinophils Abs 0.3 0.0 - 0.4 x10(3)/mc L [facility] Basophil % 0.2 % [facility] Baso Absolute 0.0 0.0 - 0.1 x10(3)/mc L [facility] Immature Gran % 0.60 % [facility] Comment: Immature granulocytes(IG's)percentage and absolute count will include metamyelocytes, myelocytes, and promyelocytes. Blood smears from CBCs yielding IG's will be scanned manually for concordance. If this scan disagrees with the automated IG or if promyelocytes are noted, a manual differential will be performed. Immature Gran Absolute 0.06(H) 0.00 - 0.04 x10(3)/mc L [facility] Blood 01/01/2022 9:32 PM EDT 01/01/2022 9:38 PM EDT Narrative Resulting Agency Comment Spec In Lab Justin Knowles MD HEMATOLOGY ORDERABL ES [facility] [place] [address] * (ABNORMAL) Hemogram (01/01/2022 9:32 PM EDT) White Blood Cell 10.5(H) 4.0 - 9.5 x10(3)/[facility] Red Blood Cell 4.43 4.00 - 5.21 x10(6)/[facility] Hemoglobin 12.9 11.7 - 15.5 g/dL [facility] Hematocrit 38.2 35.7 - 45.8 % [facility] Mean Cell Volume 86.2 82.6 - 94.4 fL [facility] Mean Cell Hemoglobin 29.1 27.1 - 32.0 pg [facility] Mean Cell Hemoglobin Concentration 33.8 31.7 - 35.0 g/dL [facility] Platelet 234 145 - 357 x10(3)/[facility] RDW Standard Deviation 45.1 37.0 - 46.0 [facility] RDW coefficient of variation 14.3(H) 11.5 - 14.1 % [facility] Mean Platelet Volume 10.1 7.6 - 12.9 fL [facility] NRBC% auto 0.0 % [facility] NRBC Absolute 0.000 0.000 - 0.000 x10(3)/ L [facility] Blood 01/01/2022 9:32 PM EDT 01/01/2022 9:38 PM EDT Narrative Resulting Agency Comment Spec In Lab Justin Knowles MD HEMATOLOGY ORDERABL ES [facility] [place] [address] * (ABNORMAL) Comprehensive metabolic panel (non-fasting) (01/01/2022 9:32 PM EDT) Glucose 98 65 - 199 mg/dL [facility] Comment:Diabetes: >=200 mg/d L plus symptoms Blood Urea Nitrogen 18 8 - 18 mg/dL [facility] Creatinine 0.94 0.70 - 1.20 mg/dL [facility] Sodium 128(L) 135 - 145 mmol/L [facility] Potassium 4.0 3.5 - 5.0 mmol/L [facility] Comment: Please note: ??Patients with WBC >100,000 may have falsely elevated Potassium levels. ??For accurate Potassium quantification in these patients send serum separator tube (gold top) for subsequent determinations. ??Contact the Clinical Chemistry Laboratory if there are any questions. Chloride 89(L) 98 - 107 mmol/L [facility] Carbon Dioxide 30 22 - 31 mmol/L [facility] Anion Gap 9 5 - 15 mmol/L [facility] Calcium 9.3 8.5 - 10.5 mg/dL [facility] Protein, Total 7.1 6.1 - 8.0 g/dL [facility] Albumin 4.1 3.2 - 5.2 g/dL [facility] Aspartate Aminotransferase 85(H) 0 - 30 unit/L [facility] Alanine Aminotransferase 280(H) 0 - 30 unit/L [facility] Alkaline Phosphatase 175(H) 35 - 105 unit/L [facility] Bilirubin, Total 0.6 0.2 - 1.3 mg/dL [facility] Est Glomerular Filtration Rate 64 >=60 mL/min/1. 73 m?? [facility] Comment: This patient's estimated GFR was calculated using the 2020 CKD-EPI equation. The estimated GFR can vary from the measured GFR by up to 30% in the absence of rapidly changing kidney function. Assessment of the estimated GFR is not appropriate when creatinine concentrations are rapidly changing. For clinical situations in which a more precise estimate of GFR is necessary, consider alternative methods of GFR estimation such as a 24-hour urine creatinine clearance. Assignment of CKD stage 1-5 for patients with an eGFR near the transition point between stages may be based on clinical assessment of muscle mass and symptoms in addition to eGFR. Blood 01/01/2022 9:32 PM EDT 01/01/2022 9:38 PM EDT Narrative Resulting Agency Comment Spec In Lab Jaci Sorto MD CHEMISTRY ORDERABLES Performing Organization Address City/[facility]/ZIP Co de Phone Number [facility] [place] [address] * POCT Glucose (01/01/2022 8:29 PM EDT) Glucose, POC 101 65 - 199 mg/dL [facility] Comment: Supplemental ranges: <140 mg/dL before meals <180 mg/dL all other times of the day Blood 01/01/2022 8:29 PM EDT 01/01/2022 8:29 PM EDT Emergency Dept POINT OF CARE TEST ORDERABLES Performing Organization Address City/[facility]/ZIP Co de Phone Number [facility] [place] [address] documented in this encounter Visit Diagnoses Diagnosis Weakness due to old stroke documented in this encounter Care Teams Credit Balance Specialist Relationship Specialty Start Date End Date Giovany Liang DNP [address] [place] [address] PCP - General Family Medicine 06/22/21 08/14/22 documented as of this encounter
--- OUTSIDE RECORDS SUMMARY | 2024-03-22 06:08 | XMS_ITS | Encounter Summary ---
Author Organization [facility] Address [address] [facility] [place] [address] Care Team Providers Care Fashion Buying Internship Name Role Phone Giovany Liang DNP Primary Care Provider Encounter Details Date Type Department Care Team (Late st Contact Info) Description 07/13/2021 Telephone Dermatology at [facility] [address] [place] [id number] Jyoti Tran MD Social History Tobacco Use Types Packs/Day Years Used Date Smoking Tobacco: Never Assessed Sex and Gender Information Value Date Recorded Sex Assigned at Not on file Gender Identity Not on file Sexual Orientation Not on file documented as of this encounter Miscellaneous Notes * Telephone Encounter - Christina Hinds - 07/13/2021 2:10 PM EDT Pt was seen 2 days ago by and Dr. Langford. She is calling today to find out the wording dr. Langford used for the spots she had.. it is not in his notes. Can she be called. Christina documented in this encounter Plan of Treatment Not on file documented as of this encounter Visit Diagnoses Not on filedocumented in this encounter Care Teams Fashion Buying Internship Relationship Specialty Start Date End Date Giovany Liang DNP [address] [place] [address] PCP - General Family Medicine 06/22/21 08/14/22 documented as of this encounter
--- OUTSIDE RECORDS SUMMARY | 2024-03-22 06:08 | XMS_ITS | Encounter Summary ---
Author Organization [facility] Address [address] [place] [address] Care Team Providers Care Cco & President Name Role Phone Ed Bowens MD Primary Care Provider [phone] Encounter Details Date Type Department Care Team (Late st Contact Info) Description 06/25/2020 Lab Requisition [facility] Pathology & Laboratory Medicine - [address] [address] Outr Resulting Lab, Provider Social History Tobacco Use Types Packs/Day Years Used Date Smoking Tobacco: Never Assessed Comments Unknown Sex and Gender Information Value Date Recorded Sex Assigned at Not on file Legal Sex Female 18:25 EST Gender Identity Not on file Sexual Orientation Not on file documented as of this encounter Plan of Treatment Not on file documented as of this encounter Procedures Procedure Name Priority Date/Time Associated Diagnosis Comments H. PYLORI ANTIGEN Routine 06/25/2020 8:00 EDT documented in this encounter Results * H. PYLORI ANTIGEN (06/25/2020 8:00 EDT) H. Pylori Negative Negative 06/30/2020 15:06 EDT [facility] Feces SPECIMEN FROM RECTUM / Unknown 06/25/2020 8:00 EDT 06/25/2020 16:46 EDT Narrative [facility] - 06/30/2020 15:06 EDT Results were obtained with the [employer] us Provider Outr Resulting Lab MICROBIOLOGY - GENER AL ORDERABLES Final Result [facility] [address] [place] [address] documented in this encounter Visit Diagnoses Not on filedocumented in this encounter Care Teams Cco & President Relationship Specialty Start Date End Date Ed Bowens MD PCP - General 11/19/14 documented as of this encounter
--- OUTSIDE RECORDS SUMMARY | 2024-03-22 06:08 | XMS_ITS | Encounter Summary ---
Author Organization [facility] Address [facility] [place] [address] Care Team Providers Care Track Maintainer Name Role Phone Giovany Liang DNP Primary Care Provider [phone] Reason for Visit * Consultation (Routine) - Closed Specialty Diagnoses / Procedures Referred By Estrella donis Referred To Contact Dermatology Diagnoses Other specified disorders of the skin and subcutaneous tissue Skin Lesions, Multiple Procedures Consult Giovany Liang DNP [facility] [address] [place] [address] [facility] Dermatology [address] [place] [address] Referral ID Status Reason Start Date Expiration Date V isits Requested Visits Authorized [id number] Closed PCP Updated and/or Approved 04/28/2021 04/28/2022 6 6 Encounter Details Date Type Department Care Team (Late st Contact Info) Description 07/08/2021 9:00 AM EDT Office Visit Dermatology at [facility] [address] [place] [id number] Jyoti Tran MD DSAP (disseminated superficial actinic porokeratosis) Social History Tobacco Use Types Packs/Day Years Used Date Smoking Tobacco: Never Assessed Sex and Gender Information Value Date Recorded Sex Assigned at Not on file Gender Identity Not on file Sexual Orientation Not on file documented as of this encounter Progress Notes * Jyoti Tran MD - 07/08/2021 9:00 AM EDT Images from the original note were not included. DEPARTMENT OF DERMATOLOGY Medical Dermatology Clinic Note Provider: Jyoti Tran MD Patient's preferred name Yamel Preferred contact method for results [x]Phone []myD-H []Letter Detailed phone message OK? yes Are there any other people with whom we may discuss your care? Adelfo Roche and Najma Swanson Past Medical History Date, location, treatment Melanoma no Dysplastic nevi no SCC no BCC no AKs no UV Exposure & Protection Sun Protection: sun avoidance, hats, and clothing Other relevant past medical history - Sjogrens - Lichen sclerosis Family History Details Melanoma no NMSC no Other relevant family history Social History Occupation: retired Hobbies: no Other: Pre-Procedure Questions Details Allergy to lidocaine, epinephrine, Dermabond, chlorhexidine, or adhesives Moderate reaction to contact Latex Bleeding disorder or blood thinners no Implanted devices (Pacemaker, defibrillator, deep brain stimulator, cochlear implant) no History of Present Illness: Yamel Hess is a 70 y.o. Patient is referred to the clinic at the request of Giovany Liang for concerning spots on the bilateral legs. She states that a few spots first appeared a few years ago and are now spreading. She states that if she scratches the spots they will bleed. She states that she has been using Bag palm, aloe, soaps, and all different types of creams. - she expresses concern with her mom having venous ulcers. Review of Systems: General: Feeling well. Skin: No other skin concerns. Medications: Reviewed in eD-H Allergies: Reviewed in eD-H Skin Examination: Focused skin examination of the feet, left and right lower extremities was normal with the exception of the findings below. Assessment/Plan #. Disseminated Superfical Actinic Porokeratosis (DSAP) - Numerous skin colored macules on bilateral lower extremities. Individual lesions with peripheral moat- like rim of scale - Patient reassured of benign nature. Discussed challenges in treatment. Options include monitoring, compound cholesterol cream, or topical steroids. Opted to proceed with clinical monitoring. - recommend OTC Amlactin Rapid relief lotion for scale Other: ??? OTC skin products discussed RTC: PRN []Note routed to school attendance secretary []Recall placed in scheduling system []Appointment scheduled at checkout Scribe attestation: BARRY Miller has performed the documentation for this encounter in thepresence of and acting as a scribe for Jyoti Tran MD. I performed the above scribed service and agree with the accuracy of the documentation in this encounter. Reviewed and signed by: Jyoti Tran MD Dermatology [facility] Patient seen and evaluated with staff senior svp: Talon Langford MD Department of Dermatology [facility] * Talon Langford MD - 07/08/2021 9:00 AM EDT I directly supervised Dr. Tran in the care of this patient. I saw and evaluated this patient with Dr. Tran. She presented the history and physical exam details to me, then we saw the patient together and I confirmed these findings. I agree with details as written. My physical examination confirms her findings. The assessment and plan were formulated in discussion with me at the time of visit and I agree withthem as documented. TALON LANGFORD MD FAAD Staff Physician documented in this encounter Plan of Treatment Not on file documented as of this encounter Visit Diagnoses Diagnosis DSAP (disseminated superficial actinic porokeratosis) Disseminated superficial actinic porokeratosis (DSAP) documented in this encounter Care Teams Track Maintainer Relationship Specialty Start Date End Date Giovany Liang DNP [address] [place] [address] PCP - General Family Medicine 06/22/21 08/14/22 documented as of this encounter
--- OUTSIDE RECORDS SUMMARY | 2024-03-22 06:08 | XMS_ITS | Encounter Summary ---
Author Organization [facility] Address [address] [place] [address] Care Team Providers Care Army Senior Officer Name Role Phone Unavailable Primary Care Provider Unavailabl e Encounter Details Date Type Department Care Team (Late st Contact Info) Description 01/26/2009 Orders Only [facility] Laboratory Services - [facility] ([facility]) [address] [place] [address] Kenzie Condon, JOSEPH [address] [place] [address] Social History Tobacco Use Types Packs/Day Years [...] Procedure Name Priority Date/Time Associated Diagnosis Comments CYTOPATHOLOGY Routine 01/26/2009 0:00 EST documented in this encounter Results * CYTOPATHOLOGY (01/26/2009 0:00 EST) Pathology Report: CYTOPATHOLOGY REPORT ? Reports generated via electronic interface contain original data; ? however they are lacking the format of the original report. ? Caution should be taken when reading/interpreti ng unformatted reports. ? Name: ? FRANKIE HESS ? Accession #: ? [id number] ? : ? 1950 (Age: 58) ??F ?Collect Date: ? 01/26/2009 ? Location: ? [facility] ? Receive Date: ? 01/27/2009 ? Provider: ?KENZIE CONDON NP ? Copy to: ? Specimen/Source: ?Pap Test, Cervix/Endocervix, ThinPrep Imaging System ? with manual evaluation ? Last Menstrual Period: ? Menstrual/Pregnanc y Status: ? Post Menopausal ? Other: ? HPVA - HPV testing requested if ASC-US on the current ThinPrep Pap test. ? SPECIMEN ADEQUACY ? Satisfactory for Evaluation ? - assessment of transformation zone component not applicable ( e.g. atrophy, ? vaginal sample, hysterectomy) ? GENERAL CATEGORIZATION ? Negative for Intraepithelial Lesion or Malignancy ? Document reviewed and electronically signed by: ? Lynan Carlton, [place](ASCP) ? Report Date: ??01/28/2009 16:39 ? End of Report ? [facility] 01/26/2009 01/27/2009 us Kenzie Condon SUPERVISOR DOG LICENSE OFFICER PATHOLOGY ORDERABLES Final R esult [facility] [address] [place] [address] documented in this encounter Visit Diagnoses Not on filedocumented in this encounter
--- OUTSIDE RECORDS SUMMARY | 2024-03-22 06:08 | XMS_ITS | Encounter Summary ---
Author Organization [facility] Address [address] [place] [address] Care Team Providers Care Classification And Treatment Director Name Role Phone Unavailable Primary Care Provider Unavailabl e Encounter Details Date Type Department Care Team (Late st Contact Info) Description 2006 Results Only [facility] [address] [place] [address] Kenzie Condon, JOSEPH [address] [place] [address] Social History Tobacco Use Types [...] Priority Date/Time Associated Diagnosis Comments CYTOPATHOLOGY Routine 2006 0:00 EDT documented in this encounter Results * CYTOPATHOLOGY (2006 0:00 EDT) Pathology Report: CYTOPATHOLOGY REPORT Reports generated via electronic interface contain original data; however they are lacking the format of the original report. Caution should be taken when reading/interpreti ng unformatted reports. Name: ? NISREEN YAMEL ? Accession #: ? [id number] : ? 1950 (Age: 56) ??F ?Collect Date: ? 2006 Location: ? [facility] ? Receive Date: ? 11/07/2006 Provider: ?KENZIE CONDON EMBEDDED SOFTWARE TEST ENGINEER Copy to: ? Specimen/Source: ?ThinPrep Pap Test, Cervix/Endocervix, processed on NVELO ThinPrep Imaging System, with manual evaluation Last Menstrual Period: ? 3 years ago Other: ? HPVA - HPV testing requested if ASC-US on the current ThinPrep Pap test. ? SPECIMEN ADEQUACY ? Satisfactory for Evaluation - transformation zone component present GENERAL CATEGORIZATION ? Negative for Intraepithelial Lesion or Malignancy ? Document reviewed and electronically signed by: ? RADHA Navarrete(ASCP) ? Report Date: ??11/13/2006 12:26 End of Report [facility] 2006 11/07/2006 us Kenzie Condon NP PATHOLOGY ORDERABLES Final R esult [facility] [address] [place] [address] documented in this encounter Visit Diagnoses Not on filedocumented in this encounter
--- OUTSIDE RECORDS SUMMARY | 2024-03-22 06:08 | XMS_ITS | Encounter Summary ---
[place] [address] Care Team Providers Care Skin Care Therapist Name Role Phone Kathleen Taylor APRN Primary Care Provider [phone] Reason for Referral * Consultation (Routine) - Closed Specialty Diagnoses / Procedures Referred By Estrella donis Referred To Contact Neurology Diagnoses History of ischemic stroke Problems with swallowing and mastication Bladder dysfunction Kathleen Taylor APRN [address] [place] [address] [facility] [address] [place] [id number] Referral ID Status Reason Start Date Expiration Date V isits Requested Visits Authorized [id number] Closed Consult, Test & Treat PCP Updated and/or Approved 08/15/2022 08/15/2023 6 6 Encounter Details Date Type Department Care Team (Latest Contact Info) Description 08/15/2022 Transcribe Orders eDH Incoming Referrals [phone] Kathleen Taylor APRN [address] [place] [address] History of ischemic stroke; Problems with swallowing and mastication; Bladder dysfunction Social History Tobacco Use Types Packs/Day Years Used Date Smoking Tobacco: Never Assessed Sex and Gender Information Value Date Recorded Sex Assigned at Not on file Gender Identity Not on file Sexual Orientation Not on file documented as of this encounter Plan of Treatment Scheduled Referrals Name Type Priority Associated Diagnoses Orde r Schedule Referral to Neurology Outpatient Referral Routine History of ischemic stroke Problems with swallowing and mastication Bladder dysfunction Ordered: 08/15/2022 documented as of this encounter Visit Diagnoses Diagnosis History of ischemic stroke Problems with swallowing and mastication Bladder dysfunction Other functional disorder of bladder documented in this encounter Care Teams Skin Care Therapist Relationship Specialty Start Date End Date Kathleen Taylor, FIELD TECHNICAL [place]IST[place] [address] PCP - General Family Medicine 08/15/22 documented as of this encounter
--- OUTSIDE RECORDS SUMMARY | 2024-03-22 06:08 | XMS_ITS | Encounter Summary ---
Author Organization [facility] Address [address] [place] [address] Care Team Providers Care Brickmason Apprentice Name Role Phone Unavailable Primary Care Provider Unavailabl e Encounter Details Date Type Department Care Team (Late st Contact Info) Description 10/29/2014 Results Only [facility] [phone] Olivia Bautista NP [address] [place] [address] [place], [place] [id number] Social History Tobacco Use Types Packs/Day Years [...] Procedure Name Priority Date/Time Associated Diagnosis Comments PAP TEST- RESULT ONLY Routine 10/29/2014 0:00 EDT documented in this encounter Results * PAP TEST- RESULT ONLY (10/29/2014 0:00 EDT) Pathology Report: CYTOPATHOLOGY REPORT Reports generated via electronic interface contain original data; however they are lacking the format of the original report. Caution should be taken when reading/interpreti ng unformatted reports. Name: ? NISREENYAMEL BANGURA ? Accession #: ? [id number] ? : ? 1950 (Age: 63) ??F ?Collect Date: ? 10/29/2014 ? Location: ? [facility] ? Receive Date: ? 10/30/2014 ? Provider: OLIVIA BAUTISTA COMPUTER ART INSTRUCTOR Copy to: ? Final Report SPECIMEN ADEQUACY ? Satisfactory for Evaluation - transformation zone component present GENERAL CATEGORIZATION ? Negative for Intraepithelial Lesion or Malignancy ?? Menstrual/Pregnanc y Status: ??Menopausal Specimen/Source: ??Pap Test, Cervix, ThinPrep Imaging System with manual evaluation Document reviewed and electronically signed by: ? Aishwarya Vincent, CT(ASCP) ? Report ??Date: 11/04/2014 12:45 HPV with Pap Test ? Date Ordered: ? 11/04/2014 ? Status: ?? Signed Out ?Date Complete: ? 2014 ? By: ??System Interface ? Date Reported: ? 2014 ? Interpretation RESULT: Negative for HPV. No E6 or E7 mRNA is detected from HPV types 16,18,31,33,35, 39,45,51,52,56,58, 59,66, and 68 by manager medical affairs mediated amplification. Comments Document reviewed and electronically signed by: ? System Interface ? Report date: 2014 By the signature above, the attending physician certifies that he/she has personally conducted a gross and/or microscopic examination of the described specimens and rendered or confirmed the above diagnosis. End of Report [facility] 10/29/2014 10/30/2014 us Olivia Bautista NP PATHOLOGY ORDERABLES Final Res ult [facility] [address] [place] [address] documented in this encounter Visit Diagnoses Not on filedocumented in this encounter
--- OUTSIDE RECORDS SUMMARY | 2024-03-22 06:08 | XMS_ITS | Encounter Summary ---
Author Organization [facility] Address [address] [place] [address] Care Team Providers Care Non Destructive Tester Name Role Phone Ed Bowens MD Primary Care Provider [phone] Encounter Details Date Type Department Care Team (Late st Contact Info) Description 04/28/2020 Lab Requisition [facility] Pathology & Laboratory Medicine - [address] [address] Silvia Reyna MD [address] [place] [address] [address] [place], [place] [id number] Encounter for other general examination Social History Tobacco Use Types Packs/Day Years [...] Procedure Name Priority Date/Time Associated Diagnosis Comments SURGICAL PATHOLOGY Today 04/27/2020 14 :37 EST Encounter for other general examination documented in this encounter Results * SURGICAL PATHOLOGY (04/27/2020 14:37 EST) Final Diagnosis A. STOMACH, CARDIA, BIOPSY: - Fundic mucosa with mild active chronic inflammation consistent with Helicobacter pylori gastritis. - Mild increase in intraepithelial lymphocytes. - See comment. B. STOMACH, GREATER CURVATURE, BIOPSY: - Fundic mucosa with mild active chronic inflammation consistent with Helicobacter pylori gastritis. - Mild increase in intraepithelial lymphocytes. - See comment. C. STOMACH, ANTRUM, BIOPSY: - Transitional mucosa with mild active chronic gastritis. - Positive for Helicobacter pylori. - See comment. D. GASTROESOPHAGEAL JUNCTION, BIOPSY: - Consistent with reflux esophagitis. E. ESOPHAGUS, DISTAL, BIOPSY: - Mild active chronic gastritis. - Negative for intestinal metaplasia and dysplasia. 04/30/2020 12:22 [facility] Diagnosis Comment A, B) The mildly increased intraepithelial lymphocytes may be seen with Helicobacter pylori infection. However, they may also be seen in other entities such as celiac disease and drug effect. C) ANTIBODY(CLONE)(BL OCK):RESULT H pylori (Rabbit Monoclonal (SP48), Agricola) (C1): Positive NOTE: One or more of the reagents used in immunoperoxidase testing in this case may not have been cleared or approved by the U.S. Food and Drug Administration (FDA). The FDA has determined that such clearance or approval is not necessary. These tests are used for clinical purposes. They should not be regarded as investigational or for research. These reagents' performance characteristics have been determined by [facility] and/or by the referring laboratory. The positive and negative controls worked appropriately. If immunoperoxidase staining has been performed on alcohol fixed cytology specimens, which has not been fully validated, the assays should be interpreted with caution and correlated with clinical data. This laboratory is certified under the Clinical Laboratory Improvement Amendments of 1988 (CLIA-88) as qualified to perform high complexity clinical laboratory testing. 04/30/2020 12:22 [facility] Attestation By the signature below, the attending physician certifies that they have 1) personally conducted a gross and/or microscopic examination of the described specimen(s), and/or personally interpreted the results of laboratory testing of the described specimen(s), and 2) personally rendered or confirmed the above diagnosis. 04/30/2020 12:22 [facility] at [address] Clinical History Esophagitis, gastritis, hiatal hernia, anemia 04/30/2020 12:22 [facility] Gross Description A. Received in formalin labelled with proper patient identification (initials R, G) and cardia Bxs is a single fragment of colvin-yellow soft tissue (0.4 x 0.3 x 0.2 cm). The specimen is entirely submitted in A1. B. Received in formalin labelled with proper patient identification (initials R, G) and greater curvature is a single fragment of colvin soft tissue (0.2 x 0.2 x 0.2 cm). The specimen is entirely submitted in B1. C. Received in formalin labelled with proper patient identification (initials R, G) and antrum Bx is a single fragment of colvin soft tissue (0.4 x 0.4 x 0.2 cm). The specimen is entirely submitted in C1. D. Received in formalin labelled with proper patient identification (initials R, G) and GE junction Bx are 2 fragments of colvin-white soft tissue (each averaging 0.2 x 0.2 x 0.2 cm). The specimen is entirely submitted in D1. E. Received in formalin labelled with proper patient identification (initials R, G) and distal esophageal Bx are 2 fragments of colvin-yellow soft tissue (0.2 x 0.2 x 0.2 cm and 0.5 x 0.2 x 0.2 cm). The specimen is entirely submitted in E1. ISHMAEL RAGLAND(ASCP) 04/28/2020 16:21 04/30/2020 12:22 [facility] Performing Lab [facility] 12:22 [facility] Scanned Images 04/30/2020 12:22 [facility] Tissue ENTIRE ESOPHAGUS / Unknown 04/27/2020 14:37 EST 04/28/2020 15:44 EST Tissue specimen (specimen) STOMACH STRUCTURE / Unknown 04/27/2020 14:37 EST 04/28/2020 15:44 EST Tissue specimen (specimen) STOMACH STRUCTURE / Unknown 04/27/2020 14:37 EST 04/28/2020 15:44 EST Tissue specimen (specimen) ESOPHAGEAL STRUCTURE / Unknown 04/27/2020 14:37 EST 04/28/2020 15:44 EST Tissue specimen (specimen) ESOPHAGEAL STRUCTURE / Unknown 04/27/2020 14:37 EST 04/28/2020 15:44 EST Silvia Reyna MD PATHOLOGY ORDERABLES Fin al Result [facility] [address] [place] [address] documented in this encounter Visit Diagnoses Diagnosis Encounter for other general examination documented in this encounter Care Teams Non Destructive Tester Relationship Specialty Start Date End Date Ed Bowens MD PCP - General 11/19/14 documented as of this encounter
--- OUTSIDE RECORDS SUMMARY | 2024-03-22 06:08 | XMS_ITS | Encounter Summary ---
Author Organization [facility] [place] [address] Care Team Providers Care Lead Ramp Service Man Name Role Phone Kathleen Taylor APRN Primary Care Provider [phone] Encounter Details Date Type Department Care Team (Latest Contact Info) Description 11/14/2022 Travel Social History Tobacco Use Types Packs/Day Years Used Date Smoking Tobacco: Never Smokeless Tobacco: Never Sex and Gender Information Value Date Recorded Sex Assigned at Not on file Gender Identity Not on file Sexual Orientation Not on file documented as of this encounter Plan of Treatment Not on file documented as of this encounter Visit Diagnoses Not on filedocumented in this encounter Care Teams Lead Ramp Service Man Relationship Specialty Start Date End Date Kathleen Taylor APRN [address] [place] [address] PCP - General Family Medicine 08/15/22 documented as of this encounter
--- OUTSIDE RECORDS SUMMARY | 2024-03-22 06:08 | XMS_ITS | Encounter Summary ---
Author Organization [facility] Address [address] [place] [address] Care Team Providers Care Web Applications Architect Name Role Phone Unavailable Primary Care Provider Unavailabl e Encounter Details Date Type Department Care Team (Late st Contact Info) Description 02/02/2010 Results Only [facility] Laboratory Services - [facility] [address] [place] [address] Kenzie Condon, JOSEPH [address] [place] [address] Social History Tobacco Use Types [...] Priority Date/Time Associated Diagnosis Comments CYTOPATHOLOGY Routine 02/02/2010 0:00 EST documented in this encounter Results * CYTOPATHOLOGY (02/02/2010 0:00 EST) Pathology Report: CYTOPATHOLOGY REPORT ? Reports generated via electronic interface contain original data; ? however they are lacking the format of the original report. ? Caution should be taken when reading/interpreti ng unformatted reports. ? Name: ? FRANKIE HESS ? Accession #: ? [id number] ? : ? 1950 (Age: 59) ??F ?Collect Date: ? 02/02/2010 ? Location: ? [facility] ? Receive Date: ? 02/04/2010 ? Provider: KENZIE CONDON EXTRUDER TENDER ? Copy to: ? Final Report ? SPECIMEN ADEQUACY ? Satisfactory for Evaluation ? - assessment of transformation zone component not applicable ( e.g. atrophy, ? vaginal sample, hysterectomy) ? GENERAL CATEGORIZATION ? Negative for Intraepithelial Lesion or Malignancy ? Menstural/Pregnanc y Status: ??Menopausal ? Specimen/Source: ??Pap Test, Cervix/Endocervix, ThinPrep Imaging System with ? manual evaluation ? Document reviewed and electronically signed by: ? Kathleen Verville,CT(ASCP) ? Report ??Date: 02/09/2010 13:19 ? HPV with Pap Test ? Date Ordered: ? 02/09/2010 ? Status: ?? Signed Out ?Date Complete: ? 02/11/2010 ? By: ??System Interface ? Date Reported: ? 02/11/2010 ? Interpretation ? RESULT: Negative for HPV types 16, 18, 31, 33, 35, 39, 45, 51, 52, ? 56, 58, 59, and 68. ? Comments ? Document reviewed and electronically signed by: ? System Interface ? Report date: 02/11/2010 ? By the signature above, the attending physician certifies that he/she has ? personally conducted a gross and/or microscopic examination of the described ? specimens and rendered or confirmed the above diagnosis. ? End of Report ? [facility] 02/02/2010 02/04/2010 us Kenzie Condon NP PATHOLOGY ORDERABLES Final R esult [facility] [address] [place] [address] documented in this encounter Visit Diagnoses Not on filedocumented in this encounter
--- OUTSIDE RECORDS SUMMARY | 2024-03-22 06:08 | XMS_ITS | Encounter Summary ---
Author Organization [facility] Address [address] [place] [address] Care Team Providers Care Equipment Coordinator Name Role Phone Ed Bowens MD Primary Care Provider [phone] Encounter Details Date Type Department Care Team (Late st Contact Info) Description 08/05/2021 Lab Requisition [facility] Pathology & Laboratory Medicine - [address] [address] Outr Resulting Lab, Provider Social History Tobacco [...] Procedure Name Priority Date/Time Associated Diagnosis Comments HEPATITIS C AB W REFLEX TO HCV RNA BY PCR Routine 08/05/2021 11:13 EDT documented in this encounter Results * HEPATITIS C AB W REFLEX TO HCV RNA BY PCR (08/05/2021 11:13 EDT) Hep C Antibody Negative Negative 08/06/2021 9:52 EDT [facility] Blood VENOUS BLOOD / Unknown 08/05/2021 11:13 EDT 08/05/2021 21:04 EDT us Provider Outr Resulting Lab CHEMISTRY & BLOOD GA S ORDERABLES Final Result Performing Organization Address [facility]/State/ZIP Co de Phone Number [facility] [address] [place] [address] documented in this encounter Visit Diagnoses Not on filedocumented in this encounter Care Teams Equipment Coordinator Relationship Specialty Start Date End Date Ed Bowens MD PCP - General 11/19/14 documented as of this encounter
--- OUTSIDE RECORDS SUMMARY | 2024-03-22 06:08 | XMS_ITS | Encounter Summary ---
Author Organization [facility] Address [facility] [place] [address] Care Team Providers Care Gore Stitcher Name Role Phone Giovany Liang DNP Primary Care Provider [phone] Encounter Details Date Type Department Care Team (Late st Contact Info) Description 07/15/[address] 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 Pt reviewed handout provided at clinic visit ([facility]) and was concerned about possible malignant potential of disease. Discussed with patient that there are different types of porokeratosis and that DSAP has the lowest malignant potential. Pt reassured, all questionsanswered. documented in this encounter Plan of Treatment Not on file documented as of this encounter Visit Diagnoses Not on filedocumented in this encounter Care Teams Gore Stitcher Relationship Specialty Start Date End Date Giovany Liang DNP [address] [place] [address] PCP - General Family Medicine 06/22/21 08/14/22 documented as of this encounter
--- OUTSIDE RECORDS SUMMARY | 2024-03-22 06:08 | XMS_ITS | Encounter Summary ---
Author Organization [facility] Address [address] [place] [address] Care Team Providers Care Lute Packer Or Applier Name Role Phone Unavailable Primary Care Provider Unavailabl e Encounter Details Date Type Department Care Team (Late st Contact Info) Description 12/24/2001 Results Only [facility] [address] [place] [address] Kenzie Condon, JOSEPH [address] [place] [address] Social History Tobacco Use Types [...] Priority Date/Time Associated Diagnosis Comments CYTOPATHOLOGY Routine 12/24/2001 0:00 EST documented in this encounter Results * CYTOPATHOLOGY (12/24/2001 0:00 EST) Pathology Report: CYTOPATHOLOGY REPORT Reports generated via electronic interface contain original data; however they are lacking the format of the original report. Caution should be taken when reading/interpreti ng unformatted reports. Name: ? NISREENYAMEL BANGURA ? Accession #: ? [id number] : ? 1950 (Age: 51) ??F ?Collect Date: ? 12/24/2001 Location: ? [facility] ? Receive Date: ? 12/26/2001 Provider: ?KENZIE CONDON ORNAMENTAL IRON WORKER Copy to: ? Specimen/Source: ?ThinPrep Pap Test, Cervix/Endocervix Last Menstrual Period: ? 12/16/01 Hormonal/Contracep tive Status: ? Intrauterine device ? SPECIMEN ADEQUACY ? Satisfactory for Evaluation - transformation zone component present GENERAL CATEGORIZATION ? Negative for Intraepithelial Lesion or Malignancy ? Document reviewed and electronically signed by: ? RADHA Cobb(ASCP) ? Report Date: ??12/28/2001 10:19 End of Report [facility] 12/24/2001 12/26/2001 us Kenzie Condon ORNAMENTAL IRON WORKER PATHOLOGY ORDERABLES Final R esult [facility] [address] [place] [address] documented in this encounter Visit Diagnoses Not on filedocumented in this encounter
--- OUTSIDE RECORDS SUMMARY | 2024-03-22 06:08 | XMS_ITS | Encounter Summary ---
Author Organization [facility] Include [facility] Address [facility] [address] Care Team Providers Care Quality Eng Name Role Phone Kathleen Taylor APRN Primary Care Provider [phone] Reason for Visit * Consultation (Routine) - Closed Specialty Diagnoses / Procedures Referred By Estrella donis Referred To Contact Neurology Diagnoses History of ischemic stroke Problems with swallowing and mastication Bladder dysfunction Kathleen Taylor APRN [address] [place] [address] [place] [address] [facility] [address] [place] [address] Referral ID Status Reason Start Date Expiration Date V isits Requested Visits Authorized [id number] Closed Consult, Test & Treat PCP Updated and/or Approved 08/15/2022 08/15/2023 6 6 Encounter Details Date Type Department Care Team (Latest Contact Info) Description 11/14/2022 2:30 PM EDT [place] [phone] Cassius Lema MD [facility] [place] [place] [address] Late effects of cerebrovascular disease Social History Tobacco Use Types Packs/Day Years Used Date Smoking Tobacco: Never Smokeless Tobacco: Never Tobacco Cessation:Counseling Given: Not Answered Sex and Gender Information Value Date Recorded Sex Assigned at Not on file Gender Identity Not on file Sexual Orientation Not on file documented as of this encounter Last Filed Vital Signs Vital Sign Reading Time Taken Comments Blood Pressure 140/76 11/14/2022 2:23 PM EDT Pulse 88 11/14/2022 2:23 PM EDT Temperature 36.7 ??C (98.1 ??F) 11/14/2022 2 :23 PM EDT Respiratory Rate - - Oxygen Saturation - - Inhaled Oxygen Concentration - - Weight 67 kg (147 lb 12.8 oz) 11/14/2022 2:23 PM EDT Height 156.2 cm (5' 1.5) 11/14/2022 2: 23 PM EDT patient reported Body Mass Index 27.47 11/14/2022 2:23 PM EDT documented in this encounter Progress Notes * Cassius Lema MD - 11/14/2022 2:30 PM EDT Images from the original note were not included. CEREBROVASCULAR DISEASE AND STROKE PROGRAM Department of Neurology [place] [id number] t: [phone] / f: [phone] Date of Appointment: 11/14/2022 Patient: Yamel Crowellgles PCP: Kathleen Taylor APRN Consultation Requested By: Kathleen Taylor APRN [address] [place] [address] [place] [address] . HISTORY: This 72 y.o. 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 Grew up near [facility]. Mother had stroke near her age and she helped rehab her. Her father had a possible stroke and difficulty speaking for a time. Had a [employer] called [employer]. In November of 2021 had a COVID vaccine and developed left arm pain. Went to the [facility] ED twice, had scans of UE, blood pressure was very elevated and then had possible aspirin toxicity and pain was sosevere she says she wanted the arm cut off. She was told to alternate acetaminophen and ibuprofen and ? Aspirin She then developed left sided weakness and an MRI showed right basal ganglionic and thalamic infarctions. Exam was complicated by the pain. She said she was in the hospital with the livertoxicity and at breakfast she had OJ drooling and couldn't use the left hand and she believes she had a stroke then.She said 4 days after she had a stroke she finally had a brain MRI. Her son took her to our ED when she left [facility]. She taught herself to talk and type again. Dropped things frequent;ly, troubles walking on stairs. Still has weakness L>R and numbness like after arm asleep in the thumb, index and middle finger. Has been taking aspirin and clopidogrel since the stroke was diagnosed. Her dog, a rescue rotweiller last night. Saw a friend in hospice and her therapist earlier today so BP may be higher than usual, usually it's in the 130s. Son has [employer] car garage. No past medical history on file. There is no problem list on file for this patient. Social History Socioeconomic History Marital status: Spouse name: None Number of children: None Years of education: None Highest education level: None Occupational History None Tobacco Use Smoking status: Never Smokeless tobacco: Never Vaping Use Vaping Use: Never used Substance and Sexual Activity Alcohol use: None Drug use: None Sexual activity: None Other Topics Concern None Social History Narrative None Social Determinants of Health Financial Resource Strain: Not on file Food Insecurity: Not on file Transportation Needs: Not on file Physical Activity: Not on file Housing Stability: Not on file No family history on file. No family history of neurologic disease noted. 11/11/2022 Stroke:MMAS-4 MMAS-4 Score 3 (Medium Adherence) Do you ever forget to take your medication? Yes Are you careless at times about taking your medicine? No Sometimes, if you feel worse when you take the medicine, do you stop taking it? No When you feel better do you sometimes stop taking your medicine? No 11/11/2022 Stroke:PROMIS-10 Guyjyi38-Kfifgfuf Health Score 54.1 Czmgbi04-Zyfeuw Health Score 53.3 Health in general Very Good Quality of life Very Good Physical health Very Good Mental health Very Good Satisfaction with social activities Very Good Ability to carry out physical activities Completely Rate of pain 3 Rate of fatigue Mild Ability to carry out social activities Very Good Bothered by emotional problems Rarely 11/11/2022 Stroke:SIS-16 SIS-16 Score 76 a. Dress the top part of your body? Not difficult at all b. Bathe yourself? Not difficult at all c. Get to the toilet on time? Not difficult at all d. Control your bladder (not have an accident)? A little difficult e. Control your bowels (not have an accident)? Not difficult at all f. Standing without losing balance? Not difficult at all g. Go shopping? Not difficult at all h. Do heavy assembly stock supervisor (e.g., vaccum, laundry or yard work?) A little difficult i. Stay sitting without losing your balance? Not difficult j. Walk without losing your balance? Not difficult at all k. Move from a bed to a chair? Not difficult at all l. Walk fast? Not difficult at all m. Climb one flight of stairs? A little difficult n. Walk one block? Not difficult at all o. Get in and out of a car? Not difficult at all p. Carry heavy objects (e.g., bag of groceries) with your affected hand? A little difficult 11/11/2022 Stroke:Cognitive Screening Patient Cognitive Screening Yes 11/11/2022 Stroke:GAD2+7 GAD2 Subscore 2 (Brief screen negative) Nervous, anxious Several days Unable to stop worrying Several days 11/11/2022 Stroke:PHQ2+9 PHQ-2 Score 2 (Brief PHQ2 screen negative) Little interest or pleasure Several Days Down, depressed, hopeless Several Days No data to display X stroke questionnaire responses reviewed No data to display 11/11/2022 Adult Screener: Last Ave Fatigue and [address]+ Questions [address] fatigue in last 7 days Mild 11/11/2022 Behavioral Health Responses (QBHI) PHQ-2 Score 2 (Brief PHQ2 screen negative) OZZIE-2 Score 2 (Brief screen negative) 11/11/2022 PHQ-9: Responses Post 06/27/22 Conversion Little interest or pleasure Several Days Down, depressed, hopeless Several Days PHQ-2 Subscore 2 11/11/2022 OZZIE-7 Patient Reported Responses Nervous, anxious (Patient) Several days Unable to stop worrying (Patient) Several days No data to display No data to display EXAM: Vitals: 11/14/22 1423 BP: 140/76 BP Location (NBP): Right arm Patient Position: Sitting BP Cuff Sizes: Adult (25-34 cm) Pulse: 88 Temp: 36.7 ??C (98.1 ??F) TempSrc: Temporal Weight: 67 kg (147 lb 12.8 oz) Height: 156.2 cm (5' 1.5) NIH Stroke Scale: (bold applicable choices) NIH Stroke Scale at Initial Evaluation: 1.a. Level of consciousness: 0-Alert 1-Not alert, but arousable with minimal stimulation 2-Not alert, requires repeat stimulation to attend 3-Coma 1.b. Ask patient the month and their age: 0-Answers both correctly 1-Answers one correctly 2-Both incorrect 1.c. Ask patient to open and close eyes: 0-Obeys both correctly 1-Obeys one correctly 2-Both incorrect 2. Best gaze (horizontal eye movement): 0-Normal 1-Partial gaze palsy 2-Forced deviation 3. Visual field testin-No visual field loss 1-Partial hemianopia 2-Complete hemianopia 3-Bilateral hemianopia (blind including cortical blindness) 4. Facial paresis (Ask patient to show teeth or raise eyebrows and close eyes tightly): 0-Normal symmetrical movement 1-Minor paralysis (flattened nasolabial fold, asymmetry on smiling) 2-Partial paralysis (total or near paralysis of lower face) 3-Complete paralysis of one or both sides (absence of facial movement in the upper and lower face) 5. Motor function right arm: 0-Normal (extends arm 90 degrees for 10 seconds without drift) 1-Drift 2-Some effort against gravity 3-No effort against gravity 4-No movement UT-Untestable (Joint fused or limb amputated) 5. Motor function- left arm: 0-Normal (extends arm 90 degrees for 10 seconds without drift) 1-Drift 2-Some effort against gravity 3-No effort against gravity 4-No movement UT-Untestable (Joint fused or limb amputated) 6. Motor function right le-Normal (extends leg 30 degrees for 5 seconds without drift) 1-Drift 2-Some effort against gravity 3-No effort against gravity 4-No movement UT-Untestable (Joint fused or limb amputated) 6. Motor function-left le-Normal (extends leg 30 degrees for 5 seconds without drift) 1-Drift 2-Some effort against gravity 3-No effort against gravity 4-No movement UT-Untestable (Joint fused or limb amputated) 7. Limb ataxia: 0-No ataxia 1-Present in one limb 2-Present in two limbs 8. Sensory (Use pinprick to test arms, legs, trunk and face compare side to side): 0-Normal 1-Mild to moderate decrease in sensation 2-Severe to total sensory loss 9. Best language (describe picture, name items, read sentences): 0-No aphasia 1-Mild to moderate aphasia 2-Severe aphasia 3-Mute 10. Dysarthria (read several words): 0-Normal articulation 1-Mild to moderate slurring of words 2-Near unintelligible or unable to speak UT-Intubated or other physical barrier 11. Extinction and inattention: 0-Normal 1-Inattention or extinction to bilateral simultaneous in one of the sensory modalities 2-Severe benton-inattention or benton-inattention to more than one modality TOTAL SCORE: 0 LT decreased left hand (lateral fingers) L biceps and patellar reflexes 3 and RUE and patellar 2 DATA REVIEWED: MRI brain shows a recent infarction in the right basal ganglia involving the caudate hear and anterior putamen and lateral thalamus CTA shows a possible stenosis of the proximal right FUND RAISER. 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 Her initial presentation was odd and the territory involved is somewhat unusual in that it involves what is typically supplied by the recurrent artery of Kuldeep and the separate thalamo-geniculate arteries but there may be some anomalous anatomy in her case. Given the re I recommended that she stop either the clopidogrel or aspirin and she wanted to speak with her PCP about this. Her blood pressure seems to be within goal overall. I explained why we don't typically repeat her imaging, a question she had her primary had. On the day of this encounter, I the medical provider spent a total of at least 50 minutes providingthis patient's care on the date of service This includes time spent [id number] with the patient performing evaluation, examination, and counseling . It also includes non oidk-lq-fhas time preparingto see the patient, reviewing the chart, coordinating care, and documenting clinical information in the electronic health record. documented in this encounter Plan of Treatment Not on file documented as of this encounter Visit Diagnoses Diagnosis Late effects of cerebrovascular disease Unspecified late effects of cerebrovascular disease documented in this encounter Care Teams Quality Eng Relationship Specialty Start Date End Date Kathleen Taylor, JHOAN [facility] [place] [address] PCP - General Family Medicine 08/15/22 documented as of this encounter
--- OUTSIDE RECORDS SUMMARY | 2024-03-22 06:08 | XMS_ITS | Encounter Summary ---
Author Organization [facility] Address [facility] [place] [address] Care Team Providers Care Real Estate Job Titles Name Role Phone Giovany Liang DNP Primary Care Provider Encounter Details Date Type Department Care Team (Late st Contact Info) Description 12/30/2021 12:05 AM EDT Ancillary Procedure Radiology Library at [facility] [place] [place] [phone] Giovany Liang DNP [address] [place], [place] [address]YEIMI ALTAMIRANO [facility] [address] [place], [place] [address] Social History Tobacco Use Types Packs/Day Years Used Date Smoking Tobacco: Never Assessed Sex and Gender Information Value Date Recorded Sex Assigned at Not on file Gender Identity Not on file Sexual Orientation Not on file documented as of this encounter Plan of Treatment Not on file documented as of this encounter Procedures Procedure Name Priority Date/Time Associated Diagnosis Comments FILM LIBRARY STORAGE ONLY CT HEAD AND SPINE Routine 12/30/2021 12:05 AM EDT documented in this encounter Results * Film Library- Storage Only CT Head And Spine (12/30/2021 12:05 AM EDT) Narrative BETTYE - 01/01/2022 7:06 PM EDT This exam is auto-finalizing. It's purpose is for storage only. Giovany Liang DNP IM FILM LIBRARY OR DERABLES [place] Mares documented in this encounter Visit Diagnoses Not on filedocumented in this encounter Care Teams Real Estate Job Titles Relationship Specialty Start Date End Date Giovany Liang DNP [address] [place] [address] PCP - General Family Medicine 06/22/21 08/14/22 documented as of this encounter
--- OUTSIDE RECORDS SUMMARY | 2024-03-22 06:08 | XMS_ITS | Encounter Summary ---
Author Organization [facility] Address [address] [place] [address] Care Team Providers Care Physicist Solid Earth Name Role Phone Unavailable Primary Care Provider Unavailabl e Encounter Details Date Type Department Care Team (Late st Contact Info) Description 02/07/2011 Results Only [facility] - [facility] ([facility] [address] [place], [place] [id number] Kenzie Condon, JOSEPH [address] [place] [address] Social History Tobacco Use Types [...] Diagnosis Comments PAP TEST- RESULT ONLY Routine 02/07/2011 0:00 EST documented in this encounter Results * PAP TEST- RESULT ONLY (02/07/2011 0:00 EST) Pathology Report: CYTOPATHOLOGY REPORT Reports generated via electronic interface contain original data; however they are lacking the format of the original report. Caution should be taken when reading/interpreti ng unformatted reports. Name: ? FRANKIE HESS ? Accession #: ? [id number] ? : ? 1950 (Age: 60) ??F ?Collect Date: ? 02/07/2011 ? Location: ? [facility] ? Receive Date: ? 02/08/2011 ? Provider: KENZIE CONDON LEAD ENGINEER Copy to: ? Final Report SPECIMEN ADEQUACY ? Satisfactory for Evaluation - assessment of transformation zone component not applicable ( e.g. atrophy, vaginal sample, hysterectomy) - scant squamous epithelial component GENERAL CATEGORIZATION ? Negative for Intraepithelial Lesion or Malignancy ?? Menstural/Pregnanc y Status: ??Post Menopausal Specimen/Source: ??Pap Test, Cervix/Endocervix, ThinPrep Imaging System with manual evaluation Document reviewed and electronically signed by: ? Sera Willett, RADHA(ASCP)(IAC) ? Report ??Date: 02/14/2011 16:49 HPV with Pap Test ? Date Ordered: ? 02/14/2011 ? Status: ?? Signed Out ?Date Complete: ? 02/17/2011 ? By: ??System Interface ? Date Reported: ? 02/17/2011 ? Interpretation RESULT: Negative for HPV types 16, 18, 31, 33, 35, 39, 45, 51, 52, 56, 58, 59, and 68. Comments Document reviewed and electronically signed by: ? System Interface ? Report date: 02/17/2011 By the signature above, the attending physician certifies that he/she has personally conducted a gross and/or microscopic examination of the described specimens and rendered or confirmed the above diagnosis. End of Report [facility] 02/07/2011 02/08/2011 us Kenzie Condon NP PATHOLOGY ORDERABLES Final R esult [facility] [address] [place] [address] documented in this encounter Visit Diagnoses Not on filedocumented in this encounter
--- OUTSIDE RECORDS SUMMARY | 2024-03-22 06:08 | XMS_ITS | Encounter Summary ---
Author Organization [facility] Address [address] [place] [address] Care Team Providers Care Pulping Machine Operator Name Role Phone Unavailable Primary Care Provider Unavailabl e Encounter Details Date Type Department Care Team (Late st Contact Info) Description 11/13/2014 Results Only [facility] [phone] Sophia Vela MD [address] [place] [address] [place] [address] Social History Tobacco Use Types Packs/Day Years [...] Priority Date/Time Associated Diagnosis Comments SURGICAL PATHOLOGY Routine 11/13/2014 11 :19 EDT documented in this encounter Results * SURGICAL PATHOLOGY (11/13/2014 11:19 EDT) Pathology Report: SURGICAL PATHOLOGY REPORT Reports generated via electronic interface contain original data; however they are lacking the format of the original report. Caution should be taken when reading/interpreting unformatted reports. Name: ? YAMEL HESS ? Accession #: ? [id number] ? : ? 1950 (Age: 64) ??F ? Collect Date: ? 11/13/2014 ? Location: ? [facility] ? Receive Date: ? 11/14/2014 ? Provider: SOPHIA VELA MD Copy to: ZENY BAUTISTA PRODUCTION WELDING SUPERVISOR ? Final Pathologic Diagnosis: SKIN OF LABIA, BIOPSY: - Lichen sclerosus. ?? Microscopic Description: There is compact orthohyperkeratosis. ??The epidermis varies in thickness but has a generally diminished rete ridge pattern. ??There is interface vacuolar change with exocytosis of lymphocytes into the lower portion of the epidermis. ??The keratinocytes have mild reactive nuclear changes but generally mature in an telephone sales representative fashion. ??The superficial dermis is edematous with areas of sclerosis. There is a band-like infiltrate of lymphomononuclear cells within the dermis. (Dr. Ford)/n Document reviewed and electronically signed by: ROLLY FORD MD Report ??Date: 11/17/2014 15:22 By the signature above, the attending physician certifies that he/she has personally conducted a gross and/or microscopic examination of the described specimens and rendered or confirmed the above diagnosis. Specimen(s) Received: Labial bx Clinical History: Long h/o lichen sclerosus Gross Description: ? Received in formalin labelled with proper patient identification (initials R, G) and labia is a punch biopsy of colvin-white hairbearing skin (0.2 cm in diameter and 0.2 cm in thickness). ??The specimen is submitted intact in 1. Ajit Phipps 11/14/2014 1:24 PM End of Report [facility] 11/13/2014 11:1 9 EDT 11/14/2014 11:19 EDT us Sophia Vela MD PATHOLOGY ORDERABLES Final Resu lt [facility] [address] [place] [address] documented in this encounter Visit Diagnoses Not on filedocumented in this encounter
--- OUTSIDE RECORDS SUMMARY | 2024-03-22 06:08 | XMS_ITS | Encounter Summary ---
Author Organization [facility] Address [address] [place] [address] Care Team Providers Care Gold Beater Name Role Phone Ed Bowens MD Primary Care Provider [phone] Encounter Details Date Type Department Care Team (Late st Contact Info) Description 12/27/2021 Lab Requisition [facility] Pathology & Laboratory Medicine - [address] [address] Outr Resulting Lab, Provider Social History Tobacco [...] Procedure Name Priority Date/Time Associated Diagnosis Comments LYME AB Routine 12/27/2021 9:30 EDT documented in this encounter Results * LYME AB (12/27/2021 9:30 EDT) Lyme Ab Negative Negative 12/28/2021 9:41 EDT [facility] Blood VENOUS BLOOD / Unknown 12/27/2021 9:30 EDT 12/27/2021 17:12 EDT us Provider Outr Resulting Lab IMMUNOLOGY AND SEROL OGY ORDERABLES Final Result [facility] [address] [place] [address] documented in this encounter Visit Diagnoses Not on filedocumented in this encounter Care Teams Gold Beater Relationship Specialty Start Date End Date Ed Bowens MD PCP - General 11/19/14 documented as of this encounter
--- OUTSIDE RECORDS SUMMARY | 2024-03-22 06:08 | XMS_ITS | Clinical Summary ---
Author Organization [facility] Address [facility] [place] [address] Care Team Providers Care Front End Engineer Name Role Phone Kathleen Taylor APRN Primary Care Provider [phone] Allergies Active Allergy Reactions Criticality Noted Date Comments Bee Venom Protein (Honey Bee) Anaphylaxis High 01/01 Iodine Nausea And Vomiting 01/01/2022 Latex, Natural Rubber Hives 01/01/2022 Medications Medication Sig Dispensed Refills Start Date End Date Status atorvastatin (Lipitor) 40 mg tablet Take 80 mg by mouth daily. 10/04/2022 Active clopidogreL (Plavix) 75 mg tablet Take 75 mg by mouth daily. 09/24/2022 Active metoprolol succinate XL (Toprol-XL) 100 mg ER 24 hr tablet Take 100 mg by mouth nightly. 09/24/2022 Active ferrous gluconate (Ferate) 324 mg (37.5 mg iron) tablet Take 324 mg by mouth daily. Active ascorbic acid, Vitamin C, (Vitamin C) 500 mg tablet Take 500 mg by mouth daily. Active calcium carbonate (CALCIUM 500 ORAL) Take by mouth. Pt unsure of exact dose Active Active Problems No known active problems Immunizations Name Administration Dates Next Due Covid-19 Bivalent (Moderna S pikevax) 6mo+ (Age based Dosage) (6880-4591) 12/14/2021 Covid-19 Monovalent (Moderna Spikevax) 12yrs+ (7360-3916) 12/26/2020,07/05/2020,06/07/2020 Social History Tobacco Use Types Packs/Day Years Used Date Smoking Tobacco: Never Smokeless Tobacco: Never Tobacco Cessation:Counseling Given: Not Answered Sex and Gender Information Value Date Recorded Sex Assigned at Not on file Gender Identity Not on file Sexual Orientation Not on file Last Filed Vital Signs Vital Sign Reading Time Taken Comments Blood Pressure 140/76 11/14/2022 2:23 PM EDT Pulse 88 11/14/2022 2:23 PM EDT Temperature 36.7 ??C (98.1 ??F) 11/14/2022 2 :23 PM EDT Respiratory Rate 16 01/02/2022 1:15 AM EDT Oxygen Saturation 97% 01/02/2022 1:3 0 AM EDT Inhaled Oxygen Concentration - - Weight 67 kg (147 lb 12.8 oz) 11/14/2022 2:23 PM EDT Height 156.2 cm (5' 1.5) 11/14/2022 2: 23 PM EDT patient reported Body Mass Index 27.47 11/14/2022 2:23 PM EDT Plan of Treatment Health Maintenance Due Date Last Done Comments CT Colonography 1950 Colonoscopy 1950 Colorectal Cancer Screening 1950 FIT DNA 1950 FIT 1950 Sigmoidoscopy (10 year) with FIT yearly 1950 Sigmoidoscopy 1950 Hepatitis C Screening 11/07/1967 Tetanus/Diphtheria/Pertussis Vaccines (1 - Tdap) 1968 Breast Cancer Share Decision Needed 1989 Breast Cancer screening 1989 Pneumoccocal Vaccine: 50+ (1 of 1 - PCV) 11/07/1999 Zoster vaccine (1 of 2) 11/07/1999 Advance Directive 2004 Bone Density Scan 2014 Covid-19 Vaccine (5 - 2023-2 5 season) 2023 12/14/2021, 12/26/2020, 07/05/2020, Additional history exists Influenza (Flu) vaccine (1 o f 1 - Influenza standard series) 10/29/2023 Care Teams Front End Engineer Relationship Specialty Start Date End Date Kathleen Taylor, JHOAN [facility] [place] [address] PCP - General Family Medicine 08/15/22
--- OUTSIDE RECORDS SUMMARY | 2024-03-22 06:08 | XMS_ITS | Encounter Summary ---
Author Organization [facility] Address [address] [place] [address] Care Team Providers Care Saturation Diver Name Role Phone Ed Bowens MD Primary Care Provider [phone] Encounter Details Date Type Department Care Team (Late st Contact Info) Description 12/28/2021 Lab Requisition [facility] Pathology & Laboratory Medicine - [address] [address] Outr Resulting Lab, Provider Social History Tobacco [...] Procedure Name Priority Date/Time Associated Diagnosis Comments ACUTE HEPATITIS PROFILE Routine 12/28/2021 6:25 EDT documented in this encounter Results * ACUTE HEPATITIS PROFILE (12/28/2021 6:25 EDT) Hep B Surface Ag Negative Negative 12/28/2021 20:49 EDT [facility] Hep C Antibody Negative Negative 12/28/2021 20:49 EDT [facility] Hepatitis A Antibody, IgM Negative Negative 12/28/2021 20:49 EDT [facility] Comment:The results of this assay can be falsely lowered due to the consumption of Biotin. Hepatitis B Core Ab, Total Negative Negative 12/28/2021 20:49 EDT [facility] Blood VENOUS BLOOD / Unknown 12/28/2021 6:25 EDT 12/28/2021 17:25 EDT us Provider Outr Resulting Lab CHEMISTRY & BLOOD GA S ORDERABLES Final Result Performing Organization Address City/State/[facility] Co de Phone Number [facility] [address] [place] [address] documented in this encounter Visit Diagnoses Not on filedocumented in this encounter Care Teams Saturation Diver Relationship Specialty Start Date End Date Ed Bowens MD PCP - General 11/19/14 documented as of this encounter
--- OUTSIDE RECORDS SUMMARY | 2024-03-22 06:08 | XMS_ITS | Encounter Summary ---
Author Organization [facility] Address [address] [place] [address] Care Team Providers Care Clinical Radiologist Name Role Phone Unavailable Primary Care Provider Unavailabl e Encounter Details Date Type Department Care Team (Late st Contact Info) Description 10/22/1999 Results Only [facility] [address] [place] [address] Ana Maria Kerr MD [address] [place] [phone] Social History Tobacco Use Types Packs/Day Years [...] Priority Date/Time Associated Diagnosis Comments CYTOPATHOLOGY Routine 10/22/1999 0:00 EDT documented in this encounter Results * CYTOPATHOLOGY (10/22/1999 0:00 EDT) Pathology Report: CYTOPATHOLOGY REPORT Reports generated via electronic interface contain original data; however they are lacking the format of the original report. Caution should be taken when reading/interpreti ng unformatted reports. Name: ? NISREENFRANKIE BANGURA ? Accession #: ? [id number] : ? 1950 (Age: 48) ??F ?Collect Date: ? 10/22/1999 Location: ? [facility] ? Receive Date: ? 10/26/1999 Provider: ?ANA MARIA KERR ROTARY SWAGING MACHINE OPERATOR Copy to: ? Specimen/Source: ?Conventional Pap Test, Cervix/Endocervix Last Menstrual Period: ? 09/28/99 Hormonal/Contracep tive Status: ? Intrauterine device ? SPECIMEN ADEQUACY ? Satisfactory for evaluation but limited by obscuring blood. Satisfactory for evaluation but limited by obscuring inflammation. GENERAL CATEGORIZATION ? Within Normal Limits ? Document reviewed and electronically signed by: ? Letitia Coelho, ??CT(ASCP) ? Report Date: ??10/27/1999 12:28 End of Report [facility] 10/22/1999 10/26/1999 us Ana Maria Kerr MD PATHOLOGY ORDERABLES Final Re sult [facility] [address] [place] [address] documented in this encounter Visit Diagnoses Not on filedocumented in this encounter
--- OUTSIDE RECORDS SUMMARY | 2024-03-22 06:08 | XMS_ITS | Referral Summary ---
Author Organization [facility] Address [address] [place] [address] Care Team Providers Care Clinical Nurse Reviewer Name Role Phone Ed Bowens MD Primary Care Provider [phone] Social History Tobacco Use Types Packs/Day Years Used Date Smoking Tobacco: Never Assessed Comments Unknown Sex and Gender Information Value Date Recorded Sex Assigned at Not on file Legal Sex Female 18:25 EST Gender Identity Not on file Sexual Orientation Not on file Plan of Treatment Not on file Procedures Procedure Name Priority Date/Time Associated Diagnosis Comments HEPATITIS C AB W REFLEX TO HCV RNA BY PCR Routine 08/05/2021 11:13 EDT from Last 3 Months or Most Recently Relevant to Health Maintenance Results * HEPATITIS C AB W REFLEX TO HCV RNA BY PCR (08/05/2021 11:13 EDT) Hep C Antibody Negative Negative 08/06/2021 9:52 EDT [facility] Blood VENOUS BLOOD / Unknown 08/05/2021 11:13 EDT 08/05/2021 21:04 EDT us Provider Outr Resulting Lab CHEMISTRY & BLOOD GA S ORDERABLES Final Result [facility] [address] [place] [address] from Last 3 Months or Most Recently Relevant to Health Maintenance Insurance [place]ID [place] MEDICARE [employer] Care Teams Clinical Nurse Reviewer Relationship Specialty Start Date End Date Ed Bowens MD PCP - General 11/19/14
--- OUTSIDE RECORDS SUMMARY | 2024-03-22 06:08 | XMS_ITS | Encounter Summary ---
Author Organization [facility] Address [address] [place] [address] Care Team Providers Care Shell Coremaker Name Role Phone Unavailable Primary Care Provider Unavailabl e Encounter Details Date Type Department Care Team (Latest Contact Info) Description 11/13/2014 9:44 EDT - 11/13/2014 23:59 EDT Hospital Encounter [address] [address] Unknown, Provider, MD Discharge Disposition: Home or Self Care Social History Tobacco Use Types Packs/Day Years Used Date Smoking Tobacco: Never Assessed Comments Unknown Sex and Gender Information Value Date Recorded Sex Assigned at Not on file Legal Sex Female 18:25 EST Gender Identity Not on file Sexual Orientation Not on file documented as of this encounter Discharge Disposition Disposition Code Departure Means Destination Home or Self [facility] documented in this encounter Plan of Treatment Not on file documented as of this encounter Visit Diagnoses Not on filedocumented in this encounter
--- OUTSIDE RECORDS SUMMARY | 2024-03-22 06:08 | XMS_ITS | Encounter Summary ---
Author Organization [facility] [place] [address] Care Team Providers Care Learning Strategist Name Role Phone Kathleen Taylor APRN Primary Care Provider [phone] Encounter Details Date Type Department Care Team (Latest Contact Info) Description 11/07/2022 Travel Social History Tobacco Use Types Packs/Day Years Used Date Smoking Tobacco: Never Assessed Sex and Gender Information Value Date Recorded Sex Assigned at Not on file Gender Identity Not on file Sexual Orientation Not on file documented as of this encounter Plan of Treatment Not on file documented as of this encounter Visit Diagnoses Not on filedocumented in this encounter Care Teams Learning Strategist Relationship Specialty Start Date End Date Kathleen Taylor APRN [facility] [place] [address] PCP - General Family Medicine 08/15/22 documented as of this encounter
--- OUTSIDE RECORDS SUMMARY | 2024-03-22 06:08 | XMS_ITS | Encounter Summary ---
Author Organization [facility] Address [address] [place] [address] Care Team Providers Care Bearing Inspector Name Role Phone Unavailable Primary Care Provider Unavailabl e Encounter Details Date Type Department Care Team (Late st Contact Info) Description 09/29/2003 Results Only [facility] [address] [place] [address] Edmond Pro MD [address] [place] [phone] Social History Tobacco Use Types Packs/Day Years [...] Date/Time Associated Diagnosis Comments SURGICAL PATHOLOGY Routine 09/29/2003 0:00 EDT documented in this encounter Results * SURGICAL PATHOLOGY (09/29/2003 0:00 EDT) Pathology Report: SURGICAL PATHOLOGY REPORT Reports generated via electronic interface contain original data; however they are lacking the format of the original report. Caution should be taken when reading/interpreting unformatted reports. Name: ? FRANKIE NIELSON ? Accession #: ? [id number] ? : ? 1950 (Age: 52) ??F ? Collect Date: ? 09/29/2003 ? Location: ? [facility] ? Receive Date: ? 09/29/2003 ? Provider: EDMOND PRO MD Copy to: CORDELL CHIN MD ? Final Pathologic Diagnosis: ? Axilla, left, mass, excision: - Necrotizing granulomatous inflammation. ??See comment. Comment: ? The Sandy stain shows numerous cocco-bacilli consistent with Cat-Scratch disease. Clinico-pathological correlation is required to confirm the diagnosis. Silver stain (GMS) and PAS-D for fungi, AFB stain for mycobacteria and Alcian yellow stain for bacteria were performed and were all negative. ??This case was reviewed at the intradepartmental consultation conference. ??This case was discussed with Dr Bc Rai in order to coordinate with Dr Pro. (Dr. Pitts)/[facility] Document reviewed and electronically signed by: [facility] Report ??Date: 10/06/2003 15:01 By the signature above, the attending physician certifies that he/she has personally conducted a gross and/or microscopic examination of the described specimens and rendered or confirmed the above diagnosis. Specimen(s) Received: ? Left axilla mass level I Clinical History: ? Mass left axilla tender Gross Description: ? Received in formalin labelled Jimena and left axilla mass are four irregular fragments of colvin-yellow focally hemorrhagic fibroadipose tissue which range in size from 0.6 x 0.3 x 0.3 cm to 2.2 x 1.5 x 0.8 cm. ??The largest portion is bisected and submitted entirely as (A1). ??The remaining smaller fragments are submitted intact as (A2). ??(Dr. Pitts)/[facility] End of Report [facility] 09/29/2003 09/29/2003 15: 16 EDT us Edmond Pro MD PATHOLOGY ORDERABLES Final Result Performing Organization Address City/State/[facility] Co de Phone Number [facility] [address] [place] [address] documented in this encounter Visit Diagnoses Not on filedocumented in this encounter
--- OUTSIDE RECORDS SUMMARY | 2024-03-22 06:08 | XMS_ITS | Clinical Summary ---
Author Organization [facility] Address [address] [place] [address] Care Team Providers Care Forklift Mechanic Name Role Phone Ed Bowens MD Primary Care Provider [phone] Social History Tobacco Use Types Packs/Day Years Used Date Smoking Tobacco: Never Assessed Comments Unknown Sex and Gender Information Value Date Recorded Sex Assigned at Not on file Legal Sex Female 18:25 EST Gender Identity Not on file Sexual Orientation Not on file Plan of Treatment Health Maintenance Due Date Last Done Comments Fall Risk Screening 2014 COVID-19 Vaccine ( season) 2023 RSV Immunization ( o r 60+ Years) (1 - 1-dose 75+ series) 2024 Hepatitis C Screen Completed 08/05/2021 Procedures Procedure Name Priority Date/Time Associated Diagnosis Comments HEPATITIS C AB W REFLEX TO HCV RNA BY PCR Routine 08/05/2021 11:13 EDT from Last 3 Months or Most Recently Relevant to Health Maintenance Results * HEPATITIS C AB W REFLEX TO HCV RNA BY PCR (08/05/2021 11:13 EDT) Hep C Antibody Negative Negative 08/06/2021 9:52 EDT [facility] Blood VENOUS BLOOD / Unknown 08/05/2021 11:13 EDT 08/05/2021 21:04 EDT us Provider Outr Resulting Lab CHEMISTRY & BLOOD GA S ORDERABLES Final Result [facility] [address] [place] [address] from Last 3 Months or Most Recently Relevant to Health Maintenance Insurance [place] MED[place]ARE [employer] Care Teams Forklift Mechanic Relationship Specialty Start Date End Date Ed Bowens MD PCP - General 11/19/14
--- OUTSIDE RECORDS SUMMARY | 2024-03-22 06:08 | XMS_ITS | Encounter Summary ---
Author Organization [facility] [place] [address] Care Team Providers Care Link Trainer Maintenance Man Name Role Phone Kathleen Taylor APRN Primary Care Provider [phone] Encounter Details Date Type Department Care Team (Latest Contact Info) Description 11/11/2022 Travel Social History Tobacco Use Types Packs/Day Years Used Date Smoking Tobacco: Never Assessed Sex and Gender Information Value Date Recorded Sex Assigned at Not on file Gender Identity Not on file Sexual Orientation Not on file documented as of this encounter Plan of Treatment Not on file documented as of this encounter Visit Diagnoses Not on filedocumented in this encounter Care Teams Link Trainer Maintenance Man Relationship Specialty Start Date End Date Kathleen Taylor APRN [facility] [place] [address] PCP - General Family Medicine 08/15/22 documented as of this encounter
--- OUTSIDE RECORDS SUMMARY | 2024-03-22 06:08 | XMS_ITS | Encounter Summary ---
Author Organization [facility] [place] [address] Care Team Providers Care Stone Gang Sawyer Name Role Phone Giovany Liang DNP Primary Care Provider Encounter Details Date Type Department Care Team (Late st Contact Info) Description 12/30/2021 Ancillary Procedure Radiology Library at [facility] [place] [phone] Giovany Liang DNP [facility] [address] [place], [place] [address] Social History Tobacco Use Types Packs/Day Years [...] Associated Diagnosis Comments FILM LIBRARY STORAGE ONLY MR HEAD Routine 12/30/2021 12:00 AM EDT documented in this encounter Results * Film Library- Storage Only MR Head (12/30/2021 12:00 AM EDT) Narrative BETTYE - 01/01/2022 7:05 PM EDT This exam is auto-finalizing. It's purpose is for storage only. Giovany Liang DNP IM FILM LIBRARY OR DERABLES [place]ares documented in this encounter Visit Diagnoses Not on filedocumented in this encounter Care Teams Stone Gang Sawyer Relationship Specialty Start Date End Date Giovany Liang DNP [facility] [place] [address] [place] [address] PCP - General Family Medicine 06/22/21 08/14/22 documented as of this encounter
--- OUTSIDE RECORDS SUMMARY | 2024-03-22 06:08 | XMS_ITS | Encounter Summary ---
Author Organization [facility] Address [address] [place] [address] Care Team Providers Care Mobile Architect Name Role Phone Unavailable Primary Care Provider Unavailabl e Encounter Details Date Type Department Care Team (Late st Contact Info) Description 2000 Results Only [facility] [address] [place] [address] Kenzie Condon, JOSEPH [address] [place] [address] Social History Tobacco Use Types [...] Priority Date/Time Associated Diagnosis Comments CYTOPATHOLOGY Routine 2000 0:00 EDT documented in this encounter Results * CYTOPATHOLOGY (2000 0:00 EDT) Pathology Report: CYTOPATHOLOGY REPORT Reports generated via electronic interface contain original data; however they are lacking the format of the original report. Caution should be taken when reading/interpreti ng unformatted reports. Name: ? NISREEN YAMEL ? Accession #: ? [id number] : ? 1950 (Age: 50) ??F ?Collect Date: ? 2000 Location: ? [facility] ? Receive Date: ? 11/09/2000 Provider: ?KENZIE CONDON CLOTHING SORTER Copy to: ? Specimen/Source: ?Conventional Pap Test, Cervix/Endocervix Last Menstrual Period: ? 10/29/00 ? SPECIMEN ADEQUACY ? Satisfactory for evaluation but limited by air drying artifact/cellular degeneration. GENERAL CATEGORIZATION ? Benign Cellular Changes DESCRIPTIVE DIAGNOSIS ? Reactive cellular changes associated with inflammation present (includes repair). ? Document reviewed and electronically signed by: ? Lisette Barrientos MD PhD ? Report Date: ??11/16/2000 09:52 End of Report [facility] 2000 11/09/2000 us Kenzie Condon NP PATHOLOGY ORDERABLES Final R esult [facility] [address] [place] [address] documented in this encounter Visit Diagnoses Not on filedocumented in this encounter
--- OUTSIDE RECORDS SUMMARY | 2024-03-22 06:08 | XMS_ITS | Encounter Summary ---
Author Organization [facility] Address [address] [place] [address] Care Team Providers Care Take Up Operator Name Role Phone Unavailable Primary Care Provider Unavailabl e Encounter Details Date Type Department Care Team (Late st Contact Info) Description 10/11/2004 Results Only [facility] [address] [place] [address] Kenzie Condon, JOSEPH [address] [place] [address] Social History Tobacco Use Types [...] Priority Date/Time Associated Diagnosis Comments CYTOPATHOLOGY Routine 10/11/2004 0:00 EDT documented in this encounter Results * CYTOPATHOLOGY (10/11/2004 0:00 EDT) Pathology Report: CYTOPATHOLOGY REPORT Reports generated via electronic interface contain original data; however they are lacking the format of the original report. Caution should be taken when reading/interpreti ng unformatted reports. Name: ? NISREEN YAMEL ? Accession #: ? [id number] : ? 1950 (Age: 53) ??F ?Collect Date: ? 10/11/2004 Location: ? [facility] ? Receive Date: ? 10/14/2004 Provider: ?KENZIE CONDNO PHILOSOPHY FACULTY Copy to: ? Specimen/Source: ?ThinPrep Pap Test, Cervix/Endocervix, processed on [employer] ThinPrep Imaging System, with manual evaluation Last Menstrual Period: ? 2002 Other: ? HPVA - HPV testing requested if ASC-US on the current ThinPrep Pap test. ? SPECIMEN ADEQUACY ? Satisfactory for Evaluation - transformation zone component present GENERAL CATEGORIZATION ? Negative for Intraepithelial Lesion or Malignancy INTERPRETATION ? Shift in chandrakant present suggestive of bacterial vaginosis. ? Document reviewed and electronically signed by: ? Sammy Owens, RADHA(ASCP) ? Report Date: ??10/25/2004 08:15 End of Report [facility] 10/11/2004 10/14/2004 us Kenzie Condon PHILOSOPHY FACULTY PATHOLOGY ORDERABLES Final R esult [facility] [address] [place] [address] documented in this encounter Visit Diagnoses Not on filedocumented in this encounter
[2024-03-22] MEDS: Lactated Ringers 1,000 ML 30 ML IV (06:59)
--- NOTE | 2024-03-22 07:10 | ANES.PREOP_ITS ---
General Info Date of Service Date Performed: 03/22/24 Height: 5 ft 1 in Weight: 66.2 kg Body Mass Index (BMI): 27.6 Surgical Procedure: Operation Date: 03/22/24 07:40 Proposed Procedure Side Surgeon p Shoulder Reverse Total Arthroplasty, Biceps Tenodesis Left Cosme Arana MD Meds Allergies and Home Medications Allergies Allergy/AdvReac Type Severity Reaction Status Date / Time latex Allergy Intermediate Skin Rash Verified 03/22/24 06:30 nickel Allergy Intermediate Other (See Verified 03/22/24 06:30 Comment) wool Allergy Intermediate rash Verified 03/22/24 06:30 venom-honey bee Allergy Anaphylaxis Verified 03/22/24 06:30 iodine AdvReac Intermediate Vomiting Verified 03/22/24 06:30 Home Medication ?Medication ?Instructions ?Recorded multivitamin (Daily Multiple 1 ea PO DAILY 11/13/14 tablet) ferrous gluconate 324 mg (38 mg 324 mg PO DAILY 06/15/21 iron) tablet ascorbic acid (vitamin C) 500 mg 500 mg PO DAILY 07/16/21 capsule calcium carbonate (Calcium 600) 600 mg PO DAILY 07/16/21 clopidogrel 75 mg tablet 75 mg PO DAILY #30 tabs 01/01/22 peg 400-propylene glycol (PF) 0.4 1 drp ophthalmic (eye) BID-QID PRN 05/09/23 %-0.3 % eye drops in a dropperette (Systane (PF)) clobetasol 0.05 % topical ointment 1 applic topical BID #60 grams 07/03/23 atorvastatin 80 mg tablet 40 mg PO QPM 07/05/23 metoprolol succinate 100 mg 100 mg PO HS 03/19/24 tablet,extended release 24 hr (Toprol XL) Current Visit Medications: Current Medications Generic Name Dose Route Start Last Admin Trade Name Freq PRN Reason Stop Dose Admin Ringer's Solution 1,000 mls @ 30 mls/hr 03/22/24 06:00 03/22/24 06:59 IV 03/22/24 23:59 30 mls/hr INFUSION MALCOLM Administration Cefazolin Sodium/Dextrose 2 gm in 50 mls @ 100 mls/hr 03/22/24 06:00 Ancef Duplex IVPB 03/22/24 23:59 PREOP MALCOLM Tranexamic Acid/Sodium Chloride 1,000 mg in 100 mls @ 600 mls/hr 03/22/24 06:00 IVPB 03/22/24 23:59 PREOP MALCOLM IV Miscellaneous Supplies 1 each 03/22/24 06:00 Iv Access IV 03/22/24 23:59 DIRECTED MALCOLM Sodium Chloride 0 ml 03/22/24 06:00 Normal Saline Flush 10 Ml Syr IV 03/22/24 23:59 PRN PRN Sodium Chloride 0 ml 03/22/24 06:00 Normal Saline 10 Ml Vial IJ 03/22/24 23:59 DIRECTED PRN Sterile Water 0 ml 03/22/24 06:00 Water,Injection,Sterile 10 Ml Vial IJ 03/22/24 23:59 DIRECTED PRN PFSH Active Problems Active Problems: Problem Status Onset Code Arthritis of left glenohumeral joint Acute M19.012 Tendinitis of long head of biceps brachii of left shoulder Acute M75.22 Left rotator cuff tear Acute M75.102 Transaminitis Acute R74.01 Arm pain, left Acute M79.602 Acute ischemic right ICA stroke Acute I63.231 Iliotibial band syndrome affecting left lower leg Acute M76.32 Degenerative arthritis of carpometacarpal joint of thumb Acute M18.9 Osteoarthritis of right knee Acute M17.11 Gallbladder disease Acute K82.9 Hypertension, essential, benign Acute I10 Dizziness Acute R42 Lichen sclerosus et atrophicus of the vulva Acute N90.4 CAO (dyspnea on exertion) Acute R06.00 Medical History Medical History Peptic reflux esophagitis History of Helicobacter pylori infection Hernia of abdominal wall Herpes Iron deficiency anemia Vitamin D deficiency Osteopenia Joint pain Surgical History Surgical History History of repair of right rotator cuff H/O esophagogastroduodenoscopy (~04/27/20) section Tobacco Smoking/Tobacco Use Status: Never Alcohol Alcohol Intake: former Substance Use Substance use: Never Substance use type: does not use Vital Signs and Lab Results Vital Signs Most Recent Vital Signs in EMR: Most Recent Vital Signs Temp Pulse Resp BP Pulse Ox 36.7 C 76 14 174/104 H 97 03/22/24 06:23 03/22/24 06:23 03/22/24 06:23 03/22/24 06:23 03/22/24 06:23 Lab Results Blood Type / Crossmatch: No Data to Display Complete Blood Count: No Data to Display Complete Metabolic Panel: No Data to Display Liver Function Panel: No Data to Display Coagulation Panel: No Data to Display Cardiac Panel: No Data to Display Arterial Blood Gas: No Data to Display Venous Blood Gas: No Data to Display Pancreas Panel: No Data to Display Thyroid Panel: No Data to Display Infectious Disease: No Data to Display Blood Cultures: No Data to Display Toxicology Panel: No Data to Display Imaging and Studies Imaging and Studies Study information below may be from another EMR and interpreted by another provider. Please see original notes in EMR for more complete details. Echocardiogram Summary: Admission Date: 12/27/21 : 1950 Age: 71 APPROVED REPORT EXAM: Comprehensive 2D, Doppler, and color-flow Echocardiogram Patient Location: In-Patient Room/Bed: TUT523 Laborer Ammunition Assembly: Michelle Gan RDCS (AE) Indications: CVS Echo Enhancing Agent Indication: Rule out Shunt Agent(s) / Amount(s) Used: Agitated Saline 30.0 cc Comments: Contrast study was performed with 3 IV injections of 10ccs of agitated normal saline, at rest, with cough and post valsalva maneuver. Negative contrast study for shunt flow. Other Information Study Quality: Adequate Conclusion Normal left ventricular wall thickness and chamber size. Estimated ejection fraction is 59%. Wall motion is normal Right ventricle is not well visualized Both atria are normal in size No intracardiac shunting is identified with injection of agitated saline There are no structural valvular abnormalities Mild mitral regurgitation Estimated right ventricular systolic pressure is 32 mmHg Borderline dilated ascending aorta measuring 3.35 cm Anesthesia Assessment and Plan Anesthesia History Personal History: No History of Anesthesia Complications Family History: No Family History of Anesthesia Complications Exercise Tolerance Exercise Tolerance: Metabolic Equivalents>4 Pertinent Negatives Pertinent Negatives: No Symptoms of GERD Cardiac & Pulmonary Exam Cardiac Exam: Normal S1/S2 Heart Sounds Pulmonary Exam: Clear Bilateral Breath Sounds Implantable Cardiac Device Does patient have a Pacemaker or an ICD?: No Airway Exam Known Difficult Airway: No Mallampati Class: 1 Mouth Opening: Normal (> 3cm) Thyromental Distance: Greater than 3 cm Neck Range of Motion: Full ROM Neck Circumference: Normal Teeth Condition: Normal Dentition ASA Classification ASA Score: ASA 3 Emergency Case?: No NPO Status NPO Status: NPO Clears >2 hours, Solids >8 hours Anesthesia Plan Resuscitation Status: Full Code Anesthesia Technique: General Anesthesia Airway Planned: Endotracheal Tube Pain Management: Surgeon and patient request nerve block Monitors Used: Standard Monitors
--- NOTE | 2024-03-22 07:14 | W.PM.DSUDISC ---
Date of service: 03/22/24 Discharge Plan Disposition Patient Disposition: Home Condition: Stable Discharge Details Attending Provider: Cosme Arana Primary Care Provider: Kathleen Taylor Home Meds and New Rx's Prescriptions: New naproxen 250 mg tablet 250 mg PO BID PRN (Reason: moderate pain and swelling) Qty: 30 0RF Rx Instructions: take with a meal tramadol 50 mg tablet 50 mg PO Q8H PRN (Reason: severe pain) Qty: 12 0RF Continued calcium carbonate [Calcium 600] 600 mg calcium (1,500 mg) tablet 600 mg PO DAILY ascorbic acid (vitamin C) 500 mg capsule 500 mg PO DAILY clobetasol 0.05 % ointment 1 applic topical BID Qty: 60 2RF atorvastatin 80 mg tablet 40 mg PO QPM multivitamin [Daily Multiple] 1 EACH tablet 1 ea PO DAILY ferrous gluconate 324 mg (38 mg iron) tablet 324 mg PO DAILY Systane (PF) 0.4-0.3 % dropperette 1 drp ophthalmic (eye) BID-QID PRN metoprolol succinate [Toprol XL] 100 mg tablet extended release 24 hr 100 mg PO HS clopidogrel 75 mg Tablet 75 mg PO DAILY Qty: 30 0RF Discharge Instructions Additional Instructions: Surgery: Left reverse total shoulder arthroplasty (constrained liner) with biceps tenodesis Activity: Do not lift anything heavier than a coffee. You should keep your arm at your side in a relatively neutral position at all times except for gentle range of motion exercises, physical therapy, and essential activities. You should use the sling whenever you are out of the house. At home it is best to remove the sling and rest the arm on a pillow at your side or support the operative side with your other hand. A physical therapy prescription will be sent electronically to start in about 3 weeks. Standard Reverse TSA Protocol. Prescriptions: Naproxen 250 mg take 1 every 12 hours with a meal as needed for moderate pain Tramadol 50 mg take 1 every 6-8 hours as needed for severe pain You may use [id number] Tylenol (acetaminophen) as needed for mild pain. These pain medications may be taken all at once or in different combinations as needed. Also, recommend Colace (docusate) as a stool softener as surgery and pain medicine cause constipation. You may try qhij-dzi-[id number] diphenhydramine (Benadryl) 25-50 mg nightly as a sleep aid Dressings: Leave dressing in place until follow-up. Keep clean and dry at all times. No showers please. Follow-up: 10-[address] Arana You may take off the leg compression stockings this evening at home. You may also leave them on a few days longer if you have a history of leg swelling or edema. Please call the office during business hours with any questions or concerns. Let us know right away if you develop any redness, drainage, fevers, chest pain, or trouble breathing. Do not drink alcohol or drive for at least 24 hours after anesthesia. Stand Alone Forms: Anesthesia Discharge Inst., Anes.Nerve Block Instructions, Reynaldo Montalvo (DSU) Referrals: Cosme Arana MD [ [facility] STAFF PHYSICIAN] - 04/02/24 10:45 am Discharge Orders Discharge Orders: Discharge Order (Routine); Ordered 03/22/24 Ordered By: Nany Ruth DS: Diagnosis Discharge Diagnosis (1) Arthritis of left glenohumeral joint: Status: Acute (2) Left rotator cuff tear: Status: Acute (3) Tendinitis of long head of biceps brachii of left shoulder: Status: Acute
--- NOTE | 2024-03-22 07:14 | W.PM.OP ---
Operative Note Operative Note PRE-OP DIAGNOSIS: Left: 1. Rotator cuff arthropathy 2. Long head of the biceps tendinopathy POST-OP DIAGNOSIS: same PROCEDURE: Left: 1. Reverse total shoulder arthroplasty, CPT # 12776 2. Open biceps tenodesis, CPT # 03059 The assistant property manager was medically required as this procedure involves retraction, protection of neurovascular structures, and manipulation of multiple instruments and implants at the same time, which cannot be done without a skilled assistant property manager. SURGEON: Cosme Arana WELT RANDER: Nany Ruth ANESTHESIA TYPE: Local By Surgeon, General LMA/ETT and Primary Nerve Block Refer to Anesthesia Record ESTIMATED BLOOD LOSS: 75 Patient was transported to: PACU Implants: [employer] modular glenoid system baseplate 24 mm +2 lat [employer] modular glenoid system central post 20mm [employer] modular glenoid system peripheral locking screws 24 mm inferior, 28 mm superior, 16 mm posterior, 16 mm anterior [employer] modular glenoid system glenosphere 36 +4 mm lateralized [employer] humeral stem 135 degrees size 6 [employer] suture cup size 36 posterior offset [employer] humeral insert size 36 +3 mm constrained Indications: Please see complete medical record for details. Findings: Significant long head biceps tenosynovitis, high-grade partial tearing and tendinopathy of subscapularis and supraspinatus. Partial tearing infraspinatus, but able to preserve majority of the posterior and posterior superior rotator cuff. Moderate glenohumeral chondromalacia. Procedure Description: In the operating room, general anesthesia was induced. The patient was positioned beachchair on the operating room table. All bony prominences were well-padded. Preoperative antibiotics were administered. The shoulder was prepped and draped in the usual sterile fashion for shoulder arthroplasty. The correct patient, procedure, and side of the procedure were all verified prior to incision. The deltopectoral approach was preinjected with 0.25% bupivacaine containing epinephrine and taken to the anterior shoulder. Care was taken to bluntly dissect the interval between the deltoid and pectoralis major muscles and to identify the cephalic vein within its fat stripe. The the vein was mobilized laterally. Subdeltoid space and conjoined tendon were freed of adhesions. The long head of the biceps tendon was identified just lateral to the lesser tuberosity. The uppermost margin of the pectoralis major tendon was released from the proximal humerus. The long head of the biceps tendon was tenodesed in situ using SutureTape in a mocqzs-[id number]-mcnyz fashion securing it superior margin the pectoralis major tendon. The biceps tendon was amputated and followed proximally to identify the rotator interval. A subscapularis tenotomy was done while bringing the arm into external rotation. The supraspinatus in particular was identified debrided given chronic degenerative tearing, but the infraspinatus was largely able to be preserved. Appropriate coagulation was achieved especially interiorly. The anatomic neck was cut using an oscillating saw with the humeral head bone brought back table in case there was a need for future bone grafting. The proximal humerus was delivered from the wound with adduction and external rotation. The proximal humeral protection plate was used to provisionally confirm suture cup and glenosphere size. Reamers were started appropriately posterior to the bicipital groove taking care to maintain in line approach with the humeral canal. Sequential reaming was done from size 5 up to size 6. Next, the broaches were sequentially used to open the proximal humerus starting with a size 5 and going up to size 6 and sunk to the appropriate depth while maintaining about 30 degrees retroversion, which matched patient anatomy. There was good metaphyseal fit and rotational control of the proximal humerus with this size. The posterior offset guide was used to ream for the suture cup. Attention was then turned to the glenoid and retractors were placed and a circumferential release performed using the long head of the biceps remnant to remove soft tissue about the glenoid rim. Care was taken inferiorly to work on bone only between 5 and 7:00 o'clock and bluntly elevate tissues inferiorly. The VIP guide was placed on the glenoid and used to confirm placement and trajectory of the central guidepin. The guidepin was inserted and advanced just through the far cortex ensuring adequate central fixation length. The glenoid was prepared according to direct marketing coordinator specifications for a standard baseplate and central post. The baseplate was impacted onto the glenoid surface. The locking guide was then used to drill and place appropriately lengthed inferior, superior, anterior, and posterior screws. The caka-dgd-xhozyubtt reamer was used to confirm adequate peripheral reaming. The glenosphere was applied with the marketing graphics specialist and then impacted to engage the Duff taper. It was then locked with appropriate countersinking of the setscrew. The glenosphere was inspected and found to have good fit, appropriate positioning, and no soft tissue or bony impingement. Attention was then turned back to the proximal humerus. The humeral trial cup was connected. Trialing was commenced with +3 mm liner. The shoulder was reduced and taken through range of motion. Trial components were built up to +3 mm liner to achieve good stability and appropriate tension on the deltoid and conjoined tension. The trial components were removed from the proximal humerus. The wound was copiously irrigated with normal saline. The the proximal humeral stem and suture cup were assembled and brought over the proximal humerus. A small amount of vancomycin powder was distributed in the proximal humerus. The humeral component and suture cup were impacted into place. The trial liner was added, and the shoulder was reduced and range of motion, stability, and tension confirmed to be appropriate. The final liner was then connected, constrained chosen due to deficient subscapularis, and range of motion, stability, and tension confirmed to be excellent. The shoulder was copiously irrigated with Betadine and normal saline. Vancomycin powder was distributed deeply about the shoulder and through subcutaneous tissues. The deltopectoral interval was loosely approximated with 2-0 Monocryl.. Subcutaneous tissue was irrigated then closed using 2-0 Monocryl in a buried interrupted fashion. Skin was closed using 3-0 Monocryl in a buried subcuticular fashion. Skin glue was applied to the incision. A silver impregnated bandage was placed over the incision. The extremity was placed into a shoulder immobilizer. The patient awoke from anesthesia without complication and was taken to the recovery room in stable condition. Date of Procedure: 03/22/24
[2024-03-22] MEDS: ceFAZolin 2 GM/50 ML BAG IVPB (07:56)
[2024-03-22] MEDS: TRANEXAMIC ACID/SOD. CHL. 1,000 MG/100 ML BAG 600 MG IVPB (08:00)
[2024-03-22] MEDS: Bupivacaine 0.25% Pres-Free W/EPI 30 ML VIAL (08:20)
--- NOTE | 2024-03-22 08:20 | W.ANESNERVE ---
Nerve Block Single Injection Procedure Date and Time Date Performed: 03/22/24 Procedure Start: 07:25 Location Where Procedure Performed Procedure Location: Day Surgery Unit Reason Performed: Postoperative Analgesia Requesting Provider: Cosme Arana Timeout Performed Timeout Performed: Yes Monitoring Used ECG, Blood Pressure, SpO2 and See EMR for corresponding vital signs Sterility Sterility: Hand Hygiene, Surgical Cap, Surgical Mask, Sterile Gloves and Chlorhexidine Sedation Given During Procedure Sedation Given (Indicate Dose Given): Versed IV Dose:: 1mg Patient Mental Status Patient Mental Status: Awake Nerve Block 1st Nerve Block: Laterality: Left Block Type: Supraclavicular Ultrasound Image Saved?: Yes Needle / Catheter Used: 100mm SonoPlex II Local Anesthetic Bolus (Indicate Dose Given): Lidocaine used for local infiltration of skin, Injected in 3-5ml increments after negative blood aspiration, Bupivacaine 0.5% Dose:: 10ml and Exparel Dose:: 10ml Additives (Indicate Dose Given): None Ultrasound: Sterile probe cover and gel used Nerve Stimulator: Supplement to Ultrasound use and No twitch or parasthesia noted < 0.5 mA Paresthesia: None Procedure Tolerated: No Complications and Patient tolerated well Procedure Outcome: Successful Performed By: Xander Stubbs
--- NOTE | 2024-03-22 11:01 | DI.RAD_ITS ---
Exam(s) XR SHOULDER LT COMPLETE 2+V EXAM: XR SHOULDER LT COMPLETE 2+V CLINICAL HISTORY: Post-op. TECHNIQUE: 2D digital imaging was performed. COMPARISON: CR XR SHOULDER LT COMPLETE 2+V from 06/13/2023 FINDINGS: Three postop views of the left shoulder Position alignment of the components of the newly placed reverse prosthesis satisfactory. No fractur e or loosening evident. IMPRESSION: Satisfactory postop appearance of reverse prosthesis. DATA REPOSITORY: RADIATION DOSE DELIVERED:
[2024-03-22] MEDS: ceFAZolin 1 GM/50 ML BAG IVPB (11:11)
--- NOTE | 2024-03-22 12:20 | W.ANESPOSTOP ---
Postoperative Evaluation Date, Time and Location Date Performed: 03/22/24 Time Performed: 12:10 Patient Location: Day Surgery Unit Vital Signs Most Recent Imported Vital Signs: Most Recent Vital Signs Temp Pulse Resp BP Pulse Ox 36 C L 78 16 170/71 H 99 03/22/24 11:25 03/22/24 12:07 03/22/24 12:07 03/22/24 12:07 03/22/24 12:07 Pain Score Most Recent Pain Score: Most Recent Pain Score Pain Level 1 03/22/24 12:07 Assessment Mental Status: Awake (Alert & Oriented to Patient Baseline) Airway and Respiratory Function: Patent airway with normal (patient baseline) respiratory exam Cardiovascular Function: Hemodynamically Stable Hydration Status: Adequately Hydrated Nausea & Vomiting: No Nausea or Vomiting Pain: Pain is tolerable per patient Peripheral Nerve Block: Regional nerve block not resolved at time of post operative discharge
[2024-03-22] MEDS: Lactobacillus Acidophilus CAP 1 CAP PO (12:22)
== END 2024-03-22 13:59 | disposition home or self-care (01) ==
LOC: SUR 06:07
PROVIDERS: PCP Nurse Practitioner Family; Visit Provider Student in an Organized Health Care Education/Training Program
PROC: (CPT 23472; principal; 2024-03-22 07:30)
DX: M75.102 Unspecified rotator cuff tear or rupture of left shoulder, not specified as traumatic; M75.22 Bicipital tendinitis, left shoulder; M94.212 Chondromalacia, left shoulder; G89.18 Other acute postprocedural pain
CPT/HCPCS: 23472; 23430; 64415; 73030; J0665; J0666; J0690; J1100; J2250; J2371; J2405; J2704; J3370

== ENCOUNTER 2024-04-02 15:00 | Outpatient (CLI) | payer MEDICARE, SELFPAY ==
--- NOTE | 2024-04-02 10:49 | DI.RAD_ITS ---
Exam(s) XR SHOULDER LT COMPLETE 2+V EXAM: XR SHOULDER LT COMPLETE 2+V CLINICAL HISTORY: F/U LEFT RTSA. TECHNIQUE: 2D digital imaging was performed. Two images were obtained. Grashey and Y views were obt ained. COMPARISON: CR XR SHOULDER LT COMPLETE 2+V from 03/22/2024 FINDINGS: BONES: There are stable post operative changes of a left total reverse shoulder replacement present. No fracture or dislocation. JOINTS: The orthopedic hardware is in good position. No evidence of hardware loosening. SOFT TISSUE: Normal. IMPRESSION: Stable left reversed total shoulder arthroplasty. DATA REPOSITORY: RADIATION DOSE DELIVERED:
== END 2024-04-02 15:01 | disposition home or self-care (01) ==
LOC: DIORS 15:00
PROVIDERS: PCP Nurse Practitioner Family; Referring Provider Nurse Practitioner Family; Visit Provider Student in an Organized Health Care Education/Training Program
DX: Z47.1 Aftercare following joint replacement surgery (principal); Z96.612 Presence of left artificial shoulder joint
CPT/HCPCS: 99024; 73030

== ENCOUNTER → 2024-05-28 13:21 | Outpatient (BNVA) | payer MEDICARE, SELFPAY | PROVIDERS: PCP Nurse Practitioner Family; Referring Provider Nurse Practitioner Family; Visit Provider Student in an Organized Health Care Education/Training Program | DX: Z47.89 Encounter for other orthopedic aftercare (principal); M19.012 Primary osteoarthritis, left shoulder | CPT/HCPCS: 99024 ==

== ENCOUNTER 2024-07-30 08:49 | Outpatient (CLI) | payer MEDICARE, SELFPAY ==
--- NOTE | 2024-07-30 08:45 | DI.RAD_ITS ---
Exam(s) XR SHOULDER LT COMPLETE 2+V EXAM: XR SHOULDER LT COMPLETE 2+V CLINICAL HISTORY: F/U LEFT RTSA. TECHNIQUE: 2D digital imaging was performed. COMPARISON: CR XR SHOULDER LT COMPLETE 2+V from 04/02/2024 FINDINGS: Two views There is stable position alignment of the components of the reverse prosthesis. No fracture or loose talya evident. IMPRESSION: Stable satisfactory appearance. DATA REPOSITORY: RADIATION DOSE DELIVERED:
== END 2024-07-30 08:50 | disposition home or self-care (01) ==
LOC: DIORS 08:49
PROVIDERS: PCP Nurse Practitioner Family; Referring Provider Nurse Practitioner Family; Visit Provider Student in an Organized Health Care Education/Training Program
DX: Z47.89 Encounter for other orthopedic aftercare (principal); M19.012 Primary osteoarthritis, left shoulder; R20.2 Paresthesia of skin
CPT/HCPCS: 99213; 73030

== ENCOUNTER → 2024-08-22 13:56 | Outpatient (BNVA) | payer MEDICARE, SELFPAY | PROVIDERS: PCP Nurse Practitioner Family; Referring Provider Nurse Practitioner Family; Visit Provider Physician Assistant | DX: M17.11 Unilateral primary osteoarthritis, right knee (principal) | CPT/HCPCS: 99214 ==

== ENCOUNTER 2024-09-24 03:52 | Outpatient (CLI) | payer MEDICARE, SELFPAY ==
--- NOTE | 2024-09-24 | DI.MAMMO_ITS ---
Exam(s) MAMMO SCREENING EXAM: MAMMO SCREENING CLINICAL HISTORY: SCREENING, Z12.39. TECHNIQUE: Bilateral full field digital CC and MLO mammographic images were obtained with 3D tomosynthesis and utilizing computer aided detection (CAD). COMPARISON: Prior mammograms were reviewed. FINDINGS: There has been no significant change in the appearance and distribution of the fibroglandular tissue. There are no new spiculated masses nor malignant appearing microcalcification groups. There is no significant architectural distortion nor skin thickening-retraction. IMPRESSION: No radiographic evidence of malignancy. BI-RADS Category 1 - Negative Breast Density - Category B - There are scattered areas of fibroglandular density. Breast density Category C or D implies that the patient has dense breast tissue. Dense breast tissue can make it harder to find cancer on a mammogram. Dense breast tissue is also associated with an increased risk of breast cancer. This information about the result of the mammogram report was provided to the patient to raise their awareness. Use this report when you speak with the patient about their risks for breast cancer, which includes their family history. At that time, you may recommend additional screening tests (Ultrasound or MRI) as these tests may add significant information. A negative radiographic report should not delay biopsy if a dominant or clinically suspicious mass is present. Up to ten percent of cancers are not identified on mammography. A negative report may reinforce clinical impression. Adenosis and dense breasts may obscure an underlying neoplasm. False positive reports average 6 to 10%. Patient will receive a letter notifying them of these results.
== END 2024-09-24 04:12 ==
PROVIDERS: PCP Nurse Practitioner Family; Visit Provider Student in an Organized Health Care Education/Training Program
DX: Z12.31 Encounter for screening mammogram for malignant neoplasm of breast (principal); R92.323 Mammographic fibroglandular density, bilateral breasts
CPT/HCPCS: 77063; 77067

== ENCOUNTER 2024-09-30 11:36 | Outpatient (CLI) | payer MEDICARE, SELFPAY ==
--- NOTE | 2024-09-30 11:54 | DI.RAD_ITS ---
Exam(s) XR KNEE RT 1V XR STANDING ALIGNMENT EXAM: XR STANDING ALIGNMENT and XR knee RT 1 V CLINICAL HISTORY: TKR Planning. TECHNIQUE: 2D digital imaging was performed. Five images were obtained. COMPARISON: CR RIGHT TIB/FIB from 01/23/2009 CR KNEES BILAT AP STANDING LATS from 08/23/2017 CR XR KNEE RT 3V AP,LAT,MOSES from 07/16/2021 FINDINGS: BONES: The hips are well maintained. In the left knee, there is mild spurring laterally in the femoral tibial joint. There is moderate narrowing of the medial femoral tibial joint. In the right knee, there is marked narrowing of the medial femoral tibial joint. There is also marked narrowing of the patellofemoral joint. Osteophytes are seen in all 3 joint compartments. There is a small joint effusion. The ankles are well maintained.There is no significant leg length discrepancy. SOFT TISSUE: Normal. IMPRESSION: 1. Marked osteoarthritis of the right knee. 2. Mild osteoarthritis of the left knee. DATA REPOSITORY: RADIATION DOSE DELIVERED:
== END 2024-09-30 11:37 | disposition home or self-care (01) ==
LOC: DIORS 11:36
PROVIDERS: PCP Nurse Practitioner Family; Referring Provider Nurse Practitioner Family; Visit Provider Student in an Organized Health Care Education/Training Program
DX: M17.11 Unilateral primary osteoarthritis, right knee (principal)
CPT/HCPCS: 99214; 73560; 77073

== ENCOUNTER 2024-10-29 15:57 | Outpatient (CLI) | payer MEDICARE, SELFPAY ==
[2024-10-29 15:43] LABS: HCT 37.4 % (36.0-46.0); HGB 12.1 g/dL (11.2-15.7); MCH 28.0 pg (27.0-33.0); MCHC 32.4 % (32.0-36.0); MCV 87 fL (80-95); MPV 10.3 fL (8.0-11.0); Platelet Count 202 10^3/uL (130-400); RBC 4.32 10^6/uL (3.93-5.22); RDW 14.0 % (11.7-14.6); RDW-SD 44.5 fL; WBC 5.32 10^3/uL (4.4-10.8)
[2024-10-29 16:23] LABS: Anion Gap 8.3 mmol/L (3-11); BUN 21 mg/dL (7-18); CO2 27.7 mmol/L (21.0-32.0); Calcium 9.3 mg/dL (8.5-10.1); Chloride 105 mmol/L (98-107); Estimated GFR 52.73 (mL/min/1.73m2); Glucose 146 mg/dL (74-106); Potassium 3.7 mmol/L (3.5-5.1); Sodium 141 mmol/L (136-145)
== END 2024-10-29 15:58 | disposition home or self-care (01) ==
LOC: LBO 15:57
PROVIDERS: PCP Nurse Practitioner Family; Visit Provider Student in an Organized Health Care Education/Training Program
DX: M17.11 Unilateral primary osteoarthritis, right knee (principal); Z01.818 Encounter for other preprocedural examination
CPT/HCPCS: 36415; 80048; 85027

== ENCOUNTER 2024-11-05 10:09 | Day surgery (SDC) | payer MEDICARE, SELFPAY ==
[2024-11-05] VITALS (20 sets, daily range): BP systolic 113–199; BP diastolic 56–101; PULSE 55–76; RESP 9–18; TEMP 36–36.5; O2SAT 95–100; BMI 27.6
--- NOTE | 2024-11-05 07:25 | PDOC.DSDIS_ITS ---
Date of service: 11/05/24 Discharge Plan Disposition Patient Disposition: Home Condition: Good Discharge Details Reason For Visit: Right knee DJD Attending Provider: Israel Arguello Primary Care Provider: Kathleen Taylor Home Meds and New Rx's Prescriptions: New celecoxib [Celebrex] 200 mg capsule 200 mg PO BID PRNQty: 60 0RF Rx Instructions: Take one tablet twice daily for pain and inflammation acetaminophen 500 mg tablet 1,000 mg PO Q8H PRN Qty: 90 0RF Rx Instructions: Take two tablets up to every 8 hours as needed for pain pantoprazole 40 mg tablet,delayed release (DR/EC) 40 mg PO DAILY Qty: 14 0RF Rx Instructions: Take one tablet once daily dexamethasone 4 mg tablet 4 mg PO DAILY Qty: 2 0RF Rx Instructions: Take one tablet once daily for two days docusate sodium [Colace] 100 mg capsule 100 mg PO BID Qty: 28 0RF gabapentin 300 mg capsule 300 mg PO QHS Qty: 14 0RF Rx Instructions: Take one tablet at bedtime oxycodone 5 mg tablet 5 mg PO Q4H PRNQty: 18 0RF Rx Instructions: Take one tablet up to every 4 hours as needed for severe postoperative pain Continued calcium carbonate [Calcium 600] 600 mg calcium (1,500 mg) tablet 600 mg PO DAILY ascorbic acid (vitamin C) 500 mg capsule 500 mg PO DAILY clobetasol 0.05 % ointment 1 applic topical BID Qty: 60 2RF atorvastatin 80 mg tablet 40 mg PO QPM multivitamin [Daily Multiple] 1 EACH tablet 1 ea PO DAILY ferrous gluconate 324 mg (38 mg iron) tablet 324 mg PO DAILY Systane (PF) 0.4-0.3 % dropperette 1 drp ophthalmic (eye) BID-QID PRN metoprolol succinate [Toprol XL] 100 mg tablet extended release 24 hr 100 mg PO HS clopidogrel 75 mg Tablet 75 mg PO DAILY Qty: 30 0RF Discontinued naproxen 250 mg tablet 250 mg PO BID PRN (Reason: moderate pain and swelling) Qty: 30 0RF Rx Instructions: take with a meal Discharge Instructions Additional Instructions: Total Knee Discharge Instructions Activity: The most important activity is to walk and to work on gentle motion (both flexion and extension). You should try to take short walks a few times a day. It is important that when resting you work on keeping the knee straight. Avoid putting a pillow behind the knee as this will encourage flexion. Work on range of motion exercises as provided by Physical Therapy. - Start outpatient physical therapy within 2 weeks. - You should wear the CAROL hose on both legs for 2 weeks. You may remove these at night. You may also use any compression sock in place of the CAROL hose. - Utilize [employer] to review exercises, see videos on exercises and obtain basic information pertaining to your surgery and your recovery. Dressing: Remove the [place] wrap by 2 days after your surgery and put on the CAROL stocking given to you from the hospital. Keep the surgical dressing (underneath the NILTON wrap) in place for at least one week. After the first week it may be removed and replaced with light gauze and tape or nothing. The wound and dressing may get wet after 3 days but avoid soaking the dressing or otherwise it will need to be changed. Many people prefer covering the dressing with cling wrap (saran wrap) to minimize it from getting soaked. If it gets wet, just pat dry. If it starts to peel off then it will need to be changed. Medications: - You should take Tylenol and anti-inflammatory Celebrex as your primary pain control medications. If the Celebrex is too expensive or not covered, please call the office for another alternative (Advil/Ibuprofen or Naproxen/Aleve) - You have been prescribed a stronger pain medication Oxycodone for breakthrough pain, take as needed as prescribed. - You have also been prescribed a stomach acid reduction agent Pantoprozole to help reduce stomach acid and reflux. - You have been prescribed Gabapentin to take at night for restlessness and nerve pain. - You will resume taking your baseline anticoagulation - Clopidogrel for DVT prevention unless instructed otherwise. - You have also been prescribed Decadron to take to control post-operative n ausea and pain. You will start this tomorrow. - If you have constipation you should take Colace (which has been prescribed) or Miralax (which is available [id number]). It takes most people 3-4 days to have a bowel movement. Follow-up: 2 weeks If you have any acute concerns or questions, please do not hesitate to contact the office at [phone]. You may contact Dr. Arguello with any questions after hours through the hospital at [phone] or on his cell phone at [phone]. Stand Alone Forms: Anesthesia Discharge Inst., Brandis.Nerve Block Instructions, Reynaldo Montalvo (DSU) Equipment/Supplies: Walker Activity:: Elevate Remove Dressings/Wound Care:: Do Not Remove Shower/Bathe:: Cover Diet:: As Tolerated Discharge Orders Discharge Orders: Discharge Order (Routine); Ordered 11/05/24 Ordered By: Tere Rodgers DS: Diagnosis Discharge Diagnosis (1) Osteoarthritis of right knee: Status: Acute
[2024-11-05] MEDS: Acetaminophen 500 MG TAB 1000 MG PO (10:38)
[2024-11-05] MEDS: Gabapentin 300 MG CAP PO (10:38)
[2024-11-05] MEDS: Celecoxib 200 MG CAP 400 MG PO (10:38)
--- NOTE | 2024-11-05 10:44 | W.PREOPHP ---
Assessment and Plan Assessment and plan (1) Osteoarthritis of right knee: Status: Resolved Assessment and plan: Yamel is a 73-year-old with known severe arthritis about the right knee. She has failed nonoperative options and is here today for right knee replacement as previously discussed at the most recent office visit. She saw her primary care practitioner just over a month ago without any acute concerns or issues. She denies any changes to her health. She has no chest pain or shortness of breath. Once again, I reviewed the details of knee replacement surgery. I discussed potential risk to include bleeding, infection, pain, stiffness, weakness, damage to nerves and vessels, damage to muscle and tendons, blood clot, need for repeat procedures. We discussed rehabilitation and expectations. After reviewing all this once again she agrees to proceed with knee replacement today. She does have these resolving flea bites over the medial aspect of the knee. There are no signs of infection and nothing is open. However, is very clear with Yamel that she has to be very careful in the postoperative period to make sure that she protects her skin and her operative leg from any type injury which could promote infection. History of Present Illness History of Present Illness Chief Complaint: Right Knee Pain Narrative: Yamel is a 73-year-old female who has known arthritis about the right knee. She has failed nonoperative options and is here today for right knee replacement. Please see the previous office note for complete detailed history. She denies any acute medical changes. No sick contacts. She recently had left reverse total shoulder arthroplasty earlier in the year and is doing well from that. She has had a few fleabites over the medial aspect of the operative side and these are healing uneventfully. She has been busy moving and unpacking which has led to some various bruises about her body although no specific injury. Review of Systems All systems reviewed & are unremarkable except as noted in HPI and below PFSH All Active Problems History of total right knee replacement (Acute 11/05/24) Arthritis of left glenohumeral joint (Acute) s/p Left reverse total shoulder arthroplasty (constrained liner) with biceps tenodesis 03/22/24 Tendinitis of long head of biceps brachii of left shoulder (Acute) Left rotator cuff tear (Acute) Transaminitis (Acute) Arm pain, left (Acute) Acute ischemic right ICA stroke (Acute) Iliotibial band syndrome affecting left lower leg (Acute) Degenerative arthritis of carpometacarpal joint of thumb (Acute) left Gallbladder disease (Acute) Hypertension, essential, benign (Acute) Dizziness (Acute) Lichen sclerosus et atrophicus of the vulva (Acute) CAO (dyspnea on exertion) (Acute) Medical History Peptic reflux esophagitis History of Helicobacter pylori infection Hernia of abdominal wall Herpes Iron deficiency anemia Vitamin D deficiency Osteopenia Joint pain Surgical History History of repair of right rotator cuff H/O esophagogastroduodenoscopy (~04/27/20) section Family History Mother Heart disease Father Personal history of malignant neoplasm prostate Social History Smoking/Tobacco Use Status: Never Smoking risk assessment performed?: Yes Alcohol Intake: former Drug use: Never Substance use type: does not use Housing: house Do you feel safe at home: Yes (lives with son) Do you feel safe in your relationship?: Yes Meds Allergies and Home Medications Allergies Allergy/AdvReac Type Severity Reaction Status Date / Time latex Allergy Intermediate Skin Rash Verified 11/04/24 10:29 nickel Allergy Intermediate Other (See Verified 11/04/24 10:29 Comment) wool Allergy Intermediate rash Verified 11/05/24 10:28 venom-honey bee Allergy Anaphylaxis Verified 11/04/24 10:29 iodine AdvReac Intermediate Vomiting Verified 11/04/24 10:29 Home Medications ?Medication ?Instructions ?Recorded ?Confirmed ?Type multivitamin (Daily Multiple 1 ea PO DAILY 11/13/14 11/05/24 History tablet) ferrous gluconate 324 mg (38 mg 324 mg PO DAILY 06/15/21 11/05/24 History iron) tablet ascorbic acid (vitamin C) 500 mg 500 mg PO DAILY 07/16/21 11/05/24 History capsule calcium carbonate (Calcium 600) 600 mg PO DAILY 07/16/21 11/05/24 History clopidogrel 75 mg tablet 75 mg PO DAILY #30 tabs 01/01/22 11/04/24 Rx peg 400-propylene glycol (PF) 0.4 1 drp ophthalmic (eye) BID-QID PRN 05/09/23 11/05/24 History %-0.3 % eye drops in a dropperette (Systane (PF)) clobetasol 0.05 % topical ointment 1 applic topical BID #60 grams 07/03/23 11/05/24 Rx atorvastatin 80 mg tablet 40 mg PO QPM 07/05/23 11/05/24 History metoprolol succinate 100 mg 100 mg PO HS 03/19/24 11/05/24 History tablet,extended release 24 hr (Toprol XL) acetaminophen 500 mg tablet 1,000 mg (2 x 500 mg) PO Q8H PRN 11/05/24 Rx pain #90 tabs celecoxib 200 mg capsule (Celebrex) 200 mg PO BID PRN #60 caps 11/05/24 Rx dexamethasone 4 mg tablet 4 mg PO DAILY #2 tabs 11/05/24 Rx docusate sodium 100 mg capsule 100 mg PO BID #28 caps 11/05/24 Rx (Colace) ergocalciferol (vitamin D2) 400 250 mcg PO DAILY 11/05/24 11/05/24 History unit capsule gabapentin 300 mg capsule 300 mg PO QHS #14 caps 11/05/24 Rx oxycodone 5 mg tablet 5 mg PO Q4H PRN #18 tabs 11/05/24 Rx pantoprazole 40 mg tablet,delayed 40 mg PO DAILY #14 tabs 11/05/24 Rx release Exam Const General: cooperative, healthy appearing, comfortable and no acute distress Resp Effort & Inspection: normal respiratory effort Auscultation: clear to auscultation bilaterally Cardio Rate: regular rate Rhythm: regular rhythm Extrem Other: The right knee is inspected which does show small punctate areas of eschar from healing bites to the medial aspect the knee. There is no surrounding erythema. There is no streaking.
[2024-11-05] MEDS: Lactated Ringers 1,000 ML 80 ML IV (10:52)
[2024-11-05] MEDS: ceFAZolin 2 GM/50 ML BAG IVPB (12:20)
[2024-11-05] MEDS: TRANEXAMIC ACID/SOD. CHL. 1,000 MG/100 ML BAG 600 MG IVPB (12:24)
--- NOTE | 2024-11-05 12:33 | W.ANESPRE ---
General Info Date of Service Date Performed: 11/05/24 Height: 5 ft 1 in Weight: 66.3 kg Body Mass Index (BMI): 27.6 Surgical Procedure: Operation Date: 11/05/24 12:40 Proposed Procedure Side Surgeon p Knee Total Arthroplasty Right Israel Arguello MD Actual Procedure Side Surgeon p Knee Total Arthroplasty Right Israel Arugello MD Pre-Op Diagnosis Post-Op Diagnosis Osteoarthritis of right knee Meds Allergies and Home Medications Allergies Allergy/AdvReac Type Severity Reaction Status Date / Time latex Allergy Intermediate Skin Rash Verified 11/04/24 10:29 nickel Allergy Intermediate Other (See Verified 11/04/24 10:29 Comment) wool Allergy Intermediate rash Verified 11/05/24 10:28 venom-honey bee Allergy Anaphylaxis Verified 11/04/24 10:29 iodine AdvReac Intermediate Vomiting Verified 11/04/24 10:29 Home Medication ?Medication ?Instructions ?Recorded multivitamin (Daily Multiple 1 ea PO DAILY 11/13/14 tablet) ferrous gluconate 324 mg (38 mg 324 mg PO DAILY 06/15/21 iron) tablet ascorbic acid (vitamin C) 500 mg 500 mg PO DAILY 07/16/21 capsule calcium carbonate (Calcium 600) 600 mg PO DAILY 07/16/21 clopidogrel 75 mg tablet 75 mg PO DAILY #30 tabs 01/01/22 peg 400-propylene glycol (PF) 0.4 1 drp ophthalmic (eye) BID-QID PRN 05/09/23 %-0.3 % eye drops in a dropperette (Systane (PF)) clobetasol 0.05 % topical ointment 1 applic topical BID #60 grams 07/03/23 atorvastatin 80 mg tablet 40 mg PO QPM 07/05/23 metoprolol succinate 100 mg 100 mg PO HS 03/19/24 tablet,extended release 24 hr (Toprol XL) acetaminophen 500 mg tablet 1,000 mg (2 x 500 mg) PO Q8H PRN 11/05/24 pain #90 tabs celecoxib 200 mg capsule (Celebrex) 200 mg PO BID PRN #60 caps 11/05/24 dexamethasone 4 mg tablet 4 mg PO DAILY #2 tabs 11/05/24 docusate sodium 100 mg capsule 100 mg PO BID #28 caps 11/05/24 (Colace) ergocalciferol (vitamin D2) 400 250 mcg PO DAILY 11/05/24 unit capsule gabapentin 300 mg capsule 300 mg PO QHS #14 caps 11/05/24 oxycodone 5 mg tablet 5 mg PO Q4H PRN #18 tabs 11/05/24 pantoprazole 40 mg tablet,delayed 40 mg PO DAILY #14 tabs 11/05/24 release Current Visit Medications: Current Medications Generic Name Dose Route Start Last Admin Trade Name Freq PRN Reason Stop Dose Admin Acetaminophen 1,000 mg 11/05/24 06:00 11/05/24 10:38 Acetaminophen 500 Mg Tab PO 11/05/24 23:59 1,000 mg PREOP MALCOLM Administration Celecoxib 400 mg 11/05/24 06:00 11/05/24 10:38 Celecoxib 200 Mg Cap PO 11/05/24 23:59 400 mg PREOP MALCOLM Administration Gabapentin 300 mg 11/05/24 06:00 11/05/24 10:38 Gabapentin 300 Mg Cap PO 11/05/24 23:59 300 mg PREOP MALCOLM Administration Hydromorphone HCl 0.5 mg 11/05/24 07:17 Hydromorphone 2 Mg/Ml Syr IVP 12/05/24 07:16 Q2H PRN PRN Ringer's Solution 1,000 mls @ 80 mls/hr 11/05/24 06:00 11/05/24 10:52 IV 11/05/24 23:59 80 mls/hr INFUSION MALCOLM Administration Cefazolin Sodium/Dextrose 2 gm in 50 mls @ 100 mls/hr 11/05/24 06:00 Ancef Duplex IVPB 11/05/24 23:59 PREOP MALCOLM Tranexamic Acid/Sodium Chloride 1,000 mg in 100 mls @ 600 mls/hr 11/05/24 06:00 IVPB 11/05/24 23:59 PREOP MALCOLM Cefazolin Sodium/Dextrose 1 gm in 50 mls @ 100 mls/hr 11/05/24 18:00 Ancef Duplex IVPB 11/06/24 10:29 Q8H MALCOLM IV Miscellaneous Supplies 1 each 11/05/24 06:00 Iv Access IV 11/05/24 23:59 DIRECTED MALCOLM Oxycodone HCl 0 mg 11/05/24 07:17 Oxycodone 5 Mg Tab PO 12/05/24 07:16 Q3H PRN PRN Pain Sodium Chloride 0 ml 11/05/24 06:00 Normal Saline Flush 10 Ml Syr IV 11/05/24 23:59 PRN PRN Sodium Chloride 0 ml 11/05/24 06:00 Normal Saline 10 Ml Vial IJ 11/05/24 23:59 DIRECTED PRN Sterile Water 0 ml 11/05/24 06:00 Water,Injection,Sterile 10 Ml Vial IJ 11/05/24 23:59 DIRECTED PRN Tranexamic Acid 1,300 mg 11/05/24 07:17 Tranexamic Acid 650 Mg Tab PO 12/05/24 07:16 ONCE PRN postoperative PFSH Active Problems Active Problems: Problem Status Onset Code History of total right knee replacement Acute 11/05/24 Z96.651 Arthritis of left glenohumeral joint Acute M19.012 Tendinitis of long head of biceps brachii of left shoulder Acute M75.22 Left rotator cuff tear Acute M75.102 Transaminitis Acute R74.01 Arm pain, left Acute M79.602 Acute ischemic right ICA stroke Acute I63.231 Iliotibial band syndrome affecting left lower leg Acute M76.32 Degenerative arthritis of carpometacarpal joint of thumb Acute M18.9 Gallbladder disease Acute K82.9 Hypertension, essential, benign Acute I10 Dizziness Acute R42 Lichen sclerosus et atrophicus of the vulva Acute N90.4 CAO (dyspnea on exertion) Acute R06.00 Medical History Medical History Peptic reflux esophagitis History of Helicobacter pylori infection Hernia of abdominal wall Herpes Iron deficiency anemia Vitamin D deficiency Osteopenia Joint pain Surgical History Surgical History History of repair of right rotator cuff H/O esophagogastroduodenoscopy (~04/27/20) section Tobacco Smoking/Tobacco Use Status: Never Alcohol Alcohol Intake: former Substance Use Substance use: Never Substance use type: does not use Vital Signs and Lab Results Vital Signs Most Recent Vital Signs in EMR: Most Recent Vital Signs Temp Pulse Resp BP Pulse Ox 36.5 C 63 14 124/101 H 95 11/05/24 11:24 11/05/24 11:24 11/05/24 11:24 11/05/24 11:24 11/05/24 11:24 Lab Results Complete Blood Count: WBC, (4.4-10.8) 5.32 10^3/uL 10/29/24, 15:20 RBC, (3.93-5.22) 4.32 10^6/uL 10/29/24, 15:20 Hgb, (11.2-15.7) 12.1 g/dL 10/29/24, 15:20 Hct, (36.0-46.0) 37.4 % 10/29/24, 15:20 Plt Count, (130-400) 202 10^3/uL 10/29/24, 15:20 Complete Metabolic Panel: Sodium, (136-145) 141 mmol/L 10/29/24, 15:20 Potassium, (3.5-5.1) 3.7 mmol/L 10/29/24, 15:20 Chloride, (98-107) 105 mmol/L 10/29/24, 15:20 Carbon Dioxide, (21.0-32.0) 27.7 mmol/L 10/29/24, 15:20 BUN, (7-18) 21 mg/dL H 10/29/24, 15:20 Creatinine, (0.55-1.02) 1.1 mg/dL H 10/29/24, 15:20 Est GFR (CKD-EPI 2020), (mL/min/1.73m2) 52.73 10/29/24, 15:20 Calcium, (8.5-10.1) 9.3 mg/dL 10/29/24, 15:20 Glucose, (74-106) 146 mg/dL H 10/29/24, 15:20 Imaging and Studies Imaging and Studies Study information below may be from another EMR and interpreted by another provider. Please see original notes in EMR for more complete details. EKG Summary: EKG PATIENT NAME: Yamel Hess UNIT #: [id number] ORDERING PROVIDER: Grady Adams M.D. PRIMARY CARE PROVIDER: UNKNOWN,UNKNOWN DATE/TIME OF SERVICE: 12/27/21 1214 : 1950 PERFORMING LOCATION: [place] APPROVED REPORT Exam: Resting ECG Reason for Exam: HIGH BP Patient Location: E HR:65 bpm ECG Measurements Heart Rate 65 AXIS VA 168 P 59 QRSd 88 QRS 26 QT 409 T56 QTc 426 Conclusion Sinus rhythm...normal P axis, V-rate 60- 99 Probable left atrial enlargement...P >50mS, <-0.10mV V1 sinus rhythm at 65, normal axis, no STEMI, nondiagnostic EKG <Electronically signed by GRADY ADAMS MD in [place]> E-Sign Date: 12/27/21 E-Sign Time: 1539 ADDENDUM APPROVED REPORT Exam: Resting ECG Reason for Exam: HIGH BP Patient Location: E HR:65 bpm ECG Measurements Heart Rate 65 AXIS VA 168 P 59 QRSd 88 QRS 26 QT 409 T56 QTc 426 Conclusion Sinus rhythm...normal P axis, V-rate 60- 99 Probable left atrial enlargement...P >50mS, <-0.10mV V1 sinus rhythm at 65, normal axis, no STEMI, nondiagnostic EKG I have reviewed and I agree with the emergency room physician's ECG interpretation. Electronically signed by: <Electronically signed by Tammy Garcia M.D. in [place]> 12/28/21 0919 Cosigned by: Echocardiogram Summary: Admission Date: 12/27/21 : 1950 Age: 71 APPROVED REPORT EXAM: Comprehensive 2D, Doppler, and color-flow Echocardiogram Patient Location: In-Patient Room/Bed: [facility] [employer] Production Operator: Michelle Zamuda, RDCS (AE) Indications: CVS Echo Enhancing Agent Indication: Rule out Shunt Agent(s) / Amount(s) Used: Agitated Saline 30.0 cc Comments: Contrast study was performed with 3 IV injections of 10ccs of agitated normal saline, at rest, with cough and post valsalva maneuver. Negative contrast study for shunt flow. Other Information Study Quality: Adequate Conclusion Normal left ventricular wall thickness and chamber size. Estimated ejection fraction is 59%. Wall motion is normal Right ventricle is not well visualized Both atria are normal in size No intracardiac shunting is identified with injection of agitated saline There are no structural valvular abnormalities Mild mitral regurgitation Estimated right ventricular systolic pressure is 32 mmHg Borderline dilated ascending aorta measuring 3.35 cm Anesthesia Assessment and Plan Anesthesia History Personal History: No History of Anesthesia Complications Family History: No Family History of Anesthesia Complications Exercise Tolerance Exercise Tolerance: Metabolic Equivalents>4 Pertinent Negatives Pertinent Negatives: No Symptoms of GERD and No Major Pulmonary Symptoms or Complaints Cardiac & Pulmonary Exam Cardiac Exam: Normal S1/S2 Heart Sounds Pulmonary Exam: Clear Bilateral Breath Sounds Implantable Cardiac Device Does patient have a Pacemaker or an ICD?: No Airway Exam Known Difficult Airway: No Mallampati Class: 3 Mouth Opening: Normal (> 3cm) Thyromental Distance: Greater than 3 cm Neck Range of Motion: Full ROM Neck Circumference: Normal Teeth Condition: Normal Dentition and Removable Dentures/Plates Upper (Removed and in belongings) ASA Classification ASA Score: ASA 3 Emergency Case?: No NPO Status NPO Status: NPO Clears >2 hours, Solids >8 hours Anesthesia Plan Resuscitation Status: Full Code Anesthesia Technique: Spinal Anesthesia Airway Planned: Natural Airway Pain Management: Surgeon and patient request nerve block Monitors Used: Standard Monitors Preoperative Comments:: Last Plavix one week ago
--- NOTE | 2024-11-05 12:35 | W.ANESNERVE ---
Nerve Block Single Injection Procedure Date and Time Date Performed: 11/05/24 Procedure Start: 11:44 Location Where Procedure Performed Procedure Location: Day Surgery Unit Reason Performed: Postoperative Analgesia Requesting Provider: Israel Arguello Timeout Performed Timeout Performed: Yes Monitoring Used ECG, Blood Pressure, SpO2 and See EMR for corresponding vital signs Sterility Sterility: Hand Hygiene, Surgical Cap, Surgical Mask, Sterile Gloves and Chlorhexidine Sedation Given During Procedure Sedation Given (Indicate Dose Given): Versed IV Dose:: 1 mg and Precedex IV Dose:: 4 mcg Patient Mental Status Patient Mental Status: Sedate with meaningful communication Nerve Block 1st Nerve Block: Laterality: Right Block Type: Adductor Canal Ultrasound Image Saved?: Yes Needle / Catheter Used: 100mm SonoPlex II Local Anesthetic Bolus (Indicate Dose Given): Injected in 3-5ml increments after negative blood aspiration, Bupivacaine 0.25% Dose:: 10 ml and Exparel Dose:: 10 ml Additives (Indicate Dose Given): None Ultrasound: Sterile probe cover and gel used Nerve Stimulator: Supplement to Ultrasound use and No twitch or parasthesia noted < 0.5 mA Paresthesia: None Procedure Tolerated: No Complications and Patient tolerated well Procedure Outcome: Successful Performed By: Krissy Crowe Supervised By: Isaiah Ribeiro 2nd Nerve Block: Laterality: Right Block Type: Other (Anterior femoral cutaneous nerves) Ultrasound Image Saved?: Yes Needle / Catheter Used: 100mm SonoPlex II Local Anesthetic Bolus (Indicate Dose Given): Injected in 3-5ml increments after negative blood aspiration and Bupivacaine 0.25% Dose:: 8 ml Additives (Indicate Dose Given): None Ultrasound: Sterile probe cover and gel used Nerve Stimulator: Supplement to Ultrasound use and No twitch or parasthesia noted < 0.5 mA Paresthesia: None Procedure Tolerated: No Complications and Patient tolerated well Procedure Outcome: Successful Performed By: Krissy Crowe Supervised By: Isaiah Ribeiro
--- NOTE | 2024-11-05 13:46 | ROE_ITS ---
Operative Note Operative Note PRE-OP DIAGNOSIS: Right Knee Osteoarthritis POST-OP DIAGNOSIS: same PROCEDURE: Right Total Knee Replacement SURGEON: Israel Arguello ARCH CUSHION PRESS OPERATOR: Tere Rodgers ANESTHESIA TYPE: Spinal Refer to Anesthesia Record ESTIMATED BLOOD LOSS: 100 PATHOLOGY: none sent TOURNIQUET TIME: 0 COMPLICATIONS: None Patient was transported to: PACU Patient's condition: stable Implants: 1. Depuy Attune Cementless Cruciate Retaining Femoral Component, Size 5 2. Depuy Attune Cementless Fixed Bearing Tibial Component, Size 4 3. Depuy Attune 5x6mm CR/FB Poly 4. Depuy Attune Patellar Component, Size 35mm Indications: I have seen Yamel in clinic for symptoms of knee arthritis, confirmed with radiographic findings. She has exhausted nonoperative methods and was having significant limitations in daily function and desired better function and less pain. I discussed the technical details of a knee replacement. I explained the risks of the procedure to include, but not limited to, bleeding, infection, pain, stiffness, fracture, damage to nerves and vessels, damage to muscles and tendons, loosening, need for repeat procedure, blood clot and cardiopulmonary demise. Despite these risks, Yamel elected to proceed. Findings: There was significant signs of arthritis throughout the knee. Procedure Description: Yamel was greeted in the preoperative holding area where the correct side was identified and marked. The consent was reviewed with the patient and signed. The history and physical was updated. All questions were answered. Preoperative medications were administered: Acetaminophen 1000mg, Celebrex 400mg, and Gabapentin 300mg. An adductor canal block was then administered by the anesthesia team in the D[facility]. She was taken back to the operating room. A spinal anesthestic was then administered. The patient was placed into the supine position on the operating room table. Posts were placed for positioning during the procedure. All bony prominences were well padded. Prophylactic antibiotics in the form of Cefazolin were administered. 1g of Tranxemic Acid was given intravenously within 30 minutes of incision. The right leg was then prepped with Chloraprep and draped in a standard fashion with impervious stockinette. A second prep with Chloraprep was performed prior to application of Iodine impregnated skin protection. A timeout to confirm correct identity, side and site, procedure, allergies, anesthesia, and medical concerns was performed. With the knee in some flexion, a midline incision was made overlying the knee. Full thickness skin flaps were raised once the extensor mechanism was encountered. These were raised medially and laterally. Any bleeding was controlled with electrocautery. Once the extensor mechanism was fully exposed, a medial parapatellar arthrotomy was performed in a flexed position. All bleeding from the arthrotomy and the geniculate arteries was coagulated. A medial subperiosteal peel was performed with electrocautery to the midcoronal plane. The fat pad was removed while keeping the patellar tendon protected. The anterior distal femur synovium was removed for later visualization. The ACL and PCL were resected and the anterior horn of the lateral meniscus was transected. The knee was then flexed with the patella everted. Large osteophytes from the tibia were removed. Large osteophytes from the femur were removed. Using a step drill, and based on preoperative templating, the femoral canal was entered. This was done with a step drill without any difficulty. The intramedullary distal femoral cut guide was inserted, set to a 5 degree valgus cut and 9mm cut thickness. The distal femoral cut guide was then held in position and pinned. With the soft tissues protected, the distal cut was performed. This was passed over a few times to ensure a planar cut. I then turned attention to the tibia. The extramedullary guide was placed onto the leg. The distal aspect was slid medial to adjust for position of center of ankle and stay in line with shaft of the tibia. Approximately 5 degrees of posterior slope was kept in the proximal cutting guide. The center of the guide was aligned with the PCL. The stylus was used to assess cut thickness. The medial side, most involved side, was set for a 5mm cut, corresponding to 9mm laterally. This was then held in position and pinned into place with 2 additional pins and a cross pin for stability. The medial and lateral collateral ligaments were protected and the cut was performed. With this completed, it was assessed and noted to be of appropriate dimensions. The guide was removed. A spacer block was inserted and the knee was brought into extension. The 6mm spacer block provided full extension, without hyperextension and with stability of both the medial and lateral collateral ligaments was assessed. The pins from the femur and the tibia were then removed. The distal femur was then sized. The anterior stylus was placed onto the lateral ridge of the anterior femur. This indicated a size 5 femur. The external rotation of the guide was adjusted to 5 degrees to match the epicondylar axis, perpendicular to Burak?s line. The 4-in-1 cutting guide was the placed. The posterior medial femur cut was evaluated and appeared of good thickness. The spacer block was inserted underneath the cutting guide and stability was confirmed in 90 degrees of flexion. An naty wing was used to confirm appropriate position of the anterior cut to avoid notching. This cutting guide was ensured to be flush on the cut surface and then pinned into place with headed pins. While protecting the soft tissues, quad tendon, and collateral ligaments, the anterior and posterior cuts were performed with a saw. The central two pins were removed and the posterior and anterior chamfers were cut next. The notch-cutting guide was placed. This was pinned to lateralize the femoral component as much as possible while keeping it flush on the cut surface. This w as then pinned into position. A reciprocating saw was used to make the notch cut. A rasp smoothed the cut surfaces. The medial and lateral menisci were removed. A trial femoral component was then inserted, impacted down to the cut surfaces, and the lug holes were drilled. A provisional trial tibial component was placed and the knee was brought through range of motion. There was noted to be excellent extension and flexion. There was no significant instability. The patella was tracking without thumbs. A size 6mm polyethylene component provided the best range of motion and stability with less than 2mm gapping with medial and lateral stress and full extension without significant hyperextension. The tibial cut surface was fully exposed. The tibia was then sized as a 4. The tibia had been previously marked during trialing to correspond to the center of the tibial component to help with rotation. The trial was aligned to this gold, approximately rotated to the medial 1/3rd of the tibial tubercle. The trial was pinned into place. The tibia was prepared with a reamer and a keel punch and lug holes. The knee was then brought into extension and the patella was measured as 22mm. Using the patellar clamp and cut guide, this was resected to a flat surface with at least 13mm of thickness remaining. The size 35mm patella fit the best. This was oriented and then clamped into position. The lugs were drilled. The trial components were removed. The final components were opened on the back table. The periosteal and capsular tissues, especially posteriorly, around the knee were then systematically injected with a periarticular cocktail consisting of 246mg of Ropivacaine, 0.5mg of Epinephrine, 0.08mg of Clonidine, and 30mg of Ketorolac, diluted to 100cc. On the back table, with the implants opened. The cement was mixed. One batch of high viscosity cement was prepared with vacuum assistance. After the cement was ready a small amount was placed on the cut surface of the patella and the patellar button was clamped into position and held. The cementless knee components were placed. Starting with the tibial component, the tibia was subluxed anteriorly and the lug holes of the component were lined up. The tibia was then impacted with an impactor and mallet until the tibial component was in contact with the tibia. Then, the femoral component was inserted. The lug holes were aligned and the component was impacted into position. The final polyethylene component was inserted. The knee was irrigated with Surgiphor Betadine solution. This was allowed to sit in the knee for 3 minutes and then it was irrigated out with saline. After the cement had finally cured, approximately 15min, the clamp was removed from the patella and the knee was taken through range of motion. The patella was tracking with a no-thumbs technique. A complete synovectomy was performed around the periphery of the patella. The capsule was then reapproximated with a No. 1 Vicryl at multiple locations. The capsule was finally closed with a No. 2 Stratafix, barbed suture. Deep tissues were then reapproximated with 0 Vicryl and 2-0 Vicryl. The skin was closed with a running 3-0 Monocryl in a subcuticular fashion. This was reinforced with skin glue. A Mepilex silver dressing was applied along with a [id number] YOBANY wrap. A CryoCuff was applied. Yamel was transferred to the hospital bed without difficulty an suffering no apparent complication. She has a good prognosis. Physical therapy will start today and without restrictions, weight-bearing as tolerated. Aspirin 81mg BID will be used for DVT prophylaxis. Date of Procedure: 11/05/24
[2024-11-05] MEDS: Tranexamic Acid 650 MG TAB 1300 MG PO (15:12)
[2024-11-05] MEDS: oxyCODONE 5 MG TAB PO (15:38)
--- NOTE | 2024-11-05 16:03 | W.ANESPOSTOP ---
Postoperative Evaluation Date, Time and Location Date Performed: 11/05/24 Time Performed: 15:40 Patient Location: Day Surgery Unit Vital Signs Most Recent Imported Vital Signs: Most Recent Vital Signs Temp Pulse Resp BP Pulse Ox 36.1 C L 55 L 14 185/87 H 98 11/05/24 15:05 11/05/24 15:05 11/05/24 15:05 11/05/24 15:05 11/05/24 15:05 Pain Score Most Recent Pain Score: Most Recent Pain Score Pain Level 0 11/05/24 15:05 Assessment Mental Status: Awake (Alert & Oriented to Patient Baseline) Airway and Respiratory Function: Patent airway with normal (patient baseline) respiratory exam Cardiovascular Function: Hemodynamically Stable Hydration Status: Adequately Hydrated Nausea & Vomiting: No Nausea or Vomiting Pain: Pain is Moderate or Severe Postoperative Pain Management: Pain being addressed with medication Peripheral Nerve Block: Regional nerve block not resolved at time of post operative discharge
--- NOTE | 2024-11-05 17:40 | IN_ITS ---
PT Notes Visit Reasons: Right knee DJD Physical Therapy Day Surgery Initial Evaluation Date: 11/05/2024 Referring Doctor: Tere Rodgers NP/Dr. Arguello PT Orders: PT CONSULT: Status post Ortho surgery Precautions: [] WBAT RLE Patient Profile/Admitting Diagnosis: Yamel is a 73-year-old female presenting status post elective right TKA by Dr. Arguello on 11/05/2024. Postop uncomplicated PMHX:History of total right knee replacement (Acute 11/05/24) Arthritis of left glenohumeral joint (Acute) s/p Left reverse total shoulder arthroplasty (constrained liner) with biceps tenodesis 03/22/24Tendinitis of long head of biceps brachii of left shoulder (Acute) Left rotator cuff tear (Acute) Transaminitis (Acute) Arm pain, left (Acute) Acute ischemic right ICA stroke (Acute) Iliotibial band syndrome affecting left lower leg (Acute) Degenerative arthritis of carpometacarpal joint of thumb (Acute) leftGallbladder disease (Acute) Hypertension, essential, benign (Acute) Dizziness (Acute) Lichen sclerosus et atrophicus of the vulva (Acute) CAO (dyspnea on exertion) (Acute) Medical History Peptic reflux esophagitis History of Helicobacter pylori infection Hernia of abdominal wall Herpes Iron deficiency anemia Vitamin D deficiency Osteopenia Joint pain Surgical History History of repair of right rotator cuff H/O esophagogastroduodenoscopy (~04/27/20) section Social History/Home Situation: Patient resides in single-family home with 5 steps to enter with bilateral rails. Patient independent ambulation and ADLs prior to surgery Equipment Owned/DME: [facility] Subjective: Patient reports she is just extremely tired and looking forward to going home Objective: [] General Observation: Patient presented asleep in chair with legs elevated Cryo/Cuff to right knee. Mental Status: Alert and oriented x 4, cooperative, able to follow instructions. Patient with slight impulsivity poor insight into unsafe situations/impaired safety awareness Pain: 4/10 right knee ROM: [] Right Upper Extremity: [] WFL Left Upper Extremity: WFL Right Lower Extremity: Hip and ankle within normal limits; knee -5?92 Left Lower Extremity: WFL Strength: [] BUE: 5/5 Right Lower Extremity: Hip flexion: 3 -/5; hip abduction: 2+/5; hip extension: 3 -/5; knee extension: 3 -/5; knee flexion: 2+/5 ankle DF: 3/5 ; ankle PF: 3/5; poor quad set positive lag during straight leg raise with shortened range. Patient attempts to compensate for lack of quad control with use of glutes and hamstring. Left Lower Extremity: 5/5 Sensation: Intact Bed Mobility/Transfers: Supine to sit CGA Sit to stand CGA cues for hand placement Stand to sit CGA with cues for hand placement Bed to chair CGA with FWW Gait: Ambulated with FWW contact-guard assist with 2 episodes of instability patient able to regain without external support. Patient ambulated 150 feet with reciprocal pattern reduced knee flexion on right during swing phase Stairs: 3 4 steps? and 2 6 steps with rails CGA with continuous cues for sequencing step to pattern Balance: [] Static Sitting: Normal Dynamic Sitting: Good Static Standing: Fair with upper extremity support Dynamic Standing: Fair minus with upper extremity support Special Tests: [] Mobility Limitations Standardized Measure [] [facility] AM-PAC 6 clicks Basic Mobility Inpatient Short Form: [] Raw Score: 19 CMS Score: 41.77% deficit Informed Consent/Education: Patient instructed in purpose of PT consult. Packet containing TKA exercise protocol has been given to patient. Education and training on initial set of exercises that can be done at home have been completed with patient. Assessment: Yamel demonstrates unsteadiness during ambulation and transfers with delayed balance reactions requiring contact-guard assist. Patient's son was instructed to provide contact-guard assist for all mobility with FWW upon discharge. Uncertain if this is related to medication use or fatigue. Son able to verbalize understanding of need to provide assistance upon discharge Patient is a 73-year-old female who presents with clinical signs and symptoms consistent with current/admitting diagnoses that have resulted to mobility limitations, gait instability, generalized weakness, and impairment of motor control as demonstrated by the following impairment level findings: 1. Decreased strength to right knee major muscle groups 2. Impaired standing balance 3. Limitation of joint range of motion in right knee 4. Pain in right knee 5. Impaired functional activity tolerance Impairments are contributing to the following functional limitations: 1. Inability to safely ambulate without assistive device 2. Increase completion time for mobility ADL performance 3. Increased fall risk 4. Decline in transfer skills 5. Difficulty performing stairs without assistance Patient is assessed as a low complexity based on the following: History: 73-year-old female with impairment level findings, functional limitations, and past medical history as indicated above Examination: Demonstrable impairment in strength, balance, and mobility level with underlying impairments and functional limitations as documented above Presentation: Stable/evolving Decision Making: Low Goals: N/A. PT evaluation and 1-2 treatment sessions only for functional mobility training using recommended AD and for HEP instruction. Plan of Care/Treatment Plan: N/A. PT evaluation and 1-2 treatment session only for functional mobility training using recommended AD and for HEP instruction. DISCHARGE RECOMMENDATIONS: Home with HEP and outpatient PT as scheduled TREATMENT CODE/TIME: [id number] Thank you for the opportunity to participate in the care of this patient. Kamila Hinds, PT [facility]
== END 2024-11-05 17:20 | disposition home or self-care (01) ==
LOC: SUR 10:10
PROVIDERS: PCP Nurse Practitioner Family; Visit Provider Student in an Organized Health Care Education/Training Program
PROC: (CPT 27447; principal; 2024-11-05 12:30)
DX: M17.11 Unilateral primary osteoarthritis, right knee (principal); G89.18 Other acute postprocedural pain
CPT/HCPCS: 27447; 64447; 64450; 97161; C1776; J0665; J0666; J0690; J1100; J2250; J2401; J2405; J2704

== ENCOUNTER 2024-11-18 11:52 | Outpatient (CLI) | payer MEDICARE, SELFPAY ==
--- NOTE | 2024-11-18 11:09 | DI.RAD_ITS ---
Exam(s) XR STANDING ALIGNMENT XR KNEE RT 1V EXAM: XR STANDING ALIGNMENT and XR knee RT 1 V CLINICAL HISTORY: 1ST POST OP S/P R TKA. TECHNIQUE: 2D digital imaging was performed. Five images were obtained. COMPARISON: CR XR STANDING ALIGNMENT from 09/30/2024 CR XR KNEE RT 1V from 09/30/2024 FINDINGS: BONES: The hips are well maintained. Since the prior examination there has been placement of a right total knee arthroplasty. The orthopedic hardware is in good position. There is no evidence of loosening. In the left knee, there is marked narrowing of the medial femoral tibial joint and osteophytes in the lateral femoral tibial joint. The ankles are well maintained.There is no significant leg length discrepancy. SOFT TISSUE: Normal. IMPRESSION: 1. Interval placement of a right total knee arthroplasty. 2. Moderate degenerative changes of the left knee. DATA REPOSITORY: RADIATION DOSE DELIVERED:
== END 2024-11-18 11:53 | disposition home or self-care (01) ==
LOC: DIORS 11:52
PROVIDERS: PCP Nurse Practitioner Family; Visit Provider Physician Assistant
DX: Z47.1 Aftercare following joint replacement surgery (principal); Z96.651 Presence of right artificial knee joint
CPT/HCPCS: 99024; 73560; 77073

== ENCOUNTER → 2024-12-16 10:44 | Outpatient (BNVA) | payer MEDICARE, SELFPAY | PROVIDERS: PCP Nurse Practitioner Family; Referring Provider Nurse Practitioner Family; Visit Provider Physician Assistant | DX: Z47.1 Aftercare following joint replacement surgery (principal); Z96.651 Presence of right artificial knee joint | CPT/HCPCS: 99024 ==

== ENCOUNTER 2025-01-07 13:49 | Outpatient (CLI) | payer MEDICARE, SELFPAY ==
--- NOTE | 2025-01-07 13:15 | DI.RAD_ITS ---
Exam(s) XR SHOULDER RT COMPLETE 2+V EXAM: XR SHOULDER RT COMPLETE 2+V CLINICAL HISTORY: RIGHT SHOULDER PAIN. TECHNIQUE: 2D digital imaging was performed. Two views. COMPARISON: CR XR SHOULDER RT COMPLETE 2+V from 07/16/2021 FINDINGS: BONES: No acute fracture is present. No bony destructive lesion is seen. Three orthopedic screws are noted in the greater tuberosity region, unchanged from prior. JOINTS: No dislocation present. The glenohumeral joint space is maintained. There is some spurring at the inferior humeral head and mild spurring at the margin of the glenoid. There postsurgical changes at the acromioclavicular joint. SOFT TISSUE: Normal. IMPRESSION: Stable postsurgical and degenerative changes. DATA REPOSITORY: RADIATION DOSE DELIVERED:
== END 2025-01-07 13:50 | disposition home or self-care (01) ==
LOC: DIORS 13:49
PROVIDERS: Visit Provider Student in an Organized Health Care Education/Training Program
DX: M19.011 Primary osteoarthritis, right shoulder (principal); M75.101 Unspecified rotator cuff tear or rupture of right shoulder, not specified as traumatic
CPT/HCPCS: 99213; 73030

== ENCOUNTER → 2025-01-27 12:54 | Outpatient (BNVA) | payer MEDICARE, SELFPAY | PROVIDERS: Referring Provider Nurse Practitioner Family; Visit Provider Student in an Organized Health Care Education/Training Program | DX: Z47.1 Aftercare following joint replacement surgery (principal); Z96.651 Presence of right artificial knee joint | CPT/HCPCS: 99024 ==